=== PATIENT | female | born 1935 | race Caucasian/White ===

== ENCOUNTER 2020-08-31 14:25 | Outpatient (REF) | payer MEDICARE, SELFPAY ==
--- NOTE | 2020-08-31 | MM_ITS ---
EXAMINATION: MM SCREENING DIGITAL BREAST TOMOSYNTHESIS, RIGHT CLINICAL INFORMATION: Left mastectomy 2016. Due for yearly exam. COMPARISON: Mammography: 04/24/2019, 04/15/2018, 04/02/2018, 03/28/2017 TECHNIQUE: Digital breast tomosynthesis is performed in both the craniocaudal and mediolateral oblique views along with computer-aided detection (CAD). Synthesized 2D images are generated from the tomosynthesis. Additional right MLO view is provided. FINDINGS: There are scattered areas of fibroglandular density (ACR BI-RADS breast composition Category b). There are no significant masses, abnormal calcifications, or other abnormalities. Right breast parenchymal pattern is similar to prior studies. There is no developing density. No significant changes. MM/MM tomosynthesis screening RT IMPRESSION: No mammographic evidence of malignancy. ASSESSMENT: BI-RADS 1: Negative RECOMMENDATION: Routine annual mammography screening. This patient's information was entered into a reminder system with a target due date for their next mammogram.
--- NOTE | 2020-08-31 | MM_ITS ---
EXAMINATION: BONE DENSITOMETRY CLINICAL INDICATION: Age-related osteoporosis without current pathological fracture. COMPARISON: Baseline BD dated 04/02/2018. TECHNIQUE: Using a [employer] DXA System (software version: 13.1) manufactured by [employer], dual-energy x-ray absorptiometry was performed of the lumbar spine and left hip. The images are of good technical quality. Summary results are attached. FINDINGS: AP SPINE L1-L2 (excluding L3 and L4): The data of L1-L4 has been changed to exclude the L3 and L4 vertebral bodies, because degenerative changes at these levels may cause overestimation of lumbar spine density. Current: BMD 1.105 g/cm2, Z-score 1.1, T-score -0.5, normal, 23.1% increase from baseline (<5% change is not significant). Baseline: BMD 0.898 g/cm2. LEFT FEMUR, NECK: Current: BMD 0.578 g/cm2, Z-score -1.2, T-score -3.3, osteoporosis. Baseline: BMD 0.709 g/cm2. LEFT FEMUR, TOTAL: Current: BMD 0.639 g/cm2, Z-score -1.0, T-score -2.9, osteoporosis, 15.8% decrease from baseline (<5% change is not significant). Baseline: BMD 0.759 g/cm2. IDENTIFIED RISK FACTORS: History of adult fracture. Rheumatoid arthritis. Osteoporosis. Recurrent falls. Height loss. Secondary osteoporosis (early menopause). HISTORY OF FRACTURE: Patella. MEDICATIONS: Calcium supplement and/or multivitamin. Vitamin D. ERT/SERMS. Bisphosphonates. MM/XR DEXA axial skeleton IMPRESSION: 1. DIAGNOSIS: Osteoporosis based on the lowest T-score value of -3.3 in the femoral neck applying World Health Organization criteria. 2. 10-YEAR FRACTURE RISK PREDICTION, FRAX: Major osteoporotic fracture (clinical spine, forearm, hip or shoulder) 45.4%. Hip fracture 21.8%. 3. Treatment Recommendations: NOF guidelines recommend consideration for treatment in postmenopausal women and men age 50 and older presenting with the following: -A hip or vertebral (clinical or morphometric) fracture. -T-score less than or equal to -2.5 at the femoral neck or spine after appropriate evaluation to exclude secondary causes. -Low bone mass at the hip or spine and a 10-year fracture probability by FRAX of greater than or equal to 3% for hip fracture or greater than or equal to 20% for major osteoporotic fracture based on the [place] adapted WHO algorithm. 4. Other Recommendations: All treatment decisions require clinical judgment and consideration of individual patient factors, including patient preferences, comorbidities, previous drug use, risk factors not captured in the FRAX model (e.g. frailty, falls, vitamin D deficiency, increased bone turnover, interval significant decline in bone density) and possible under or overestimation of fracture risk by FRAX. Additional medical evaluation for secondary cause of low bone mineral density may be appropriate. FUTURE SCAN RECOMMENDATION: People with diagnosed cases of osteoporosis or at high risk for fracture should have regular bone mineral density tests. For patients eligible for Medicare, routine testing is allowed once every 2 years. The testing frequency can be increased to one year for patients who have rapidly progressing disease, those who are receiving or discontinuing medical therapy to restore bone mass, or have additional risk factors.
== END 2020-08-31 14:26 | disposition home or self-care (01) ==
LOC: HO.MAMMO 14:25
PROVIDERS: Visit Provider Internal Medicine Rheumatology
DX: Z12.31 Encounter for screening mammogram for malignant neoplasm of breast (principal); Z13.820 Encounter for screening for osteoporosis; M81.0 Age-related osteoporosis without current pathological fracture; M06.9 Rheumatoid arthritis, unspecified; Z78.0 Asymptomatic menopausal state; Z87.81 Personal history of (healed) traumatic fracture; Z79.899 Other long term (current) drug therapy
CPT/HCPCS: 77067; 77080

== ENCOUNTER 2021-02-15 20:33 | Inpatient (IN) | payer MEDICARE, SELFPAY ==
--- NOTE | ~2021-02-15 | XR_ITS ---
EXAMINATION: XR CHEST CLINICAL INFORMATION: Cough COMPARISON: 08/07/2017 TECHNIQUE: Frontal view of the chest was obtained. FINDINGS: No significant abnormality is noted involving the heart, lungs, mediastinum, bony thorax or soft tissues. The aorta is unfolded and degenerative changes are present in both shoulders. XR/XR chest 1V IMPRESSION: No acute intrathoracic disease.
--- NOTE | ~2021-02-15 | CT_ITS ---
EXAMINATION: CT ABDOMEN AND PELVIS WITH CONTRAST CLINICAL INFORMATION: Left lower quadrant pain. COMPARISON: 02/28/2016. TECHNIQUE: Contiguous axial thin section helical images of the abdomen and pelvis were performed following the administration of 85 mL of intravenous Omnipaque 350. The data set was reformatted in the coronal and sagittal planes and reviewed on an independent workstation. DLP: 595 mGy-cm. FINDINGS: There is stable linear atelectasis at the lateral right lung base. The visualized lung bases are otherwise clear. The visualized portions of the heart are unremarkable. The liver is of normal size and attenuation without focal lesions nor intrahepatic biliary ductal dilation. A normal gallbladder is identified. There is no wall thickening or discernible pericholecystic fluid. The spleen, pancreas, adrenal glands are unremarkable. Both kidneys are of normal size and attenuation without hydronephrosis or nephrolithiasis. Following the administration of IV contrast, prompt symmetric nephrograms are displayed. There is no abdominal free fluid. There is neither mesenteric nor retroperitoneal lymphadenopathy. There are numerous dilated loops of small bowel with several air-fluid levels. There is a bowel and fat-containing ventral hernia in the left lower quadrant. The hernia appears to only contain colon, though there are decompressed loops of distal small bowel just proximal to this location likely indicating that the small bowel obstruction occurs at this location. No dilated loops of large bowel are present. There is no pelvic free fluid. The urinary bladder is unremarkable. There is neither pelvic nor inguinal lymphadenopathy. Bone windows: Neither sclerotic nor lytic bone lesions are identified. There is a compression fracture at T12. This is age indeterminant, though new from the [address]/CT abdomen pelvis w con IMPRESSION: Distal small bowel obstruction likely related to the fat and bowel containing left lower quadrant ventral hernia. Automated exposure control (Care Dose) Adjustment of the mA and/or kv according to patient size (this includes techniques or standardized protocols for targeted exams where dose is matched to indication / reason for exam; i.e. extremities or head).
--- NOTE | ~2021-02-15 | XR_ITS ---
EXAMINATION: CHEST 1 VIEW CLINICAL INFORMATION: Enteric tube placement. COMPARISON: 02/15/2021. TECHNIQUE: An AP view of the chest is provided. FINDINGS: The cardiac silhouette is not enlarged. An enteric tube is in place. The tip extends below the extent of this film. The mediastinal and hilar contours are unremarkable. There are neither pleural effusions nor pneumothoraces. There are no consolidations. The osseous structures are stable. XR/XR chest 1V IMPRESSION: Enteric tube in place. No evidence for acute disease.
[2021-02-15 20:46] VITALS: BP 154/83; BP 172/93; PULSE 83; RESP 18; TEMP 37.1; O2SAT 98; BMI 29.2
[2021-02-15 21:01] VITALS: BP 149/68; PULSE 69; RESP 14; O2SAT 97
--- NOTE | 2021-02-15 22:19 | ECG_ITS ---
Test Reason : ABD PAIN Blood Pressure : / mmHG Vent. Rate : 081 BPM Atrial Rate : 081 BPM P-R Int : 156 ms QRS Dur : 088 ms QT Int : 386 ms P-R-T Axes : 052 049 091 degrees QTc Int : 448 ms Normal sinus rhythm ST & T wave abnormality, consider anterolateral ischemia Abnormal ECG When compared with ECG of 18-DEC-2015 00:27, T wave inversion now evident in Anterolateral leads Referred By: Rehana Barth Electronically Signed By:IVORY MCKOY
--- NOTE | 2021-02-15 22:29 | ED.NAVMDI ---
HPI - Nausea/Vomiting/Diarrhea General Chief complaint: Nausea/Vomiting/Diarrhea Stated complaint: N/V Time Seen by Provider: 02/15/21 22:19 Source: patient and family (Daughter) Mode of arrival: ambulatory History of Present Illness HPI Narrative: This is an 85-year-old female with past medical history of rheumatoid arthritis and presents with onset of nausea and vomiting since Sunday without associated fevers, chills, cough, shortness of breath, chest pain. She denies any diarrhea and has not had a bowel movement since that time and denies any urinary pain/burning/frequency. She states she has continued to pass gas. Patient does have a known abdominal wall hernia. Patient has received both COVID-19 vaccines. Related Data Home Medications Medication Instructions Recorded Confirmed escitalopram oxalate 1 tab PO DAILY 01/21/21 01/21/21 gabapentin 1 cap PO DAILY 01/21/21 01/21/21 lorazepam 1 tab PO BEDTIME PRN 01/21/21 01/21/21 meloxicam 1 tab PO DAILY 01/21/21 01/21/21 methotrexate sodium (PF) 25 mg IM QWEEK 01/21/21 01/21/21 tamoxifen 1 tab PO DAILY 01/21/21 01/21/21 Allergies Allergy/AdvReac Type Severity Reaction Status Date / Time No Known Allergies Allergy Verified 01/21/21 13:44 [No Known Allergies*] Review of Systems Review of Systems: Pertinent positives and negatives as stated in HPI 10 point review of systems otherwise negative. [facility] Past Medical History Source: nursing notes reviewed Medical History Abdominal hernia Anosmia Anxiety Breast cancer Osteoporosis Rheumatoid arteritis Surgical History History of appendectomy S/P mastectomy Family History Family History Other No significant family history Social History Social History Alcohol intake: never Smoking Status: Former smoker Tobacco Type: Cigarette Advance Directives: No Advance Directives Information Provided: Yes Physical Exam Vital Signs: Vital Signs: Last Vital Signs Temp 99.4 F 02/16/21 02:20 Pulse 83 02/16/21 02:20 Resp 16 02/16/21 02:20 BP 142/77 H 02/16/21 02:20 Pulse Ox 94 02/16/21 02:20 Body Mass Index 29.2 VITAL SIGNS: Reviewed. GENERAL: Well developed, well nourished, mild distress. HEAD: Normocephalic/atraumatic, EYES: PERRLA, EOMI OROPHARYNX: no oral lesions noted, posterior pharynx clear, dry mucosa NECK: Supple, no adenopathy LUNGS: Normal breath sounds. No adventitious sounds or accessory muscle use. SpO2<97> CARDIOVASCULAR: Regular rate and rhythm without noted murmurs ABDOMEN: Soft, minimal tenderness at the left lower quadrant difficulty palpating hernia, distended with hypoactive bowel sounds. NEUROLOGIC: Alert and oriented x 4. Strength and sensation to light touch were grossly intact x 4. Course Course Course Narrative: 85-year-old female with history and clinical presentation suspicious for SBO and less likely diverticulitis or UTI. Review of all investigations consistent with SBO and mild dehydration. Serial troponins down trending. I discussed with Cardiology feels this is likely type 2. Discussed the case with surgical services, Dr. Meeks, who agrees for admission and conservative treatment. MDM - Nausea/Vomiting/Diarrhea Lab Data Result diagrams: 02/15/21 22:49 02/15/21 22:49 Labs: Lab Results 02/15/21 02/15/21 02/15/21 Range/Units 22:49 22:49 22:49 WBC 14.2 H (4.8-10.8) X10*3/uL RBC 4.04 L D (4.20-5.50) X10*6/uL Hgb 13.3 D (12.0-16.0) g/dl Hct 38.7 (37-47) % MCV 95.8 (80-98) fL MCH 32.9 (27.0-33.0) pg MCHC 34.4 (31.0-35.0) g/dl RDW 13.4 (11.0-16.0) % Plt Count 225 (160-400) X10*3/uL MPV 9.9 (9.4-12.3) fL Immature Gran % (Auto) 0.6 H (0.0-0.4) % Neut % (Auto) 83.4 H (45-73) % Lymph % (Auto) 10.3 L (20-40) % [place] % (Auto) 5.6 (2-11) % Eos % (Auto) 0.0 (0-4) % Baso % (Auto) 0.1 (0-2) % Lymph # (Auto) 1.5 (1.2-4.9) X10*3/uL [place] # (Auto) 0.8 (0.1-1.2) X10*3/uL Eos # (Auto) 0.0 (0.0-0.4) X10*3/uL Baso # (Auto) 0.0 (0.0-0.2) X10*3/uL Abs Immat Gran (auto) 0.08 H (0.00-0.03) X10*3/uL Absolute Neuts (auto) 11.8 H (2.0-8.3) X10*3/uL Absolute Nucleated RBC 0.000 (0.0-0.012) X10*3/uL Nucleated RBC % (auto) 0.0 (0.0-0.2) /100WBC Sodium 137 (135-145) mmol/L Potassium 3.9 D (3.3-5.1) mmol/L Chloride 93 L (96-108) mmol/L Carbon Dioxide 28 (22-29) mmol/L Anion Gap 20 (12-20) BUN 32 H (9-16) mg/dL Creatinine 1.23 (0.5-1.4) mg/dL Estim Creat Clear Calc 33.6 Estimated GFR 42 Random Glucose 119 H (60-115) mg/dL Lactic Acid (0.5-2.0) mmol/L Calcium 10.2 D (8.4-10.2) mg/dL Total Bilirubin 0.8 (0.0-1.0) mg/dL AST 53 H (5-31) U/L ALT 31 (0-31) U/L Alkaline Phosphatase 62 D (39-117) U/L Troponin I High Sens 94.4 H (<3.5-17.0) ng/L B-Natriuretic Peptide 69 (<100) pg/mL Total Protein 7.6 (6.5-8.0) g/dL Albumin 4.4 (3.5-5.0) g/dL Lipase 105 H (8-78) U/L Urine Color Urine Appearance Urine pH (5.0-8.0) Ur Specific [place] (1.005-1.025) Urine Protein (NEG-TRACE) MG/DL Urine Glucose (UA) (NEG) MG/DL Urine Ketones (NEG) MG/DL Urine Blood (NEG) Urine Nitrite (NEG) Ur Leukocyte Esterase (NEG) Urine RBC (0) /HPF Urine WBC (0-4) /HPF Ur Squamous Epith Cells /LPF Amorphous Sediment /LPF Urine Bacteria /LPF COVID-19 (ADELINE) (Negative) COVID-19 Clin Com 02/16/21 02/16/21 02/16/21 Range/Units 00:19 00:19 02:07 WBC (4.8-10.8) X10*3/uL RBC (4.20-5.50) X10*6/uL Hgb (12.0-16.0) g/dl Hct (37-47) % MCV (80-98) fL MCH (27.0-33.0) pg MCHC (31.0-35.0) g/dl RDW (11.0-16.0) % Plt Count (160-400) X10*3/uL MPV (9.4-12.3) fL Immature Gran % (Auto) (0.0-0.4) % Neut % (Auto) (45-73) % Lymph % (Auto) (20-40) % [place] % (Auto) (2-11) % Eos % (Auto) (0-4) % Baso % (Auto) (0-2) % Lymph # (Auto) (1.2-4.9) X10*3/uL [place] # (Auto) (0.1-1.2) X10*3/uL Eos # (Auto) (0.0-0.4) X10*3/uL Baso # (Auto) (0.0-0.2) X10*3/uL Abs Immat Gran (auto) (0.00-0.03) X10*3/uL Absolute Neuts (auto) (2.0-8.3) X10*3/uL Absolute Nucleated RBC (0.0-0.012) X10*3/uL Nucleated RBC % (auto) (0.0-0.2) /100WBC Sodium (135-145) mmol/L Potassium (3.3-5.1) mmol/L Chloride (96-108) mmol/L Carbon Dioxide (22-29) mmol/L Anion Gap (12-20) BUN (9-16) mg/dL Creatinine (0.5-1.4) mg/dL Estim Creat Clear Calc Estimated GFR Random Glucose (60-115) mg/dL Lactic Acid 1.4 (0.5-2.0) mmol/L Calcium (8.4-10.2) mg/dL Total Bilirubin (0.0-1.0) mg/dL AST (5-31) U/L ALT (0-31) U/L Alkaline Phosphatase (39-117) U/L Troponin I High Sens 86.6 H (<3.5-17.0) ng/L B-Natriuretic Peptide (<100) pg/mL Total Protein (6.5-8.0) g/dL Albumin (3.5-5.0) g/dL Lipase (8-78) U/L Urine Color YELLOW Urine Appearance CLOUDY Urine pH 7.5 (5.0-8.0) Ur Specific [place] 1.020 (1.005-1.025) Urine Protein NEG (NEG-TRACE) MG/DL Urine Glucose (UA) NEG (NEG) MG/DL Urine Ketones 40 (NEG) MG/DL Urine Blood TRACE (NEG) Urine Nitrite NEG (NEG) Ur Leukocyte Esterase NEG (NEG) Urine RBC 0-2 (0) /HPF Urine WBC 0-2 (0-4) /HPF Ur Squamous Epith Cells 1+ /LPF Amorphous Sediment 2+ /LPF Urine Bacteria 1+ /LPF COVID-19 ([facility]INE) (Negative) COVID-19 Clin Com 02/16/21 Range/Units 02:07 WBC (4.8-10.8) X10*3/uL RBC (4.20-5.50) X10*6/uL Hgb (12.0-16.0) g/dl Hct (37-47) % MCV (80-98) fL MCH (27.0-33.0) pg MCHC (31.0-35.0) g/dl RDW (11.0-16.0) % Plt Count (160-400) X10*3/uL MPV (9.4-12.3) fL Immature Gran % (Auto) (0.0-0.4) % Neut % (Auto) (45-73) % Lymph % (Auto) (20-40) % [place] % (Auto) (2-11) % Eos % (Auto) (0-4) % Baso % (Auto) (0-2) % Lymph # (Auto) (1.2-4.9) X10*3/uL [place] # (Auto) (0.1-1.2) X10*3/uL Eos # (Auto) (0.0-0.4) X10*3/uL Baso # (Auto) (0.0-0.2) X10*3/uL Abs Immat Gran (auto) (0.00-0.03) X10*3/uL Absolute Neuts (auto) (2.0-8.3) X10*3/uL Absolute Nucleated RBC (0.0-0.012) X10*3/uL Nucleated RBC % (auto) (0.0-0.2) /100WBC Sodium (135-145) mmol/L Potassium (3.3-5.1) mmol/L Chloride (96-108) mmol/L Carbon Dioxide (22-29) mmol/L Anion Gap (12-20) BUN (9-16) mg/dL Creatinine (0.5-1.4) mg/dL Estim Creat Clear Calc Estimated GFR Random Glucose (60-115) mg/dL Lactic Acid (0.5-2.0) mmol/L Calcium (8.4-10.2) mg/dL Total Bilirubin (0.0-1.0) mg/dL AST (5-31) U/L ALT (0-31) U/L Alkaline Phosphatase (39-117) U/L Troponin I High Sens (<3.5-17.0) ng/L B-Natriuretic Peptide (<100) pg/mL Total Protein (6.5-8.0) g/dL Albumin (3.5-5.0) g/dL Lipase (8-78) U/L Urine Color Urine Appearance Urine pH (5.0-8.0) Ur Specific [place] (1.005-1.025) Urine Protein (NEG-TRACE) MG/DL Urine Glucose (UA) (NEG) MG/DL Urine Ketones (NEG) MG/DL Urine Blood (NEG) Urine Nitrite (NEG) Ur Leukocyte Esterase (NEG) Urine RBC (0) /HPF Urine WBC (0-4) /HPF Ur Squamous Epith Cells /LPF Amorphous Sediment /LPF Urine Bacteria /LPF COVID-19 ([facility]) Negative (Negative) COVID-19 Clin Com See Note ECG Data Attestation: I personally reviewed and interpreted this ECG as follows: Prior ECG tracings: available for review (12/18/2015 changes: T-wave inversions noted in V2/V3/V4 as well as Q-waves in lead 3 (may be position related)) Interpretation: Sinus rhythm, HR -81, questionable anterolateral ischemia without STEMI, NC/QRS/QTC are within normal limits. Discharge Plan Discharge Clinical Impression: SBO (small bowel obstruction), Elevated troponin Patient Disposition: Admitted As Inpatient
[2021-02-15 22:41] VITALS: BP 163/82; PULSE 84; RESP 18; TEMP 38; O2SAT 97
[2021-02-15] MEDS: ondansetron HCL 4 MG/2 ML VIAL IVPUSH (22:50)
[2021-02-15 23:01] LABS: Basophils Percent Auto 0.1 % (0-2); Hematocrit 38.7 % (37-47); Hemoglobin 13.3 g/dl (12.0-16.0); Imm Gran Abs Auto 0.08 X10*3/uL (0.00-0.03); Imm Gran Pct Auto 0.6 % (0.0-0.4); Lymphocytes Absolute Auto 1.5 X10*3/uL (1.2-4.9); Lymphocytes Percent Auto 10.3 % (20-40); MANUAL DIFF FLAG NO; Mean Corpuscular HGB Conc 34.4 g/dl (31.0-35.0); Mean Corpuscular Hemoglobin 32.9 pg (27.0-33.0); Mean Corpuscular Volume 95.8 fL (80-98); Mean Platelet Volume 9.9 fL (9.4-12.3); Monocytes Absolute Auto 0.8 X10*3/uL (0.1-1.2); Monocytes Percent Auto 5.6 % (2-11); Neutrophils Absolute Auto 11.8 X10*3/uL (2.0-8.3); Neutrophils Percent Auto 83.4 % (45-73); Platelet Count 225 X10*3/uL (160-400); Red Blood Count 4.04 X10*6/uL (4.20-5.50); Red Cell Distribution Width 13.4 % (11.0-16.0); White Blood Count 14.2 X10*3/uL (4.8-10.8)
[2021-02-15] MEDS: Acetaminophen 325 MG TABLET 975 MG PO (23:22)
[2021-02-15 23:43] LABS: Alanine Aminotransferase 31 U/L (0-31); Albumin Level 4.4 g/dL (3.5-5.0); Alkaline Phosphatase 62 U/L (39-117); Anion Gap 20 (12-20); Aspartate Amino Transferase 53 U/L (5-31); Bilirubin Total 0.8 mg/dL (0.0-1.0); Blood Urea Nitrogen 32 mg/dL (9-16); Calcium 10.2 mg/dL (8.4-10.2); Carbon Dioxide 28 mmol/L (22-29); Chloride 93 mmol/L (96-108); Creatinine Clr Calc Pharmacy 33.6; Estimated Glomerular Filt Rate 42; Glucose Random 119 mg/dL (60-115); Potassium 3.9 mmol/L (3.3-5.1); Sodium 137 mmol/L (135-145); Total Protein 7.6 g/dL (6.5-8.0)
[2021-02-15 23:56] LABS: Lipase 105 U/L (8-78)
[2021-02-16] VITALS (9 sets, daily range): BP systolic 120–145; BP diastolic 60–77; PULSE 65–84; RESP 12–18; TEMP 37.1–37.4; O2SAT 94–99
--- NOTE | 2021-02-16 00:08 | PC.NURSE ---
PT received tylenol PO. Vomited med with approximately 1000 mL of bile fluid 15 minutes later.
[2021-02-16 00:23] LABS: B Type Natriuretic Peptide 69 pg/mL (<100)
[2021-02-16 00:28] LABS: Glucose Urine UA NEG (NEG); Leukocyte Esterase Urine NEG (NEG); Nitrite Urine NEG (NEG); PH 7.5 (5.0-8.0); Urine Blood TRACE (NEG); Urine Ketones 40 MG/DL (NEG); Urine Protein NEG (NEG-TRACE)
[2021-02-16 00:36] LABS: Appearance Urine CLOUDY; Color Urine YELLOW
[2021-02-16 00:37] LABS: Amorphous Sediment Urine 2+ /LPF; Bacteria Urine 1+ /LPF; RBC Urine 0-2 /HPF (0); Squamous Epithelial Cell Urine 1+ /LPF; WBC Urine 0-2 /HPF (0-4)
[2021-02-16 00:41] LABS: Troponin-I High Sensitivity 94.4 ng/L (<3.5-17.0)
[2021-02-16 00:49] LABS: Lactic Acid 1.4 mmol/L (0.5-2.0)
[2021-02-16] MEDS: iohexoL 350 MG/ML 100 ML INFUS..BTL 85 ML IV (01:06)
[2021-02-16] MEDS: 0.9 % Sodium Chloride 1,000 ML 999 ML IV (01:44)
[2021-02-16] MEDS: cefTRIAXone sodium 1 GM in 0.9 % Sodium Chloride 50 ML IV (01:44)
[2021-02-16 02:28] LABS: COVID-19 Test Negative (Negative); IDNOW Serial# 9DD0AD1C
--- NOTE | 2021-02-16 03:01 | ECG_ITS ---
Test Reason : REPEAT Blood Pressure : / mmHG Vent. Rate : 085 BPM Atrial Rate : 085 BPM P-R Int : 162 ms QRS Dur : 084 ms QT Int : 384 ms P-R-T Axes : 037 033 100 degrees QTc Int : 456 ms Normal sinus rhythm Moderate voltage criteria for LVH, may be normal variant ST & T wave abnormality, consider anterior ischemia Abnormal ECG When compared with ECG of 15-FEB-2021 22:55, No significant change was found Referred By: Rehana Barth Electronically Signed By:IVORY MCKOY
[2021-02-16 03:02] LABS: Troponin-I High Sensitivity 86.6 ng/L (<3.5-17.0)
[2021-02-16] MEDS: Dextrose 5 % and Lactated Ring 1,000 ML 100 ML IVCONT ×2 (05:15→15:18)
--- NOTE | 2021-02-16 06:31 | PC.NURSE ---
This nurse entered PT room and noticed blood moving through the PT's NG suction tube. Provider made aware and came in to see the PT.
[2021-02-16 07:19] LABS: Glucose Urine UA NEG (NEG); Leukocyte Esterase Urine NEG (NEG); Nitrite Urine NEG (NEG); PH 6.5 (5.0-8.0); Specific Gravity - Urine <= 1.005 (1.005-1.025); Urine Blood TRACE (NEG); Urine Ketones 15 MG/DL (NEG); Urine Protein NEG (NEG-TRACE)
[2021-02-16 07:24] LABS: Appearance Urine CLEAR; Color Urine YELLOW
[2021-02-16 07:31] LABS: RBC Urine 0-2 /HPF (0); Squamous Epithelial Cell Urine TRACE /LPF; WBC Urine 0 /HPF (0-4)
--- NOTE | 2021-02-16 07:45 | PC.NURSE ---
resting in bed. Denies pain. NG draining blood tinged drnge.
[2021-02-16] MEDS: Heparin Sodium,Porcine 5,000 UNIT/ML VIAL 5000 UNIT SUBCUT ×2 (07:47→16:23)
[2021-02-16] MEDS: Famotidine/PF 20 MG/2 ML VIAL IVPUSH ×2 (10:16→20:03)
--- NOTE | 2021-02-16 11:40 | PM.CNCAR ---
History of Present Illness History of Present Illness Date of Service: 02/16/21 Consult reason: troponin elevation Chief complaint: Small bowel obstruction, elevated troponin Narrative: This is a cardiology consultation regarding troponin elevation. She actually came to the hospital with nausea vomiting. She has been diagnosed to have small-bowel obstruction and admitted for the same. From the cardiac standpoint, she had elevated troponins. Hence we have been asked to see her. Patient denies any chest pain or any other cardiac symptoms at this time. She does not have any history of coronary disease or myocardial infarction or cardiomyopathy. States that she has been doing okay otherwise. Based on records, seems to have history of rheumatoid arthritis and breast cancer for which, she had undergone mastectomy. Review of Systems Review of Systems: Yes all other systems are reviewed and are negative Cardiovascular: Cardiovascular: Reports as per HPI, Reports no additional cardiovascular complaints, Denies acrocyanosis, Denies cool extremities, Denies painful fingertips, Denies chest pain, Denies chest pain at rest, Denies diaphoresis, Denies syncope, Denies irregular heart rhythm, Denies claudication, Denies leg edema, Denies lightheadedness, Denies palpitations and Denies dyspnea Respiratory: Respiratory: Denies dyspnea Neurologic: Denies syncope Endocrine: Endocrine: Denies palpitations PMFSH Past Medical History Medical History Abdominal hernia Anosmia Anxiety Breast cancer Osteoporosis Rheumatoid arteritis Family History Family History Other No significant family history Surgical History Surgical History History of appendectomy S/P mastectomy Social History Social History Alcohol intake: never Smoking Status: Never smoker Tobacco Type: Cigarette Use of substances other than those prescribed or required for medical reasons: No Advance Directives: No Advance Directives Information Provided: Yes Meds Allergies Allergy/AdvReac Type Severity Reaction Status Date / Time No Known Allergies Allergy Verified 01/21/21 13:44 [No Known Allergies*] Active Medications: Current Medications Generic Name Dose Route Start Last Admin Trade Name Freq PRN Reason Stop Dose Admin Escitalopram Oxalate 10 mg 02/16/21 09:00 Escitalopram Oxalate 10 Mg Tablet PO DAILY MANI Famotidine 20 mg 02/16/21 06:50 02/16/21 10:16 Famotidine/Pf 20 Mg/2 Ml Vial IVPUSH 20 mg BID MANI Administration Gabapentin 300 mg 02/16/21 09:00 Gabapentin 300 Mg Capsule PO DAILY [facility] Heparin Sodium (Porcine) 5,000 unit 02/16/21 06:00 02/16/21 07:47 Heparin Sodium,Porcine 5,000 Unit/Ml Vial SUBCUT 5,000 unit Q12H MANI Administration Dextrose/Lactated Ringer's 1,000 mls @ 100 mls/hr 02/16/21 03:40 02/16/21 05:15 D5lr IVCONT 100 mls/hr .Q10H MANI Administration Lorazepam 0.5 mg 02/16/21 06:45 Lorazepam 0.5 Mg Tablet PO BEDTIME PRN Anxiety Morphine Sulfate 2 mg 02/16/21 03:40 Morphine Sulfate 2 Mg/Ml Cartridge IVPUSH Q3H PRN Pain, Severe (Pain Scale 7-10) Ondansetron HCl 4 mg 02/16/21 03:40 Ondansetron Hcl 4 Mg/2 Ml Vial IVPUSH Q8H PRN nausea Sodium Chloride 3 ml 02/16/21 08:00 02/16/21 09:08 0.9 % Sodium Chloride Flush 3 Ml Syringe IVFLUSH Not Given QSHIFT [facility] Home Medications Medication Instructions Recorded Confirmed Last Taken Type escitalopram oxalate 1 tab PO DAILY 01/21/21 02/16/21 Unknown History gabapentin 1 cap PO DAILY 01/21/21 02/16/21 Unknown History lorazepam 1 tab PO BEDTIME PRN 01/21/21 02/16/21 Unknown History meloxicam 1 tab PO DAILY 01/21/21 02/16/21 Unknown History methotrexate sodium (PF) 25 mg IM QWEEK 01/21/21 02/16/21 Unknown History tamoxifen 1 tab PO DAILY 01/21/21 02/16/21 Unknown History omeprazole 1 cap PO BID 02/16/21 02/16/21 Unknown History ondansetron HCl 1 tab PO Q8H PRN 02/16/21 02/16/21 Unknown History Physical Exam Vital Signs: Vital Signs: Last Vital Signs Temp 99.1 F 02/16/21 07:06 Pulse 80 02/16/21 07:44 Resp 12 02/16/21 07:44 BP 126/67 02/16/21 07:44 Pulse Ox 96 02/16/21 07:44 Body Mass Index 29.2 Const: General: cooperative, comfortable and no acute distress Orientation/consciousness: patient oriented x3 HENMT: Other: Unremarkable Neck: Neck: Yes normal visual inspection Chest: Chest palpation & inspection: normal inspection of the chest Resp: Auscultation: clear to auscultation bilaterally, no crackles and no wheezes Cardio: Jugular venous distension: no JVD Palpation: normal PMI Heart sounds: S1 normal heart sound present, S2 normal heart sound present, no gallops, no murmurs and no rubs GI: Palpation (GI): Soft to palpation Back/Spine/Pelvis: Other: unremarkable Skin: General skin exam: no rashes or lesions noted Neuro: General: patient oriented x3 Extrem: General: Yes no clubbing, cyanosis or edema Psych: Mental Status: mental status grossly normal Results Labs and Meds Result diagrams: 02/15/21 22:49 02/15/21 22:49 Lab results: Laboratory Results - last 24 hr 02/15/21 02/15/21 02/15/21 22:49 22:49 22:49 WBC 14.2 H RBC 4.04 L D Hgb 13.3 D Hct 38.7 MCV 95.8 MCH 32.9 MCHC 34.4 RDW 13.4 Plt Count 225 MPV 9.9 Immature Gran % (Auto) 0.6 H Neut % (Auto) 83.4 H Lymph % (Auto) 10.3 L [place] % (Auto) 5.6 Eos % (Auto) 0.0 Baso % (Auto) 0.1 Lymph # (Auto) 1.5 [place] # (Auto) 0.8 Eos # (Auto) 0.0 Baso # (Auto) 0.0 Abs Immat Gran (auto) 0.08 H Absolute Neuts (auto) 11.8 H Absolute Nucleated RBC 0.000 Nucleated RBC % (auto) 0.0 Sodium 137 Potassium 3.9 D Chloride 93 L Carbon Dioxide 28 Anion Gap 20 BUN 32 H Creatinine 1.23 Estim Creat Clear Calc 33.6 Estimated GFR 42 Random Glucose 119 H Lactic Acid Calcium 10.2 D Total Bilirubin 0.8 AST 53 H ALT 31 Alkaline Phosphatase 62 D Troponin I High Sens 94.4 H B-Natriuretic Peptide 69 Total Protein 7.6 Albumin 4.4 Lipase 105 H Urine Color Urine Appearance Urine pH Ur Specific [place] Urine Protein Urine Glucose (UA) Urine Ketones Urine Blood Urine Nitrite Ur Leukocyte Esterase Urine RBC Urine WBC Ur Squamous Epith Cells Amorphous Sediment Urine Bacteria COVID-19 (ADELINE) COVID-19 Clin Com 02/16/21 02/16/21 02/16/21 00:19 00:19 02:07 WBC RBC Hgb Hct MCV MCH MCHC RDW Plt Count MPV Immature Gran % (Auto) Neut % (Auto) Lymph % (Auto) [place] % (Auto) Eos % (Auto) Baso % (Auto) Lymph # (Auto) [place] # (Auto) Eos # (Auto) Baso # (Auto) Abs Immat Gran (auto) Absolute Neuts (auto) Absolute Nucleated RBC Nucleated RBC % (auto) Sodium Potassium Chloride Carbon Dioxide Anion Gap BUN Creatinine Estim Creat Clear Calc Estimated GFR Random Glucose Lactic Acid 1.4 Calcium Total Bilirubin AST ALT Alkaline Phosphatase Troponin I High Sens 86.6 H B-Natriuretic Peptide Total Protein Albumin Lipase Urine Color YELLOW Urine Appearance CLOUDY Urine pH 7.5 Ur Specific [place] 1.020 Urine Protein NEG Urine Glucose (UA) NEG Urine Ketones 40 Urine Blood TRACE Urine Nitrite NEG Ur Leukocyte Esterase NEG Urine RBC 0-2 Urine WBC 0-2 Ur Squamous Epith Cells 1+ Amorphous Sediment 2+ Urine Bacteria 1+ COVID-19 (ADELINE) COVID-19 Clin Com 02/16/21 02/16/21 02:07 07:09 WBC RBC Hgb Hct MCV MCH MCHC RDW Plt Count MPV Immature Gran % (Auto) Neut % (Auto) Lymph % (Auto) [place] % (Auto) Eos % (Auto) Baso % (Auto) Lymph # (Auto) [place] # (Auto) Eos # (Auto) Baso # (Auto) Abs Immat Gran (auto) Absolute Neuts (auto) Absolute Nucleated RBC Nucleated RBC % (auto) Sodium Potassium Chloride Carbon Dioxide Anion Gap BUN Creatinine Estim Creat Clear Calc Estimated GFR Random Glucose Lactic Acid Calcium Total Bilirubin AST ALT Alkaline Phosphatase Troponin I High Sens B-Natriuretic Peptide Total Protein Albumin Lipase Urine Color YELLOW Urine Appearance CLEAR Urine pH 6.5 Ur Specific [place] <= 1.005 Urine Protein NEG Urine Glucose (UA) NEG Urine Ketones 15 Urine Blood TRACE Urine Nitrite NEG Ur Leukocyte Esterase NEG Urine RBC 0-2 Urine WBC 0 Ur Squamous Epith Cells TRACE Amorphous Sediment Urine Bacteria NONE COVID-19 (ADELINE) Negative COVID-19 Clin Com See Note ECG Attestation: I personally reviewed and interpreted this ECG as follows: Interpretation: EKG with sinus rhythm at 81/Min; anterior T inversions; there are Q-waves in inferior leads that could be normal variant and less likely a prior inferior infarct. The anterior T inversions are new compared to prior EKG. Imaging Radiologist's impression: Impressions Chest X-Ray 02/15/21 23:46 IMPRESSION: No acute intrathoracic disease. Abdomen/Pelvis CT 02/16/21 00:01 IMPRESSION: Distal small bowel obstruction likely related to the fat and bowel containing left lower quadrant ventral hernia. Automated exposure control (Care Dose) Adjustment of the mA and/or kv according to patient size (this includes techniques or standardized protocols for targeted exams where dose is matched to indication / reason for exam; i.e. extremities or head). Chest X-Ray 02/16/21 03:13 IMPRESSION: Enteric tube in place. No evidence for acute disease. Assessment and Plan (1) NSTEMI (non-ST elevated myocardial infarction): Status: Acute (2) SBO (small bowel obstruction): Status: Acute High sensitivity troponins are 86 followed by 94. She had T inversions in the LAD territory. She could have underlying coronary disease based on her age. Clinically, no symptoms. If able, can take a rectal aspirin. Otherwise when she is able to take orally, then start statins. Echocardiogram can be completed. We will follow up with you.
--- NOTE | 2021-02-16 12:04 | MHC.CM.PN ---
pt lives in the [facility] assisted living. she uses a cane for ambulation. pt's daughter is at the bedside and will be transporting pt back to [place] at dc. pt denies the need for vna at dc dc plan is to return to [place] s any svcs. cm to cont. to follow.
--- NOTE | 2021-02-16 12:21 | PM.IMCN ---
History of Present Illness Data of Consult Service Date: 02/16/21 Requesting physician: Laura Meeks Primary Care Provider: Vineet Hwang MD, DO HPI Reason for consult: elevated troponin 85F presented with several days of nausea and vomitting. she denies significant abdominal pain. denies fever, chills, chest pain, sob. in ED CT showed distal small bowel obstruction. NGT was placed with symptomatic improvement. patient was noted to have mildly elevated troponin with some ischemic changes on EKG, patient denied any chest pain. Review of Systems Review of Systems: Constitutional: Denies fever, denies Chills Eyes: denies blurry vision ENT: denies sore throat CVS: denies chest pain Respiratory: Denies dyspnea GI: no abdominal pain : denies dysuria MSK: denies neck pain Skin: denies rash Neuro: denies specific motor weakness Psych: denies suicidal ideation Endocrine: denies heat/cold intoleratnce Hematologic: denies easy bleeding Allergy: denies hives [facility] Medical History Abdominal hernia Anosmia Anxiety Breast cancer Osteoporosis Rheumatoid arteritis Family History Other No significant family history Family history: reviewed and not pertinent Surgical History History of appendectomy S/P mastectomy Social History Alcohol intake: never Smoking Status: Never smoker Tobacco Type: Cigarette Use of substances other than those prescribed or required for medical reasons: No Advance Directives: No Advance Directives Information Provided: Yes service: No Current occupational status: retired [email or web address] Allergies Allergy/AdvReac Type Severity Reaction Status Date / Time No Known Allergies Allergy Verified 01/21/21 13:44 [No Known Allergies*] Active Medications: Current Medications Generic Name Dose Route Start Last Admin Trade Name Freq PRN Reason Stop Dose Admin Aspirin 300 mg 02/17/21 09:00 Aspirin 300 Mg Supp.Rect AR DAILY MANI Escitalopram Oxalate 10 mg 02/16/21 09:00 02/16/21 12:10 Escitalopram Oxalate 10 Mg Tablet PO Not Given DAILY MANI Famotidine 20 mg 02/16/21 06:50 02/16/21 10:16 Famotidine/Pf 20 Mg/2 Ml Vial IVPUSH 20 mg BID MANI Administration Gabapentin 300 mg 02/16/21 09:00 02/16/21 12:10 Gabapentin 300 Mg Capsule PO Not Given DAILY MANI Heparin Sodium (Porcine) 5,000 unit 02/16/21 06:00 02/16/21 07:47 Heparin Sodium,Porcine 5,000 Unit/Ml Vial SUBCUT 5,000 unit Q12H MANI Administration Dextrose/Lactated Ringer's 1,000 mls @ 100 mls/hr 02/16/21 03:40 02/16/21 05:15 D5lr IVCONT 100 mls/hr .Q10H MANI Administration Lorazepam 0.5 mg 02/16/21 06:45 Lorazepam 0.5 Mg Tablet PO BEDTIME PRN Anxiety Morphine Sulfate 2 mg 02/16/21 03:40 Morphine Sulfate 2 Mg/Ml Cartridge IVPUSH Q3H PRN Pain, Severe (Pain Scale 7-10) Ondansetron HCl 4 mg 02/16/21 03:40 Ondansetron Hcl 4 Mg/2 Ml Vial IVPUSH Q8H PRN nausea Sodium Chloride 3 ml 02/16/21 08:00 02/16/21 09:08 0.9 % Sodium Chloride Flush 3 Ml Syringe IVFLUSH Not Given QSHIFT [facility] Home Medications Medication Instructions Recorded Confirmed Last Taken Type escitalopram oxalate 1 tab PO DAILY 01/21/21 02/16/21 Unknown History gabapentin 1 cap PO DAILY 01/21/21 02/16/21 Unknown History lorazepam 1 tab PO BEDTIME PRN 01/21/21 02/16/21 Unknown History meloxicam 1 tab PO DAILY 01/21/21 02/16/21 Unknown History methotrexate sodium (PF) 25 mg IM QWEEK 01/21/21 02/16/21 Unknown History tamoxifen 1 tab PO DAILY 01/21/21 02/16/21 Unknown History omeprazole 1 cap PO BID 02/16/21 02/16/21 Unknown History ondansetron HCl 1 tab PO Q8H PRN 02/16/21 02/16/21 Unknown History Physical Exam Vital Signs and Narrative: Vital Signs: Last Vital Signs Temp 99.1 F 02/16/21 07:06 Pulse 80 02/16/21 07:44 Resp 12 02/16/21 07:44 BP 126/67 02/16/21 07:44 Pulse Ox 96 02/16/21 07:44 Body Mass Index 29.2 General: AO X 3, no acute distress Resp: CTA bilateral CVS: S1,S2,RRR GI: soft, non tender, distended Neuro: motor grossly intact Psych: appropriate affect Results Labs CBC and Chem 7: 02/15/21 22:49 02/15/21 22:49 Labs: Laboratory Results - last 24 hr 02/15/21 02/15/21 02/15/21 22:49 22:49 22:49 MCV 95.8 MCH 32.9 MCHC 34.4 RDW 13.4 Plt Count 225 MPV 9.9 Immature Gran % (Auto) 0.6 H Neut % (Auto) 83.4 H Lymph % (Auto) 10.3 L [place] % (Auto) 5.6 Eos % (Auto) 0.0 Baso % (Auto) 0.1 Lymph # (Auto) 1.5 [place] # (Auto) 0.8 Eos # (Auto) 0.0 Baso # (Auto) 0.0 Abs Immat Gran (auto) 0.08 H Absolute Neuts (auto) 11.8 H Absolute Nucleated RBC 0.000 Nucleated RBC % (auto) 0.0 Anion Gap 20 Estim Creat Clear Calc 33.6 Estimated GFR 42 Random Glucose 119 H Lactic Acid Calcium 10.2 D Total Bilirubin 0.8 AST 53 H ALT 31 Alkaline Phosphatase 62 D Troponin I High Sens 94.4 H B-Natriuretic Peptide 69 Total Protein 7.6 Albumin 4.4 Lipase 105 H Urine Color Urine Appearance Urine pH Ur Specific [place] Urine Protein Urine Glucose (UA) Urine Ketones Urine Blood Urine Nitrite Ur Leukocyte Esterase Urine RBC Urine WBC Ur Squamous Epith Cells Amorphous Sediment Urine Bacteria COVID-19 (ADELINE) COVID-19 Clin Com 02/16/21 02/16/21 02/16/21 00:19 00:19 02:07 MCV MCH MCHC RDW Plt Count MPV Immature Gran % (Auto) Neut % (Auto) Lymph % (Auto) [place] % (Auto) Eos % (Auto) Baso % (Auto) Lymph # (Auto) [place] # (Auto) Eos # (Auto) Baso # (Auto) Abs Immat Gran (auto) Absolute Neuts (auto) Absolute Nucleated RBC Nucleated RBC % (auto) Anion Gap Estim Creat Clear Calc Estimated GFR Random Glucose Lactic Acid 1.4 Calcium Total Bilirubin AST ALT Alkaline Phosphatase Troponin I High Sens 86.6 H B-Natriuretic Peptide Total Protein Albumin Lipase Urine Color YELLOW Urine Appearance CLOUDY Urine pH 7.5 Ur Specific [place] 1.020 Urine Protein NEG Urine Glucose (UA) NEG Urine Ketones 40 Urine Blood TRACE Urine Nitrite NEG Ur Leukocyte Esterase NEG Urine RBC 0-2 Urine WBC 0-2 Ur Squamous Epith Cells 1+ Amorphous Sediment 2+ Urine Bacteria 1+ COVID-19 (ADELINE) COVID-19 Clin Com 02/16/21 02/16/21 02:07 07:09 MCV MCH MCHC RDW Plt Count MPV Immature Gran % (Auto) Neut % (Auto) Lymph % (Auto) [place] % (Auto) Eos % (Auto) Baso % (Auto) Lymph # (Auto) [place] # (Auto) Eos # (Auto) Baso # (Auto) Abs Immat Gran (auto) Absolute Neuts (auto) Absolute Nucleated RBC Nucleated RBC % (auto) Anion Gap Estim Creat Clear Calc Estimated GFR Random Glucose Lactic Acid Calcium Total Bilirubin AST ALT Alkaline Phosphatase Troponin I High Sens B-Natriuretic Peptide Total Protein Albumin Lipase Urine Color YELLOW Urine Appearance CLEAR Urine pH 6.5 Ur Specific [place] <= 1.005 Urine Protein NEG Urine Glucose (UA) NEG Urine Ketones 15 Urine Blood TRACE Urine Nitrite NEG Ur Leukocyte Esterase NEG Urine RBC 0-2 Urine WBC 0 Ur Squamous Epith Cells TRACE Amorphous Sediment Urine Bacteria NONE COVID-19 (ADELINE) Negative COVID-19 Clin Com See Note Imaging Radiologist's Impressions: Impressions Chest X-Ray 02/15/21 23:46 IMPRESSION: No acute intrathoracic disease. Abdomen/Pelvis CT 02/16/21 00:01 IMPRESSION: Distal small bowel obstruction likely related to the fat and bowel containing left lower quadrant ventral hernia. Automated exposure control (Care Dose) Adjustment of the mA and/or kv according to patient size (this includes techniques or standardized protocols for targeted exams where dose is matched to indication / reason for exam; i.e. extremities or head). Chest X-Ray 02/16/21 03:13 IMPRESSION: Enteric tube in place. No evidence for acute disease. 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
--- NOTE | 2021-02-16 12:37 | PM.HPGS ---
History of Present Illness History of Present Illness Date of Service: 02/16/21 Chief complaint: Small bowel obstruction, elevated troponin Narrative: Ernestine Fung is a 85 year old female well known to me with a previous history of breast cancer and acute appendicitis, status post appendectomy complicated by C difficile colitis. She now presents with several day history of abdominal distension, nausea, vomiting, and constipation. The symptoms persisted without improvement therefore she presented to the emergency department for further evaluation. She denies a previous history of similar symptoms. Workup in the emergency department with a CT of the abdomen and pelvis revealed dilated loops of small bowel suggestive of a small-bowel obstruction. She is admitted to the surgical service for further management. She was noted to have elevated cardiac enzymes and is being monitor in [facility] [place] Review of Systems Constitutional: Constitutional: Reports anorexia, Denies chills, Denies fever(s), Denies night sweats and Reports poor appetite Cardiovascular: Cardiovascular: Reports Abdominal Distension, Denies chest pain, Denies irregular heart rhythm and Denies dyspnea Respiratory: Respiratory: Denies change in phlegm color, Denies chest congestion, Denies cough and Denies dyspnea Gastrointestinal: Gastrointestinal: Denies abdominal pain, Reports bloating, Denies hematochezia, Reports constipation, Denies diarrhea, Reports nausea and Reports vomiting Genitourinary: Genitourinary: Reports no additional female genitourinary complaints Integumentary/Breasts: Skin/Breast: Reports system reviewed and no additional complaints, except as docu Hematologic/Lymphatic: Hematologic/Lymphatic: Denies lymphadenopathy PMFSH Past Medical History Medical History Abdominal hernia Anosmia Anxiety Breast cancer Osteoporosis Rheumatoid arteritis Family History Family History Other No significant family history Surgical History Surgical History History of appendectomy S/P mastectomy Social History Social History Alcohol intake: never Smoking Status: Never smoker Tobacco Type: Cigarette Use of substances other than those prescribed or required for medical reasons: No Advance Directives: No Advance Directives Information Provided: Yes service: No Current occupational status: retired [employer] Allergies Allergy/AdvReac Type Severity Reaction Status Date / Time No Known Allergies Allergy Verified 01/21/21 13:44 [No Known Allergies*] Active Medications: Current Medications Generic Name Dose Route Start Last Admin Trade Name Freq PRN Reason Stop Dose Admin Aspirin 300 mg 02/17/21 09:00 Aspirin 300 Mg Supp.Rect DE DAILY MANI Escitalopram Oxalate 10 mg 02/16/21 09:00 02/16/21 12:10 Escitalopram Oxalate 10 Mg Tablet PO Not Given DAILY [facility] Famotidine 20 mg 02/16/21 06:50 02/16/21 10:16 Famotidine/Pf 20 Mg/2 Ml Vial IVPUSH 20 mg BID MANI Administration Gabapentin 300 mg 02/16/21 09:00 02/16/21 12:10 Gabapentin 300 Mg Capsule PO Not Given DAILY [facility] Heparin Sodium (Porcine) 5,000 unit 02/16/21 06:00 02/16/21 07:47 Heparin Sodium,Porcine 5,000 Unit/Ml Vial SUBCUT 5,000 unit Q12H MANI Administration Dextrose/Lactated Ringer's 1,000 mls @ 100 mls/hr 02/16/21 03:40 02/16/21 05:15 D5lr IVCONT 100 mls/hr .Q10H MANI Administration Lorazepam 0.5 mg 02/16/21 06:45 Lorazepam 0.5 Mg Tablet PO BEDTIME PRN Anxiety Morphine Sulfate 2 mg 02/16/21 03:40 Morphine Sulfate 2 Mg/Ml Cartridge IVPUSH Q3H PRN Pain, Severe (Pain Scale 7-10) Ondansetron HCl 4 mg 02/16/21 03:40 Ondansetron Hcl 4 Mg/2 Ml Vial IVPUSH Q8H PRN nausea Sodium Chloride 3 ml 02/16/21 08:00 02/16/21 09:08 0.9 % Sodium Chloride Flush 3 Ml Syringe IVFLUSH Not Given QSHIFT [facility] Home Medications Medication Instructions Recorded Confirmed Last Taken Type escitalopram oxalate 1 tab PO DAILY 01/21/21 02/16/21 Unknown History gabapentin 1 cap PO DAILY 01/21/21 02/16/21 Unknown History lorazepam 1 tab PO BEDTIME PRN 01/21/21 02/16/21 Unknown History meloxicam 1 tab PO DAILY 01/21/21 02/16/21 Unknown History methotrexate sodium (PF) 25 mg IM QWEEK 01/21/21 02/16/21 Unknown History tamoxifen 1 tab PO DAILY 01/21/21 02/16/21 Unknown History omeprazole 1 cap PO BID 02/16/21 02/16/21 Unknown History ondansetron HCl 1 tab PO Q8H PRN 02/16/21 02/16/21 Unknown History Physical Exam Vital Signs: Vital Signs: Last Vital Signs Temp 99.1 F 02/16/21 07:06 Pulse 80 02/16/21 07:44 Resp 12 02/16/21 07:44 BP 126/67 02/16/21 07:44 Pulse Ox 96 02/16/21 07:44 Body Mass Index 29.2 Const: General: cooperative, healthy appearing, comfortable, no acute distress and well developed Nutritional Appearance: average body habitus Orientation/consciousness: patient oriented x3 Limitations: no limitations Neck: Neck: Yes normal visual inspection, Yes supple and Yes no JVD Resp: Effort & Inspection: normal respiratory effort, no stridor and not tachypneic Auscultation: no rales, no rhonchi and no wheezes Cardio: Jugular venous distension: no JVD GI: Inspection: Yes normal to inspection and Yes distended Palpation (GI): Soft to palpation, nontender, no guarding, not rigid and hepatosplenomegaly present Percussion: Yes tympanic to percussion Auscultation: normal bowel sounds Skin: General skin exam: no rashes or lesions noted Neuro: General: patient oriented x3 Extrem: General: Yes no clubbing, cyanosis or edema Results Results Labs: Short CBC 02/15/21 Range/Units 22:49 WBC 14.2 H (4.8-10.8) X10*3/uL Hgb 13.3 D (12.0-16.0) g/dl Hct 38.7 (37-47) % Plt Count 225 (160-400) X10*3/uL BMP 02/15/21 22:49 Sodium 137 Potassium 3.9 D Chloride 93 L Carbon Dioxide 28 BUN 32 H Creatinine 1.23 Calcium 10.2 D Liver Function 02/15/21 Range/Units 22:49 Total Bilirubin 0.8 (0.0-1.0) mg/dL AST 53 H (5-31) U/L ALT 31 (0-31) U/L Alkaline Phosphatase 62 D (39-117) U/L Albumin 4.4 (3.5-5.0) g/dL Urine 02/16/21 02/16/21 Range/Units 00:19 07:09 Urine Color YELLOW YELLOW Urine Appearance CLOUDY CLEAR Urine pH 7.5 6.5 (5.0-8.0) Ur Specific [place] 1.020 <= 1.005 (1.005-1.025) Urine Protein NEG NEG (NEG-TRACE) MG/DL Urine Glucose (UA) NEG NEG (NEG) MG/DL Assessment and Plan (1) SBO (small bowel obstruction): Status: Acute 85-year-old female with a previous history of acute appendicitis and C diff colitis now presenting with a prolonged history of nausea and vomiting found on workup to have a small-bowel obstruction. She denies a previous history of bowel obstructions. On examination she is comfortable with a nasogastric tube in place. Nasogastric output is pinkish in color. Her abdomen is generally soft with slight tympany to percussion. Bowel obstruction may be related to adhesions from her prior surgery. We discussed the possible causes of small-bowel obstruction and I suggested a non operative approach with bowel rest and nasogastric decompression. She is agreeable to the plan.
--- NOTE | 2021-02-16 13:00 | CA_ITS ---
Transthoracic Echocardiogram Patient (Last, First, Middle): Ernestine Fung H Gender: Female Date of : 1935 Age: 85 Procedure Date: 02/16/2021 Procedure Type: Transthoracic E[place]ocardiogram [place] [facility] [place]: 160.02 cm Weight: 74.84 kg BSA: 1.78 m2 Heart Rate: bpm BP: 126 / 67 mmHg On Call: Referring MD: Benson Sorensen MD Symptoms: NSTEMI Study Quality: Fair ECG Rhythm: Sinus Conclusions: - The left ventricular systolic function is normal. The visually estimated ejection fraction is between 60-65%. - There is mild tricuspid valve regurgitation. Findings Left Ventricle Normal left ventricular cavity size. There is normal left ventricular wall thickness. The left ventricular systolic function is normal. The visually estimated ejection fraction is between 60-65%. There is no evidence of regional wall motion abnormalities. E/E prime ratio is between 8 and 15 consistent with indeterminate filling pressures. Evidence suggests grade I (mild) diastolic dysfunction. Right Ventricle Normal right ventricular cavity size and systolic function. Atria The left atrium is mildly dilated. The right atrium is normal in size. Aortic Valve There is a normal trileaflet aortic valve. There is no aortic valve stenosis. There is no aortic valve regurgitation. Mitral Valve The mitral valve appears normal. There is no mitral valve regurgitation. There is no mitral valve stenosis. Pulmonic Valve The pulmonic valve was not well visualized. There is mild pulmonic valve regurgitation. Tricuspid Valve Normal tricuspid valve structure. There is mild tricuspid valve regurgitation. The right ventricular systolic pressure is 34 mmHg. Top normal RVSP. Great Vessels The aortic annulus, sinuses of valsalva, and asc aorta are normal in size. Venous The inferior vena cava is normal in size and collapses greater than 50% with inspiration. Pericardium/Pleural There is no evidence of pericardial effusion. Prior Study Comparison No prior study available for comparison. Measurements 2D Linear Measurements IVSd: 0.91 0.6-0.9/0.6-1.0 cm LVIDd: 4.15 3.9-5.3/4.2-5.9 cm LVIDd Index: 2.33 2.4-3.2/2.2-3.1 cm/m2 LVIDs: 2.33 2.0-3.6 cm LVPWd: 0.90 0.7-1.1 cm Ao Root: 3.10 2.1-3.5 cm LA Diam: 3.20 2.7-3.8/3.0-4.0 cm LAIDs Index: 1.80 1.5-2.3 cm/m2 LV Mass: 145.62 67-162/88-224 g LV Mass Index: 81.81 43-95/49-115 g/m2 LVOT Diam: 2.00 3.0+(-)1.3 cm 2D Systolic Function EF 4C: 64.80 >55% EF 2C: 62.10 >55% EF BiP: 62.80 >55% Mitral Valve MV Pk E: 0.91 MV PK A: 1.13 MV Decel Time: 173.00 E/A: 0.80 E'Lateral: 8.32 E'Medial: 5.51 E/E' Med: 16.50 E/E' Lat: 10.90 PHT: 51.00 MVA PHT: 4.31 Decel [place]: 5.26 Aortic Valve AoV Pk [place]: 1.39 AoV Mn [place]: 0.88 AoV VTI: 0.30 AoV Pk Grad: 8.00 Aov Mn Grad: 4.00 GE Cont.VTI: 2.60 LVOT LVOT Pk [place]: 1.12 LVOT Mn [place]: 0.70 LVOT VTI: 0.25 LVOT Pk Grad: 5.00 LVOT Mn Grad: 2.00 LVOT Diam: 2.00 LVOT Area: 3.14 Diastolic Function MV Pk E: 0.91 MV Pk A: 1.13 E/A: 0.80 E'Medial: 5.51 E/E' Med: 16.50 E' Laterial: 8.32 E/E' Lat: 10.90 Tricuspid Valve TR Pk [place]: 2.80 TR Pk Grad: 31.00 RA Press: 3.00 RVSP: 34.00 Great Vessels Aorta Ao Root-2D: 3.10 2.0-3.7 cm Pulmonary Valve PV Pk [place]: 1.13 Peak PV Grad: 5.00 Updated in Other Vendor System with Status of Final Benson Sorensen MD electronically signed on 02/16/2021 4:29:24 PM with status of Final
[2021-02-16] MEDS: 0.9 % Sodium Chloride Flush 3 ML SYRINGE IVFLUSH (16:23)
[2021-02-17] VITALS (7 sets, daily range): BP systolic 101–154; BP diastolic 54–70; PULSE 64–73; RESP 14–20; TEMP 36.3–37.1; O2SAT 93–98
[2021-02-17] MEDS: Dextrose 5 % and Lactated Ring 1,000 ML 100 ML IVCONT (03:55)
[2021-02-17 06:58] LABS: Anion Gap 14 (12-20); Blood Urea Nitrogen 17 mg/dL (9-16); Calcium 8.3 mg/dL (8.4-10.2); Carbon Dioxide 24 mmol/L (22-29); Chloride 107 mmol/L (96-108); Creatinine Clr Calc Pharmacy 52.9; Estimated Glomerular Filt Rate > 60; Glucose Fasting 99 mg/dL (60-99); Potassium 3.5 mmol/L (3.3-5.1); Sodium 141 mmol/L (135-145)
[2021-02-17 07:23] LABS: MANUAL DIFF FLAG NO
[2021-02-17 07:33] LABS: Basophils Percent Auto 0.3 % (0-2); Eosinophils Absolute Auto 0.2 X10*3/uL (0.0-0.4); Eosinophils Percent Auto 2.5 % (0-4); Hemoglobin 11.3 g/dl (12.0-16.0); Imm Gran Abs Auto 0.04 X10*3/uL (0.00-0.03); Imm Gran Pct Auto 0.4 % (0.0-0.4); Lymphocytes Absolute Auto 2.1 X10*3/uL (1.2-4.9); Lymphocytes Percent Auto 23.6 % (20-40); Mean Corpuscular HGB Conc 34.2 g/dl (31.0-35.0); Mean Corpuscular Hemoglobin 33.4 pg (27.0-33.0); Mean Corpuscular Volume 97.6 fL (80-98); Mean Platelet Volume 11.2 fL (9.4-12.3); Monocytes Absolute Auto 0.9 X10*3/uL (0.1-1.2); Monocytes Percent Auto 9.6 % (2-11); Neutrophils Absolute Auto 5.7 X10*3/uL (2.0-8.3); Neutrophils Percent Auto 63.6 % (45-73); Platelet Count 166 X10*3/uL (160-400); Red Blood Count 3.38 X10*6/uL (4.20-5.50); Red Cell Distribution Width 13.5 % (11.0-16.0); White Blood Count 8.9 X10*3/uL (4.8-10.8)
[2021-02-17] MEDS: Heparin Sodium,Porcine 5,000 UNIT/ML VIAL 5000 UNIT SUBCUT ×2 (08:55→18:37)
[2021-02-17] MEDS: Gabapentin 300 MG CAPSULE PO (08:56)
[2021-02-17] MEDS: Famotidine/PF 20 MG/2 ML VIAL IVPUSH ×2 (08:56→20:09)
[2021-02-17] MEDS: Escitalopram Oxalate 10 MG TABLET PO (08:56)
--- NOTE | 2021-02-17 12:00 | HO.PM.IMPN ---
Subjective Subjective Date of Service: 02/17/21 Interval History: feeling much better, hungry Cardiovascular Cardiovascular: Reports no additional cardiovascular complaints Respiratory Respiratory: Reports no additional respiratory complaints Physical Exam Vital Signs: Vital Signs: Last Vital Signs Temp 97.3 F 02/17/21 11:26 Pulse 70 02/17/21 11:26 Resp 18 02/17/21 11:26 BP 101/60 02/17/21 11:26 Pulse Ox 98 02/17/21 11:26 Body Mass Index 29.2 General: AO X 3, no acute distress Resp: CTA bilateral CVS: S1,S2,RRR GI: soft, non tender, non distended Neuro: motor grossly intact Psych: appropriate affect Objective Data Current Medications Generic Name Dose Route Start Last Admin Trade Name Freq PRN Reason Stop Dose Admin Aspirin 81 mg 02/18/21 09:00 Aspirin 81 Mg Tab.Chew PO DAILY MANI Atorvastatin Calcium 40 mg 02/17/21 21:00 Atorvastatin Calcium 40 Mg Tablet PO BEDTIME MANI Escitalopram Oxalate 10 mg 02/16/21 09:00 02/17/21 08:56 Escitalopram Oxalate 10 Mg Tablet PO 10 mg DAILY MANI Administration Famotidine 20 mg 02/16/21 06:50 02/17/21 08:56 Famotidine/Pf 20 Mg/2 Ml Vial IVPUSH 20 mg BID MANI Administration Gabapentin 300 mg 02/16/21 09:00 02/17/21 08:56 Gabapentin 300 Mg Capsule PO 300 mg DAILY MANI Administration Heparin Sodium (Porcine) 5,000 unit 02/16/21 06:00 02/17/21 08:55 Heparin Sodium,Porcine 5,000 Unit/Ml Vial SUBCUT 5,000 unit Q12H MANI Administration Dextrose/Lactated Ringer's 1,000 mls @ 100 mls/hr 02/16/21 03:40 02/17/21 03:55 D5lr IVCONT 100 mls/hr .Q10H MANI Administration Lorazepam 0.5 mg 02/16/21 06:45 Lorazepam 0.5 Mg Tablet PO BEDTIME PRN Anxiety Morphine Sulfate 2 mg 02/16/21 03:40 Morphine Sulfate 2 Mg/Ml Cartridge IVPUSH Q3H PRN Pain, Severe (Pain Scale 7-10) Ondansetron HCl 4 mg 02/16/21 03:40 Ondansetron Hcl 4 Mg/2 Ml Vial IVPUSH Q8H PRN nausea Sodium Chloride 3 ml 02/16/21 08:00 02/17/21 08:56 0.9 % Sodium Chloride Flush 3 Ml Syringe IVFLUSH Not Given QSHIFT MANI Labs CBC & Chem 7: 02/17/21 04:09 02/17/21 04:09 Microbiology Microbiology Results: Microbiology 02/16/21 00:19 Blood - Venous Blood Culture - Preliminary No growth after 24 hours. 02/16/21 00:19 Blood - Venous Blood Culture - Preliminary No growth after 24 hours. Assessment and Plan (1) NSTEMI (non-ST elevated myocardial infarction): Status: Acute Assessment and Plan: 85F presente with N/V found to have SBO and NSTEMI SBO improved, NGT removed NSTEMI, likely type II po asa, statin echo with no WMA RA hold MTX
--- NOTE | 2021-02-17 12:21 | PM.PNCARD ---
Subjective Subjective Date of Service: 02/17/21 Interval history: She states that she feels okay. No specific complaints. Review of Systems Review of Systems Yes all other systems are reviewed and are negative Cardiovascular: Reports as per HPI, Reports no additional cardiovascular complaints, Denies acrocyanosis, Denies cool extremities, Denies painful fingertips, Denies chest pain, Denies chest pain at rest, Denies diaphoresis, Denies syncope, Denies irregular heart rhythm, Denies claudication, Denies leg edema, Denies lightheadedness, Denies palpitations and Denies dyspnea Respiratory: Denies dyspnea Denies syncope Endocrine: Denies palpitations Physical Exam Vital Signs: Last Vital Signs Temp 97.3 F 02/17/21 11:26 Pulse 70 02/17/21 11:26 Resp 18 02/17/21 11:26 BP 101/60 02/17/21 11:26 Pulse Ox 98 02/17/21 11:26 Body Mass Index 29.2 Const General: cooperative, comfortable and no acute distress Orientation/consciousness: patient oriented x3 HENMT Other: Unremarkable Neck Neck: Yes normal visual inspection Chest Chest palpation & inspection: normal inspection of the chest Resp Auscultation: clear to auscultation bilaterally, no crackles and no wheezes Cardio Jugular venous distension: no JVD Palpation: normal PMI Heart sounds: S1 normal heart sound present, S2 normal heart sound present, no gallops, no murmurs and no rubs GI Palpation (GI): Soft to palpation Back/Spine/Pelvis Other: unremarkable Skin General skin exam: no rashes or lesions noted Neuro General: patient oriented x3 Extrem General: Yes no clubbing, cyanosis or edema Psych Mental Status: mental status grossly normal Results Labs and Meds Result diagrams: 02/17/21 04:09 02/17/21 04:09 Lab results: Laboratory Results - last 24 hr 02/17/21 02/17/21 04:09 04:09 WBC 8.9 RBC 3.38 L Hgb 11.3 L Hct 33.0 L MCV 97.6 MCH 33.4 H MCHC 34.2 RDW 13.5 Plt Count 166 D MPV 11.2 Immature Gran % (Auto) 0.4 Neut % (Auto) 63.6 Lymph % (Auto) 23.6 [place] % (Auto) 9.6 Eos % (Auto) 2.5 Baso % (Auto) 0.3 Lymph # (Auto) 2.1 [place] # (Auto) 0.9 Eos # (Auto) 0.2 Baso # (Auto) 0.0 Abs Immat Gran (auto) 0.04 H Absolute Neuts (auto) 5.7 Absolute Nucleated RBC 0.000 Nucleated RBC % (auto) 0.0 Sodium 141 Potassium 3.5 Chloride 107 Carbon Dioxide 24 Anion Gap 14 BUN 17 H Creatinine 0.78 Estim Creat Clear Calc 52.9 Estimated GFR > 60 Fasting Glucose 99 Calcium 8.3 L D Progress Note: A&P Assessment and plan (1) NSTEMI (non-ST elevated myocardial infarction): Status: Acute (2) SBO (small bowel obstruction): Status: Acute Assessment and Plan: High sensitivity troponins are 86 followed by 94. She had T inversions in the LAD territory. She could have underlying coronary disease based on her age. Clinically, no symptoms. When able, takes aspirin and statins. Low-dose beta-blockers. Echocardiogram is unremarkable. Upon discharge, we will arrange followup. Fall Risk Details Current Medications: Current Medications Generic Name Dose Route Start Last Admin Trade Name Freq PRN Reason Stop Dose Admin Aspirin 81 mg 02/18/21 09:00 Aspirin 81 Mg Tab.Chew PO DAILY MANI Atorvastatin Calcium 40 mg 02/17/21 21:00 Atorvastatin Calcium 40 Mg Tablet PO BEDTIME MANI Escitalopram Oxalate 10 mg 02/16/21 09:00 02/17/21 08:56 Escitalopram Oxalate 10 Mg Tablet PO 10 mg DAILY MANI Administration Famotidine 20 mg 02/16/21 06:50 02/17/21 08:56 Famotidine/Pf 20 Mg/2 Ml Vial IVPUSH 20 mg BID MANI Administration Gabapentin 300 mg 02/16/21 09:00 02/17/21 08:56 Gabapentin 300 Mg Capsule PO 300 mg DAILY MANI Administration Heparin Sodium (Porcine) 5,000 unit 02/16/21 06:00 02/17/21 08:55 Heparin Sodium,Porcine 5,000 Unit/Ml Vial SUBCUT 5,000 unit Q12H MANI Administration Dextrose/Lactated Ringer's 1,000 mls @ 100 mls/hr 02/16/21 03:40 02/17/21 03:55 D5lr IVCONT 100 mls/hr .Q10H MANI Administration Lorazepam 0.5 mg 02/16/21 06:45 Lorazepam 0.5 Mg Tablet PO BEDTIME PRN Anxiety Morphine Sulfate 2 mg 02/16/21 03:40 Morphine Sulfate 2 Mg/Ml Cartridge IVPUSH Q3H PRN Pain, Severe (Pain Scale 7-10) Ondansetron HCl 4 mg 02/16/21 03:40 Ondansetron Hcl 4 Mg/2 Ml Vial IVPUSH Q8H PRN nausea Sodium Chloride 3 ml 02/16/21 08:00 02/17/21 08:56 0.9 % Sodium Chloride Flush 3 Ml Syringe IVFLUSH Not Given QSHIFT MANI Time Spent With Patient Time: Total time spent is greater than 50% in coordination of care (as documented) at patient's floor/unit and/or counseling patient: Time with patient: less than 15 minutes
[2021-02-17] MEDS: Atorvastatin Calcium 40 MG TABLET PO (20:09)
--- NOTE | 2021-02-17 21:00 | PC.NURSE ---
Assumed care at 1900. Pt requesting an enema. Dr. Barrientos made aware and ok to give. Enema given around 1930 with good effect. Pt had a large bowel movement shortly after enema. Pt denies abd pain, denies nausea. Pt states she feels very relieved. Will continue to monitor.
[2021-02-18 03:49] VITALS: BP 121/58; PULSE 63; RESP 12; TEMP 36.9; O2SAT 96
[2021-02-18] MEDS: Dextrose 5 % and Lactated Ring 1,000 ML 100 ML IVCONT (05:11)
[2021-02-18] MEDS: Heparin Sodium,Porcine 5,000 UNIT/ML VIAL 5000 UNIT SUBCUT (05:15)
[2021-02-18 07:59] VITALS: BP 140/74; PULSE 57; RESP 18; TEMP 36.6; O2SAT 99
[2021-02-18] MEDS: Famotidine/PF 20 MG/2 ML VIAL IVPUSH (09:59)
[2021-02-18] MEDS: Escitalopram Oxalate 10 MG TABLET PO (10:00)
[2021-02-18] MEDS: Gabapentin 300 MG CAPSULE PO (10:00)
[2021-02-18] MEDS: Aspirin 81 MG TAB.CHEW PO (10:00)
--- NOTE | 2021-02-18 10:01 | HO.PM.IMPN ---
Subjective Subjective Date of Service: 02/18/21 Interval History: nausea resolved, hungry for solids, wants to go home, successful BM after enema yesterday Cardiovascular Cardiovascular: Reports no additional cardiovascular complaints Respiratory Respiratory: Reports no additional respiratory complaints Physical Exam Vital Signs: Vital Signs: Last Vital Signs Temp 97.9 F 02/18/21 07:59 Pulse 57 02/18/21 07:59 Resp 18 02/18/21 07:59 BP 140/74 H 02/18/21 07:59 Pulse Ox 99 02/18/21 07:59 Body Mass Index 29.2 General: AO X 3, no acute distress Resp: CTA bilateral CVS: S1,S2,RRR GI: soft, non tender, non distended Neuro: motor grossly intact Psych: appropriate affect Objective Data Current Medications Generic Name Dose Route Start Last Admin Trade Name Freq PRN Reason Stop Dose Admin Aspirin 81 mg 02/18/21 09:00 02/18/21 10:00 Aspirin 81 Mg Tab.Chew PO 81 mg DAILY MANI Administration Atorvastatin Calcium 40 mg 02/17/21 21:00 02/17/21 20:09 Atorvastatin Calcium 40 Mg Tablet PO 40 mg BEDTIME MANI Administration Escitalopram Oxalate 10 mg 02/16/21 09:00 02/18/21 10:00 Escitalopram Oxalate 10 Mg Tablet PO 10 mg DAILY MANI Administration Famotidine 20 mg 02/16/21 06:50 02/18/21 09:59 Famotidine/Pf 20 Mg/2 Ml Vial IVPUSH 20 mg BID MANI Administration Gabapentin 300 mg 02/16/21 09:00 02/18/21 10:00 Gabapentin 300 Mg Capsule PO 300 mg DAILY MANI Administration Heparin Sodium (Porcine) 5,000 unit 02/16/21 06:00 02/18/21 05:15 Heparin Sodium,Porcine 5,000 Unit/Ml Vial SUBCUT 5,000 unit Q12H MANI Administration Dextrose/Lactated Ringer's 1,000 mls @ 100 mls/hr 02/16/21 03:40 02/18/21 05:11 D5lr IVCONT 100 mls/hr .Q10H MANI Administration Lorazepam 0.5 mg 02/16/21 06:45 Lorazepam 0.5 Mg Tablet PO BEDTIME PRN Anxiety Morphine Sulfate 2 mg 02/16/21 03:40 Morphine Sulfate 2 Mg/Ml Cartridge IVPUSH Q3H PRN Pain, Severe (Pain Scale 7-10) Ondansetron HCl 4 mg 02/16/21 03:40 Ondansetron Hcl 4 Mg/2 Ml Vial IVPUSH Q8H PRN nausea Sodium Chloride 3 ml 02/16/21 08:00 02/18/21 10:00 0.9 % Sodium Chloride Flush 3 Ml Syringe IVFLUSH Not Given QSHIFT MANI Labs CBC & Chem 7: 02/17/21 04:09 02/17/21 04:09 Microbiology Microbiology Results: Microbiology 02/16/21 00:19 Blood - Venous Blood Culture - Preliminary No growth after 48 hours. 02/16/21 00:19 Blood - Venous Blood Culture - Preliminary No growth after 48 hours. Assessment and Plan (1) NSTEMI (non-ST elevated myocardial infarction): Status: Acute Assessment and Plan: 85F presente with N/V found to have SBO and NSTEMI SBO resolved NSTEMI, likely type II continue po asa, statin echo with no WMA RA hold MTX inpatient, can resume on discharge
--- NOTE | 2021-02-18 10:12 | PM.PNGS ---
Subjective Subjective Date of Service: 02/18/21 Interval history: Patient reports a large bowel movement last night after receiving an enema. She feels much with this morning and is anxious to go home. She would like to start a regular diet. Physical Exam Vital Signs: Vital Signs: Last Vital Signs Temp 97.9 F 02/18/21 07:59 Pulse 57 02/18/21 07:59 Resp 18 02/18/21 07:59 BP 140/74 H 02/18/21 07:59 Pulse Ox 99 02/18/21 07:59 Body Mass Index 29.2 Const: General: cooperative, healthy appearing, comfortable, no acute distress and well developed Resp: Effort & Inspection: normal respiratory effort GI: Other: Soft, nondistended, nontender, normal bowel sounds, no rebound, no guarding. Skin: General skin exam: no rashes or lesions noted Extrem: General: Yes no clubbing, cyanosis or edema Progress Note: A&P Assessment and plan (1) SBO (small bowel obstruction): Status: Acute Assessment and Plan: 85-year-old female patient admitted with the small-bowel obstruction now passing bowels and flatus, tolerating a clear liquid diet. She feels much improved with no further nausea or vomiting. Advance her diet to a regular diet and check back later today. If she is tolerating regular diet she may be discharged to home. Fall Risk Details Current Medications: Current Medications Generic Name Dose Route Start Last Admin Trade Name Freq PRN Reason Stop Dose Admin Aspirin 81 mg 02/18/21 09:00 02/18/21 10:00 Aspirin 81 Mg Tab.Chew PO 81 mg DAILY MANI Administration Atorvastatin Calcium 40 mg 02/17/21 21:00 02/17/21 20:09 Atorvastatin Calcium 40 Mg Tablet PO 40 mg BEDTIME MANI Administration Escitalopram Oxalate 10 mg 02/16/21 09:00 02/18/21 10:00 Escitalopram Oxalate 10 Mg Tablet PO 10 mg DAILY MANI Administration Famotidine 20 mg 02/16/21 06:50 02/18/21 09:59 Famotidine/Pf 20 Mg/2 Ml Vial IVPUSH 20 mg BID MANI Administration Gabapentin 300 mg 02/16/21 09:00 02/18/21 10:00 Gabapentin 300 Mg Capsule PO 300 mg DAILY MANI Administration Heparin Sodium (Porcine) 5,000 unit 02/16/21 06:00 02/18/21 05:15 Heparin Sodium,Porcine 5,000 Unit/Ml Vial SUBCUT 5,000 unit Q12H MANI Administration Lorazepam 0.5 mg 02/16/21 06:45 Lorazepam 0.5 Mg Tablet PO BEDTIME PRN Anxiety Morphine Sulfate 2 mg 02/16/21 03:40 Morphine Sulfate 2 Mg/Ml Cartridge IVPUSH Q3H PRN Pain, Severe (Pain Scale 7-10) Ondansetron HCl 4 mg 02/16/21 03:40 Ondansetron Hcl 4 Mg/2 Ml Vial IVPUSH Q8H PRN nausea Sodium Chloride 3 ml 02/16/21 08:00 02/18/21 10:00 0.9 % Sodium Chloride Flush 3 Ml Syringe IVFLUSH Not Given QSHIFT MANI Time Spent With Patient Time: Total time spent is greater than 50% in coordination of care (as documented) at patient's floor/unit and/or counseling patient: Time with patient: 15 - 24 minutes
[2021-02-18 12:00] VITALS: BP 115/63; PULSE 64; RESP 20; TEMP 37.5; O2SAT 98
--- NOTE | 2021-02-18 13:42 | PM.DS ---
DS: Providers Provider Date of Service: 02/18/21 Date of admission: 02/16/21 02:45 Date of discharge: 02/18/21 Primary care physician: Vineet Hwang MD, DO Admitting clinician: Laura Meeks Consults: 02/16/21 03:40 Consult to Hospitalist Routine Consulting Provider: Hospitalist Reason For Exam: elevated troponin 02/16/21 11:00 Consult to Cardiology Routine Consulting Provider: Benson Sorensen Reason for consultation: elevated troponin Discharging clinician: Cortez Lopez DS: Diagnosis Discharge Diagnosis (1) SBO (small bowel obstruction): Status: Acute (2) NSTEMI (non-ST elevated myocardial infarction): Status: Acute DS: Medications Discharge Medications Home Medications: Home Medications Medication Instructions Recorded Confirmed escitalopram oxalate 1 tab PO DAILY 01/21/21 02/16/21 gabapentin 1 cap PO DAILY 01/21/21 02/16/21 lorazepam 1 tab PO BEDTIME PRN 01/21/21 02/16/21 meloxicam 1 tab PO DAILY 01/21/21 02/16/21 methotrexate sodium (PF) 25 mg IM QWEEK 01/21/21 02/16/21 tamoxifen 1 tab PO DAILY 01/21/21 02/16/21 omeprazole 1 cap PO BID 02/16/21 02/16/21 ondansetron HCl 1 tab PO Q8H PRN 02/16/21 02/16/21 Previous Rx's Medication Instructions Recorded aspirin 81 mg PO DAILY #90 tab 02/18/21 atorvastatin 40 mg PO BEDTIME #90 tab 02/18/21 DS: Summary Hospital Course Hospital Course: Ernestine Fung is a 85 year old female well known to me with a previous history of breast cancer and acute appendicitis, status post appendectomy complicated by C difficile colitis. She now presents with several day history of abdominal distension, nausea, vomiting, and constipation. The symptoms persisted without improvement therefore she presented to the emergency department for further evaluation. She denies a previous history of similar symptoms. Workup in the emergency department with a CT of the abdomen and pelvis revealed dilated loops of small bowel suggestive of a small-bowel obstruction. On examination, she was found to be distended, with tenderness to palpation, and tympany to percussion. She was admitted to the surgical service for further management. She was noted to have elevated cardiac enzymes and is being monitor in [facility]. Patient was evaluated by the hospitalist team and cardiology. She was started on ASA 81 mg and Atorvastatin. A NGT was placed in the ED and drained bilious fluid at first but then changed to clear fluid by the next day. She reported a marked improvement in her symptoms and the NGT output was much improved. She reported passing flatus during the night as well. The NGT was subsequently removed on HD 2 and she was started on clear liquids. By HD 3, she felt back to normal with no abdominal distention or pain. She tolerated the clear liquids without nausea or vomiting. She passed a large hard BM the previous evening. She was advanced to a regular diet which she also tolerated without nausea, vomiting or increased pain. She is being discharged to home in stable condition. She will stay on a low fiber diet and follow up in my office in 2 weeks. She should also follow up with Dr. Hwang and Dr. Sorensen. Time Spent with Patient Time attestation: Total time spent providing and/or coordinating discharge services: Discharge coordination time: Less than 30 minutes Physical Exam Vital Signs: Vital Signs: Last Vital Signs Temp 99.5 F 02/18/21 12:00 Pulse 64 02/18/21 12:00 Resp 20 02/18/21 12:00 BP 115/63 02/18/21 12:00 Pulse Ox 98 02/18/21 12:00 Body Mass Index 29.2 Const: General: cooperative, healthy appearing and comfortable Resp: Effort & Inspection: normal respiratory effort and no cough Auscultation: clear to auscultation bilaterally, no crackles and no rales GI: Inspection: Yes scar Palpation (GI): Soft to palpation, nontender, no guarding, not rigid, hepatosplenomegaly present and Hernia present Skin: General skin exam: no rashes or lesions noted Extrem: General: Yes normal to inspection and Yes full ROM DS: Data Data Completed and Pending Labs on day of discharge: Preliminary micro results at discharge 02/16/21 00:19 Blood Culture - Preliminary Blood - Venous No growth after 48 hours. 02/16/21 00:19 Blood Culture - Preliminary Blood - Venous No growth after 48 hours. Discharge Plan Discharge Patient Disposition: Home, Self-Care Discharge Diagnosis: Partial Small Bowel Obstruction, Non-ST elevated myocardial infarction Referrals: Vineet Hwang MD, DO [Primary Care Provider] - 1 Week Cortez Lopez MD [Physician] - 2 Weeks Benson Sorensen MD [Physician] - 1 Week Discharge Medications: New atorvastatin 40 mg Tablet 40 mg PO BEDTIME Qty: 90 RF: 0 aspirin 81 mg Tablet,Chewable 81 mg PO DAILY Qty: 90 RF: 0 Continued meloxicam 15 mg tablet 1 tab PO DAILY RF: 0 lorazepam 0.5 mg tablet 1 tab PO BEDTIME PRN (Reason: Anxiety) RF: 0 gabapentin 300 mg capsule 1 cap PO DAILY RF: 0 tamoxifen 20 mg tablet 1 tab PO DAILY RF: 0 escitalopram oxalate 10 mg tablet 1 tab PO DAILY RF: 0 methotrexate sodium (PF) 25 mg/mL solution 25 mg IM QWEEK RF: 0 ondansetron HCl 4 mg tablet 1 tab PO Q8H PRN (Reason: Nausea) RF: 0 omeprazole 20 mg capsule,delayed release(DR/EC) 1 cap PO BID RF: 0 Discharge Orders: Discharge Order (Routine); Ordered 02/18/21 Ordered By: Cortez Lopez Diet: advance to usual diet Activity on Discharge: As tolerated Stand Alone Forms: Patient Portal Discharge page Care Plan Goals: Return to normal diet and activity Health Concerns: Partial SBO, NSTEMI Plan of Treatment: Follow up with Cardiology; low fiber diet Assessment: Small bowel obstruction now resolved. NSTEMI Patient Instructions: Low Fiber Diet (DC)
--- NOTE | 2021-02-18 13:45 | MHC.CM.PN ---
Patient has been medically cleared for dc to home today, no services. Last IMM addressed on 02/16/21.
[2021-02-18 15:11] VITALS: BP 130/63; PULSE 63; RESP 18; TEMP 37.3; O2SAT 100
== END 2021-02-18 18:15 | disposition home or self-care (01) | DRG 388 ==
LOC: HO.ED 02-16 03:14 → HO.EDOVER 02-16 03:44 → HO.IMC 02-16 12:10
PROVIDERS: Internal Medicine; Admitting Provider Hospitalist; Emergency Provider Student in an Organized Health Care Education/Training Program; PCP Internal Medicine; Visit Provider Surgery
DX: K56.609 Unspecified intestinal obstruction, unspecified as to partial versus complete obstruction (principal); I21.A1 Myocardial infarction type 2; M06.9 Rheumatoid arthritis, unspecified; C50.919 Malignant neoplasm of unspecified site of unspecified female breast; Z20.822 Contact with and (suspected) exposure to COVID-19; Z87.891 Personal history of nicotine dependence; Z79.1 Long term (current) use of non-steroidal anti-inflammatories (NSAID); Z79.82 Long term (current) use of aspirin; Z79.810 Long term (current) use of selective estrogen receptor modulators (SERMs); Z79.899 Other long term (current) drug therapy
CPT/HCPCS: 36415; 71045; 74177; 80048; 80053; 81001; 83605; 83690; 83880; 84484; 85025; 87040; 87635; 93005; 93306; 96365; 96375; 99285; J0696; J2405; Q9967

== ENCOUNTER 2021-02-24 12:57 | Outpatient (REF) | payer MEDICARE, SELFPAY | END 2021-02-24 12:58 | disposition home or self-care (01) | LOC: HO.SH 12:57 | PROVIDERS: Visit Provider Internal Medicine | DX: Z13.89 Encounter for screening for other disorder (principal) ==

== ENCOUNTER → 2021-03-02 12:22 | Outpatient (BNVA) | payer MEDICARE, SELFPAY | PROVIDERS: PCP Internal Medicine; Visit Provider Internal Medicine | DX: I21.4 Non-ST elevation (NSTEMI) myocardial infarction (principal); K56.609 Unspecified intestinal obstruction, unspecified as to partial versus complete obstruction; R77.8 Other specified abnormalities of plasma proteins; M81.0 Age-related osteoporosis without current pathological fracture; Z09 Encounter for follow-up examination after completed treatment for conditions other than malignant neoplasm; Z85.3 Personal history of malignant neoplasm of breast; Z90.10 Acquired absence of unspecified breast and nipple; Z79.82 Long term (current) use of aspirin; Z79.899 Other long term (current) drug therapy | CPT/HCPCS: 99212 ==

== ENCOUNTER → 2021-03-17 14:38 | Outpatient (BNVA) | payer MEDICARE, SELFPAY | PROVIDERS: PCP Internal Medicine; Visit Provider Surgery | DX: K56.609 Unspecified intestinal obstruction, unspecified as to partial versus complete obstruction (principal) | CPT/HCPCS: 99212 ==

== ENCOUNTER → 2021-04-19 11:27 | Outpatient (BNVA) | payer MEDICARE, SELFPAY | PROVIDERS: PCP Internal Medicine; Visit Provider Surgery | DX: D05.12 Intraductal carcinoma in situ of left breast (principal) | CPT/HCPCS: 99212 ==

== ENCOUNTER 2021-04-20 09:14 | Outpatient (REF) | payer MEDICARE, SELFPAY ==
[2021-04-20 11:24] LABS: MANUAL DIFF FLAG NO
[2021-04-20 11:31] LABS: Basophils Percent Auto 0.5 % (0-2); Eosinophils Absolute Auto 0.2 X10*3/uL (0.0-0.4); Eosinophils Percent Auto 2.2 % (0-4); Hematocrit 30.5 % (37-47); Hemoglobin 10.4 g/dl (12.0-16.0); Imm Gran Abs Auto 0.04 X10*3/uL (0.00-0.03); Imm Gran Pct Auto 0.5 % (0.0-0.4); Lymphocytes Absolute Auto 1.7 X10*3/uL (1.2-4.9); Lymphocytes Percent Auto 19.3 % (20-40); Mean Corpuscular HGB Conc 34.1 g/dl (31.0-35.0); Mean Corpuscular Hemoglobin 34.3 pg (27.0-33.0); Mean Corpuscular Volume 100.7 fL (80-98); Mean Platelet Volume 10.3 fL (9.4-12.3); Monocytes Absolute Auto 0.7 X10*3/uL (0.1-1.2); Monocytes Percent Auto 8.6 % (2-11); Neutrophils Absolute Auto 5.9 X10*3/uL (2.0-8.3); Neutrophils Percent Auto 68.9 % (45-73); Platelet Count 219 X10*3/uL (160-400); Red Blood Count 3.03 X10*6/uL (4.20-5.50); White Blood Count 8.6 X10*3/uL (4.8-10.8)
[2021-04-20 11:58] LABS: Alanine Aminotransferase 18 U/L (0-31); Alkaline Phosphatase 75 U/L (39-117); Anion Gap 13 (12-20); Aspartate Amino Transferase 39 U/L (5-31); Bilirubin Total 0.6 mg/dL (0.0-1.0); Blood Urea Nitrogen 16 mg/dL (9-16); Calcium 8.8 mg/dL (8.4-10.2); Carbon Dioxide 23 mmol/L (22-29); Chloride 110 mmol/L (96-108); Cholesterol 145 mg/dL; Estimated Glomerular Filt Rate > 60; Glucose Fasting 78 mg/dL (60-99); HDL Cholesterol 77 mg/dL; LDL Cholesterol Calculated 57 mg/dl; Potassium 4.5 mmol/L (3.3-5.1); Sodium 141 mmol/L (135-145); Total Protein 6.7 g/dL (6.5-8.0); Triglycerides 56 mg/dL
[2021-04-20 12:20] LABS: Thyroid Stimulating Hormone 1.05 uIU/mL (0.32-4.0); Vitamin D 25-OH Total 44.4 ng/mL (>30)
== END 2021-04-20 09:15 | disposition home or self-care (01) ==
LOC: HO.HMGCLDS 09:14
PROVIDERS: PCP Internal Medicine; Visit Provider Internal Medicine
DX: K56.609 Unspecified intestinal obstruction, unspecified as to partial versus complete obstruction (principal); C50.212 Malignant neoplasm of upper-inner quadrant of left female breast; E78.00 Pure hypercholesterolemia, unspecified; M06.9 Rheumatoid arthritis, unspecified; I21.4 Non-ST elevation (NSTEMI) myocardial infarction
CPT/HCPCS: 36415; 80053; 80061; 82306; 84443; 85025

== ENCOUNTER 2021-07-29 08:59 | Inpatient (IN) | payer MEDICARE, SELFPAY ==
--- NOTE | ~2021-07-29 | CT_ITS ---
EXAMINATION: CT ABDOMEN AND PELVIS WITH CONTRAST CLINICAL INFORMATION: Vomiting, hernia. COMPARISON: None TECHNIQUE: Multidetector volumetric images were obtained from the superior aspect of the liver through the pubic symphysis following administration 85 mL of Omnipaque 350 intravenous contrast. Sagittal and coronal reformatted images were obtained on the technologist's workstation. Oral contrast: No This CT examination was performed using dose optimization techniques as appropriate, variously including the following: *Automated exposure control *Adjustment of mA and/or kV according to patient size (this includes techniques or standardized protocols for targeted exams where dose is matched to indication/reason for exam; i.e. extremities or head) *Use of iterative reconstruction technique DLP: 593 mGy-cm FINDINGS: LUNG BASES: There is dependent right basilar atelectasis. A 6 mm densities seen in the left lung base on axial image 14/7. LIVER, GALLBLADDER, AND BILIARY TREE: The liver is normal in size, shape, and attenuation. No focal hepatic lesion or biliary ductal dilatation is present. The gallbladder is distended with no radiopaque calculi or wall thickening. PANCREAS: Unremarkable. SPLEEN: The spleen is normal size. The punctate 2 mm hypodensity in superior segment. ADRENAL GLANDS: Unremarkable. KIDNEYS AND URETERS: The kidneys are normal in size, shape, and attenuation. No hydronephrosis, hydroureter, or calculi seen. No perinephric stranding. There is a partially exophytic cyst with septation in the upper pole left kidney measuring 6.1 wide, 6.85 cm in AP and 5.1 cm and extending caudad length. No enhancement seen only in the thin wall of the cyst. BLADDER: The bladder is distended. No radiopaque calculi seen. GASTROINTESTINAL TRACT: There is moderate to significant stool seen throughout the colon without distention. There are prominent small bowel loops with air-fluid level and scattered stool level in midabdomen suggests or low-grade obstruction. There are surgical roxana in the right lower quadrant question previous appendectomy. ABDOMINAL WALL: No significant hernia is appreciated. LYMPH NODES: Normal. VASCULAR: There is atherosclerotic calcification of abdominal aorta without aneurysmal dilatation. PELVIC VISCERA: There is no free air or free fluid. OSSEOUS STRUCTURES: There are degenerative disc changes with vacuum disc phenomena L1-L2 through L5-S1 disc level . No lytic or sclerotic process seen. CT/CT abdomen pelvis w con IMPRESSION: Left lower abdominal wall hernia containing a loop of descending colon This results in moderate to significant constipation and mild prominence of small bowel loops with air-fluid level and scattered stool in the midabdomen region, likely LOW-GRADE OBSTRUCTION. No free air or free fluid seen. Bosniak type II exophytic cyst upper pole left kidney. Distended gallbladder without any radiopaque renal calculi. Likely punctate cyst superior segment of the spleen.
[2021-07-29 09:04] VITALS: BP 131/75; PULSE 66; O2SAT 100
[2021-07-29 09:05] VITALS: BP 150/55; PULSE 70; RESP 19; TEMP 37.1; O2SAT 99; BMI 29.2
--- NOTE | 2021-07-29 09:12 | ECG_ITS ---
Test Reason : CHECK CARDIAC STATUS Blood Pressure : / mmHG Vent. Rate : 068 BPM Atrial Rate : 068 BPM P-R Int : 178 ms QRS Dur : 084 ms QT Int : 398 ms P-R-T Axes : 055 050 069 degrees QTc Int : 423 ms Normal sinus rhythm Nonspecific ST and T wave abnormality Abnormal ECG When compared with ECG of 16-FEB-2021 03:37, T wave inversion less evident in Anterior leads Referred By: Padma Velez Electronically Signed By:TRICIA CARSON
--- NOTE | 2021-07-29 09:18 | ED.ABDPAIN ---
HPI - Abdominal Pain General Chief Complaint: Abdominal Pain Stated Complaint: abd pain Time Seen by Provider: 07/29/21 09:09 Source: patient and EMS Mode of arrival: EMS Limitations: no limitations History of Present Illness MD elicited complaint: abdominal pain Pertinent past history: other (hernia) Onset (ago): hour(s) (7 hours ago) Pain Consistency: constant Location: diffuse Severity: moderate Quality: other (described as pain) Radiation: none Migration to: no migration Exacerbating factors: movement Relieving factors: nothing Associated symptoms: nausea and vomiting Treatments prior to arrival: other (sublingual zofran) Related Data Home Medications Medication Instructions Recorded Confirmed escitalopram oxalate 10 mg tablet 1 tab PO DAILY 01/21/21 03/17/21 gabapentin 300 mg capsule 1 cap PO DAILY 01/21/21 03/17/21 lorazepam 0.5 mg tablet 1 tab PO BEDTIME PRN 01/21/21 03/17/21 meloxicam 15 mg tablet 1 tab PO DAILY 01/21/21 03/17/21 methotrexate sodium (PF) 25 mg/mL 25 mg IM QWEEK 01/21/21 03/17/21 injection solution tamoxifen 20 mg tablet 1 tab PO DAILY 01/21/21 03/17/21 omeprazole 20 mg capsule,delayed 1 cap PO DAILY 07/29/21 release Previous Rx's Medication Instructions Recorded aspirin 81 mg chewable tablet 81 mg PO DAILY #90 tab 02/18/21 atorvastatin 40 mg tablet 40 mg PO BEDTIME #90 tab 02/18/21 Allergies Allergy/AdvReac Type Severity Reaction Status Date / Time No Known Allergies Allergy Verified 03/02/21 12:35 [No Known Allergies*] Review of Systems Review of Systems Constitutional : No Weight loss, No Fever, No Chills ENT/Mouth : No sore throat, No Rhinorrhea Eyes: No Swelling, No Redness Cardiovascular : No Chest Pain, No SOB, NoEdema Respiratory : No Cough, No Sputum, No Wheezing Gastrointestinal : Positive Nausea, Positive Vomiting, no Diarrhea, positive abdominal Pain, No Hematochezia, No Melena Genitourinary : No Dysuria, No Urinary Frequency, No Hematuria, No Urgency Musculoskeletal : No joint pain, No Myalgias, No Joint Swelling Skin : No Skin Lesions, No rash Neuro : No Weakness, No Numbness, No Dizziness, No Headache Psych : No Anxiety/Panic, No Depression Heme/Lymph: No Bruising, No Lymphadenopathy Endocrine : No Polyuria, No Polydipsia All other systems reviewed and are negative. Physical Exam Vital Signs: Vital Signs: Last Vital Signs Temp 98.7 F 07/29/21 09:05 Pulse 77 07/29/21 09:51 Resp 18 07/29/21 09:51 BP 154/69 H 07/29/21 09:51 Pulse Ox 97 07/29/21 09:51 Body Mass Index 29.2 Appearance: Alert. Oriented X3. No acute distress. Eyes: Pupils equal, round and reactive to light. ENT: Pharynx normal. Neck: Normal inspection. Neck supple. CVS: Normal heart rate and rhythm. Pulses normal. Respiratory: No respiratory distress. Breath sounds normal. Abdomen: Soft and mild distended in LLQ can feel protuberant hernia cannot reduce, no discoloration mild ttp, quiet bowel sounds. diffuse mild ttp no rebound or guarding Skin: Skin warm and dry. Normal skin color. Normal skin turgor. Extremities: No lower extremity edema. No calf ttp Neuro: Oriented X 3. No motor deficit. No sensory deficit. Course Course Course Narrative: no vomiting now message sent to surgery given SBO MDM - Abdominal Pain MDM Narrative Medical decision making narrative: 85 yo female with prior breast cancer, RA on methotrexate, known L sided hernia that she attributes to prior appendectomy - at this time c/o diffuse pain and n/v, had BM yesterady, no flatus today at this time labs, EKG, troponin, CT scan for obstruction, IVF and IV morphine for pain Differential Diagnosis Differential diagnosis: Likely abdominal pain, diverticulitis, pancreatitis, renal colic and small bowel obstruction; Unlikely aortic dissection or acute appendicitis Lab Data Result diagrams: 07/29/21 09:23 07/29/21 09:23 Labs: Lab Results 07/29/21 07/29/21 07/29/21 Range/Units 09:23 09:23 09:23 WBC 10.0 (4.8-10.8) X10*3/uL RBC 3.57 L (4.20-5.50) X10*6/uL Hgb 11.3 L (12.0-16.0) g/dl Hct 34.1 L (37-47) % MCV 95.5 (80-98) fL MCH 31.7 (27.0-33.0) pg MCHC 33.1 (31.0-35.0) g/dl RDW 13.8 (11.0-16.0) % Plt Count 237 (160-400) X10*3/uL MPV 9.9 (9.4-12.3) fL Immature Gran % (Auto) 0.3 (0.0-0.4) % Neut % (Auto) 87.4 H (45-73) % Lymph % (Auto) 7.1 L (20-40) % Green % (Auto) 4.4 (2-11) % Eos % (Auto) 0.6 (0-4) % Baso % (Auto) 0.2 (0-2) % Lymph # (Auto) 0.7 L (1.2-4.9) X10*3/uL Green # (Auto) 0.4 (0.1-1.2) X10*3/uL Eos # (Auto) 0.1 (0.0-0.4) X10*3/uL Baso # (Auto) 0.0 (0.0-0.2) X10*3/uL Abs Immat Gran (auto) 0.03 (0.00-0.03) X10*3/uL Absolute Neuts (auto) 8.7 H (2.0-8.3) X10*3/uL Absolute Nucleated RBC 0.000 (0.0-0.012) X10*3/uL Nucleated RBC % (auto) 0.0 (0.0-0.2) /100WBC Sodium 139 (135-145) mmol/L Potassium 4.3 (3.3-5.1) mmol/L Chloride 106 (96-108) mmol/L Carbon Dioxide 24 (22-29) mmol/L Anion Gap 13 (12-20) BUN 14 (9-16) mg/dL Creatinine 0.78 (0.5-1.4) mg/dL Estim Creat Clear Calc 52.9 Estimated GFR > 60 Random Glucose 119 H (60-115) mg/dL Lactic Acid (0.5-2.0) mmol/L Calcium 9.5 D (8.4-10.2) mg/dL Magnesium 2.1 (1.6-2.6) mg/dL Total Bilirubin 0.5 (0.0-1.0) mg/dL Direct Bilirubin 0.2 (0.0-0.5) mg/dL AST 35 H (5-31) U/L ALT 21 (0-31) U/L Alkaline Phosphatase 94 D (39-117) U/L Troponin I High Sens (<3.5-17.0) ng/L Total Protein 7.0 (6.5-8.0) g/dL Albumin 4.2 (3.5-5.0) g/dL Lipase 63 (8-78) U/L Urine Color Urine Appearance Urine pH (5.0-8.0) Ur Specific [place] (1.005-1.025) Urine Protein (NEG-TRACE) MG/DL Urine Glucose (UA) (NEG) MG/DL Urine Ketones (NEG) MG/DL Urine Blood (NEG) Urine Nitrite (NEG) Ur Leukocyte Esterase (NEG) COVID-19 (ADELINE) Negative (Negative) COVID-19 Clin Com See Note Blood Type Antibody Screen 07/29/21 07/29/21 07/29/21 Range/Units 09:23 09:23 09:59 WBC (4.8-10.8) X10*3/uL RBC (4.20-5.50) X10*6/uL Hgb (12.0-16.0) g/dl Hct (37-47) % MCV (80-98) fL MCH (27.0-33.0) pg MCHC (31.0-35.0) g/dl RDW (11.0-16.0) % Plt Count (160-400) X10*3/uL MPV (9.4-12.3) fL Immature Gran % (Auto) (0.0-0.4) % Neut % (Auto) (45-73) % Lymph % (Auto) (20-40) % Green % (Auto) (2-11) % Eos % (Auto) (0-4) % Baso % (Auto) (0-2) % Lymph # (Auto) (1.2-4.9) X10*3/uL Green # (Auto) (0.1-1.2) X10*3/uL Eos # (Auto) (0.0-0.4) X10*3/uL Baso # (Auto) (0.0-0.2) X10*3/uL Abs Immat Gran (auto) (0.00-0.03) X10*3/uL Absolute Neuts (auto) (2.0-8.3) X10*3/uL Absolute Nucleated RBC (0.0-0.012) X10*3/uL Nucleated RBC % (auto) (0.0-0.2) /100WBC Sodium (135-145) mmol/L Potassium (3.3-5.1) mmol/L Chloride (96-108) mmol/L Carbon Dioxide (22-29) mmol/L Anion Gap (12-20) BUN (9-16) mg/dL Creatinine (0.5-1.4) mg/dL Estim Creat Clear Calc Estimated GFR Random Glucose (60-115) mg/dL Lactic Acid 1.0 (0.5-2.0) mmol/L Calcium (8.4-10.2) mg/dL Magnesium (1.6-2.6) mg/dL Total Bilirubin (0.0-1.0) mg/dL Direct Bilirubin (0.0-0.5) mg/dL AST (5-31) U/L ALT (0-31) U/L Alkaline Phosphatase (39-117) U/L Troponin I High Sens 14.6 (<3.5-17.0) ng/L Total Protein (6.5-8.0) g/dL Albumin (3.5-5.0) g/dL Lipase (8-78) U/L Urine Color Urine Appearance Urine pH (5.0-8.0) Ur Specific [place] (1.005-1.025) Urine Protein (NEG-TRACE) MG/DL Urine Glucose (UA) (NEG) MG/DL Urine Ketones (NEG) MG/DL Urine Blood (NEG) Urine Nitrite (NEG) Ur Leukocyte Esterase (NEG) COVID-19 (ADELINE) (Negative) COVID-19 Clin Com Blood Type A Positive Antibody Screen NEGATIVE 07/29/21 Range/Units 10:54 WBC (4.8-10.8) X10*3/uL RBC (4.20-5.50) X10*6/uL Hgb (12.0-16.0) g/dl Hct (37-47) % MCV (80-98) fL MCH (27.0-33.0) pg MCHC (31.0-35.0) g/dl RDW (11.0-16.0) % Plt Count (160-400) X10*3/uL MPV (9.4-12.3) fL Immature Gran % (Auto) (0.0-0.4) % Neut % (Auto) (45-73) % Lymph % (Auto) (20-40) % Green % (Auto) (2-11) % Eos % (Auto) (0-4) % Baso % (Auto) (0-2) % Lymph # (Auto) (1.2-4.9) X10*3/uL Green # (Auto) (0.1-1.2) X10*3/uL Eos # (Auto) (0.0-0.4) X10*3/uL Baso # (Auto) (0.0-0.2) X10*3/uL Abs Immat Gran (auto) (0.00-0.03) X10*3/uL Absolute Neuts (auto) (2.0-8.3) X10*3/uL Absolute Nucleated RBC (0.0-0.012) X10*3/uL Nucleated RBC % (auto) (0.0-0.2) /100WBC Sodium (135-145) mmol/L Potassium (3.3-5.1) mmol/L Chloride (96-108) mmol/L Carbon Dioxide (22-29) mmol/L Anion Gap (12-20) BUN (9-16) mg/dL Creatinine (0.5-1.4) mg/dL Estim Creat Clear Calc Estimated GFR Random Glucose (60-115) mg/dL Lactic Acid (0.5-2.0) mmol/L Calcium (8.4-10.2) mg/dL Magnesium (1.6-2.6) mg/dL Total Bilirubin (0.0-1.0) mg/dL Direct Bilirubin (0.0-0.5) mg/dL AST (5-31) U/L ALT (0-31) U/L Alkaline Phosphatase (39-117) U/L Troponin I High Sens (<3.5-17.0) ng/L Total Protein (6.5-8.0) g/dL Albumin (3.5-5.0) g/dL Lipase (8-78) U/L Urine Color YELLOW Urine Appearance CLEAR Urine pH 8.0 (5.0-8.0) Ur Specific [place] 1.015 (1.005-1.025) Urine Protein NEG (NEG-TRACE) MG/DL Urine Glucose (UA) NEG (NEG) MG/DL Urine Ketones NEG (NEG) MG/DL Urine Blood NEG (NEG) Urine Nitrite NEG (NEG) Ur Leukocyte Esterase NEG (NEG) COVID-19 (ADELINE) (Negative) COVID-19 Clin Com Blood Type Antibody Screen ECG Data Attestation: I personally reviewed and interpreted this ECG as follows: ECG interpretation date: 07/29/21 ECG interpretation time: 09:33 Interpretation: Rate: 68 Rhythm: NSR [place]: normal Normal P waves. Normal GOPAL. Normal QRS complex. ST T wave : nonspecific, no CARLOS qTC: normal prior studies: no acute ischemia, no change from prior The study has been interpreted contemporaneously by me. . Discharge Plan Discharge Clinical Impression: Abdominal pain, Constipation, Small bowel obstruction Patient Disposition: Admitted As Inpatient Prescriptions: No Action meloxicam 15 mg tablet 1 tab PO DAILY RF: 0 lorazepam 0.5 mg tablet 1 tab PO BEDTIME PRN (Reason: Anxiety) RF: 0 gabapentin 300 mg capsule 1 cap PO DAILY RF: 0 tamoxifen 20 mg tablet 1 tab PO DAILY RF: 0 escitalopram oxalate 10 mg tablet 1 tab PO DAILY RF: 0 methotrexate sodium (PF) 25 mg/mL solution 25 mg IM QWEEK RF: 0 atorvastatin 40 mg Tablet 40 mg PO BEDTIME Qty: 90 RF: 0 aspirin 81 mg Tablet,Chewable 81 mg PO DAILY Qty: 90 RF: 0 omeprazole 20 mg capsule,delayed release(DR/EC) 1 cap PO DAILY RF: 0 PMFSH Past Medical History Attestation statement: The following information was validated with the patient. Medical History Abdominal hernia Anosmia Anxiety Breast cancer Osteoporosis Rheumatoid arteritis Surgical History History of appendectomy S/P mastectomy Family History Family History Other No significant family history Social History Social History Housing: Assisted Living Facility Do you presently have visiting nurse or other home services: No Alcohol intake: never Advance Directives: No Advance Directives Information Provided: No service: No Current occupational status: retired
[2021-07-29 09:29] LABS: MANUAL DIFF FLAG NO
[2021-07-29] MEDS: ondansetron HCL 4 MG/2 ML VIAL IVPUSH (09:33)
[2021-07-29] MEDS: Morphine Sulfate 4 MG/ML CARTRIDGE IVPUSH (09:34)
[2021-07-29] MEDS: 0.9 % Sodium Chloride 500 ML IV (09:37)
[2021-07-29 09:41] LABS: Basophils Percent Auto 0.2 % (0-2); Eosinophils Absolute Auto 0.1 X10*3/uL (0.0-0.4); Eosinophils Percent Auto 0.6 % (0-4); Hematocrit 34.1 % (37-47); Hemoglobin 11.3 g/dl (12.0-16.0); Imm Gran Abs Auto 0.03 X10*3/uL (0.00-0.03); Imm Gran Pct Auto 0.3 % (0.0-0.4); Lymphocytes Absolute Auto 0.7 X10*3/uL (1.2-4.9); Lymphocytes Percent Auto 7.1 % (20-40); Mean Corpuscular HGB Conc 33.1 g/dl (31.0-35.0); Mean Corpuscular Hemoglobin 31.7 pg (27.0-33.0); Mean Corpuscular Volume 95.5 fL (80-98); Mean Platelet Volume 9.9 fL (9.4-12.3); Monocytes Absolute Auto 0.4 X10*3/uL (0.1-1.2); Monocytes Percent Auto 4.4 % (2-11); Neutrophils Absolute Auto 8.7 X10*3/uL (2.0-8.3); Neutrophils Percent Auto 87.4 % (45-73); Platelet Count 237 X10*3/uL (160-400); Red Blood Count 3.57 X10*6/uL (4.20-5.50); Red Cell Distribution Width 13.8 % (11.0-16.0)
[2021-07-29 09:51] VITALS: BP 154/69; PULSE 77; RESP 18; O2SAT 97
[2021-07-29 09:53] LABS: COVID-19 Test Negative (Negative)
[2021-07-29 09:56] LABS: Alanine Aminotransferase 21 U/L (0-31); Albumin Level 4.2 g/dL (3.5-5.0); Alkaline Phosphatase 94 U/L (39-117); Anion Gap 13 (12-20); Aspartate Amino Transferase 35 U/L (5-31); Bilirubin Direct 0.2 mg/dL (0.0-0.5); Bilirubin Total 0.5 mg/dL (0.0-1.0); Blood Urea Nitrogen 14 mg/dL (9-16); Calcium 9.5 mg/dL (8.4-10.2); Carbon Dioxide 24 mmol/L (22-29); Chloride 106 mmol/L (96-108); Creatinine Clr Calc Pharmacy 52.9; Estimated Glomerular Filt Rate > 60; Glucose Random 119 mg/dL (60-115); Lipase 63 U/L (8-78); Magnesium 2.1 mg/dL (1.6-2.6); Potassium 4.3 mmol/L (3.3-5.1); Sodium 139 mmol/L (135-145)
[2021-07-29 09:59] LABS: Troponin-I High Sensitivity 14.6 ng/L (<3.5-17.0)
[2021-07-29] MEDS: iohexoL 350 MG/ML 100 ML INFUS..BTL 85 ML IV (10:37)
[2021-07-29 11:07] LABS: Appearance Urine CLEAR; Color Urine YELLOW; Glucose Urine UA NEG (NEG); Leukocyte Esterase Urine NEG (NEG); Nitrite Urine NEG (NEG); Specific Gravity - Urine 1.015 (1.005-1.025); Urine Blood NEG (NEG); Urine Ketones NEG (NEG); Urine Protein NEG (NEG-TRACE)
--- NOTE | 2021-07-29 11:23 | PHA.MEDREC ---
Pharmacy Consult ? Medication Reconciliation Pharmacy has completed the medication reconciliation. There are no remarkable issues for provider's attention. Colette Tamez, ShanD
--- NOTE | 2021-07-29 12:56 | P.HPGS_ITS ---
History of Present Illness History of Present Illness Date of Service: 07/29/21 Chief complaint: small bowel obstruction Narrative: Ernestine Fung is a 85 year old female presenting with complaints of upper abdominal pain beginning yesterday and progressing during the night. She denied nausea, vomiting, fever, or chills. She has been moving her bowels daily with the help of Colace and fiber therapy. She has a known incisional hernia in the left lower quadrant but denies any changes in this hernia. She denies pain associated with the hernia. She was brought to the emergency d [facility] for further evaluation. CT of the abdomen and pelvis revealed dilated loops of small bowel with air-fluid levels suggestive of an early small-bowel obstruction. She is being admitted to the surgical service for further management of the small bowel obstruction. Review of Systems Review of Systems: Yes all other systems are reviewed and are negative Constitutional: Constitutional: Denies anorexia, Denies chills, Denies fever(s) and Denies malaise Cardiovascular: Cardiovascular: Reports Abdominal Distension, Denies chest pain, Reports Epigastric Pain, Denies rapid heart rate, Denies irregular heart rhythm and Denies dyspnea Respiratory: Respiratory: Denies chest congestion, Denies cough, Denies hemoptysis and Denies dyspnea Gastrointestinal: Gastrointestinal: Reports abdominal pain, Reports bloating, Denies constipation, Reports GI cramping and Denies vomiting Genitourinary: Genitourinary: Reports no additional female genitourinary complaints [facility] Past Medical History Medical History Abdominal hernia Anosmia Anxiety Breast cancer Osteoporosis Rheumatoid arteritis Family History Family History Other No significant family history Surgical History Surgical History History of appendectomy S/P mastectomy Social History Social History Housing: Assisted Living Facility Do you presently have visiting nurse or other home services: No Alcohol intake: never Advance Directives: No Advance Directives Information Provided: No service: No Current occupational status: retired Meds Allergies Allergy/AdvReac Type Severity Reaction Status Date / Time No Known Allergies Allergy Verified 03/02/21 12:35 [No Known Allergies*] Active Medications: Current Medications Pharmacy Consult (Consult Rx Perform Med Rec) 1 each MISCELLANE ONCE PRN PRN Reason: Consult order Home Medications Medication Instructions Recorded Confirmed Last Taken Type escitalopram oxalate 10 mg tablet 1 tab PO DAILY 01/21/21 07/29/21 07/28/21 History gabapentin 300 mg capsule 1 cap PO DAILY 01/21/21 07/29/21 07/28/21 History lorazepam 0.5 mg tablet 1 tab PO BEDTIME PRN 01/21/21 07/29/21 07/28/21 History meloxicam 15 mg tablet 1 tab PO DAILY 01/21/21 07/29/21 07/28/21 History methotrexate sodium (PF) 25 mg/mL 25 mg IM WE 01/21/21 07/29/21 07/28/21 History injection solution Probiotic 1 cap PO DAILY 07/29/21 07/29/21 07/28/21 History cholecalciferol (vitamin D3) 50 50 mcg PO DAILY 07/29/21 07/29/21 07/28/21 History mcg (2,000 unit) tablet (Vitamin D3) docusate sodium 50 mg capsule 100 mg PO DAILY 07/29/21 07/29/21 07/28/21 History multivitamin 1 tab PO DAILY 07/29/21 07/29/21 07/28/21 History omeprazole 20 mg capsule,delayed 1 cap PO DAILY 07/29/21 07/29/21 07/28/21 History release psyllium husk 3.4 gram/5.4 gram 1 tsp PO BID 07/29/21 07/29/21 07/28/21 History oral powder (Metamucil) Physical Exam Vital Signs: Vital Signs: Last Vital Signs Temp 98.7 F 07/29/21 09:05 Pulse 77 07/29/21 09:51 Resp 18 07/29/21 09:51 BP 154/69 H 07/29/21 09:51 Pulse Ox 97 07/29/21 09:51 Body Mass Index 29.2 Const: General: cooperative, no acute distress and well developed Nutritional Appearance: well nourished Orientation/consciousness: patient oriented x3 Limitations: no limitations HENMT: Head: Yes normocephalic and Yes atraumatic Ears: hearing grossly normal bilaterally Resp: Effort & Inspection: normal respiratory effort, no cough and no respiratory distress Auscultation: clear to auscultation bilaterally Cardio: Rate: regular rate Rhythm: regular rhythm GI: Inspection: Yes normal to inspection Palpation (GI): Soft to palpation, nontender, no guarding and not rigid Percussion: Yes normal to percussion Auscultation: normal bowel sounds Abdomen image: 1. Incisional hernia which is reducible with light pressure, no tenderness to palpation Skin: Other: Warm, dry, no rash Neuro: General: patient oriented x3 Extrem: Other: No edema normal range of motion Results Results Labs: Short CBC 07/29/21 Range/Units 09:23 WBC 10.0 (4.8-10.8) X10*3/uL Hgb 11.3 L (12.0-16.0) g/dl Hct 34.1 L (37-47) % Plt Count 237 (160-400) X10*3/uL BMP 07/29/21 09:23 Sodium 139 Potassium 4.3 Chloride 106 Carbon Dioxide 24 BUN 14 Creatinine 0.78 Calcium 9.5 D Liver Function 07/29/21 Range/Units 09:23 Total Bilirubin 0.5 (0.0-1.0) mg/dL Direct Bilirubin 0.2 (0.0-0.5) mg/dL AST 35 H (5-31) U/L ALT 21 (0-31) U/L Alkaline Phosphatase 94 D (39-117) U/L Albumin 4.2 (3.5-5.0) g/dL Urine 07/29/21 Range/Units 10:54 Urine Color YELLOW Urine Appearance CLEAR Urine pH 8.0 (5.0-8.0) Ur Specific [place] 1.015 (1.005-1.025) Urine Protein NEG (NEG-TRACE) MG/DL Urine Glucose (UA) NEG (NEG) MG/DL Assessment and Plan (1) Small bowel obstruction: Status: Acute 85-year-old female patient with a known history of an incisional hernia in the left lower quadrant now presenting with a small-bowel obstruction with abdominal pain. Hernia is easily reducible with light pressure and is nontender. Small-bowel obstruction appears to be related to adhesions from prior abdominal surgery. I recommended admission for IV hydration and bowel rest. She will be kept on clear liquid diet for now and advanced as tolerated. If there is no improvement in her symptoms abdominal exploration may be required. Quality Stroke Does the patient have a stroke diagnosis?: No VTE Prior VTE?: No VTE Risk Level:: Surgical - moderate VTE Device Contraindication: N/A - Device Ordered VTE Drug Contraindication: N/A - Med Ordered Procedures Date of Service Date of Service: 07/29/21
[2021-07-29 13:06] VITALS: BP 132/69; PULSE 79; RESP 16; O2SAT 96
[2021-07-29] MEDS: Dextrose 5 % and Lactated Ring 1,000 ML 100 ML IVCONT (15:10)
[2021-07-29] MEDS: Heparin Sodium,Porcine 5,000 UNIT/ML VIAL 5000 UNIT SUBCUT (15:10)
[2021-07-29 15:14] VITALS: BP 133/67; PULSE 70; RESP 18; TEMP 37.2; O2SAT 97
[2021-07-29 17:59] VITALS: BP 109/59; PULSE 65; RESP 18; TEMP 37.2; O2SAT 95
[2021-07-30] VITALS: BP 105/57; PULSE 72; RESP 18; TEMP 36; O2SAT 98
[2021-07-30 03:28] VITALS: BP 116/60; PULSE 59; RESP 18; TEMP 36.3; O2SAT 99
[2021-07-30] MEDS: Heparin Sodium,Porcine 5,000 UNIT/ML VIAL 5000 UNIT SUBCUT ×2 (04:36→14:05)
[2021-07-30 06:32] LABS: MANUAL DIFF FLAG NO
[2021-07-30 06:47] LABS: Basophils Percent Auto 0.2 % (0-2); Eosinophils Absolute Auto 0.3 X10*3/uL (0.0-0.4); Eosinophils Percent Auto 5.2 % (0-4); Hematocrit 29.4 % (37-47); Hemoglobin 9.5 g/dl (12.0-16.0); Imm Gran Abs Auto 0.02 X10*3/uL (0.00-0.03); Imm Gran Pct Auto 0.3 % (0.0-0.4); Lymphocytes Absolute Auto 1.7 X10*3/uL (1.2-4.9); Lymphocytes Percent Auto 27.5 % (20-40); Mean Corpuscular HGB Conc 32.3 g/dl (31.0-35.0); Mean Corpuscular Hemoglobin 31.5 pg (27.0-33.0); Mean Corpuscular Volume 97.4 fL (80-98); Mean Platelet Volume 10.3 fL (9.4-12.3); Monocytes Absolute Auto 0.5 X10*3/uL (0.1-1.2); Monocytes Percent Auto 7.8 % (2-11); Neutrophils Absolute Auto 3.6 X10*3/uL (2.0-8.3); Platelet Count 193 X10*3/uL (160-400); Red Blood Count 3.02 X10*6/uL (4.20-5.50); Red Cell Distribution Width 14.1 % (11.0-16.0)
[2021-07-30 07:01] LABS: Anion Gap 11 (12-20); Blood Urea Nitrogen 9 mg/dL (9-16); Calcium 8.3 mg/dL (8.4-10.2); Carbon Dioxide 25 mmol/L (22-29); Chloride 109 mmol/L (96-108); Creatinine Clr Calc Pharmacy 60.7; Estimated Glomerular Filt Rate > 60; Glucose Random 103 mg/dL (60-115); Sodium 141 mmol/L (135-145)
[2021-07-30 07:26] VITALS: BP 122/75; PULSE 63; RESP 16; TEMP 36.6; O2SAT 99
--- NOTE | 2021-07-30 08:10 | MHC.CM.PN ---
PATIENT LIVES ALONE IN AN APARTMENT AT THE [facility]. SHE HAS A CAR THAT SHE USES FOR GROCERIES AND MEDICAL APPOINTMENTS. PATIENT RELIES ON A CANE AND A WALKER. SHE DOES HAVE HER HEARING AID WITH HER NO VNA SERVICE IN THE HOME BUT THERE IS A DAILY RN SERVICE AVAILABLE IF NEEDED. HCP ON FILE AND VERIFIED. PCP IS DR SEWELL AND UPDATE MADE IN [employer]. CASE MANAGEMENT FOLLOWING IMM 07/30 IN CHART
[2021-07-30] MEDS: Escitalopram Oxalate 10 MG TABLET PO (09:48)
[2021-07-30] MEDS: Docusate Sodium 100 MG/10 ML LIQUID PO (09:48)
[2021-07-30] MEDS: 0.9 % Sodium Chloride Flush 3 ML SYRINGE IVFLUSH ×2 (09:49→16:52)
--- NOTE | 2021-07-30 12:25 | PM.PNGS ---
Subjective Subjective Date of Service: 07/30/21 Interval history: feels well, passing lots of gas but no bowel movement, no nv Physical Exam Vital Signs: Vital Signs: Last Vital Signs Temp 97.8 F 07/30/21 07:26 Pulse 63 07/30/21 07:26 Resp 16 07/30/21 07:26 BP 122/75 07/30/21 07:26 Pulse Ox 99 07/30/21 07:26 Body Mass Index 29.2 Const: General: cooperative, healthy appearing, comfortable and no acute distress GI: Other: soft nontender nondistended, little quiet bowel sounds Procedures Date of Service Date of Service: 07/30/21 Progress Note: A&P Assessment and plan (1) Small bowel obstruction: Status: Acute Assessment and Plan: 85 year old female with psbo /constipation - doing better and tolerating clear liquids - plan to trial for bowel movement and then advance diet to regular. if doing well then dc home tomorrow. she understands and agrees with the plan Fall Risk Details Current Medications: Current Medications Acetaminophen (Acetaminophen 325 Mg Tablet) 650 mg PO Q6H PRN PRN Reason: Pain, Mild (Pain Scale 1-3) Atorvastatin Calcium (Atorvastatin Calcium 40 Mg Tablet) 40 mg PO BEDTIME [facility] Last Admin: 07/29/21 20:34 Dose: Not Given Documented by: Docusate Sodium (Docusate Sodium 100 Mg/10 Ml Liquid) 100 mg PO DAILY [facility] Last Admin: 07/30/21 09:48 Dose: 100 mg Documented by: Escitalopram Oxalate (Escitalopram Oxalate 10 Mg Tablet) 10 mg PO DAILY [facility] Last Admin: 07/30/21 09:48 Dose: 10 mg Documented by: Gabapentin (Gabapentin 300 Mg Capsule) 300 mg PO BEDTIME [facility] Heparin Sodium (Porcine) (Heparin Sodium,Porcine 5,000 Unit/Ml Vial) 5,000 unit SUBCUT Q12H [facility] Last Admin: 07/30/21 04:36 Dose: 5,000 unit Documented by: Lorazepam (Lorazepam 0.5 Mg Tablet) 0.5 mg PO BEDTIME PRN PRN Reason: Anxiety Morphine Sulfate (Morphine Sulfate 4 Mg/Ml Cartridge) 4 mg IVPUSH Q4H PRN; Protocol PRN Reason: Pain, Severe (Pain Scale 7-10) Naproxen (Naproxen 500 Mg Tablet) 500 mg PO BID [facility] Last Admin: 07/30/21 09:51 Dose: Not Given Documented by: Non-Formulary Medication (Methotrexate Sodium (Pf)) 25 mg IM [facility] Ondansetron HCl (Ondansetron Hcl 4 Mg/2 Ml Vial) 4 mg IVPUSH Q8H PRN PRN Reason: Nausea and Vomiting Pharmacy Consult (Consult Rx Perform Med Rec) 1 each MISCELLANE ONCE PRN PRN Reason: Consult order Psyllium Hydrophilic Mucilloid (Psyllium Seed 3.4 Gm Powd.Pack) 3.4 gm PO BID [facility] Last Admin: 07/30/21 09:48 Dose: 3.4 gm Documented by: Sodium Chloride (0.9 % Sodium Chloride Flush 3 Ml Syringe) 3 ml IVFLUSH QSHIFT [facility] Last Admin: 07/30/21 09:49 Dose: 3 ml Documented by: Time Spent With Patient Time: Total time spent is greater than 50% in coordination of care (as documented) at patient's floor/unit and/or counseling patient: Time with patient: 15 - 24 minutes Quality Stroke Does the patient have a stroke diagnosis?: No VTE Prior VTE?: No VTE Risk Level:: Surgical - moderate VTE Device Contraindication: N/A - Device Ordered VTE Drug Contraindication: N/A - Med Ordered
[2021-07-30] MEDS: polyethylene glycoL 3350 17 GM POWD.PACK PO (14:09)
[2021-07-30 15:16] VITALS: BP 116/62; PULSE 58; RESP 16; TEMP 36.6; O2SAT 98
[2021-07-30] MEDS: Magnesium Citrate 300 ML SOLUTION 100 ML PO (19:00)
[2021-07-30 20:03] VITALS: BP 148/86; PULSE 66; RESP 18; TEMP 36.6; O2SAT 100
[2021-07-30] MEDS: Gabapentin 300 MG CAPSULE PO (20:55)
[2021-07-31] VITALS: BP 128/61; PULSE 64; RESP 16; TEMP 36.8; O2SAT 98
[2021-07-31] MEDS: LORazepam 0.5 MG TABLET PO (00:35)
[2021-07-31] MEDS: 0.9 % Sodium Chloride Flush 3 ML SYRINGE IVFLUSH ×2 (01:59→10:18)
[2021-07-31] MEDS: Heparin Sodium,Porcine 5,000 UNIT/ML VIAL 5000 UNIT SUBCUT (05:06)
[2021-07-31 07:13] VITALS: BP 147/72; PULSE 73; RESP 18; TEMP 36.4; O2SAT 96
[2021-07-31] MEDS: Escitalopram Oxalate 10 MG TABLET PO (10:17)
[2021-07-31] MEDS: Docusate Sodium 100 MG/10 ML LIQUID PO (10:17)
[2021-07-31] MEDS: bisacodyL 10 MG SUPP.RECT PR (10:18)
--- NOTE | 2021-07-31 11:41 | MHC.CM.PN ---
PT CLEARED TO DC BACK TO NURSING HOME TODAY WITH NO NEW SERVICES FAMILY TO TRANSPORT
--- NOTE | 2021-08-01 07:21 | PM.DS ---
DS: Providers Provider Date of Service: 07/30/21 Date of admission: 07/29/21 12:54 Date of discharge: 07/30/21 Primary care physician: Vineet Hwang MD, DO Admitting clinician: Cortez Lopez Discharging clinician: Damaris Bailey DS: Diagnosis Discharge Diagnosis (1) Small bowel obstruction: Status: Acute DS: Summary Hospital Course Hospital Course: 85 year old female presenting with complaints of upper abdominal pain beginning on 07/28/2021 which progressed during the night.? She denied nausea, vomiting, fever, or chills.? She has been moving her bowels daily with the help of Colace and fiber therapy.? She has a known incisional hernia in the left lower quadrant but denies any changes in this hernia.? She denies pain associated with the hernia.? She was brought to the emergency department for further evaluation.? CT of the abdomen and pelvis revealed dilated loops of small bowel with air-fluid levels suggestive of an early small-bowel obstruction.? She was admitted to the surgical service for further management of the small bowel obstruction. Patient was placed on clear liquids and IV fluids as she had no nausea or vomiting. By the next hospital day she reported improvement in the abdominal pain with no difficulty tolerating clear liquids. She was advanced in her diet and tolerated this well. She is passing flatus and previously was moving her bowels as well. The decision was made for discharge to home. She will follow up in the office in approximately 1 week for reexamination. She should remain on a low-fiber diet and call for increased pain, nausea, vomiting, or obstipation. Time spent discussing smoking cessation with patient: 3 to 10 minutes Status at Discharge Functional status at discharge: independent ambulation Overall status at discharge: patient is back to baseline Time Spent with Patient Time attestation: Total time spent providing and/or coordinating discharge services: Discharge coordination time: Less than 30 minutes Quality: Stroke Does the patient have a stroke diagnosis?: No Physical Exam Vital Signs: Vital Signs: Last Vital Signs Temp 97.5 F 07/31/21 07:13 Pulse 73 07/31/21 07:13 Resp 18 07/31/21 07:13 BP 147/72 H 07/31/21 07:13 Pulse Ox 96 07/31/21 07:13 Body Mass Index 29.2 Const: General: no acute distress HENMT: Head: Yes normocephalic and Yes atraumatic Resp: Effort & Inspection: normal respiratory effort Auscultation: clear to auscultation bilaterally GI: Inspection: Yes normal to inspection Palpation (GI): Soft to palpation, nontender, no guarding, not rigid and Hernia present Percussion: Yes normal to percussion Skin: General skin exam: no rashes or lesions noted Extrem: General: Yes normal to inspection and Yes no clubbing, cyanosis or edema Discharge Plan Discharge Anticipated Discharge Date/Time: 07/31/21 12:26 Patient Disposition: Home, Self-Care Discharge Diagnosis: constipation partial bowel obstruction Referrals: Vineet Hwang MD, DO [Primary Care Provider] - 1 Week Discharge Medications: Continued meloxicam 15 mg tablet 1 tab PO DAILY RF: 0 lorazepam 0.5 mg tablet 1 tab PO BEDTIME PRN (Reason: Anxiety) RF: 0 gabapentin 300 mg capsule 1 cap PO DAILY RF: 0 escitalopram oxalate 10 mg tablet 1 tab PO DAILY RF: 0 methotrexate sodium (PF) 25 mg/mL solution 25 mg IM WE RF: 0 atorvastatin 40 mg Tablet 40 mg PO BEDTIME Qty: 90 RF: 0 aspirin 81 mg Tablet,Chewable 81 mg PO DAILY Qty: 90 RF: 0 omeprazole 20 mg capsule,delayed release(DR/EC) 1 cap PO DAILY RF: 0 multivitamin Tablet 1 tab PO DAILY RF: 0 docusate sodium 50 mg Capsule 100 mg PO DAILY RF: 0 cholecalciferol (vitamin D3) [Vitamin D3] 50 mcg (2,000 unit) Tablet 50 mcg PO DAILY RF: 0 Metamucil 3.4 gram/5.4 gram Powder 1 tsp PO BID RF: 0 Probiotic 1 cap PO DAILY RF: 0 Discharge Orders: Discharge Order (Routine); Ordered 07/31/21 Ordered By: Damaris Bailey Diet: advance to usual diet Activity on Discharge: As tolerated Stand Alone Forms: Patient Portal Discharge page Care Plan Goals: activity and diet as usual with daily bowel regimen Health Concerns: none Plan of Treatment: none - fu with surgery prn Assessment: doing great admitted with psbo prob due to constipation had good bowel movement nd tolerated diet and improved to dc home. Discharge Date/Time: 07/31/21 14:06
== END 2021-07-31 14:06 | disposition home or self-care (01) | DRG 390 ==
LOC: HO.ED 11:22 → HO.EDOVER 13:15 → HO.S3 16:46
PROVIDERS: Admitting Provider Surgery; Emergency Provider Emergency Medicine; PCP Internal Medicine; Visit Provider Surgery
DX: K56.609 Unspecified intestinal obstruction, unspecified as to partial versus complete obstruction (principal); K59.00 Constipation, unspecified; F41.9 Anxiety disorder, unspecified; Z20.822 Contact with and (suspected) exposure to COVID-19; Z79.82 Long term (current) use of aspirin; Z79.1 Long term (current) use of non-steroidal anti-inflammatories (NSAID); Z79.899 Other long term (current) drug therapy
CPT/HCPCS: 36415; 74177; 80048; 80076; 81003; 83605; 83690; 83735; 84484; 85025; 86850; 86900; 86901; 87635; 93005; 99285; J2270; J2405; Q9967

== ENCOUNTER 2021-08-05 12:40 | Outpatient (REF) | payer MEDICARE, SELFPAY ==
--- NOTE | 2021-08-10 13:15 | MHC.AU.AHA ---
Adult Audiological Evaluation Date of Visit: 08/05/21 Global Compensation Analyst Used: Not Applicable Reason for Appointment: Audiologic re-evaluation due to question of change in hearing ability. Previous Hearing Test Results: 07/13/2020 [facility] Moderately-severe sensorineural hearing loss 250-8000 Hz, bilaterally. Medical History: Medical History: Rheumatoid Arthritis and High Cholesterol, history of small bowel obstruction Medication List: Remicade, Methotrexate Sodium, Folic Acid, Meloxicam, [place] 3, ICaps, Probiotic, Vitamin D, Multivitamin, Escitalopram Oxalate, Lorazepam, Atorvastatin, Aspirin, Evenity injection Hearing Instrument History- Right Ear: Melt Supervisor: Conservis Model: [employer]-M MediasurfaceE Serial Number: [id number] Battery Size: 312 Repair Warranty: 01/31/2020 Dispensed By: [facility] Date of Fittin11/20/2016 Hearing Instrument History- Left Ear: Melt Supervisor: Conservis Model: [employer]M Med[employer]urface[employer] Serial Number: [id number] Battery Size: 312 Warranty: 01/31/2020 Dispensed By: [facility] Date of Fittin11/20/2016 Otoscopy: Right Ear: Partially occluded with cerumen Left Ear: Partially occluded with cerumen Tympanometry: Tympanometry performed due to: To assess integrity of the middle ear system Right Ear: Normal Middle Ear System (Type A) Left Ear: Normal Middle Ear System (Type A) Hearing Evaluation: Transducer(s) Used: Circumaural Headphones Bone Conduction Method: Conventional Audiometry Stimuli Used: Pure Tones Right Ear: Description of Hearing: Moderately-severe hearing thresholds 250-8000 Hz. Left Ear: Description of Hearing: Moderately-severe hearing thresholds 250-8000 Hz. Speech Recognition Threshold (SRT): Method Used: Monitored Live Voice Stimuli Used: Spondee Words Right Ear: 55 dB HL Left Ear: 50 dB HL Word Discrimination: Method: Recorded Lists Word Lists Used: NU-6 Right Ear: 60% at 90 dB HL Left Ear: 80% at 90 dB HL Most Comfortable Level (MCL): Right Ear: 90 dB HL Left Ear: 90 dB HL Comparison: Compared to most recent evaluation: Thresholds at 250-2000 Hz have improved 5 dB with 5499-4934 Hz decreasing 5-10 dB for both ears. Speech discrimination ability is stable bilaterally. Recommendations: Hearing aid maintenance performed today. Hearing aid(s) reprogrammed with updated test results. Audiological re-evaluation in one year. Will send a reminder card. Diagnosis: Primary Diagnosis: H90.3 Bilateral Sensorineural Hearing Loss Services Performed: Comprehensive Audiological Evaluation (CPT 50986) Tympanometry (CPT 10276) Signature: Provider: Rad Solis, CCC-A
== END 2021-08-05 12:41 | disposition home or self-care (01) ==
LOC: HO.SH 12:40
PROVIDERS: Visit Provider Internal Medicine
DX: H90.3 Sensorineural hearing loss, bilateral (principal)
CPT/HCPCS: 92557; 92567

== ENCOUNTER 2021-08-12 06:50 | Inpatient (IN) | payer MEDICARE, SELFPAY ==
--- NOTE | ~2021-08-12 | CT_ITS ---
EXAMINATION: CT ABDOMEN AND PELVIS WITH CONTRAST CLINICAL INFORMATION: Right lower quadrant pain. COMPARISON: 07/29/2021 and 01/23/2016 TECHNIQUE: Multidetector volumetric images were obtained from the superior aspect of the liver through the pubic symphysis following administration 64 mL of Omnipaque 350 intravenous contrast. Sagittal and coronal reformatted images were obtained on the technologist's workstation. Oral contrast: No This CT examination was performed using dose optimization techniques as appropriate, variously including the following: *Automated exposure control *Adjustment of mA and/or kV according to patient size (this includes techniques or standardized protocols for targeted exams where dose is matched to indication/reason for exam; i.e. extremities or head) *Use of iterative reconstruction technique DLP: 602 mGy-cm FINDINGS: LUNG BASES: Within the medial aspect of the right lower lobe there is a 4 mm pulmonary nodule (image 4/21 of series 8), unchanged from 01/23/2016 and benign by time criteria. Mild dependent atelectasis and pleural parenchymal scarring. Small sliding-type hiatal hernia. LIVER, GALLBLADDER, AND BILIARY TREE: The liver is normal in size, shape, and attenuation. No focal hepatic lesion or biliary ductal dilatation is present. The gallbladder is unremarkable with no evidence of radiopaque gallstones, gallbladder wall thickening, or obvious pericholecystic inflammatory changes. PANCREAS: Unremarkable. SPLEEN: Unremarkable. ADRENAL GLANDS: Unremarkable. KIDNEYS AND URETERS: Again seen is a 7 x 6.3 x 5.3 cm exophytic cyst at the lateral aspect of the interpolar region of the left kidney with a thin internal septation with coarse calcifications. No appreciable enhancement. This is not significantly change as compared to prior. At the medial cortex of the lower pole the left kidney, there is a 1.3 cm fat attenuation lesion which is also unchanged from 2016 and is most consistent with a angiomyolipoma. Kidneys are otherwise normal in size with normal cortical thickness and symmetric contrast enhancement. Prominence of the renal pelvises is likely related to the phase of contrast enhancement. 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 No ureterolithiasis or appreciable hydroureter. BLADDER: Distended and otherwise unremarkable. No wall thickening. GASTROINTESTINAL TRACT/ABDOMINAL WALL: Small hiatal hernia. There is a bowel containing hernia in the left lower quadrant between the rectus abdominis and oblique musculature, containing a short segment of the sigmoid colon. Surrounding fat stranding is evident in this region. No appreciable wall thickening or surrounding fluid. No appreciable colonic dilatation. There is a moderate volume of stool throughout the colon. There is mild generalized distention of the small bowel loops throughout the abdomen, measuring up to 4 cm in diameter with relatively focal caliber transition in the right lower quadrant just to the right lateral aspect of the bladder as seen on image 36/94 series 5. No intraperitoneal free fluid. No free air. Subtle mesenteric fat stranding. LYMPH NODES: Normal. VASCULAR: Atherosclerotic calcifications are present in the abdominal aorta and iliac arteries. No aneurysmal dilatation. PELVIC VISCERA: There is heterogeneous thickening of the endometrium. Follow-up pelvic ultrasound is advised on a nonemergent basis for further assessment. OSSEOUS STRUCTURES: Marked multilevel degenerative disc disease in the lumbar spine. There is a marked compression deformity at the T11 vertebral body which is unchanged as compared to prior. Posterior cortex retropulsion results in indentation of the ventral thecal sac in this region. Multilevel central canal and neural foraminal encroachment are present throughout the lumbar spine. CT/CT abdomen pelvis w con IMPRESSION: 1. Mild small bowel distention with a focal caliber transition in the right lower quadrant just to the right lateral aspect of the bladder, likely due to a partial small bowel obstruction due to adhesions or stricture. Ileus related to the left lower quadrant colonic hernia is possible, though felt to be less likely. Inflammatory fat stranding is again seen around the hernia sac and herniated segment of sigmoid colon without evidence of colonic obstruction. A moderate to large amount of stool throughout the colon is again noted, consistent with constipation. 2. Small hiatal hernia. 3. A 7 cm Bosniak type II left renal cyst. 4. 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 5. Abnormally thickened endometrium in a postmenopausal patient. Further assessment with pelvic ultrasound is advised on a nonemergent basis. 6. Unchanged 4 mm pulmonary nodule in the right lower lobe dating back to 2016, benign by time criteria. 7. Chronic vertebral compression fracture at T11.
[2021-08-12 06:57] VITALS: BP 154/80; BP 175/74; PULSE 79; PULSE 82; RESP 20; TEMP 37.2; O2SAT 97; O2SAT 99; BMI 29.2
--- NOTE | 2021-08-12 07:18 | ED.ABDPAIN ---
HPI - Abdominal Pain General Chief Complaint: Abdominal Pain Stated Complaint: RLQ pain Time Seen by Provider: 08/12/21 07:15 History of Present Illness HPI narrative: Patient is an 85-year-old female presents today with having abdominal pain in the right lower quadrant. She is status post appendectomy. Has a history of incisional hernia in the left lower quadrant. Patient had a history of small-bowel obstruction. Was just discharged from the hospital August 01. Presented back with having abdominal pain. It is associated with mild nausea. There is no vomiting. There is no diarrhea. Patient is from home. No coughing or congestion or upper respiratory symptoms. No diaphoresis. Related Data Home Medications Medication Instructions Recorded Confirmed escitalopram oxalate 10 mg tablet 1 tab PO DAILY 01/21/21 07/29/21 gabapentin 300 mg capsule 1 cap PO DAILY 01/21/21 07/29/21 lorazepam 0.5 mg tablet 1 tab PO BEDTIME PRN 01/21/21 07/29/21 meloxicam 15 mg tablet 1 tab PO DAILY 01/21/21 07/29/21 methotrexate sodium (PF) 25 mg/mL 25 mg IM WE 01/21/21 07/29/21 injection solution Probiotic 1 cap PO DAILY 07/29/21 07/29/21 cholecalciferol (vitamin D3) 50 50 mcg PO DAILY 07/29/21 07/29/21 mcg (2,000 unit) tablet (Vitamin D3) docusate sodium 50 mg capsule 100 mg PO DAILY 07/29/21 07/29/21 multivitamin 1 tab PO DAILY 07/29/21 07/29/21 omeprazole 20 mg capsule,delayed 1 cap PO DAILY 07/29/21 07/29/21 release psyllium husk 3.4 gram/5.4 gram 1 tsp PO BID 07/29/21 07/29/21 oral powder (Metamucil) Previous Rx's Medication Instructions Recorded aspirin 81 mg chewable tablet 81 mg PO DAILY #90 tab 02/18/21 atorvastatin 40 mg tablet 40 mg PO BEDTIME #90 tab 02/18/21 Allergies Allergy/AdvReac Type Severity Reaction Status Date / Time No Known Allergies Allergy Verified 07/29/21 17:21 [No Known Allergies*] Review of Systems Review of Systems Positive abdominal pain in the right lower quadrant Positive nausea vomiting Positive BM last night Yes all other systems are reviewed and are negative Physical Exam Vital Signs: Vital Signs: Last Vital Signs Temp 99.0 F 08/12/21 08:27 Pulse 84 08/12/21 08:27 Resp 18 08/12/21 08:27 BP 139/68 08/12/21 08:27 Pulse Ox 99 08/12/21 08:27 Body Mass Index 29.2 Appearance: Alert. Oriented X3. No acute distress. Eyes: Pupils equal, round and reactive to light. ENT: Pharynx normal. Neck: Normal inspection. Neck supple. No lymph nodes noted. No crepitus CVS: Normal heart rate and rhythm. Pulses normal. Normal S1 and S2 Respiratory: No respiratory distress. Breath sounds normal. No Wheezing. No rales Abdomen: Soft and positive right lower quadrant tenderness. No rigidity. No distention. good BS x4 Skin: Skin warm and dry. Normal skin color. Normal skin turgor. Extremities: No lower extremity edema. Neurovascular intact to all extremities. No Lacerations. No Rash Neuro: Oriented X 3. No motor deficit. No sensory deficit. Moving all extermities. No slurred speech MDM - Abdominal Pain MDM Narrative Medical decision making narrative: Positive small bowel obstruction on CT scan. No abscess no perforation. White count of 12. Case discussed with the surgical service. Will admit for further evaluation. Currently in stable condition. Differential Diagnosis Differential diagnosis: Likely abdominal pain Medical Records Attestation: I reviewed the patient's medical records. Lab Data Attestation: I reviewed the patient's lab results. Result diagrams: 08/12/21 07:55 08/12/21 07:55 Labs: Lab Results 08/12/21 08/12/21 08/12/21 Range/Units 07:55 07:55 07:55 WBC 11.6 H (4.8-10.8) X10*3/uL RBC 3.71 L D (4.20-5.50) X10*6/uL Hgb 11.8 L D (12.0-16.0) g/dl Hct 35.7 L D (37-47) % MCV 96.2 (80-98) fL MCH 31.8 (27.0-33.0) pg MCHC 33.1 (31.0-35.0) g/dl RDW 14.2 (11.0-16.0) % Plt Count 257 D (160-400) X10*3/uL MPV 9.4 (9.4-12.3) fL Immature Gran % (Auto) 0.3 (0.0-0.4) % Neut % (Auto) 83.9 H (45-73) % Lymph % (Auto) 9.9 L (20-40) % Caswell % (Auto) 5.2 (2-11) % Eos % (Auto) 0.4 (0-4) % Baso % (Auto) 0.3 (0-2) % Lymph # (Auto) 1.2 (1.2-4.9) X10*3/uL Caswell # (Auto) 0.6 (0.1-1.2) X10*3/uL Eos # (Auto) 0.1 (0.0-0.4) X10*3/uL Baso # (Auto) 0.0 (0.0-0.2) X10*3/uL Abs Immat Gran (auto) 0.04 H (0.00-0.03) X10*3/uL Absolute Neuts (auto) 9.8 H (2.0-8.3) X10*3/uL Absolute Nucleated RBC 0.000 (0.0-0.012) X10*3/uL Nucleated RBC % (auto) 0.0 (0.0-0.2) /100WBC Sodium 139 (135-145) mmol/L Potassium 5.0 D (3.3-5.1) mmol/L Chloride 106 (96-108) mmol/L Carbon Dioxide 27 (22-29) mmol/L Anion Gap 11 L (12-20) BUN 13 (9-16) mg/dL Creatinine 0.80 (0.5-1.4) mg/dL Estim Creat Clear Calc 51.6 Estimated GFR > 60 Random Glucose 127 H (60-115) mg/dL Calcium 9.8 D (8.4-10.2) mg/dL Total Bilirubin 0.4 (0.0-1.0) mg/dL AST 35 H (5-31) U/L ALT 21 (0-31) U/L Alkaline Phosphatase 90 (39-117) U/L Total Protein 7.1 (6.5-8.0) g/dL Albumin 4.3 (3.5-5.0) g/dL Lipase 48 (8-78) U/L Urine Color YELLOW Urine Appearance CLEAR Urine pH 7.5 (5.0-8.0) Ur Specific Anthony 1.015 (1.005-1.025) Urine Protein NEG (NEG-TRACE) MG/DL Urine Glucose (UA) NEG (NEG) MG/DL Urine Ketones NEG (NEG) MG/DL Urine Blood NEG (NEG) Urine Nitrite NEG (NEG) Ur Leukocyte Esterase NEG (NEG) Discharge Plan Discharge Clinical Impression: Partial obstruction of small intestine Patient Disposition: Admitted As Inpatient Prescriptions: No Action meloxicam 15 mg tablet 1 tab PO DAILY RF: 0 lorazepam 0.5 mg tablet 1 tab PO BEDTIME PRN (Reason: Anxiety) RF: 0 gabapentin 300 mg capsule 1 cap PO DAILY RF: 0 escitalopram oxalate 10 mg tablet 1 tab PO DAILY RF: 0 methotrexate sodium (PF) 25 mg/mL solution 25 mg IM WE RF: 0 atorvastatin 40 mg Tablet 40 mg PO BEDTIME Qty: 90 RF: 0 aspirin 81 mg Tablet,Chewable 81 mg PO DAILY Qty: 90 RF: 0 omeprazole 20 mg capsule,delayed release(DR/EC) 1 cap PO DAILY RF: 0 multivitamin Tablet 1 tab PO DAILY RF: 0 docusate sodium 50 mg Capsule 100 mg PO DAILY RF: 0 cholecalciferol (vitamin D3) [Vitamin D3] 50 mcg (2,000 unit) Tablet 50 mcg PO DAILY RF: 0 Metamucil 3.4 gram/5.4 gram Powder 1 tsp PO BID RF: 0 Probiotic 1 cap PO DAILY RF: 0 PMFSH Past Medical History Attestation statement: The following information was validated with the patient. Source: unable to obtain Medical History Abdominal hernia Anosmia Anxiety Breast cancer Osteoporosis Rheumatoid arteritis Surgical History History of appendectomy S/P mastectomy Family History Family History Other No significant family history Social History Social History Household Members: None Housing: Assisted Living Facility Do you presently have visiting nurse or other home services: No Alcohol intake: never Patient Tobacco Use Status: Never used Tobacco Use of substances other than those prescribed or required for medical reasons: No Advance Directives: Yes Advance Directives Information Provided: Yes Advance Directives on File: No service: No Current occupational status: retired
[2021-08-12 08:01] LABS: MANUAL DIFF FLAG NO
[2021-08-12 08:03] LABS: Basophils Percent Auto 0.3 % (0-2); Eosinophils Absolute Auto 0.1 X10*3/uL (0.0-0.4); Eosinophils Percent Auto 0.4 % (0-4); Hematocrit 35.7 % (37-47); Hemoglobin 11.8 g/dl (12.0-16.0); Imm Gran Abs Auto 0.04 X10*3/uL (0.00-0.03); Imm Gran Pct Auto 0.3 % (0.0-0.4); Lymphocytes Absolute Auto 1.2 X10*3/uL (1.2-4.9); Lymphocytes Percent Auto 9.9 % (20-40); Mean Corpuscular HGB Conc 33.1 g/dl (31.0-35.0); Mean Corpuscular Hemoglobin 31.8 pg (27.0-33.0); Mean Corpuscular Volume 96.2 fL (80-98); Mean Platelet Volume 9.4 fL (9.4-12.3); Monocytes Absolute Auto 0.6 X10*3/uL (0.1-1.2); Monocytes Percent Auto 5.2 % (2-11); Neutrophils Absolute Auto 9.8 X10*3/uL (2.0-8.3); Neutrophils Percent Auto 83.9 % (45-73); Platelet Count 257 X10*3/uL (160-400); Red Blood Count 3.71 X10*6/uL (4.20-5.50); Red Cell Distribution Width 14.2 % (11.0-16.0); White Blood Count 11.6 X10*3/uL (4.8-10.8)
[2021-08-12 08:06] LABS: Appearance Urine CLEAR; Color Urine YELLOW; Glucose Urine UA NEG (NEG); Leukocyte Esterase Urine NEG (NEG); Nitrite Urine NEG (NEG); PH 7.5 (5.0-8.0); Specific Gravity - Urine 1.015 (1.005-1.025); Urine Blood NEG (NEG); Urine Ketones NEG (NEG); Urine Protein NEG (NEG-TRACE)
[2021-08-12 08:23] LABS: Alanine Aminotransferase 21 U/L (0-31); Albumin Level 4.3 g/dL (3.5-5.0); Alkaline Phosphatase 90 U/L (39-117); Anion Gap 11 (12-20); Aspartate Amino Transferase 35 U/L (5-31); Bilirubin Total 0.4 mg/dL (0.0-1.0); Blood Urea Nitrogen 13 mg/dL (9-16); Calcium 9.8 mg/dL (8.4-10.2); Carbon Dioxide 27 mmol/L (22-29); Chloride 106 mmol/L (96-108); Creatinine Clr Calc Pharmacy 51.6; Estimated Glomerular Filt Rate > 60; Glucose Random 127 mg/dL (60-115); Lipase 48 U/L (8-78); Sodium 139 mmol/L (135-145); Total Protein 7.1 g/dL (6.5-8.0)
[2021-08-12 08:27] VITALS: BP 139/68; PULSE 84; RESP 18; TEMP 37.2; O2SAT 99
[2021-08-12] MEDS: 0.9 % Sodium Chloride 1,000 ML 999 ML IV (08:30)
[2021-08-12] MEDS: ondansetron HCL 4 MG/2 ML VIAL IVPUSH (08:31)
[2021-08-12] MEDS: iohexoL 350 MG/ML 100 ML INFUS..BTL IV (09:07)
[2021-08-12] MEDS: HYDROmorphone HCl 0.5 MG/0.5 ML SYRINGE IVPUSH (09:57)
[2021-08-12 10:32] LABS: COVID-19 Test Negative (Negative); IDNOW Serial# 9DD0AD1C
--- NOTE | 2021-08-12 10:37 | PHA.MEDREC ---
Pharmacy Consult ? Medication Reconciliation Pharmacy has completed the medication reconciliation. There are no remarkable issues for provider's attention. Patient and daughter report nothing has been change since last visit 07/29/2021. Colette Tamez, PharmD
--- NOTE | 2021-08-12 13:11 | PM.HPGS ---
History of Present Illness History of Present Illness Date of Service: 08/12/21 Chief complaint: small bowel obstruction Narrative: Ernestine Fung is a 85 year old female well known to the surgical service with a prior history of breast cancer, acute appendicitis, C diff colitis, incisional hernia left lower quadrant, and prior history of partial small-bowel obstructions, presenting with complaints of abdominal pain in the right lower quadrant with abdominal distension and chronic constipation. He was previously admitted 2 weeks ago with similar symptoms which resolved non operatively. Her symptoms started yesterday once again mainly located in the right lower quadrant. She reports taking stool softeners and Metamucil for her bowels on a regular basis. She generally has a bowel movement every other day. She reports nausea without vomiting but denies fever, chills, night sweats, or other associated symptoms. Review of Systems Review of Systems: Yes all other systems are reviewed and are negative Constitutional: Constitutional: Denies chills, Denies fever(s), Denies night sweats and Reports poor appetite Cardiovascular: Cardiovascular: Denies chest pain, Denies rapid heart rate, Denies irregular heart rhythm and Denies dyspnea Respiratory: Respiratory: Denies chest congestion, Denies cough, Denies dyspnea and Denies stridor Gastrointestinal: Gastrointestinal: Reports abdominal pain, Reports constipation, Denies loose stools, Reports nausea, Denies vomiting and Denies hematemesis Genitourinary: Genitourinary: Reports no additional female genitourinary complaints Musculoskeletal: Musculoskeletal: Reports no additional musculoskeletal complaints Integumentary/Breasts: Skin/Breast: Reports system reviewed and no additional complaints, except as docu Hematologic/Lymphatic: Hematologic/Lymphatic: Reports no additional hematologic/lymphatic complaints [facility] Past Medical History Medical History Abdominal hernia Anosmia Anxiety Breast cancer Osteoporosis Rheumatoid arteritis Family History Family History Other No significant family history Surgical History Surgical History History of appendectomy S/P mastectomy Social History Social History Household Members: None Housing: Assisted Living Facility Do you presently have visiting nurse or other home services: No Alcohol intake: never Patient Tobacco Use Status: Never used Tobacco Use of substances other than those prescribed or required for medical reasons: No Advance Directives: Yes Advance Directives Information Provided: Yes Advance Directives on File: No service: No Current occupational status: retired Meds Allergies Allergy/AdvReac Type Severity Reaction Status Date / Time No Known Allergies Allergy Verified 07/29/21 17:21 [No Known Allergies*] Active Medications: Current Medications Acetaminophen (Acetaminophen 325 Mg Tablet) 650 mg PO Q6H PRN PRN Reason: Pain, Mild (Pain Scale 1-3) Heparin Sodium (Porcine) (Heparin Sodium,Porcine 5,000 Unit/Ml Vial) 5,000 unit SUBCUT Q12H MANI Dextrose/Lactated Ringer's (D5lr) 1,000 mls @ 125 mls/hr IVCONT .Q8H [facility]I Morphine Sulfate (Morphine Sulfate 4 Mg/Ml Cartridge) 2 mg IVPUSH Q3H PRN; Protocol PRN Reason: Pain, Severe (Pain Scale 7-10) Ondansetron HCl (Ondansetron Hcl 4 Mg/2 Ml Vial) 4 mg IVPUSH QID PRN PRN Reason: Nausea Pharmacy Consult (Consult Rx Perform Med Rec) 1 each MISCELLANE ONCE PRN PRN Reason: Consult order Sodium Chloride (0.9 % Sodium Chloride Flush 3 Ml Syringe) 3 ml IVFLUSH QSHIFT [facility] Home Medications Medication Instructions Recorded Confirmed Last Taken Type escitalopram oxalate 10 mg tablet 1 tab PO DAILY 01/21/21 08/12/21 08/11/21 History gabapentin 300 mg capsule 1 cap PO DAILY 01/21/21 08/12/21 08/11/21 History lorazepam 0.5 mg tablet 1 tab PO BEDTIME PRN 01/21/21 08/12/21 08/11/21 History meloxicam 15 mg tablet 1 tab PO DAILY 01/21/21 08/12/21 08/11/21 History methotrexate sodium (PF) 25 mg/mL 25 mg IM WE 01/21/21 08/12/21 08/11/21 History injection solution Probiotic 1 cap PO DAILY 07/29/21 08/12/21 08/11/21 History cholecalciferol (vitamin D3) 50 50 mcg PO DAILY 07/29/21 08/12/21 08/11/21 History mcg (2,000 unit) tablet (Vitamin D3) docusate sodium 50 mg capsule 100 mg PO DAILY 07/29/21 08/12/21 08/11/21 History multivitamin 1 tab PO DAILY 07/29/21 08/12/21 08/11/21 History omeprazole 20 mg capsule,delayed 1 cap PO DAILY 07/29/21 08/12/21 08/11/21 History release psyllium husk 3.4 gram/5.4 gram 1 tsp PO BID 07/29/21 08/12/21 08/11/21 History oral powder (Metamucil) Physical Exam Vital Signs: Vital Signs: Last Vital Signs Temp 99.0 F 08/12/21 08:27 Pulse 84 08/12/21 08:27 Resp 18 08/12/21 08:27 BP 139/68 08/12/21 08:27 Pulse Ox 99 08/12/21 08:27 Body Mass Index 29.2 Const: General: cooperative, no acute distress and well developed Nutritional Appearance: well nourished Orientation/consciousness: patient oriented x3 Limitations: no limitations HENMT: Head: Yes normocephalic and Yes atraumatic Ears: hearing grossly impaired (Wearing hearing aids) Cardio: Jugular venous distension: no JVD Rate: regular rate Rhythm: regular rhythm GI: Inspection: Yes normal to inspection Palpation (GI): Soft to palpation, Tenderness to palpation present (GI) in the RLQ, no guarding and not rigid Percussion: Yes normal to percussion Skin: General skin exam: no rashes or lesions noted Neuro: General: patient oriented x3 Extrem: General: Yes normal to inspection and Yes no clubbing, cyanosis or edema Results Results Labs: Short CBC 08/12/21 Range/Units 07:55 WBC 11.6 H (4.8-10.8) X10*3/uL Hgb 11.8 L D (12.0-16.0) g/dl Hct 35.7 L D (37-47) % Plt Count 257 D (160-400) X10*3/uL BMP 08/12/21 07:55 Sodium 139 Potassium 5.0 D Chloride 106 Carbon Dioxide 27 BUN 13 Creatinine 0.80 Calcium 9.8 D Liver Function 08/12/21 Range/Units 07:55 Total Bilirubin 0.4 (0.0-1.0) mg/dL AST 35 H (5-31) U/L ALT 21 (0-31) U/L Alkaline Phosphatase 90 (39-117) U/L Albumin 4.3 (3.5-5.0) g/dL Urine 08/12/21 Range/Units 07:55 Urine Color YELLOW Urine Appearance CLEAR Urine pH 7.5 (5.0-8.0) Ur Specific [place] 1.015 (1.005-1.025) Urine Protein NEG (NEG-TRACE) MG/DL Urine Glucose (UA) NEG (NEG) MG/DL Assessment and Plan (1) Partial obstruction of small intestine: Status: Acute 85-year-old female patient with a known history of an incisional hernia in the left lower quadrant now presenting with a small-bowel obstruction with abdominal pain.? Hernia is easily reducible with light pressure and is nontender.? Small-bowel obstruction appears to be related to adhesions from prior abdominal surgery.? I recommended admission for IV hydration and bowel rest.? She will be kept on NPO for now and advanced as tolerated.? If there is no improvement in her symptoms abdominal exploration may be required. Patient expressed understanding and agrees with the plan. Quality Stroke Does the patient have a stroke diagnosis?: No VTE Prior VTE?: No VTE Risk Level:: Surgical - moderate VTE Device Contraindication: N/A - Device Ordered VTE Drug Contraindication: N/A - Med Ordered Procedures Date of Service Date of Service: 08/12/21
[2021-08-12 14:47] VITALS: BP 103/59; PULSE 77; RESP 18; O2SAT 97
[2021-08-12] MEDS: Dextrose 5 % and Lactated Ring 1,000 ML 125 ML IVCONT (15:06)
[2021-08-12] MEDS: Heparin Sodium,Porcine 5,000 UNIT/ML VIAL 5000 UNIT SUBCUT (15:07)
--- NOTE | 2021-08-12 15:44 | PC.NURSE ---
RN TO RN WITH FEBRUARY ON M3
[2021-08-12 16:13] VITALS: BP 109/56; PULSE 77; RESP 16; TEMP 36.4; O2SAT 98
[2021-08-13] VITALS: BP 108/57; PULSE 77; RESP 18; TEMP 36.4; O2SAT 96
[2021-08-13] MEDS: Dextrose 5 % and Lactated Ring 1,000 ML 125 ML IVCONT ×3 (00:58→15:03)
[2021-08-13 05:13] LABS: MANUAL DIFF FLAG NO
[2021-08-13 05:15] LABS: Basophils Percent Auto 0.5 % (0-2); Eosinophils Absolute Auto 0.2 X10*3/uL (0.0-0.4); Eosinophils Percent Auto 3.4 % (0-4); Hematocrit 29.1 % (37-47); Hemoglobin 9.5 g/dl (12.0-16.0); Imm Gran Abs Auto 0.02 X10*3/uL (0.00-0.03); Imm Gran Pct Auto 0.3 % (0.0-0.4); Lymphocytes Absolute Auto 1.8 X10*3/uL (1.2-4.9); Lymphocytes Percent Auto 27.2 % (20-40); Mean Corpuscular HGB Conc 32.6 g/dl (31.0-35.0); Mean Corpuscular Hemoglobin 31.3 pg (27.0-33.0); Mean Corpuscular Volume 95.7 fL (80-98); Mean Platelet Volume 9.8 fL (9.4-12.3); Monocytes Absolute Auto 0.4 X10*3/uL (0.1-1.2); Monocytes Percent Auto 6.3 % (2-11); Neutrophils Percent Auto 62.3 % (45-73); Platelet Count 216 X10*3/uL (160-400); Red Blood Count 3.04 X10*6/uL (4.20-5.50); Red Cell Distribution Width 14.2 % (11.0-16.0); White Blood Count 6.5 X10*3/uL (4.8-10.8)
[2021-08-13 05:38] LABS: Anion Gap 9 (12-20); Blood Urea Nitrogen 10 mg/dL (9-16); Calcium 8.3 mg/dL (8.4-10.2); Carbon Dioxide 25 mmol/L (22-29); Chloride 109 mmol/L (96-108); Creatinine Clr Calc Pharmacy 59.8; Estimated Glomerular Filt Rate > 60; Glucose Random 100 mg/dL (60-115); Potassium 4.1 mmol/L (3.3-5.1); Sodium 139 mmol/L (135-145)
[2021-08-13 07:35] VITALS: BP 132/62; PULSE 61; RESP 16; TEMP 36.7; O2SAT 97
--- NOTE | 2021-08-13 08:54 | P.PNGS_ITS ---
Subjective Subjective Date of Service: 08/13/21 Interval history: Patient feels improved this morning after having a large bowel movement. She reports decreased abdominal pain and no nausea / vomiting. She feels ready to start diet today. Physical Exam Vital Signs: Vital Signs: Last Vital Signs Temp 98.0 F 08/13/21 07:35 Pulse 61 08/13/21 07:35 Resp 16 08/13/21 07:35 BP 132/62 08/13/21 07:35 Pulse Ox 97 08/13/21 07:35 Body Mass Index 29.2 Const: General: cooperative, comfortable and no acute distress Nutritional Appearance: well nourished Orientation/consciousness: patient oriented x3 Limitations: no limitations HENMT: Ears: hearing grossly impaired GI: Other: Soft, nondistended, nontender, incisional hernia is easily reducible in the left lower quadrant, no rebound, guarding, or rigidity. Neuro: General: patient oriented x3 Extrem: Other: No peripheral edema Procedures Date of Service Date of Service: 08/13/21 Progress Note: A&P Assessment and plan (1) Partial obstruction of small intestine: Status: Acute Assessment and Plan: The patient reports passing a large bowel movement this morning and feels much improved. Her abdominal pain has now resolved. I will start her back on a soft diet. She will need to watch for the next 24 hours to be sure her bowel obstruction is completely resolved. Patient expressed understanding and agrees with the plan. Fall Risk Details Current Medications: Current Medications Acetaminophen (Acetaminophen 325 Mg Tablet) 650 mg PO Q6H PRN PRN Reason: Pain, Mild (Pain Scale 1-3) Heparin Sodium (Porcine) (Heparin Sodium,Porcine 5,000 Unit/Ml Vial) 5,000 unit SUBCUT Q12H [facility] Last Admin: 08/13/21 02:52 Dose: Not Given Documented by: Dextrose/Lactated Ringer's (D5lr) 1,000 mls @ 125 mls/hr IVCONT .Q8H [facility] Last Admin: 08/13/21 07:59 Dose: 125 mls/hr Documented by: Morphine Sulfate (Morphine Sulfate 4 Mg/Ml Cartridge) 2 mg IVPUSH Q3H PRN; Protocol PRN Reason: Pain, Severe (Pain Scale 7-10) Ondansetron HCl (Ondansetron Hcl 4 Mg/2 Ml Vial) 4 mg IVPUSH QID PRN PRN Reason: Nausea Pharmacy Consult (Consult Rx Perform Med Rec) 1 each MISCELLANE ONCE PRN PRN Reason: Consult order Sodium Chloride (0.9 % Sodium Chloride Flush 3 Ml Syringe) [address] [facility] Last Admin: 08/13/21 07:58 Dose: Not Given Documented by: Time Spent With Patient Time: Total time spent is greater than 50% in coordination of care (as documented) at patient's floor/unit and/or counseling patient: Time with patient: 15 - 24 minutes Quality Stroke Does the patient have a stroke diagnosis?: No VTE Prior VTE?: No VTE Risk Level:: Surgical - moderate VTE Device Contraindication: N/A - Device Ordered VTE Drug Contraindication: N/A - Med Ordered
--- NOTE | 2021-08-13 09:06 | MHC.CM.PN ---
PATIENT LIVES ALONE. SHE IS INDEPENDENT WITH HER ADLS. HCP/MOLST (FIVE WISHES) ON FILE AND VERIFIED. SHE DOES USE A CANE IN THE HOME. PATIENT WOULD LIKE TO RETURN HOME TOMORROW WITH NO SERVICES. DAUGHTER MAY BE ABLE TO TRANSPORT. CASE MANAGEMENT FOLLOWING IMM 08/13 IN CHART
[2021-08-13] MEDS: Heparin Sodium,Porcine 5,000 UNIT/ML VIAL 5000 UNIT SUBCUT (12:14)
[2021-08-13] MEDS: Escitalopram Oxalate 10 MG TABLET PO (12:14)
[2021-08-13 15:29] VITALS: BP 124/60; PULSE 61; RESP 18; TEMP 36.5; O2SAT 97
[2021-08-13] MEDS: Atorvastatin Calcium 40 MG TABLET PO (20:37)
[2021-08-13] MEDS: LORazepam 0.5 MG TABLET PO (22:34)
[2021-08-13 23:56] VITALS: BP 110/54; PULSE 62; RESP 18; TEMP 36.2; O2SAT 97
[2021-08-14] MEDS: Dextrose 5 % and Lactated Ring 1,000 ML 125 ML IVCONT (00:50)
[2021-08-14] MEDS: Omeprazole 20 MG CAPSULE.DR PO (06:31)
[2021-08-14 07:53] VITALS: BP 126/69; PULSE 62; RESP 16; TEMP 36.4; O2SAT 98
--- NOTE | 2021-08-14 08:34 | MHC.CM.PN ---
PT CLEARED TO DC HOME TODAY WITH NO SERVICES ORDERED FAMILY TO TRANSPORT
--- NOTE | 2021-08-14 08:48 | PM.DS ---
DS: Providers Provider Date of Service: 08/14/21 Date of admission: 08/12/21 10:18 Date of discharge: 08/14/21 Primary care physician: Vineet Hwang MD, DO Admitting clinician: Cortez Lopez Discharging clinician: Cortez Lopez DS: Diagnosis Discharge Diagnosis (1) Partial obstruction of small intestine: Status: Acute DS: Summary Hospital Course Hospital Course: Ernestine Fung is an 85 year old female well known to the surgical service with a prior history of breast cancer, acute appendicitis, C diff colitis, incisional hernia left lower quadrant, and prior history of partial small-bowel obstructions, presenting with complaints of abdominal pain in the right lower quadrant with abdominal distension and chronic constipation.? She was previously admitted 2 weeks ago with similar symptoms which resolved non operatively.? Her symptoms started 1 day prior to admission once again mainly located in the right lower quadrant.? She reports taking stool softeners and Metamucil for her bowels on a regular basis.? She generally has a bowel movement every other day.? She reports nausea without vomiting but denies fever, chills, night sweats, or other associated symptoms. She was admitted to the surgical service and made NPO, started on IV fluids. Overnight the patient reports passing a large bowel movement immediately noted improvement in her abdominal pain. She denied any further nausea, vomiting, or other abdominal symptoms. On hospital day 2. She was started on a regular diet and tolerated this well. By hospital day 3 she tolerated the regular diet and remained symptom-free. She feels ready for discharge to home. I recommended remaining on a low residue diet and holding on the Metamucil. She should continue with the stool softeners and MiraLax as needed. I recommended a follow-up in the office in approximately 2 weeks, sooner p.r.n.. Patient expressed understanding and agrees with the plan. Status at Discharge Functional status at discharge: uses cane/walker Time Spent with Patient Time attestation: Total time spent providing and/or coordinating discharge services: Discharge coordination time: Less than 30 minutes Quality: Stroke Does the patient have a stroke diagnosis?: No Physical Exam Vital Signs: Vital Signs: Last Vital Signs Temp 97.5 F 08/14/21 07:53 Pulse 62 08/14/21 07:53 Resp 16 08/14/21 07:53 BP 126/69 08/14/21 07:53 Pulse Ox 98 08/14/21 07:53 Body Mass Index 29.2 Const: General: no acute distress and well developed Nutritional Appearance: well nourished Orientation/consciousness: patient oriented x3 Limitations: ambulation with cane Neck: Neck: Yes normal visual inspection and Yes no JVD Resp: Effort & Inspection: normal respiratory effort, not labored, no stridor and not tachypneic GI: Inspection: Yes normal to inspection Palpation (GI): Soft to palpation, nontender, no guarding, not rigid and Hernia present ( incisional, reducible) Percussion: Yes normal to percussion Auscultation: normal bowel sounds Neuro: General: patient oriented x3 Extrem: General: Yes normal to inspection and No calf tenderness Discharge Plan Discharge Patient Disposition: Home, Self-Care Discharge Diagnosis: Partial Small Bowel Obstruction Referrals: Vineet Hwang MD, DO [Primary Care Provider] - 1 Week Cortez Lopez MD [Physician] - 2 Weeks Discharge Medications: Continued meloxicam 15 mg tablet 1 tab PO DAILY RF: 0 lorazepam 0.5 mg tablet 1 tab PO BEDTIME PRN (Reason: Anxiety) RF: 0 gabapentin 300 mg capsule 1 cap PO DAILY RF: 0 escitalopram oxalate 10 mg tablet 1 tab PO DAILY RF: 0 methotrexate sodium (PF) 25 mg/mL solution 25 mg IM WE RF: 0 atorvastatin 40 mg Tablet 40 mg PO BEDTIME Qty: 90 RF: 0 aspirin 81 mg Tablet,Chewable 81 mg PO DAILY Qty: 90 RF: 0 omeprazole 20 mg capsule,delayed release(DR/EC) 1 cap PO DAILY RF: 0 multivitamin Tablet 1 tab PO DAILY RF: 0 docusate sodium 50 mg Capsule 100 mg PO DAILY RF: 0 cholecalciferol (vitamin D3) [Vitamin D3] 50 mcg (2,000 unit) Tablet 50 mcg PO DAILY RF: 0 Metamucil 3.4 gram/5.4 gram Powder 1 tsp PO BID RF: 0 Probiotic 1 cap PO DAILY RF: 0 Discharge Orders: Discharge Order (Routine); Ordered 08/14/21 Ordered By: Cortez Lopez Diet: other Activity on Discharge: As tolerated Stand Alone Forms: Patient Portal Discharge page Care Plan Goals: Return to normal activity and diet Health Concerns: Abdominal pain, nausea, constipation Plan of Treatment: Bowel rest, IV hydration Assessment: Partial small bowel obstruction Patient Instructions: Low Fiber Diet (DC)
[2021-08-14] MEDS: Cholecalciferol (Vitamin D3) 25 MCG TABLET 50 MCG PO (09:19)
[2021-08-14] MEDS: Escitalopram Oxalate 10 MG TABLET PO (09:19)
== END 2021-08-14 13:47 | disposition home or self-care (01) | DRG 390 ==
LOC: HO.ED 10:15 → HO.EDOVER 10:27 → HO.S3 15:11
PROVIDERS: Admitting Provider Surgery; Emergency Provider Emergency Medicine Emergency Medical Services; PCP Internal Medicine; Visit Provider Surgery
DX: K56.600 Partial intestinal obstruction, unspecified as to cause (principal); Z20.822 Contact with and (suspected) exposure to COVID-19; Z79.1 Long term (current) use of non-steroidal anti-inflammatories (NSAID); Z79.82 Long term (current) use of aspirin; Z79.899 Other long term (current) drug therapy
CPT/HCPCS: 36415; 74177; 80048; 80053; 81003; 83690; 85025; 87635; 99285; J1170; J2405; Q9967

== ENCOUNTER → 2021-09-01 15:55 | Outpatient (BNVA) | payer MEDICARE, SELFPAY | PROVIDERS: PCP Internal Medicine; Visit Provider Surgery | DX: K56.609 Unspecified intestinal obstruction, unspecified as to partial versus complete obstruction (principal); D05.12 Intraductal carcinoma in situ of left breast | CPT/HCPCS: 99212 ==

== ENCOUNTER 2021-10-10 12:49 | Outpatient (REF) | payer MEDICARE, SELFPAY ==
--- NOTE | ~2021-10-10 | MM_ITS ---
EXAMINATION: MM SCREENING DIGITAL BREAST TOMOSYNTHESIS, RIGHT CLINICAL INFORMATION: Left mastectomy 2016. Due for yearly. COMPARISON: Mammography: 08/31/2020, 04/24/2019, 04/15/2018 04/02/2018, 03/28/2017, 03/21/2016 TECHNIQUE: Digital breast tomosynthesis is performed in both the craniocaudal and mediolateral oblique views along with computer-aided detection (CAD). Synthesized 2D images are generated from the tomosynthesis. Additional right MLO view is provided. FINDINGS: There are scattered areas of fibroglandular density (ACR BI-RADS breast composition Category b). Parenchymal pattern is similar to prior exams with some minor stable asymmetries and shifting fibroglandular tissue related to positioning. There is no developing density or interval mass or architectural abnormality. There are scattered predominantly vascular calcifications again seen. The axilla and skin contours are unremarkable. No significant changes from prior exams. MM/MM tomosynthesis screening RT IMPRESSION: No mammographic evidence of malignancy. ASSESSMENT: BI-RADS 2: Benign RECOMMENDATION: Routine annual mammography screening. This patient's information was entered into a reminder system with a target due date for their next mammogram.
== END 2021-10-10 12:50 | disposition home or self-care (01) ==
LOC: HO.MAMMO 12:49
PROVIDERS: PCP Internal Medicine Medical Oncology; Visit Provider Surgery
DX: Z12.31 Encounter for screening mammogram for malignant neoplasm of breast (principal)
CPT/HCPCS: 77063; 77067

== ENCOUNTER → 2021-12-13 13:22 | Outpatient (BNVA) | payer MEDICARE, SELFPAY | PROVIDERS: PCP Internal Medicine; Visit Provider Surgery | DX: K56.609 Unspecified intestinal obstruction, unspecified as to partial versus complete obstruction (principal) | CPT/HCPCS: 99212 ==

== ENCOUNTER 2021-12-17 11:54 | Outpatient (REF) | payer MEDICARE, SELFPAY ==
[2021-12-17 13:36] LABS: MANUAL DIFF FLAG NO
[2021-12-17 13:50] LABS: Basophils Percent Auto 0.5 % (0-2); Eosinophils Absolute Auto 0.2 X10*3/uL (0.0-0.4); Eosinophils Percent Auto 3.3 % (0-4); Hematocrit 32.6 % (37.0-47.0); Hemoglobin 10.6 g/dl (12.0-16.0); Imm Gran Abs Auto 0.02 X10*3/uL (0.00-0.03); Imm Gran Pct Auto 0.3 % (0.0-0.4); Lymphocytes Absolute Auto 2.2 X10*3/uL (1.2-4.9); Lymphocytes Percent Auto 36.9 % (20-40); Mean Corpuscular HGB Conc 32.5 g/dl (31.0-35.0); Mean Corpuscular Hemoglobin 31.1 pg (27.0-33.0); Mean Corpuscular Volume 95.6 fL (80.0-98.0); Mean Platelet Volume 9.9 fL (9.4-12.3); Monocytes Absolute Auto 0.4 X10*3/uL (0.1-1.2); Monocytes Percent Auto 6.3 % (2-11); Neutrophils Absolute Auto 3.2 x10*3/uL (2.0-8.3); Neutrophils Percent Auto 52.7 % (45-73); Platelet Count 248 X10*3/uL (160-400); Red Blood Count 3.41 X10*6/uL (4.20-5.50); Red Cell Distribution Width 14.6 % (11.0-16.0)
[2021-12-17 14:10] LABS: Alanine Aminotransferase 22 U/L (0-31); Albumin Level 4.2 g/dL (3.5-5.0); Alkaline Phosphatase 86 U/L (39-117); Anion Gap 10 (12-20); Aspartate Amino Transferase 41 U/L (5-31); Bilirubin Total 0.5 mg/dL (0.0-1.0); Blood Urea Nitrogen 24 mg/dL (9-16); Calcium 9.5 mg/dL (8.4-10.2); Carbon Dioxide 27 mmol/L (22-29); Chloride 103 mmol/L (96-108); Estimated Glomerular Filt Rate > 60; Glucose Random 85 mg/dL (60-115); Sodium 135 mmol/L (135-145)
== END 2021-12-17 11:55 | disposition home or self-care (01) ==
LOC: HO.HMGCLDS 11:54
PROVIDERS: Visit Provider Internal Medicine
DX: K56.609 Unspecified intestinal obstruction, unspecified as to partial versus complete obstruction (principal)
CPT/HCPCS: 36415; 80053; 85025

== ENCOUNTER → 2022-04-20 11:19 | Outpatient (BNVA) | payer MEDICARE, SELFPAY | PROVIDERS: PCP Internal Medicine; Visit Provider Surgery | DX: Z85.3 Personal history of malignant neoplasm of breast (principal) | CPT/HCPCS: 99212 ==

== ENCOUNTER 2022-09-12 12:55 | Outpatient (REF) | payer SELFPAY ==
--- NOTE | 2022-09-12 13:37 | MHC.AU.HFU ---
Hearing Instrument Follow-Up- Binaural Date of Visit: 09/12/22 Right Ear: Mi Peter V70M SN: [id number] Color: Champagne Repair Warranty: 01/31/2020 Loss and Damage Warranty: 01/31/2020 Battery Size: 312 Low Pressure Kettle Operator: #1 slim tube Type of Mold: Acrylic Slim Tip SN: [id number] Dispensed By: [facility] Date of Fittin11/20/2016 Left Ear: Mi Peter V70M SN: [id number] Color: Champagne Repair Warranty: 01/31/2020 Loss and Damage Warranty: 01/31/2020 Battery Size: 312 Low Pressure Kettle Operator: #1 slim tube Type of Mold: Acrylic Slim Tip SN: [id number] Dispensed By: [facility] Date of Fittin11/20/2016 Follow-Up Summary: Ernestine returned for routine hearing aid maintenance. Her hearing aids and ear molds were cleaned, microphones were vacuumed, and slim tubes were replaced. A listening check demonstrated that the hearing aids are in good working order. The grommet on the right ear mold to hold the slim tube in place is starting to become discolored and mis-shaped as it previously fell out and was superglued back together. Discussed possible need for new ear mold in the future as well as age of current hearing aids and possibility of upgraded technology. Recommendations: Hearing instrument maintenance in 6 months, or sooner if needed. Please contact our clinic with any questions or concerns. Recommendations (Other): Updated audiological evaluation. Ernestine will contact her PCP for a doctor's order and schedule the hearing test in the spring after the holidays and cold weather. Diagnosis Code(s): Primary Diagnosis: H90.3 Bilateral Sensorineural Hearing Loss Signature: Provider: Janny Dutton, [facility]
== END 2022-09-12 12:56 | disposition home or self-care (01) ==
LOC: HO.HAP 12:55
PROVIDERS: Visit Provider Internal Medicine
DX: Z46.1 Encounter for fitting and adjustment of hearing aid (principal); H90.3 Sensorineural hearing loss, bilateral
CPT/HCPCS: 92593

== ENCOUNTER 2022-09-19 12:31 | Outpatient (REF) | payer MEDICARE, SELFPAY ==
--- NOTE | 2022-09-19 13:30 | MHC.AU.HFU ---
Hearing Instrument Follow-Up- Binaural Date of Visit: 09/19/22 Right Ear: Mi Peter V70M SN: [id number] Color: Champagne Repair Warranty: 01/31/2020 Loss and Damage Warranty: 01/31/2020 Battery Size: 312 Tubing: Size 1 slim tube Type of Mold: Acrylic Slim Tip SN: [id number] Dispensed By: [facility] [employer] [facility] Date of Fittin11/20/2016 Left Ear: Mi Peter V70M SN: [id number] Color: Champagne Repair Warranty: 01/31/2020 Loss and Damage Warranty: 01/31/2020 Battery Size: 312 Tubing: Size 1 slim tube Type of Mold: Acrylic Slim Tip SN: [id number] Dispensed By: [employer] Date of Fittin11/20/2016 Follow-Up Summary: Ernestine returned as the left slim tube had pulled out of her ear mold. Able to successfully reattach the ear mold in office and confirm a secure fit. Instructed Ernestine how to remove the ear mold using the removal line instead of the tubing. Practiced in office. Recommendations: Hearing instrument maintenance in 6 months, or sooner if needed. Patient will call if problems persist. Diagnosis Code(s): Primary Diagnosis: H90.3 Bilateral Sensorineural Hearing Loss Signature: Provider: Janny Dutton, [facility]
== END 2022-09-19 12:32 | disposition home or self-care (01) ==
LOC: HO.HAP 12:31
PROVIDERS: Visit Provider Internal Medicine
DX: Z13.89 Encounter for screening for other disorder (principal)

== ENCOUNTER 2023-05-18 11:13 | Outpatient (AMB) | payer MEDICARE, SELFPAY ==
--- NOTE | 2023-05-18 11:21 | MHC.OFFVIS ---
Intake Vital Signs 05/18/23 11:27 Height 5 ft 3 in Weight 163 lb 4 oz BMI 28.9 BP 138/64 Blood Pressure Location Lt brachial Position Sitting Pulse 62 Intake Visit Reasons: 1 year breast exam Intake Note: Patient is seen in office for yearly breast exam. 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 Mechanic Required: No Cook Ice Cream: Cook Ice Cream Present Accompanied by: Self / Same As Patient Allergies No Known Allergies [No Known Allergies*] Allergy (Verified 05/18/23 11:25) Medication List - Last Reconciled 05/18/23 by Cortez Lopez MD aspirin 81 mg PO DAILY atorvastatin 40 mg PO BEDTIME cholecalciferol (vitamin D3) (Vitamin D3) 50 mcg PO DAILY escitalopram oxalate 1 tab PO DAILY gabapentin 1 cap PO DAILY infliximab (Remicade) IV lorazepam 1 tab PO BEDTIME PRN meloxicam 1 tab PO DAILY methotrexate sodium (PF) 25 mg IM WE multivitamin 1 tab PO DAILY omeprazole 1 cap PO DAILY polyethylene glycol 3350 (Miralax) 17 grams PO DAILY [Probiotic 1 cap PO DAILY] HPI HPI Comments History of Present Illness Details Mrs. 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 She feels well and completed 5 years of tamoxifen. She continues to report incisional hernia in the left lower quadrant but now also reports a right inguinal hernia. She denies any pain from either site. She is not interested in having any surgery to repair the hernias due to her previous problems with surgery. She denies any further abdominal pain and is eating well with no evidence of a bowel obstruction. She remains on the MiraLax takes daily and seems to be helping. She denies any new breast symptoms including palpable masses, skin changes, nipple discharge or other associated changes. Her last right mammogram from 10/10/2021 revealed no suspicious findings in the right breast (BI-RADS 2). She is overdue for her annual mammogram reports that she will call for an appointment. She denies fever, nausea or vomiting. [facility] Medical History Abdominal hernia Anosmia Anxiety Breast cancer Osteoporosis 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 Surgical History History of appendectomy S/P mastectomy Family History Father Lung cancer Brother Prostate cancer Other No significant family history Social History Household Members: None Household Members Other:: none Housing: Assisted Living Facility Are you a primary career based intervention coordinator to a significant other at home: No Do you presently have visiting nurse or other home services: No Alcohol intake: never Patient Tobacco Use Status: Never used Tobacco Second Hand Smoke Exposure: No Advance Directives Date on File: 08/12/21 service: No Current occupational status: retired Review of Systems Const All systems reviewed & are unremarkable except as noted in HPI and below Card Denies dyspnea Resp Denies cough, Denies dyspnea and Denies stridor GI Denies abdominal pain, Denies constipation, Denies dyspepsia, Denies diarrhea, Denies nausea and Denies vomiting Skin/Breast Reports system reviewed and no additional complaints, except as documented [place]/Lymph Reports lymphadenopathy Physical Exam Vital Signs: Last Vital Signs Pulse 62 05/18/23 11:27 BP 138/64 05/18/23 11:27 BMI result Body Mass Index 28.9 Const General: no acute distress and well developed Nutritional Appearance: average body habitus Orientation/consciousness: patient oriented x3 Chest Other: Left breast, s/p simple mastectomy. No subcutaneous or cutaneous nodules identified. No tenderness to palpation, no enlarged lymph nodes. Right breast: No skin change, no nipple discharge, no palpable mass, no enlarged lymph nodes. Chest/axillae images: 1. GI Palpation (GI): Soft to palpation, nontender, no guarding, not rigid and Hernia present (Left lower quadrant incisional hernia) Skin General skin exam: no rashes or lesions noted Neuro General: patient oriented x3 Extrem General: Yes no clubbing, cyanosis or edema Assessment & Plan Assessment & Plan (1) Ductal carcinoma in situ of left breast: Code(s): D05.12 - Intraductal carcinoma in situ of left breast Plan 87-year-old female with prior history of DCIS multifocal left breast S/P left simple mastectomy returning for follow-up examination 6 years following surgery. She continues to do well with no evidence of recurrence disease in either breast. Her last mammogram on 10/10/2021 revealed no suspicious findings. She is overdue for her annual mammogram and will call to set this up. She will return in 1 year for annual follow-up breast examination. She is welcome to call sooner for any new complaints. Coding Level of Care Code Est Pt Level 3 (02725) Diagnoses Ductal carcinoma in situ of left breast D05.12
[2023-05-18 11:27] VITALS: BP 138/64; PULSE 62; BMI 28.9
== END 2023-05-18 11:44 | disposition home or self-care (01) ==
PROVIDERS: PCP Internal Medicine; Visit Provider Surgery
DX: Z86.000 Personal history of in-situ neoplasm of breast (principal)
CPT/HCPCS: 99213

== ENCOUNTER → 2023-05-18 11:13 | Outpatient (BNVA) | payer MEDICARE, SELFPAY | PROVIDERS: PCP Internal Medicine; Visit Provider Surgery | DX: D05.12 Intraductal carcinoma in situ of left breast (principal) | CPT/HCPCS: 99212 ==

== ENCOUNTER 2023-05-30 09:33 | Outpatient (REF) | payer MEDICARE, SELFPAY ==
[2023-05-30 11:16] LABS: MANUAL DIFF FLAG NO
[2023-05-30 11:36] LABS: Basophils Percent Auto 0.7 % (0-2); Eosinophils Absolute Auto 0.2 X10*3/uL (0.0-0.4); Hematocrit 31.1 % (37.0-47.0); Hemoglobin 10.6 g/dl (12.0-16.0); Imm Gran Abs Auto 0.02 X10*3/uL (0.00-0.03); Imm Gran Pct Auto 0.4 % (0.0-0.4); Lymphocytes Absolute Auto 1.3 X10*3/uL (1.2-4.9); Mean Corpuscular HGB Conc 34.1 g/dl (31.0-35.0); Mean Corpuscular Hemoglobin 32.5 pg (27.0-33.0); Mean Corpuscular Volume 95.4 fL (80.0-98.0); Mean Platelet Volume 10.2 fL (9.4-12.3); Monocytes Absolute Auto 0.5 X10*3/uL (0.1-1.2); Monocytes Percent Auto 10.6 % (2-11); Neutrophils Absolute Auto 2.5 x10*3/uL (2.0-8.3); Neutrophils Percent Auto 55.3 % (45-73); Platelet Count 251 X10*3/uL (160-400); Red Blood Count 3.26 X10*6/uL (4.20-5.50); Red Cell Distribution Width 16.6 % (11.0-16.0); White Blood Count 4.5 X10*3/uL (4.8-10.8)
[2023-05-30 12:14] LABS: Alanine Aminotransferase 19 U/L (0-31); Alkaline Phosphatase 90 U/L (39-117); Anion Gap 9 (12-20); Aspartate Amino Transferase 31 U/L (5-31); Bilirubin Total 0.5 mg/dL (0.0-1.0); Blood Urea Nitrogen 15 mg/dL (9-16); Calcium 9.7 mg/dL (8.4-10.2); Carbon Dioxide 30 mmol/L (22-29); Chloride 105 mmol/L (96-108); Cholesterol 160 mg/dL; Estimated Glomerular Filt Rate > 60; Glucose Fasting 81 mg/dL (60-99); HDL Cholesterol 77 mg/dL; LDL Cholesterol Calculated 73 mg/dl; Potassium 4.6 mmol/L (3.3-5.1); Sodium 139 mmol/L (135-145); Total Protein 6.9 g/dL (6.5-8.0); Triglycerides 51 mg/dL
[2023-05-30 12:32] LABS: Thyroid Stimulating Hormone 1.91 uIU/mL (0.32-4.0)
== END 2023-05-30 09:34 | disposition home or self-care (01) ==
LOC: HO.HMGCLDS 09:33
PROVIDERS: PCP Internal Medicine; Visit Provider Internal Medicine
DX: M06.9 Rheumatoid arthritis, unspecified (principal); E78.00 Pure hypercholesterolemia, unspecified; K56.609 Unspecified intestinal obstruction, unspecified as to partial versus complete obstruction; C50.212 Malignant neoplasm of upper-inner quadrant of left female breast; F41.9 Anxiety disorder, unspecified
CPT/HCPCS: 36415; 80053; 80061; 84443; 85025

== ENCOUNTER 2023-07-08 14:58 | Inpatient (IN) | payer MEDICARE, SELFPAY ==
--- NOTE | ~2023-07-08 | CT_ITS ---
EXAMINATION: CT ABDOMEN AND PELVIS WITH CONTRAST CLINICAL INFORMATION: Pain and vomiting, question small bowel obstruction COMPARISON: 08/12/2021 TECHNIQUE: Multidetector volumetric images were obtained from the superior aspect of the liver through the pubic symphysis following administration 85 mL of Omnipaque 350 intravenous contrast. Sagittal and coronal reformatted images were obtained on the technologist's workstation. Oral contrast: Yes This CT examination was performed using dose optimization techniques as appropriate, variously including the following: *Automated exposure control *Adjustment of mA and/or kV according to patient size (this includes techniques or standardized protocols for targeted exams where dose is matched to indication/reason for exam; i.e. extremities or head) *Use of iterative reconstruction technique DLP: 612 mGy-cm FINDINGS: LUNG BASES: Mild bibasilar atelectasis. LIVER, GALLBLADDER, AND BILIARY TREE: The liver is normal in size, shape, and attenuation. No focal hepatic lesion or biliary ductal dilatation is present. The gallbladder is unremarkable with no evidence of radiopaque gallstones, gallbladder wall thickening, or obvious pericholecystic inflammatory changes. PANCREAS: Unremarkable. SPLEEN: Normal size. Tiny hypodensity in the superior spleen is nonspecific. ADRENAL GLANDS: Unremarkable. KIDNEYS AND URETERS: No hydronephrosis or obstructing calculus bilaterally. Redemonstrated left renal cyst including septation with thin curvilinear calcification; no follow-up recommended. A few additional scattered subcentimeter hypoattenuating foci bilaterally are too small to characterize. BLADDER: Unremarkable. GASTROINTESTINAL TRACT: The distal esophagus is distended with oral contrast material. There is also moderate distention of the stomach. Oral contrast material is present in the stomach and proximal small bowel. There are multiple fluid-filled loops of proximal to mid small bowel, while the more distal small bowel is collapsed. Overall appearance is suspicious for small bowel obstruction with transition point suspected to lie in the central pelvis. Moderate stool is present in the colon, without significant wall thickening. Small volume of free fluid is present. No free air is seen. ABDOMINAL WALL: Left spigelian hernia is present containing a segment of colon. LYMPH NODES: Normal. VASCULAR: Scattered atherosclerotic calcification. PELVIC VISCERA: Endometrial thickness measures approximately 0.9 cm. OSSEOUS STRUCTURES: Degenerative changes are noted in the spine. CT/CT abdomen pelvis w IV con IMPRESSION: 1. Small bowel obstruction with transition point suspected to lie in the central pelvis. 2. Small volume of free fluid. 3. Endometrial thickness of approximately 0.9 cm. If not already performed, further workup with pelvic ultrasound is recommended, as malignancy cannot be excluded with this appearance.
--- NOTE | ~2023-07-08 | XR_ITS ---
EXAMINATION: XR CHEST CLINICAL INFORMATION: Gastric tube placement. COMPARISON: 02/16/2021 TECHNIQUE: Frontal view of the chest was obtained. FINDINGS: The cardiomediastinal silhouette is stable. There is mild diffuse increased interstitial markings most pronounced at the lung bases similar to previous. There is no focal consolidation or pleural effusion. A gastric tube extends below the diaphragm with side port just above the gastroesophageal junction. The bony structures and soft tissues are unremarkable. XR/XR chest 1V IMPRESSION: Gastric tube extends below the diaphragm with side port just above the gastroesophageal junction. Recommend advancing another 7 to 8 cm for more ideal positioning. Mild diffuse increased interstitial markings similar to previous. There is no focal consolidation or pleural effusion
[2023-07-08 15:05] VITALS: BP 161/55; PULSE 68; RESP 18; TEMP 36.7; O2SAT 99; BMI 28.3
--- NOTE | 2023-07-08 15:07 | ECG_ITS ---
Test Reason : abd pain Blood Pressure : / mmHG Vent. Rate : 066 BPM Atrial Rate : 066 BPM P-R Int : 166 ms QRS Dur : 082 ms QT Int : 382 ms P-R-T Axes : 057 059 074 degrees QTc Int : 400 ms Normal sinus rhythm Normal ECG When compared with ECG of 29-JUL-2021 09:29, No significant change was found Referred By: Generic ED Physician Electronically Signed By:TRICIA CARSON
--- NOTE | 2023-07-08 15:31 | MHC.EDTECH ---
no bp or venipuncture left side per pt hx left sided mastectomy
[2023-07-08 15:34] LABS: MANUAL DIFF FLAG NO
[2023-07-08 15:35] LABS: Basophils Percent Auto 0.1 % (0-2); Eosinophils Percent Auto 0.2 % (0-4); Hematocrit 34.3 % (37.0-47.0); Hemoglobin 11.3 g/dl (12.0-16.0); Imm Gran Abs Auto 0.02 X10*3/uL (0.00-0.03); Imm Gran Pct Auto 0.2 % (0.0-0.4); Lymphocytes Absolute Auto 0.6 X10*3/uL (1.2-4.9); Lymphocytes Percent Auto 6.2 % (20-40); Mean Corpuscular HGB Conc 32.9 g/dl (31.0-35.0); Mean Corpuscular Hemoglobin 30.2 pg (27.0-33.0); Mean Corpuscular Volume 91.7 fL (80.0-98.0); Mean Platelet Volume 9.2 fL (9.4-12.3); Monocytes Absolute Auto 0.4 X10*3/uL (0.1-1.2); Neutrophils Absolute Auto 9.1 x10*3/uL (2.0-8.3); Neutrophils Percent Auto 89.3 % (45-73); Platelet Count 278 X10*3/uL (160-400); Red Blood Count 3.74 X10*6/uL (4.20-5.50); Red Cell Distribution Width 16.6 % (11.0-16.0); White Blood Count 10.2 X10*3/uL (4.8-10.8)
[2023-07-08 15:53] LABS: Alanine Aminotransferase 24 U/L (0-31); Albumin Level 4.1 g/dL (3.5-5.0); Alkaline Phosphatase 108 U/L (39-117); Anion Gap 13 (12-20); Aspartate Amino Transferase 41 U/L (5-31); Bilirubin Total 0.6 mg/dL (0.0-1.0); Blood Urea Nitrogen 14 mg/dL (9-16); Calcium 9.8 mg/dL (8.4-10.2); Carbon Dioxide 25 mmol/L (22-29); Chloride 104 mmol/L (96-108); Creatinine Clr Calc Pharmacy 49.6; Estimated Glomerular Filt Rate > 60; Glucose Random 121 mg/dL (60-115); Potassium 4.8 mmol/L (3.3-5.1); Sodium 137 mmol/L (135-145); Total Protein 6.7 g/dL (6.5-8.0)
[2023-07-08 16:08] LABS: Troponin-I High Sensitivity 4.3 ng/L (<3.5-17.0)
--- NOTE | 2023-07-08 16:39 | ED.GENADULT ---
HPI - General Adult General Chief complaint: Abdominal Pain Stated complaint: sharp abd pain Time Seen by Provider: 07/08/23 16:11 Source: patient, family (daughter), RN notes reviewed and old records reviewed Mode of arrival: EMS Limitations: no limitations History of Present Illness HPI narrative: 87-year-old female past medical history significant for breast cancer disease status post presents for evaluation of abdominal pain and vomiting. Patient reports that she started to get an upset stomach with nausea starting 2 or 3 days ago Her symptoms worsened this morning and she has been having some vomiting that started today. She reports a history of small-bowel obstruction Her last partial small-bowel obstruction was in August of 2021 She reports that she did not require surgery for this but has had previous abdominal surgery for ruptured appendix She also has a known left lower abdomen hernia Denies any fevers, chills, sick contacts Related Data Home Medications Medication Instructions Recorded Confirmed escitalopram oxalate 10 mg tablet 1 tab PO DAILY 01/21/21 05/18/23 gabapentin 300 mg capsule 1 cap PO DAILY 01/21/21 05/18/23 lorazepam 0.5 mg tablet 1 tab PO BEDTIME PRN Anxiety 01/21/21 05/18/23 meloxicam 15 mg tablet 1 tab PO DAILY 01/21/21 05/18/23 methotrexate sodium (PF) 25 mg/mL 25 mg IM WE 01/21/21 05/18/23 injection solution Probiotic 1 cap PO DAILY 07/29/21 05/18/23 cholecalciferol (vitamin D3) 50 50 mcg PO DAILY 07/29/21 05/18/23 mcg (2,000 unit) tablet (Vitamin D3) multivitamin 1 tab PO DAILY 07/29/21 05/18/23 omeprazole 20 mg capsule,delayed 1 cap PO DAILY 07/29/21 05/18/23 release polyethylene glycol 3350 17 17 g PO DAILY 01/16/22 05/18/23 gram/dose oral powder (Miralax) infliximab 100 mg intravenous IV 05/18/23 05/18/23 solution (Remicade) Previous Rx's Medication Instructions Recorded aspirin 81 mg chewable tablet 81 mg PO DAILY #90 tabs 02/18/21 atorvastatin 40 mg tablet 40 mg PO BEDTIME #90 tabs 02/18/21 Allergies Allergy/AdvReac Type Severity Reaction Status Date / Time No Known Allergies Allergy Verified 07/08/23 21:19 [No Known Allergies*] Review of Systems Constitutional: Constitutional: Denies chills, Denies fever(s) and Denies headache(s) ENT: Denies headache(s) Cardiovascular: Cardiovascular: Denies chest pain and Denies dyspnea Respiratory: Respiratory: Denies cough and Denies dyspnea Gastrointestinal: Gastrointestinal: Reports abdominal pain, Reports nausea and Reports vomiting Musculoskeletal: Musculoskeletal: Denies back pain Integumentary/Breasts: Skin/Breast: Denies rash Neurologic: Denies headache(s) [facility] Past Medical History Medical History Abdominal hernia Anosmia Anxiety Breast cancer Osteoporosis 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 Surgical History History of appendectomy S/P mastectomy Family History Family History Father Lung cancer Brother Prostate cancer Other No significant family history Social History Social History Household Members: None Household Members Other:: none Housing: Assisted Living Facility Are you a primary tire care manager to a significant other at home: No Do you presently have visiting nurse or other home services: No Alcohol intake: never Patient Tobacco Use Status: Never used Tobacco Second Hand Smoke Exposure: No Advance Directives: Yes Advance Directives Information Provided: No Advance Directives on File: No Advance Directives Date on File: 08/12/21 service: No Current occupational status: retired Physical Exam ED Vital Signs: Vital Signs - 24 hr 07/08/23 15:05 07/08/23 17:10 07/08/23 18:56 Temperature 98.1 F Pulse Rate 68 82 92 Respiratory Rate 18 15 18 Blood Pressure 161/55 H 138/71 136/64 Pulse Oximetry 99 95 96 Oxygen Delivery Method Room Air Room Air 07/08/23 20:56 Temperature 99.5 F Pulse Rate 86 Respiratory Rate 15 Blood Pressure 129/52 L Pulse Oximetry 95 Oxygen Delivery Method Room Air BMI result Body Mass Index 28.3 Const General: healthy appearing, comfortable, no acute distress, alert and awake Nutritional Appearance: well nourished Orientation/consciousness: patient oriented x3 HENMT Head: Yes normocephalic and Yes atraumatic Eyes Eyelids: Yes eyelids normal Conjunctivae: conjunctivae normal Sclerae: sclerae normal Corneas: corneas normal Pupils: Equal, round and reactive pupils present EOM: EOMs intact bilaterally Neck Neck: Yes full ROM Resp Effort & Inspection: normal respiratory effort, able to speak in complete sentences and not labored Cardio Rate: regular rate Rhythm: regular rhythm GI Other: Firm or mass palpable in left lower quadrant in the area of the patient's known hernia Inspection: Yes distended Palpation (GI): Soft to palpation, Tenderness to palpation present (GI) in the LLQ, no guarding and no pulsatile masses Skin General skin exam: no rashes or lesions noted and elasticity normal Neuro General: patient oriented x3 Cranial nerves: Yes Equal, round and reactive pupils present and Yes Bilaterally intact EOM present Cognition (Neuro): normal cognition Extrem Other: Moving all extremities well without any obvious deformities Course Reevaluation(s) Reevaluation #1: The patient's CT scan shows small bowel obstruction with transition in the central pelvis. I discussed with Dr. Tomas, general surgery who recommends NG tube, hospitalist admission and surgical follow-up/consultation. This was just with the patient and her daughter at bedside. I discussed the hospitalist will admit the patient Time: 22:17 Medications Administered Discontinued Medications Generic Name Dose Route Start Last Admin Trade Name Freq PRN Reason Stop Dose Admin Diatrizoate Meglum/Diatrizoate Sod 30 ml 07/08/23 19:30 07/08/23 19:31 Diatrizoate Meglumine, Sodium 30 Ml Solution PO 07/08/23 19:31 30 ml ONCE ONE Administration Sodium Chloride 1,000 mls @ 999 mls/hr 07/08/23 16:30 07/08/23 18:02 Ns IV 07/08/23 17:30 Infused .Q1H1M MANI Infusion Iohexol 85 ml 07/08/23 19:31 07/08/23 19:31 Iohexol 350 Mg/Ml 100 Ml Infus..Btl IV 07/08/23 19:32 85 ml ONCE ONE Administration Morphine Sulfate 1 mg 07/08/23 19:00 07/08/23 19:06 Morphine Sulfate 2 Mg/Ml Cartridge IVPUSH 07/08/23 19:01 1 mg ONCE ONE Administration Protocol Ondansetron HCl 4 mg 07/08/23 16:19 07/08/23 16:47 Ondansetron Hcl 4 Mg/2 Ml Vial IVPUSH 07/08/23 16:20 4 mg ONCE ONE Administration Ondansetron HCl 4 mg 07/08/23 19:00 07/08/23 19:06 Ondansetron Hcl 4 Mg/2 Ml Vial IVPUSH 07/08/23 19:01 4 mg ONCE ONE Administration Medical Decision Making Medical Decision Making [facility] Narrative: 87-year-old female with past medical history significant for partial small-bowel obstruction presents for evaluation of abdominal pain no nausea vomiting. Her clinical presentation is consistent with bowel obstruction. She has pain that improves with vomiting. Plan for CT scan given her was with IV and oral contrast to evaluate for SBO/transition point. Patient given IV fluids, Zofran but she declines analgesia at this time Differential Diagnosis Differential Diagnoses: The differential diagnosis associated with the presentation includes Small-bowel obstruction Ileus Partial small-bowel obstruction Gastroenteritis Acute abdominal pain Admission/Observation Consideration of admission/observation: Escalation of care including admission/observation considered Patient has documented small bowel obstruction on imaging Consult Healthcare Provider Management of the patient was discussed with: Hospitalist (Dr. Pryor) and Trust Clerk (Dr. Tomas, general surgery) Lab Data [facility] Lab Attestation statement: I reviewed the patient's lab results. No leukocytosis. The patient does have a mild anemia which is consistent with her baseline. Normal platelet count of 278 K. No electrolyte abnormalities. Glucose elevated toe 121 but the patient reports that she had lunch recently. 07/08/23 15:25 07/08/23 15:25 Labs: Lab Results 07/08/23 07/08/23 07/08/23 Range/Units 15:25 15:25 15:25 WBC 10.2 (4.8-10.8) X10*3/uL RBC 3.74 L (4.20-5.50) X10*6/uL Hgb 11.3 L (12.0-16.0) g/dl Hct 34.3 L (37.0-47.0) % MCV 91.7 (80.0-98.0) fL MCH 30.2 (27.0-33.0) pg MCHC 32.9 (31.0-35.0) g/dl RDW 16.6 H (11.0-16.0) % Plt Count 278 (160-400) X10*3/uL MPV 9.2 L (9.4-12.3) fL Immature Gran % (Auto) 0.2 (0.0-0.4) % Neut % (Auto) 89.3 H (45-73) % Lymph % (Auto) 6.2 L (20-40) % [place] % (Auto) 4.0 (2-11) % Eos % (Auto) 0.2 (0-4) % Baso % (Auto) 0.1 (0-2) % Lymph # (Auto) 0.6 L (1.2-4.9) X10*3/uL [place] # (Auto) 0.4 (0.1-1.2) X10*3/uL Eos # (Auto) 0.0 (0.0-0.4) X10*3/uL Baso # (Auto) 0.0 (0.0-0.2) X10*3/uL Abs Immat Gran (auto) 0.02 (0.00-0.03) X10*3/uL Absolute Neuts (auto) 9.1 H (2.0-8.3) x10*3/uL Absolute Nucleated RBC 0.000 (0.0-0.012) X10*3/uL Nucleated RBC % (auto) 0.0 (0.0-0.2) /100WBC Sodium 137 (135-145) mmol/L Potassium 4.8 (3.3-5.1) mmol/L Chloride 104 (96-108) mmol/L Carbon Dioxide 25 (22-29) mmol/L Anion Gap 13 (12-20) BUN 14 (9-16) mg/dL Creatinine 0.79 (0.5-1.4) mg/dL Estim Creat Clear Calc 49.6 Estimated GFR > 60 Random Glucose 121 H (60-115) mg/dL Calcium 9.8 (8.4-10.2) mg/dL Total Bilirubin 0.6 (0.0-1.0) mg/dL AST 41 H (5-31) U/L ALT 24 (0-31) U/L Alkaline Phosphatase 108 (39-117) U/L Troponin I High Sens 4.3 (<3.5-17.0) ng/L Total Protein 6.7 (6.5-8.0) g/dL Albumin 4.1 (3.5-5.0) g/dL Urine Color Urine Appearance Urine pH (5.0-9.0) Ur Specific [place] (1.005-1.025) Urine Protein (Neg-Trace) mg/dL Urine Glucose (UA) (Negative) mg/dL Urine Ketones (Negative) mg/dL Urine Blood (Negative) Urine Nitrite (Negative) Ur Leukocyte Esterase (Negative) 07/08/23 Range/Units 19:31 WBC (4.8-10.8) X10*3/uL RBC (4.20-5.50) X10*6/uL Hgb (12.0-16.0) g/dl Hct (37.0-47.0) % MCV (80.0-98.0) fL MCH (27.0-33.0) pg MCHC (31.0-35.0) g/dl RDW (11.0-16.0) % Plt Count (160-400) X10*3/uL MPV (9.4-12.3) fL Immature Gran % (Auto) (0.0-0.4) % Neut % (Auto) (45-73) % Lymph % (Auto) (20-40) % [place] % (Auto) (2-11) % Eos % (Auto) (0-4) % Baso % (Auto) (0-2) % Lymph # (Auto) (1.2-4.9) X10*3/uL [place] # (Auto) (0.1-1.2) X10*3/uL Eos # (Auto) (0.0-0.4) X10*3/uL Baso # (Auto) (0.0-0.2) X10*3/uL Abs Immat Gran (auto) (0.00-0.03) X10*3/uL Absolute Neuts (auto) (2.0-8.3) x10*3/uL Absolute Nucleated RBC (0.0-0.012) X10*3/uL Nucleated RBC % (auto) (0.0-0.2) /100WBC Sodium (135-145) mmol/L Potassium (3.3-5.1) mmol/L Chloride (96-108) mmol/L Carbon Dioxide (22-29) mmol/L Anion Gap (12-20) BUN (9-16) mg/dL Creatinine (0.5-1.4) mg/dL Estim Creat Clear Calc Estimated GFR Random Glucose (60-115) mg/dL Calcium (8.4-10.2) mg/dL Total Bilirubin (0.0-1.0) mg/dL AST (5-31) U/L ALT (0-31) U/L Alkaline Phosphatase (39-117) U/L Troponin I High Sens (<3.5-17.0) ng/L Total Protein (6.5-8.0) g/dL Albumin (3.5-5.0) g/dL Urine Color Yellow Urine Appearance Clear Urine pH 7.5 (5.0-9.0) Ur Specific [place] 1.010 (1.005-1.025) Urine Protein Negative (Neg-Trace) mg/dL Urine Glucose (UA) Negative (Negative) mg/dL Urine Ketones Trace (Negative) mg/dL Urine Blood Negative (Negative) Urine Nitrite Negative (Negative) Ur Leukocyte Esterase Negative (Negative) Independent Interpretation I performed an independent interpretation of an: CT Scan Radiology Impression Discussion of test interpretation with radiology: I have reviewed the radiologist's reading. (Small-bowel obstruction with likely transition in the central pelvis) Prescription Management I considered prescription management with: Pain Medication Discharge Plan Discharge Clinical Impression: Small bowel obstruction Patient Disposition: Admitted As Inpatient Prescriptions: No Action meloxicam 15 mg tablet 1 tab PO DAILY lorazepam 0.5 mg tablet 1 tab PO BEDTIME PRN (Reason: Anxiety) gabapentin 300 mg capsule 1 cap PO DAILY escitalopram oxalate 10 mg tablet 1 tab PO DAILY methotrexate sodium (PF) 25 mg/mL solution 25 mg IM WE polyethylene glycol 3350 [Miralax] 17 gram/dose Powder 17 g PO DAILY atorvastatin 40 mg Tablet 40 mg PO BEDTIME Qty: 90 0RF aspirin 81 mg Tablet,Chewable 81 mg PO DAILY Qty: 90 0RF omeprazole 20 mg capsule,delayed release(DR/EC) 1 cap PO DAILY multivitamin Tablet 1 tab PO DAILY cholecalciferol (vitamin D3) [Vitamin D3] 50 mcg (2,000 unit) Tablet 50 mcg PO DAILY Probiotic 1 cap PO DAILY infliximab [Remicade] 100 mg recon soln IV
[2023-07-08] MEDS: ondansetron HCL 4 MG/2 ML VIAL IVPUSH ×2 (16:47→19:06)
[2023-07-08] MEDS: 0.9 % Sodium Chloride 1,000 ML 999 ML IV (16:48)
[2023-07-08 17:10] VITALS: BP 138/71; PULSE 82; RESP 15; O2SAT 95
[2023-07-08 18:56] VITALS: BP 136/64; PULSE 92; RESP 18; O2SAT 96
--- NOTE | 2023-07-08 19:01 | PC.NURSE ---
Assumed care of pt. pt lying on stretcher, visibly uncomfortable. IVF completed, pt sts completed oral contrast drink, urine in Purewik, plan to send sample. Requested pain and nausea medication from provider given assessed pain. Plan for CT, disposition after read.
[2023-07-08] MEDS: Morphine Sulfate 2 MG/ML CARTRIDGE 1 MG IVPUSH (19:06)
[2023-07-08] MEDS: iohexoL 350 MG/ML 100 ML INFUS..BTL 85 ML IV (19:31)
[2023-07-08] MEDS: Diatrizoate Meglumine, Sodium 30 ML SOLUTION PO (19:31)
[2023-07-08 19:44] LABS: Appearance Urine Clear; Color Urine Yellow; Glucose Urine UA Negative (Negative); Leukocyte Esterase Urine Negative (Negative); Nitrite Urine Negative (Negative); PH 7.5 (5.0-9.0); Urine Blood Negative (Negative); Urine Ketones Trace mg/dL (Negative); Urine Protein Negative (Neg-Trace)
[2023-07-08 20:56] VITALS: BP 129/52; PULSE 86; RESP 15; TEMP 37.5; O2SAT 95
--- NOTE | 2023-07-08 22:03 | PM.IMHP ---
History of Present Illness Date of Service: 07/08/23 Chief Complaint: Abdominal Pain This is a 87-year-old female with pertinent history of CAD, mood disorder, gastroesophageal reflux disease, recurrent SBO, rheumatoid arthritis who presents to the emergency department for evaluation of abdominal discomfort. Patient states that started 3 days prior to presentation and has been progressive. It is associated with nausea and multiple episodes of nonbloody emesis. Patient states he has a history of bowel obstruction. No fever or chills. The abdominal discomfort is generalized, constant, nonradiating and without any relieving factors. No chest discomfort, palpitations, shortness of breath, changes in urinary habits. Her last bowel movement was 1 day prior to presentation. In the emergency department, imaging SBO showed SBO with transition point and general surgery was consulted who requested admission. Review of Systems Constitutional: Constitutional: Reports fatigue Cardiovascular: Cardiovascular: Reports no additional cardiovascular complaints Respiratory: Respiratory: Reports no additional respiratory complaints Gastrointestinal: Gastrointestinal: Reports abdominal pain, Reports nausea and Reports vomiting Genitourinary: Genitourinary: Reports no additional female genitourinary complaints Endocrine: Endocrine: Reports fatigue PMFSH Medical History Abdominal hernia Anosmia Anxiety Breast cancer Osteoporosis 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 Family History Father Lung cancer Brother Prostate cancer Other No significant family history Surgical History History of appendectomy S/P mastectomy Social History Household Members: None Household Members Other:: none Housing: Assisted Living Facility Are you a primary childbirth and infant care teacher to a significant other at home: No Do you presently have visiting nurse or other home services: No Alcohol intake: never Patient Tobacco Use Status: Never used Tobacco Second Hand Smoke Exposure: No Advance Directives: Yes Advance Directives Information Provided: No Advance Directives on File: No Advance Directives Date on File: 08/12/21 service: No Current occupational status: retired Meds Allergies Allergy/AdvReac Type Severity Reaction Status Date / Time No Known Allergies Allergy Verified 07/08/23 21:19 [No Known Allergies*] Home Medications Medication Instructions Recorded Confirmed Last Taken Type escitalopram oxalate 10 mg tablet 1 tab PO DAILY 01/21/21 05/18/23 08/11/21 History gabapentin 300 mg capsule 1 cap PO DAILY 01/21/21 05/18/23 08/11/21 History lorazepam 0.5 mg tablet 1 tab PO BEDTIME PRN Anxiety 01/21/21 05/18/23 08/11/21 History meloxicam 15 mg tablet 1 tab PO DAILY 01/21/21 05/18/23 08/11/21 History methotrexate sodium (PF) 25 mg/mL 25 mg IM WE 01/21/21 05/18/23 08/11/21 History injection solution Probiotic 1 cap PO DAILY 07/29/21 05/18/23 08/11/21 History cholecalciferol (vitamin D3) 50 50 mcg PO DAILY 07/29/21 05/18/23 08/11/21 History mcg (2,000 unit) tablet (Vitamin D3) multivitamin 1 tab PO DAILY 07/29/21 05/18/23 08/11/21 History omeprazole 20 mg capsule,delayed 1 cap PO DAILY 07/29/21 05/18/23 08/11/21 History release polyethylene glycol 3350 17 17 g PO DAILY 01/16/22 05/18/23 Unknown History gram/dose oral powder (Miralax) infliximab 100 mg intravenous IV 05/18/23 05/18/23 Unknown History solution (Remicade) Physical Exam Vital Signs and Narrative: Vital Signs: Last Vital Signs Temp 99.5 F 07/08/23 20:56 Pulse 86 07/08/23 20:56 Resp 15 07/08/23 20:56 BP 129/52 L 07/08/23 20:56 Pulse Ox 95 07/08/23 20:56 O2 Del Method Room Air 07/08/23 20:56 BMI result Body Mass Index 28.3 Elderly female lying in bed in mild distress Neck supple, no JVD Regular rate and rhythm, S1-S2 heard Decreased breath sounds at bases Abdomen with generalized tenderness, no guarding, no rigidity, no rebound tenderness Patient is awake, alert and oriented to self, place, time and person ; no focal motor deficit Psych: Normal mood Results Labs 07/08/23 15:25 07/08/23 15:25 Labs: Laboratory Results - last 24 hr 07/08/23 07/08/23 07/08/23 15:25 15:25 19:31 MCV 91.7 MCH 30.2 MCHC 32.9 RDW 16.6 H Plt Count 278 MPV 9.2 L Immature Gran % (Auto) 0.2 Neut % (Auto) 89.3 H Lymph % (Auto) 6.2 L [place] % (Auto) 4.0 Eos % (Auto) 0.2 Baso % (Auto) 0.1 Lymph # (Auto) 0.6 L [place] # (Auto) 0.4 Eos # (Auto) 0.0 Baso # (Auto) 0.0 Abs Immat Gran (auto) 0.02 Absolute Neuts (auto) 9.1 H Absolute Nucleated RBC 0.000 Nucleated RBC % (auto) 0.0 Anion Gap 13 Estim Creat Clear Calc 49.6 Estimated GFR > 60 Random Glucose 121 H Calcium 9.8 Total Bilirubin 0.6 AST 41 H ALT 24 Alkaline Phosphatase 108 Total Protein 6.7 Albumin 4.1 Urine Color Yellow Urine Appearance Clear Urine pH 7.5 Ur Specific [place] 1.010 Urine Protein Negative Urine Glucose (UA) Negative Urine Ketones Trace Urine Blood Negative Urine Nitrite Negative Ur Leukocyte Esterase Negative Imaging Radiologist's Impressions: Impressions Abdomen/Pelvis CT 07/08/23 19:30 IMPRESSION: 1. Small bowel obstruction with transition point suspected to lie in the central pelvis. 2. Small volume of free fluid. 3. Endometrial thickness of approximately 0.9 cm. If not already performed, further workup with pelvic ultrasound is recommended, as malignancy cannot be excluded with this appearance. Assessment and Plan (1) Small bowel obstruction: Status: Acute Plan This is a 87-year-old female with pertinent history of CAD, mood disorder, gastroesophageal reflux disease, recurrent SBO, rheumatoid arthritis who presents to the emergency department for evaluation of abdominal discomfort. #. SBO. Will admit patient and continue NG tube to suction. Keep NPO for bowel rest. General surgery was consulted from the ER, appreciate assistance. Symptomatic management for pain and nausea. Serial abdominal exams #. Mood disorder. Resume p.o. mood stabilizers when no longer NPO #. CAD. Rectal aspirin and restart statin when able to take p.o. #. Rheumatoid arthritis. Hold methotrexate Med rec pending DVT prophylaxis: Mechanical. Deferred Lovenox until surgical evaluation DNR/DNI. Discussed code status with patient and daughter at bedside Admit as inpatient and will require two night minimum hospital stay for treatment of SBO and recovery of normal bowel function. Specialist consult pending Time Spent With Patient Time: Total time managing care of this patient today ____ minutes. Quality Stroke Does the patient have a stroke diagnosis?: No VTE Prior VTE?: No VTE Risk Level:: Medical - moderate - high VTE Device Contraindication: N/A - Device Ordered VTE Drug Contraindication: Treatment Not Indicated
--- OUTSIDE RECORDS SUMMARY | 2023-07-08 22:38 | XMS_ITS | Patient Health Record ---
Author Name Unknown [facility] reyna Sorrento Address [address] [place] [address] Care Team Providers Care Snack Stewardess Name Role Phone Vineet Hwang MD Primary Care Provider Unavail able Black, Colette Unavailable [phone] ALLERGIES No Known Allergies REASON FOR REFERRAL No Information MEDICATIONS Medication SIG (Take, Route, Frequency, Duration) Notes Start Date End Date Status vitamin as directed Active Remicade 3 vials 6wks Act aracely Plaquenil 200 MG 1 tablet with food o r milk Orally Once a day for 10 day(s) Not-Taking Tamoxifen Citrate 20 MG Oral for 90 Not-Taking Omeprazole 10 MG as directed Orally Once a day Active Methotrexate 2.5 MG 1 tablet Orally Thre e times a Week for 30 day(s) Not-Taking Aspir-81 Active Atorvastatin Calcium 40 MG as directed Orally Active Acetaminophen 650 MG as directed Orally Active Lipitor 40 MG 1 tablet Orally Once a day for 30 day(s) Active Gabapentin 300 MG 1 capsule Orally Onc e a day Active IMMUNIZATIONS Vaccine Route Administration Date Status Comme nts COVID-19 Pfizer BioNTech Vaccine Unknown 09/08/2021 Administered First Dose: Second Dose: SOCIAL HISTORY Tobacco Use: Social History Observation Description Date Details (start date - stop date) Former Smoker NA - NA Sex Assigned At : Social History Observation Description Sex Assigned At Unknown Tobacco Use/Smoking Question Answer Notes Are you a: former smoker Additional Findings: Tobacco Non-User Current no n-smoker Alcohol Screen Question Answer Notes Did you have a drink containing alcohol in the p ast year? No Points 0 Interpretation Negative Tobacco use other than smoking: Question Answer Notes Are you an other tobacco user? No PROBLEMS Problem Type ICD Code Onset Dates Problem Status W/U Status Risk SNOMED Code Notes Problem Other hammer toe(s) (acquired), right foot (M20.41) Active confirmed Acquired hammer toe of right foot (677430447172 9105) Problem Other hammer toe(s) (acquired), left foot (M20.42) Active confirmed Acquired hammer toe of left foot (194779514956 9103) Problem Non-pressure chronic ulcer of other part of right foot limited to breakdown of skin (L97.511) Active confirmed Non-pressure ulcer lower limb (186067166) Problem Other hammer toe(s) (acquired), right foot (M20.41) Active confirmed Acquired hammer toe of right foot (963517032961 9105) Problem Other hammer toe(s) (acquired), left foot (M20.42) Active confirmed Acquired hammer toe of left foot (723664232034 9103) Problem Rheumatoid arthritis (M06.9) Active confirmed 31827958 PROCEDURES Procedure Date Ordered Date Performed Result Body Sit e 01165-RSFDWOE NAIL, 6 OR MORE 08/03/2022 N/A 59505-FFXFUJL NAIL, 6 OR MORE 01/29/2023 N/A 91478-FYWQGSX NAIL, 6 OR MORE 04/30/2023 N/A Encounters Encounter Location Date Provider Diagnosis [facility] [address] [address] 08/03/2022 Colette Black Tinea unguium B35.1 ; Pain in right toe(s) M79.674 and Pain in left toe(s) M79.[address] [facility] [address] 10/19/2022 Colette Black [facility] [address] [address] 11/27/2022 Colette Black [facility] [address] [address] 01/08/2023 Colette [facility] [address] 01/29/2023 Colette Black Tinea unguium B35.1 ; Pain in right toe(s) M79.674 and Pain in left toe(s) M79.675 [facility] [address] [place] [address] 04/30/2023 Colette Black Tinea unguium B35.1 ; Pain in right toe(s) M79.674 and Pain in left toe(s) M79.675 ASSESSMENTS Encounter Date Diagnosis Assessment Notes Treatment Notes Treatment Clinical Notes 08/03/2022 Tinea unguium (ICD-10 - B35.1) 08/03/2022 Pain in right toe(s) (ICD-10 - M79.674) 01/29/2023 Tinea unguium (ICD-10 - B35.1) 04/30/2023 Tinea unguium (ICD-10 - B35.1) 04/30/2023 Pain in right toe(s) (ICD-10 - M79.674) 01/29/2023 Pain in right toe(s) (ICD-10 - M79.674) 08/03/2022 Pain in left toe(s) (ICD-10 - M79.675) 01/29/2023 Pain in left toe(s) (ICD-10 - M79.675) 04/30/2023 Pain in left toe(s) (ICD-10 - M79.675) PLAN OF TREATMENT Pending Test Test Name Order Date 88027-QBWIDQW NAIL, 6 OR MORE 02/04/2014 25986-MHISHOJ NAIL, 6 OR MORE 03/11/2014 30448-GZIYKTW NAIL, 6 OR MORE 09/07/2016 23734-LLMEGDM NAIL, 6 OR MORE 01/04/2017 57962-IOUMEET NAIL, 6 OR MORE 05/14/2017 31691-KFCGFWX NAIL, 6 OR MORE 08/20/2017 65328-ZMLCYMN NAIL, 6 OR MORE 11/26/2017 34294-IQGEXOW NAIL, 6 OR MORE 02/25/2018 09432-PFIYJAS NAIL, 6 OR MORE 05/27/2018 80202-DMLOYEB NAIL, 6 OR MORE 08/26/2018 92467-LYFGCUY NAIL, 6 OR MORE 12/02/2018 24009-FVFHJYW NAIL, 6 OR MORE 12/01/2019 26321-IQNBCLB NAIL, 6 OR MORE 03/08/2020 25573-LMHCSLR NAIL, 6 OR MORE 06/10/2020 13948-ZNIOUBL NAIL, 6 OR MORE 09/09/2020 55426-AXBCTWV NAIL, 6 OR MORE 03/03/2019 57752-LDMROVK NAIL, 6 OR MORE 06/02/2019 91277-VBFMWEV NAIL, 6 OR MORE 12/16/2020 06699-CUVMKQP NAIL, 6 OR MORE 03/17/2021 00235-OZIMBXD NAIL, 6 OR MORE 06/16/2021 80279-FKGLXJH NAIL, 6 OR MORE 09/22/2021 33905-VBFZBNG NAIL, 6 OR MORE 01/23/2022 67720-IWUAGNR NAIL, 6 OR MORE 05/01/2022 45860-JYTMOWH NAIL, 6 OR MORE 08/03/2022 68059-FZUMYWU NAIL, 6 OR MORE 01/29/2023 37918-KLQZYMD NAIL, 6 OR MORE 04/30/2023 20018-YKQZBHQ NAIL, 1-5 11/17/2013 29563-WMWGWTI NAIL, 1-5 06/05/2016 04478-IWDSFEF NAIL, 1-5 09/09/2015 67706-YCKJBXD NAIL, 1-5 02/14/2016 21900-Mfnh Destruction, 1-14 08/20/2017 64524-Onze Destruction, -14 11/26/2017 19281-Qqpc Destruction, -14 01/04/2017 49375-Narf Destruction, -14 02/25/2018 58611-Qgcu Destruction, 1-14 08/26/2018 76112-Tvbs Destruction, -14 05/27/2018 75640-Czgi Destruction, -14 03/03/2019 05973-Ssnt Destruction, -14 12/02/2018 95937-Pxer Destruction, -14 05/14/2017 93721-Phiiovae Plate 03/17/2021 80777-Uywxhcsp Plate 06/16/2021 73860-Nudfvrba Plate 05/01/2022 57441-Llrgkfnv Plate 01/23/2022 28281-Kidwmcbb Plate 09/09/2020 59472-Csxquomm Plate 06/05/2016 40799-Slorxuvd Plate 09/07/2016 47407-Fkutetxw Plate 05/14/2017 00335-Epoojnms Plate 02/14/2016 83833-Wdlvmotd Plate 09/09/2015 64515-Knjoppsq Plate 03/11/2014 99126-Vmgziooj Plate 02/04/2014 54276-Rtliqpsf Plate Each Additional 12/2013 43709-Vskttwzn Plate Each Additional 05/2014 71338-Esqqngku Plate Each Additional 27440-Yjpfcorx Plate Each Additional 48916- Debride <25 sq cm 06/16/2019 64234 I&D ABSCESS- SIMPLE,SINGLE 019 Next Appt Details Provider Name:Colette Cobb , 08/02/2023 02:15:00 PM, [address] [facility], [place], [address], Insurance Providers Payer Name Payer Address Payer Phone Subscriber Number Group Number Insured Name Patient Relationship to Insured Coverage Start Date Coverage End Date Medicare National Govt Sv[employer] [address] [facility] [place] [address] [id number] Ernestine Fung Self - patient is the insured [employer] [address] [place] [address] [id number] Ernestine Fung Self - patient is the insured 3 MEDICAL (GENERAL) HISTORY Medical History History ICD Code Arthritis back, hip, knee pain measles chicken pox Macular degeneration Neuropathy Surgical History Surgery Date(Month/Year) tendon repair-ruptured left thumb 2006 appendix removed 12/18/15 left mastectomy 04/27/16 Hospitalization History Reason Date(Month/Year) pt was [facility] for laproscopy and ruptured a ppendix 12/18/15 [facility] / Mastectomy 04/06 01/18-04/29/16 [facility]- bowel obstruction 02/15/2021 C- bowel obstruction 07/18/21,08/12/21
--- OUTSIDE RECORDS SUMMARY | 2023-07-08 22:38 | XMS_ITS | Patient Health Record ---
Author Name Unknown Organization [facility] Address [address] [place] [address] Care Team Providers Care Assistant Professor Name Role Phone Vineet Hwang DO Primary Care Provider Unavail able Vineet Silvestre Unavailable [phone] ALLERGIES No Known Allergies REASON FOR REFERRAL No Information MEDICATIONS Medication SIG (Take, Route, Frequency, Duration) Notes Start Date End Date Status Methotrexate Sodium (PF) 50 MG/2ML Injection for 84 Active LORazepam 0.5 MG Oral for 30 A ctive Centrum Silver - as directed Orally Active Escitalopram Oxalate 10 MG Oral for 90 Active Vitamin D 50 MCG (1999 UT) 1 capsule Orally Once a day for 30 day(s) Active Omeprazole 20 MG Oral for 90 A ctive Metamucil 48.57 % as directed Orally Not-Taking Atorvastatin Calcium 40 MG Oral for 90 Active Docusate Sodium 100 MG 1 capsule as need ed Orally Once a day for 30 day(s) Not-Taking Gabapentin 300 MG Oral for 90 Active Mckean 3 1000 MG 1 capsule Orally Onc e a day for 30 day(s) Active MiraLax 17 GM/SCOOP as directed Orally QD Active Aspirin Adult Low Dose 81 MG 1 tablet Orally Once a day for 30 day(s) Active Folic Acid 1 MG 1 tablet Orally Once a day for 30 day(s) Active Remicade 100 MG as directed/400 mg Intravenous every 6 weeks Active Probiotic 250 MG 1 capsule Orally Twi ce a day for 30 day(s) Active Meloxicam 15 MG 1 tablet Orally Once a day for 30 day(s) Active Evenity 105 MG/1.17ML 2.34 ml Subcutaneo us for 30 day(s) Active IMMUNIZATIONS Vaccine Route Administration Date Status Comme nts Influenza Unknown 07/06/2021 Administered SOCIAL HISTORY Tobacco Use: Social History Observation Description Date Details (start date - stop date) Never Smoker NA - NA Sex Assigned At : Social History Observation Description Sex Assigned At Unknown Tobacco Use/Smoking Question Answer Notes Patient is a nonsmoker Alcohol Screen Question Answer Notes Did you have a drink containing alcohol in the p ast year? No Points 0 Interpretation Negative PROBLEMS Problem Type ICD Code Onset Dates Problem Status W/U Status Risk SNOMED Code Notes Problem Change in bowel habits (R19.4) Active confirmed 105973057 Problem Small bowel obstruction (K56.609) Active confirmed 819655961 Encounters Encounter Location Date Provider Diagnosis [facility] [address] [place] [address] 08/24/2022 Vineet Silvestre PLAN OF TREATMENT No Information Insurance Providers Payer Name Payer Address Payer Phone Subscriber Number Group Number Insured Name Patient Relationship to Insured Coverage Start Date Coverage End Date MEDICARE OF [place] [address] [place] [address] [id number] ROBBY DESOUZA Self - patient is the insured [employer] ATT[employer] CLAIMS [address] [place] [address] [id number] ROBBY DESOUZA Self - patient is the insured MEDICAL (GENERAL) HISTORY Medical History History ICD Code SBO's in 02/2021, 07/2021, and 08/2021 Rheumatoid arthritis-Dr. Lindsay--Remica de Q 6 weeks Osteoporosis Anxiety Breast cancer-02/2016-left mastectomy and Tamoxifen Denies DM,CVA,Lung disease,renal disease Told of a possible TN in 02/2021 during a bowel obstruction Hyperlipidemia GERD C.diff after her Appy Negative colonoscopies in [address] Bergman Surgical History Surgery Date(Month/Year) Appendectomy Left mastectomy
--- OUTSIDE RECORDS SUMMARY | 2023-07-08 22:38 | XMS_ITS | Patient Health Record ---
Author Name Unknown Organization Vineet Cueto Eri DO, FACP Address [address], [place] [id number] Care Team Providers Care Decision Support Manager Name Role Phone Eri Vineet Primary Care Provider [phone] ALLERGIES No Known Allergies RESULTS Component Value Reference Range Notes Complete Blood Count Auto Di ff Reviewed date:05/30/2023 11:55:52 AM Interpretation:Abnormal Performing Lab:[facility], [address] [place] [phone] Notes/Report: White Blood Count 4.5 4.8-10.8 X10*3/uL Red Blood Count 3.26 4.20-5.50 X10*6/uL Hemoglobin 10.6 12.0-16.0 g/dl Hematocrit 31.1 37.0-47.0 % Mean Corpuscular Volume 95.4 80.0-98.0 fL Mean Corpuscular Hemoglobin 32.5 27.0-33.0 pg Mean Corpuscular HGB Conc 34.1 31.0-35.0 g/dl Red Cell Distribution Width 16.6 11.0-16.0 % Platelet Count 251 160-400 X10*3/uL Mean Platelet Volume 10.2 9.4-12.3 fL Neutrophils Percent Auto 55.3 45-73 % Imm Gran Pct Auto 0.4 0.0-0.4 % Lymphocytes Percent Auto 29.0 20-40 % Monocytes Percent Auto 10.6 2-11 % Eosinophils Percent Auto 4.0 0-4 % Basophils Percent Auto 0.7 0-2 % NRBC Pct Auto 0.0 0.0-0.2 /100WBC Neutrophils Absolute Auto 2.5 2.0-8.3 x10*3/u L Imm Gran Abs Auto 0.02 0.00-0.03 X10*3/uL Lymphocytes Absolute Auto 1.3 1.2-4.9 X10*3/u L Monocytes Absolute Auto 0.5 0.1-1.2 X10*3/uL Eosinophils Absolute Auto 0.2 0.0-0.4 X10*3/u L Basophils Absolute Auto 0.0 0.0-0.2 X10*3/uL NRBC Abs Auto 0.000 0.0-0.012 X10*3/uL Comprehensive [place]. Panel Fa st Reviewed date:05/30/2023 12:38:14 PM Interpretation:Abnormal Performing Lab:[facility], [address] [place] [phone] Notes/Report: Sodium 139 135-145 mmol/L Potassium 4.6 3.3-5.1 mmol/L Chloride 105 96-108 mmol/L Carbon Dioxide 30 22-29 mmol/L Anion Gap 9 12-20 Blood Urea Nitrogen 15 9-16 mg/dL Creatinine 0.77 0.5-1.4 mg/dL Estimated Glomerular Filt Rate > 60 NOTE: For -Colombian individuals, multiply the result by 1.210. Chronic Kidney Disease: Estimated GFR < 60 mL/min/1.73m2 Severe Kidney Disease: Estimated GFR < 15 mL/min/1.73m2 Glucose Fasting 81 60-99 mg/dL Calcium 9.7 8.4-10.2 mg/dL Bilirubin Total 0.5 0.0-1.0 mg/dL Aspartate Amino Transferase 31 5-31 U/L Alanine Aminotransferase 19 0-31 U/L Total Protein 6.9 6.5-8.0 g/dL Albumin Level 4.0 3.5-5.0 g/dL Alkaline Phosphatase 90 39-117 U/L Lipid Panel Reviewed date:05/30/2023 12:38:14 PM Interpretation:Normal Performing Lab:[facility], [address] [place] [phone] Notes/Report: Triglycerides 51 Desirable Triglyceride: less than 150 mg/dL Borderline High Triglyceride 150-199 mg/dL High Triglyceride: 200-499 mg/dL Very High Triglyceride: greater than or equal to 5OO mg/dL Cholesterol 160 Desirable Cholesterol: less than 200 mg/dL Borderline High Cholesterol: 200-239 mg/dL High Cholesterol: greater than 239 mg/dL LDL Cholesterol Calculated 73 Desirable LDL: less than 100 mg/dL Near Optimal/Above Optimal LDL: 110-129 mg/dL Borderline High LDL: 130-159 mg/dL High LDL: 160-189 mg/dL Very High LDL: greater than or equal to 190 mg/dL HDL Cholesterol 77 Desirable HDL: greater than 40 mg/dL Note: This HDL assay may give artificially low results in patients with liver disease. Thyroid Stimulating Hormone Reviewed date:05/30/2023 12:38:34 PM Interpretation:Normal Performing Lab:[address] [phone] Notes/Report: Thyroid Stimulating Hormone 1.91 0.32-4.0 uIU/ mL TSH 3rd Generation ([employer]) UA CC w/rflx Micro + Cult Reviewed date:07/08/2023 08:17:55 PM Interpretation:Abnormal Performing Lab:[facility], [address] [place] [phone] Notes/Report: Urine, Clean Catch Color Urine Yellow Appearance Urine Clear PH 7.5 5.0-9.0 Glucose Urine UA Negative Negative mg/dL Urine Blood Negative Negative Specific [place] - Urine 1.010 1.005-1.025 Urine Protein Negative Neg-Trace mg/dL Urine Ketones Trace Negative mg/dL Nitrite Urine Negative Negative Leukocyte Esterase Urine Negative Negative CT abdomen pelvis w con (Not yet reviewed by provider) Interpretation: Performing Lab: Notes/Report: [address] [address] [address] Scan Report Signed Patient: Ernestine Fung MR#: [id number] : 1935 Acct:[id number] Age/Sex: 87 / F ADM Date: 07/08/23 Loc: HO.ED Attending Dr: Ordering Physician: Efrain Agrawal Date of Service: 07/08/23 Procedure(s): CT abdomen pelvis w IV con Accession Number(s): [id number] cc: Vineet Hwang , DO; Efrain Agrawal EXAMINATION: CT ABDOMEN AND PELVIS WITH CONTRAST CLINICAL INFORMATION: Pain and vomiting, question small bowel obstruction COMPARISON: 08/12/2021 TECHNIQUE: Multidetector volumetric images were obtained from the superior aspect of the liver through the pubic symphysis following administration 85 mL of Omnipaque 350 intravenous contrast. Sagittal and coronal reformatted images were obtained on the technologist's workstation. Oral contrast: Yes This CT examination was performed using dose optimization techniques as appropriate, variously including the following: *Automated exposure control *Adjustment of mA and/or kV according to patient size (this includes techniques or standardized protocols for targeted exams where dose is matched to indication/reason for exam; i.e. extremities or head) *Use of iterative reconstruction technique DLP: 612 mGy-cm FINDINGS: LUNG BASES: Mild bibasilar atelectasis. LIVER, GALLBLADDER, AND BILIARY TREE: The liver is normal in size, shape, and attenuation. No focal hepatic lesion or biliary ductal dilatation is present. The gallbladder is unremarkable with no evidence of radiopaque gallstones, gallbladder wall thickening, or obvious pericholecystic inflammatory changes. PANCREAS: Unremarkable. SPLEEN: Normal size. Tiny hypodensity in the superior spleen is nonspecific. ADRENAL GLANDS: Unremarkable. KIDNEYS AND URETERS: No hydronephrosis or obstructing calculus bilaterally. Redemonstrated left renal cyst including septation with thin curvilinear calcification; no follow-up recommended. A few additional scattered subcentimeter hypoattenuating foci bilaterally are too small to characterize. BLADDER: Unremarkable. GASTROINTESTINAL TRACT: The distal esophagus is distended with oral contrast material. There is also moderate distention of the stomach. Oral contrast material is present in the stomach and proximal small bowel. There are multiple fluid-filled loops of proximal to mid small bowel, while the more distal small bowel is collapsed. Overall appearance is suspicious for small bowel obstruction with transition point suspected to lie in the central pelvis. Moderate stool is present in the colon, without significant wall thickening. Small volume of free fluid is present. No free air is seen. ABDOMINAL WALL: Left spigelian hernia is present containing a segment of colon. LYMPH NODES: Normal. VASCULAR: Scattered atherosclerotic calcification. PELVIC VISCERA: Endometrial thickness measures approximately 0.9 cm. OSSEOUS STRUCTURES: Degenerative changes are noted in the spine. CT/CT abdomen pelvis w IV con IMPRESSION: 1. Small bowel obstruction with transition point suspected to lie in the central pelvis. 2. Small volume of free fluid. 3. Endometrial thickness of approximately 0.9 cm. If not already performed, further workup with pelvic ultrasound is recommended, as malignancy cannot be excluded with this appearance. 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: REASON FOR REFERRAL No Information MEDICATIONS Medication SIG (Take, Route, Frequency, Duration) Notes Start Date End Date Status Remicade 100 MG 400 mg as directed Intravenous Once every six weeks Active LORazepam 0.5 MG 1 tablet at bedtime as needed Orally Once a day 05/20/2023 Active Escitalopram Oxalate 10 MG 1 tablet Oral ly Once a day Active Atorvastatin Calcium 40 MG 1 tablet Oral ly Once a day Active Gabapentin 300 MG 1 capsule Orally Twi ce a day Active Aspirin Adult Low Dose 81 MG 1 tablet Orally Once a day Active Meloxicam 15 MG 1 tablet Orally Once a day Active Folic Acid 1 MG 1 tablet Orally Once a day Active Methotrexate Sodium 25 MG/ML 1 ml Injection Once a week Active MiraLax 17 GM/SCOOP 1 scoop mixed with 8 ounces of fluid Orally Once a day Active Probiotic - 1 capsule Orally Onc e a day Active Omeprazole 20 MG 1 capsule 30 minutes before morning meal Orally Once a day Active Centrum Silver Silver 1 tablet Orally On ce a day Active Worth 3 1000 MG 1 capsule with a benito l Orally Once a day Active Vitamin D 2000 UNIT 1 capsule Orally Onc e a day Active IMMUNIZATIONS Vaccine Route Administration Date Status Comme nts H1N1 Unknown 10/25/2009 Administered Pneumococcal - PPSV23 Unknown 03/11/2010 Administered Influenza Unknown 08/19/2012 Administered Influenza Unknown 08/18/2013 Administered Influenza Unknown 08/03/2014 Administered PCV 13 Unknown 11/19/2014 Administered Influenza Unknown 07/27/2015 Administered Influenza High Dose IM Intramuscular 07/20/2016 Administer ed Influenza Unknown 09/17/2017 Administered Influenza Quad Unknown 08/02/2018 Administered Influenza High Dose IM Intramuscular 08/25/2019 Administer ed COVID-19 Pfizer BioNTech Unknown 12/17/2020 Administere d COVID-19 Pfizer BioNTech Unknown 11/26/2020 Administere d COVID-19 Pfizer BioNTech Unknown 09/14/2021 Administere d COVID-19 Pfizer BioNTech Unknown 05/30/2022 Administere d COVID-19 Pfizer Bivalent Unknown 12/07/2022 Administere d COVID-19 Pfizer Bivalent Unknown 08/17/2022 Administere d Influenza Unknown 08/10/2022 Administered SOCIAL HISTORY Tobacco Use: Social History Observation Description Date Details (start date - stop date) Former Smoker NA - NA Sex Assigned At : Social History Observation Description Sex Assigned At Unknown Tobacco Use/Smoking Question Answer Notes Patient is a former smoker How long has it been since y ou last smoked? > 10 years Additional Findings: Tobacco Non-User Fo rmer smoker, currently using no form of tobacco Alcohol Screen Question Answer Notes Did you have a drink containing alcohol in the p ast year? No Points 0 Interpretation Negative PROBLEMS Problem Type ICD Code Onset Dates Problem Status W/U Status Risk SNOMED Code Notes Problem Malignant neoplasm o f upper-inner quadrant of left female breast (C50.212) Active confirmed 736229688 Problem Anosmia (R43.0) Active confirmed 318514 09 Problem Anxiety (F41.9) Active confirmed 050842 02 Problem NSTEMI (non-ST eleva carroll myocardial infarction) (I21.4) Active confirmed 44590181 Problem Rheumatoid arthritis involving multiple sites, unspecified rheumatoid factor presence (M06.9) Active confirmed 923037131 Problem Hypercholesterolemia (E78.00) Active confirmed 03004767 Problem SBO (small bowel obstruction) (K56.609) Active confirmed 506705611 Encounters Encounter Location Date Provider Diagnosis Vineet Hwang DO, [address] [id number] 12/20/2022 Vineet Hwang Rheumatoid arthritis involving multiple sites, unspecified rheumatoid factor presence M06.9 ; Hypercholesterolemia E78.00 ; SBO (small bowel obstruction) K56.609 ; Malignant neoplasm of upper-inner quadrant of left female breast C50.212 and Anxiety F41.9 Vineet Hwang DO, [address] [id number] 06/20/2023 Vineet Hwang Hypercholesterolemia E78.00 ; Rheumatoid arthritis involving multiple sites, unspecified rheumatoid factor presence M06.9 ; Anxiety F41.9 and SBO (small bowel obstruction) K56.609 Vineet Hwang DO, [facility] [address], [place] [id number] 11/10/2022 Vineet Hwang Hypercholesterolemia E78.00 Vineet Hwang DO, [facility] [address], [place] [id number] 04/09/2023 Vineet Hwang DO, [address] [id number] 10/06/2022 Vineet Hwang Anxiety F41.9 Vineet Hwang DO, [facility] [address], [place] [id number] 12/20/2022 Vineet Hwang Rheumatoid arthritis involving multiple sites, unspecified rheumatoid factor presence M06.9 and Anxiety F41.9 Vineet Hwang DO, [facility] [address], [place] [id number] 05/18/2023 Vineet Hwang Hypercholesterolemia E78.00 Vineet Hwang DO, [address] [id number] 05/19/2023 Vineet Hwang Anxiety F41.9 ASSESSMENTS Encounter Date Diagnosis Assessment Notes Treatment Notes Treatment Clinical Notes 12/20/2022 Rheumatoid arthritis involving multiple sites, unspecified rheumatoid factor presence (ICD-10 - M06.9) Follow up with Rheumatology 12/20/2022 Hypercholesterolemia (ICD-10 - E78.00) 06/20/2023 Rheumatoid arthritis involving multiple sites, unspecified rheumatoid factor presence (ICD-10 - M06.9) Follow up with Rheumatology 06/20/2023 Hypercholesterolemia (ICD-10 - E78.00) 11/10/2022 Hypercholesterolemia (ICD-10 - E78.00) 10/06/2022 Anxiety (ICD-10 - F41.9) 12/20/2022 Rheumatoid arthritis involving multiple sites, unspecified rheumatoid factor presence (ICD-10 - M06.9) 05/18/2023 Hypercholesterolemia (ICD-10 - E78.00) 05/19/2023 Anxiety (ICD-10 - F41.9) 12/20/2022 SBO (small bowel obstruction) (ICD-10 - K56.609) Follow up with Surgery, Dr. Lopez 06/20/2023 Anxiety (ICD-10 - F41.9) 12/20/2022 Anxiety (ICD-10 - F41.9) 12/20/2022 Malignant neoplasm o f upper-inner quadrant of left female breast (ICD-10 - C50.212) Follow up with Surgery, Dr. Lopez 06/20/2023 SBO (small bowel obstruction) (ICD-10 - K56.609) Add Metamucil, 1 capsule nightly with 8 ounces of water 12/20/2022 Anxiety (ICD-10 - F41.9) PLAN OF TREATMENT Pending Test Test Name Order Date CT abdomen pelvis w con 07/08/2023 Next Appt Details Provider Name:Vineet Kuo ramila, 01/23/2024 01:00:00 PM, [address] [place] [address], [phone], Insurance Providers Payer Name Payer Address Payer Phone Subscriber Number Group Number Insured Name Patient Relationship to Insured Coverage Start Date Coverage End Date MEDICARE [address] [place] [phone] [id number] Ernestine Fung Self - patient is the insured MEDEX [address] [place] [address] [id number] Ernestine Fung Self - patient is the insured [employer] [address] [place] [id number] Ernestine Fung Self - patient is the insured 8 9 MEDICAL (GENERAL) HISTORY Medical History History ICD Code rheumatoid arthritis hypercholesterolemia fibrocystic breast disease menopause pleural plaque vaginitis Cataract varicose veins Superficial thrombophlebitis pneumonia varicella zoster appendicitis colitis, C. diff breast cancer s/p left mastectomy and HT macular degeneration, age related Anxiety Anosmia R43.0 NSTEMI (non-ST elevated myocardial infar ction) I21.4 SBO (small bowel obstruction) K56.609 Surgical History Surgery Date(Month/Year) vein ligation, left leg, vein stripping due to varicose veins left forearm tendon repair (Dr. Wells) wisdom teeth extraction appendectomy, laparoscopic 12/2015 left mastectomy 04/2016
[2023-07-08] MEDS: Lidocaine HCl 2 % Urojet 10 ML JEL.PF.APP TOPICAL (22:46)
--- NOTE | 2023-07-08 23:42 | MHC.EDTECH ---
700 cc reddish brown fluid emptied from ng tube suction canister
--- NOTE | 2023-07-08 23:58 | PC.NURSE ---
NG tube advanced approximately 7cm per CXR finding.
[2023-07-09 00:04] VITALS: BP 114/53; PULSE 83; RESP 14; TEMP 37.2; O2SAT 94
[2023-07-09] MEDS: 0.9 % Sodium Chloride Flush 3 ML SYRINGE IVFLUSH ×3 (00:50→19:25)
[2023-07-09 01:02] VITALS: BP 126/60; PULSE 80; RESP 18; TEMP 36.7; O2SAT 94
[2023-07-09 01:21] VITALS: BMI 27.7
[2023-07-09] MEDS: diphenhydrAMINE HCL 50 MG/ML VIAL IVPUSH (02:39)
[2023-07-09 06:45] LABS: Anion Gap 12 (12-20); Blood Urea Nitrogen 11 mg/dL (9-16); Calcium 9.1 mg/dL (8.4-10.2); Carbon Dioxide 24 mmol/L (22-29); Chloride 105 mmol/L (96-108); Creatinine Clr Calc Pharmacy 52.4; Estimated Glomerular Filt Rate > 60; Glucose Random 96 mg/dL (60-115); Potassium 3.8 mmol/L (3.3-5.1); Sodium 137 mmol/L (135-145)
--- NOTE | 2023-07-09 07:13 | P.PNIM_ITS ---
Subjective Subjective Date of Service: 07/09/23 Interval History: f/u o SBO no bowel movment, no flatus Physical Exam Vital Signs: Vital Signs: Last Vital Signs Temp 98.1 F 07/09/23 01:02 Pulse 80 07/09/23 01:02 Resp 18 07/09/23 01:02 BP 126/60 07/09/23 01:02 Pulse Ox 94 07/09/23 01:02 O2 Del Method Room Air 07/09/23 01:02 BMI result Body Mass Index 27.7 Const: Other: General: AO X 3, no acute distress Resp: CTA bilateral CVS: S1,S2,RRR GI: +BS, NT, + distention Skin: No rash Neuro: motor grossly intact Psych: appropriate affect Objective Data Active Medications Acetaminophen (Acetaminophen 325 Mg Tablet) 650 mg PO Q6H PRN PRN Reason: Pain, Mild (Pain Scale 1-3) Acetaminophen (Acetaminophen Supp 650 Mg Supp.Rect) 650 mg FL Q6H PRN PRN Reason: Pain, Mild (Pain Scale 1-3) Aspirin (Aspirin 300 Mg Supp.Rect) 300 mg FL DAILY MANI Melatonin (Melatonin 3 Mg Tablet) 6 mg PO BEDTIME PRN PRN Reason: Insomnia Morphine Sulfate (Morphine Sulfate 4 Mg/Ml Cartridge) 2 mg IVPUSH Q4H PRN; Protocol PRN Reason: Pain, Severe (Pain Scale 7-10) Ondansetron HCl (Ondansetron Hcl 4 Mg/2 Ml Vial) 4 mg IVPUSH Q8H PRN PRN Reason: Nausea and Vomiting Sodium Chloride (0.9 % Sodium Chloride Flush 3 Ml Syringe) 3 ml IVFLUSH [facility] Last Admin: 07/09/23 00:50 Dose: 3 ml Documented By: DIPAK Labs 07/08/23 15:25 07/09/23 05:28 Labs: Laboratory Results - last 24 hr 07/08/23 07/08/23 07/08/23 15:25 15:25 19:31 MCV 91.7 MCH 30.2 MCHC 32.9 RDW 16.6 H Plt Count 278 MPV 9.2 L Immature Gran % (Auto) 0.2 Neut % (Auto) 89.3 H Lymph % (Auto) 6.2 L [place] % (Auto) 4.0 Eos % (Auto) 0.2 Baso % (Auto) 0.1 Lymph # (Auto) 0.6 L [place] # (Auto) 0.4 Eos # (Auto) 0.0 Baso # (Auto) 0.0 Abs Immat Gran (auto) 0.02 Absolute Neuts (auto) 9.1 H Absolute Nucleated RBC 0.000 Nucleated RBC % (auto) 0.0 Anion Gap 13 Estim Creat Clear Calc 49.6 Estimated GFR > 60 Random Glucose 121 H Calcium 9.8 Total Bilirubin 0.6 AST 41 H ALT 24 Alkaline Phosphatase 108 Total Protein 6.7 Albumin 4.1 Urine Color Yellow Urine Appearance Clear Urine pH 7.5 Ur Specific [place] 1.010 Urine Protein Negative Urine Glucose (UA) Negative Urine Ketones Trace Urine Blood Negative Urine Nitrite Negative Ur Leukocyte Esterase Negative 07/09/23 05:28 MCV MCH MCHC RDW Plt Count MPV Immature Gran % (Auto) Neut % (Auto) Lymph % (Auto) [place] % (Auto) Eos % (Auto) Baso % (Auto) Lymph # (Auto) [place] # (Auto) Eos # (Auto) Baso # (Auto) Abs Immat Gran (auto) Absolute Neuts (auto) Absolute Nucleated RBC Nucleated RBC % (auto) Anion Gap 12 Estim Creat Clear Calc 52.4 Estimated GFR > 60 Random Glucose 96 Calcium 9.1 D Total Bilirubin AST ALT Alkaline Phosphatase Total Protein Albumin Urine Color Urine Appearance Urine pH Ur Specific [place] Urine Protein Urine Glucose (UA) Urine Ketones Urine Blood Urine Nitrite Ur Leukocyte Esterase Assessment and Plan (1) Small bowel obstruction: Status: Acute Plan This is a 87-year-old female with pertinent history of CAD, mood disorder, ga stroesophageal reflux disease, prior abdominal surgery for ruptured apendice, recurrent SBO, rheumatoid arthritis presented with abdominal pain and is found to have SBO #? SBO being conservative managed with NGT, Surgery ([facility]) following #.? Mood disorder.? Resume p.o. mood stabilizers when no longer NPO #.? CAD.? Rectal aspirin and restart statin when able to take p.o. #.? Rheumatoid arthritis.? Hold methotrexate DVT prophylaxis: Mechanical, Heparin, can be hold if surgery planned DNR/DNI.? Discussed code status with patient and daughter at bedside Need for inpatient: SBO, NPO, has NGT Time Spent With Patient Time: Total time managing care of this patient today ____ minutes. Quality Stroke Does the patient have a stroke diagnosis?: No VTE Prior VTE?: No VTE Risk Level:: Medical - moderate - high VTE Device Contraindication: N/A - Device Ordered VTE Drug Contraindication: Treatment Not Indicated
[2023-07-09 07:22] LABS: Basophils Percent Auto 0.4 % (0-2); Eosinophils Absolute Auto 0.2 X10*3/uL (0.0-0.4); Hemoglobin 10.8 g/dl (12.0-16.0); Imm Gran Abs Auto 0.03 X10*3/uL (0.00-0.03); Imm Gran Pct Auto 0.3 % (0.0-0.4); Lymphocytes Absolute Auto 1.1 X10*3/uL (1.2-4.9); Lymphocytes Percent Auto 10.2 % (20-40); Mean Corpuscular HGB Conc 33.8 g/dl (31.0-35.0); Mean Corpuscular Hemoglobin 30.9 pg (27.0-33.0); Mean Corpuscular Volume 91.4 fL (80.0-98.0); Mean Platelet Volume 9.3 fL (9.4-12.3); Monocytes Absolute Auto 1.2 X10*3/uL (0.1-1.2); Neutrophils Absolute Auto 8.1 x10*3/uL (2.0-8.3); Neutrophils Percent Auto 76.1 % (45-73); Platelet Count 246 X10*3/uL (160-400); Red Cell Distribution Width 16.5 % (11.0-16.0); White Blood Count 10.7 X10*3/uL (4.8-10.8)
[2023-07-09 07:28] VITALS: BP 118/58; PULSE 86; RESP 16; TEMP 36.2; O2SAT 96
[2023-07-09 07:30] LABS: MANUAL DIFF FLAG NO
[2023-07-09] MEDS: Heparin Sodium,Porcine 5,000 UNIT/ML VIAL 5000 UNIT SUBCUT ×2 (08:10→19:21)
--- NOTE | 2023-07-09 08:23 | PM.CNGS ---
History of Present Illness Consult details Consult date: 07/09/23 Narrative: The patient is an 87-year-old female seen in consultation for a small-bowel obstruction. Per the emergency room staff, the patient and her daughter were very hesitant to even consider surgery. Consequently, the fact that 80% of small bowel obstructions resolve with nasogastric decompression and non operative management was discussed and the patient was admitted to the medical service for NG decompression and hydration. 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 The patient reports that this hernia is related to an appendectomy several years ago. The patient expressed concerns over operative intervention and declined any discussion. The patient notes a long history with Dr. Lopez and requested that he assume her care on July 10 when he is available. Review of Systems Review of Systems: Yes all other systems are reviewed and are negative Constitutional: Constitutional: Reports as per [facility] Past Medical History Medical History (Updated 07/09/23 @ 08:34 by Barry Tomas MD) Abdominal hernia Anosmia Anxiety Breast cancer Osteoporosis 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 Family History Family History Father Lung cancer Brother Prostate cancer Other No significant family history Surgical History Surgical History History of appendectomy S/P mastectomy Social History Social History Household Members: None Household Members Other:: none Housing: Assisted Living Facility Are you a primary health care legal assistant to a significant other at home: No Do you presently have visiting nurse or other home services: No Alcohol intake: never Patient Tobacco Use Status: Never used Tobacco e-Cigarette/Vaping Use: Never Used Second Hand Smoke Exposure: No Advance Directives Date on File: 08/12/21 service: No Current occupational status: retired Meds Allergies Allergy/AdvReac Type Severity Reaction Status Date / Time No Known Allergies Allergy Verified 07/08/23 21:19 [No Known Allergies*] Active Medications: Current Medications Acetaminophen (Acetaminophen 325 Mg Tablet) 650 mg PO Q6H PRN PRN Reason: Pain, Mild (Pain Scale 1-3) Acetaminophen (Acetaminophen Supp 650 Mg Supp.Rect) 650 mg IN Q6H PRN PRN Reason: Pain, Mild (Pain Scale 1-3) Aspirin (Aspirin 300 Mg Supp.Rect) 300 mg IN DAILY [facility] Last Admin: 07/09/23 07:27 Dose: Not Given Heparin Sodium (Porcine) (Heparin Sodium,Porcine 5,000 Unit/Ml Vial) 5,000 unit SUBCUT Q12H [facility] Last Admin: 07/09/23 08:10 Dose: 5,000 unit Melatonin (Melatonin 3 Mg Tablet) 6 mg PO BEDTIME PRN PRN Reason: Insomnia Morphine Sulfate (Morphine Sulfate 4 Mg/Ml Cartridge) 2 mg IVPUSH Q4H PRN; Protocol PRN Reason: Pain, Severe (Pain Scale 7-10) Ondansetron HCl (Ondansetron Hcl 4 Mg/2 Ml Vial) 4 mg IVPUSH Q8H PRN PRN Reason: Nausea and Vomiting Sodium Chloride (0.9 % Sodium Chloride Flush 3 Ml Syringe) 3 ml IVFLUSH QSHIFT [facility] Last Admin: 07/09/23 08:10 Dose: 3 ml Home Medications Medication Instructions Recorded Confirmed Last Taken Type escitalopram oxalate 10 mg tablet 1 tab PO DAILY 01/21/21 07/09/23 08/11/21 History gabapentin 300 mg capsule 1 cap PO BID 01/21/21 07/09/23 08/11/21 History lorazepam 0.5 mg tablet 1 tab PO BEDTIME PRN Anxiety 01/21/21 07/09/23 08/11/21 History meloxicam 15 mg tablet 1 tab PO DAILY 01/21/21 07/09/23 08/11/21 History methotrexate sodium (PF) 25 mg/mL 25 mg IM WE 01/21/21 07/09/23 07/04/23 History injection solution cholecalciferol (vitamin D3) 50 50 mcg PO DAILY 07/29/21 07/09/23 08/11/21 History mcg (2,000 unit) tablet (Vitamin D3) multivitamin 1 tab PO DAILY 07/29/21 07/09/23 08/11/21 History omeprazole 20 mg capsule,delayed 1 cap PO DAILY 07/29/21 07/09/23 08/11/21 History release polyethylene glycol 3350 17 17 g PO DAILY 01/16/22 07/09/23 Unknown History gram/dose oral powder (Miralax) Physical Exam Vital Signs: Vital Signs: Last Vital Signs Temp 97.1 F 07/09/23 07:28 Pulse 86 07/09/23 07:28 Resp 16 07/09/23 07:28 BP 118/58 L 07/09/23 07:28 Pulse Ox 96 07/09/23 07:28 O2 Del Method Room Air 07/09/23 07:28 BMI result Body Mass Index 27.7 On exam, she is nontoxic and having no respiratory difficulty She appears stated age and is in no acute distress Heart is regular, lungs are clear and equal anteriorly Abdomen is nontender with no peritoneal irritation. Her left lower quadrant hernia is nontender and no trophic skin changes are noted. Extremities are free of cyanosis clubbing edema Results Labs 07/09/23 07:08 07/09/23 05:28 Labs: Abnormal lab results 07/08/23 07/08/23 07/09/23 Range/Units 15:25 15:25 07:08 RBC 3.74 L 3.50 L (4.20-5.50) X10*6/uL Hgb 11.3 L 10.8 L (12.0-16.0) g/dl Hct 34.3 L 32.0 L (37.0-47.0) % RDW 16.6 H 16.5 H (11.0-16.0) % MPV 9.2 L 9.3 L (9.4-12.3) fL Neut % (Auto) 89.3 H 76.1 H (45-73) % Lymph % (Auto) 6.2 L 10.2 L (20-40) % Lymph # (Auto) 0.6 L 1.1 L (1.2-4.9) X10*3/uL Absolute Neuts (auto) 9.1 H (2.0-8.3) x10*3/uL Random Glucose 121 H (60-115) mg/dL AST 41 H (5-31) U/L Short CBC 07/08/23 07/09/23 Range/Units 15:25 07:08 WBC 10.2 10.7 (4.8-10.8) X10*3/uL Hgb 11.3 L 10.8 L (12.0-16.0) g/dl Hct 34.3 L 32.0 L (37.0-47.0) % Plt Count 278 246 (160-400) X10*3/uL BMP 07/08/23 07/09/23 15:25 05:28 Sodium 137 137 Potassium 4.8 3.8 D Chloride 104 105 Carbon Dioxide 25 24 BUN 14 11 Creatinine 0.79 0.74 Calcium 9.8 9.1 D Liver Function 07/08/23 Range/Units 15:25 Total Bilirubin 0.6 (0.0-1.0) mg/dL AST 41 H (5-31) U/L ALT 24 (0-31) U/L Alkaline Phosphatase 108 (39-117) U/L Albumin 4.1 (3.5-5.0) g/dL Urine 07/08/23 Range/Units 19:31 Urine Color Yellow Urine Appearance Clear Urine pH 7.5 (5.0-9.0) Ur Specific [place] 1.010 (1.005-1.025) Urine Protein Negative (Neg-Trace) mg/dL Urine Glucose (UA) Negative (Negative) mg/dL All other labs normal. Imaging Chest x-ray: report reviewed and image reviewed Abdomen CT scan report/results: report reviewed and image reviewed CT scan - pelvis: report reviewed and image reviewed Additional studies: Prior abdominal CTs dating back to 2020 are reviewed in assessment regarding the chronic, longstanding LLQ hernia & recurring SBOs, all managed and non operatively. Assessment and Plan (1) Small bowel obstruction: Status: Acute (2) Abdominal hernia: Status: Acute Plan Continue nasogastric decompression with low intermittent suction, IV fluid and trend both labs and exam Per patient's request, Dr. Lopez will follow-up tomorrow. Time Spent With Patient Time: Total time managing care of this patient today ____ minutes. Procedures Date of Service Date of Service: 07/09/23
--- NOTE | 2023-07-09 09:53 | PHA.MEDREC ---
Pharmacy Consult ? Medication Reconciliation Confirmed medications with patient . Pharmacy has completed the medication reconciliation.
--- NOTE | 2023-07-09 12:09 | MHC.CM.PN ---
IMM DELIVERED PT LIVES AT [facility]. USES WALKER AND HAS MODIFIED BR. NO PREVIOUS SERVICES. + COVID VAX + HCP PCP DR. SEWELL DP: RETURN TO [place] VIA BLS TRANSPORT. CM WILL CONTINUE TO FOLLOW FOR DC NEEDS/ANY CHANGE IN PLAN.
[2023-07-09] MEDS: Lactated Ringers 1,000 ML 100 ML IVCONT (13:28)
[2023-07-09 15:33] VITALS: BP 107/53; PULSE 74; RESP 18; TEMP 37.2; O2SAT 94
[2023-07-09 18:59] VITALS: BP 110/56; PULSE 74; RESP 18; TEMP 36.9; O2SAT 98
[2023-07-10] MEDS: diphenhydrAMINE HCL 50 MG/ML VIAL IVPUSH (00:10)
[2023-07-10] MEDS: Lactated Ringers 1,000 ML 100 ML IVCONT ×3 (00:10→20:23)
[2023-07-10 04:00] VITALS: BP 135/59; PULSE 75; RESP 16; TEMP 36; O2SAT 93
[2023-07-10 07:20] VITALS: BP 132/61; PULSE 84; RESP 16; TEMP 37.1; O2SAT 93
[2023-07-10] MEDS: Heparin Sodium,Porcine 5,000 UNIT/ML VIAL 5000 UNIT SUBCUT (07:50)
--- NOTE | 2023-07-10 08:55 | PM.PNGS ---
Subjective Subjective Date of Service: 07/10/23 Interval history: patient denies abdominal pain but reports pain from being in bed. NGT with high output overnight Physical Exam Vital Signs: Vital Signs: Last Vital Signs Temp 98.7 F 07/10/23 07:20 Pulse 84 07/10/23 07:20 Resp 16 07/10/23 07:20 BP 132/61 07/10/23 07:20 Pulse Ox 93 07/10/23 07:20 O2 Del Method Room Air 07/10/23 07:20 BMI result Body Mass Index 27.7 Const: General: no acute distress Nutritional Appearance: well nourished GI: Inspection: Yes normal to inspection Palpation (GI): Soft to palpation, nontender, no guarding and not rigid Percussion: Yes normal to percussion Auscultation: normal bowel sounds Extrem: General: Yes normal to inspection Objective Data Active Medications Acetaminophen (Acetaminophen 325 Mg Tablet) 650 mg PO Q6H PRN PRN Reason: Pain, Mild (Pain Scale 1-3) Acetaminophen (Acetaminophen Supp 650 Mg Supp.Rect) 650 mg HI Q6H PRN PRN Reason: Pain, Mild (Pain Scale 1-3) Aspirin (Aspirin 300 Mg Supp.Rect) 300 mg HI DAILY [facility] Last Admin: 07/10/23 07:24 Dose: Not Given Documented By: COTEMA Non-Admin Reason: Patient Refused Heparin Sodium (Porcine) (Heparin Sodium,Porcine 5,000 Unit/Ml Vial) 5,000 unit SUBCUT Q12H [facility] Last Admin: 07/10/23 07:50 Dose: 5,000 unit Documented By: COTEMA Lactated Ringer's (Lr) 1,000 mls @ 100 mls/hr IVCONT .Q10H [facility] Last Admin: 07/10/23 07:06 Dose: Not Given Documented By: COTEMA Non-Admin Reason: IV Running Melatonin (Melatonin 3 Mg Tablet) 6 mg PO BEDTIME PRN PRN Reason: Insomnia Morphine Sulfate (Morphine Sulfate 4 Mg/Ml Cartridge) 2 mg IVPUSH Q4H PRN; Protocol PRN Reason: Pain, Severe (Pain Scale 7-10) Ondansetron HCl (Ondansetron Hcl 4 Mg/2 Ml Vial) 4 mg IVPUSH Q8H PRN PRN Reason: Nausea and Vomiting Sodium Chloride (0.9 % Sodium Chloride Flush 3 Ml Syringe) 3 ml IVFLUSH QSHIFT [facility] Last Admin: 07/10/23 07:06 Dose: Not Given Documented By: SATHYA Non-Admin Reason: IV Running Labs 07/09/23 07:08 07/09/23 05:28 Labs: Laboratory Results - last 24 hr 07/09/23 09:07 Prealbumin 21.0 Procedures Date of Service Date of Service: 07/10/23 Progress Note: A&P Assessment and plan (1) Small bowel obstruction: Status: Acute (2) Abdominal hernia: Status: Acute Plan Patient improved without abdominal pain, nausea or vomiting. + BM reported. Abdomen is soft, nondistended bu NGT output is high still. Continue NGT drainage, NPO. Will monitor. Time Spent With Patient Time: Total time managing care of this patient today ____ minutes. Quality Stroke Does the patient have a stroke diagnosis?: No VTE Prior VTE?: No VTE Risk Level:: Medical - moderate - high VTE Device Contraindication: N/A - Device Ordered VTE Drug Contraindication: Treatment Not Indicated
[2023-07-10 09:22] LABS: Hematocrit 31.4 % (37.0-47.0); Hemoglobin 10.1 g/dl (12.0-16.0); Mean Corpuscular HGB Conc 32.2 g/dl (31.0-35.0); Mean Corpuscular Hemoglobin 29.9 pg (27.0-33.0); Mean Corpuscular Volume 92.9 fL (80.0-98.0); Mean Platelet Volume 8.9 fL (9.4-12.3); Platelet Count 245 X10*3/uL (160-400); Red Blood Count 3.38 X10*6/uL (4.20-5.50); Red Cell Distribution Width 16.6 % (11.0-16.0); White Blood Count 10.9 X10*3/uL (4.8-10.8)
[2023-07-10 09:39] LABS: Anion Gap 15 (12-20); Blood Urea Nitrogen 21 mg/dL (9-16); Calcium 9.3 mg/dL (8.4-10.2); Carbon Dioxide 29 mmol/L (22-29); Chloride 103 mmol/L (96-108); Estimated Glomerular Filt Rate > 60; Glucose Random 74 mg/dL (60-115); Potassium 4.1 mmol/L (3.3-5.1); Sodium 143 mmol/L (135-145)
--- NOTE | 2023-07-10 11:22 | HO.PM.IMPN ---
Subjective Subjective Date of Service: 07/10/23 Interval History: Being followed for small-bowel obstruction, noted to have significant NG output overnight dark colored, patient denies abdominal pain, no epigastric burning or discomfort, had 1 bowel movement, no other acute issues overnight. No fevers, no chills, no cough no urinary symptoms. Review of Systems All other system reviewed and negative. Physical Exam Vital Signs: Vital Signs: Last Vital Signs Temp 98.7 F 07/10/23 07:20 Pulse 84 07/10/23 07:20 Resp 16 07/10/23 07:20 BP 132/61 07/10/23 07:20 Pulse Ox 93 07/10/23 07:20 O2 Del Method Room Air 07/10/23 07:20 BMI result Body Mass Index 27.7 Const: Other: General: Ax O X 3, no acute distress, NG tube in place with dark colored drainage Neck no JVD Resp:? Clear to auscultation, no wheeze, no crackles CVS: S1,S2,RRR GI: Abdomen soft ,nontender, bowel sounds audible, no guarding, no rigidity. Skin: No rash Neuro:? motor grossly intact Psych: appropriate affect Objective Data Active Medications Acetaminophen (Acetaminophen 325 Mg Tablet) 650 mg PO Q6H PRN PRN Reason: Pain, Mild (Pain Scale 1-3) Acetaminophen (Acetaminophen Supp 650 Mg Supp.Rect) 650 mg LA Q6H PRN PRN Reason: Pain, Mild (Pain Scale 1-3) Lactated Ringer's (Lr) 1,000 mls @ 100 mls/hr IVCONT .Q10H [facility] Last Admin: 07/10/23 11:03 Dose: 100 mls/hr Documented By: COTEMA Melatonin (Melatonin 3 Mg Tablet) 6 mg PO BEDTIME PRN PRN Reason: Insomnia Morphine Sulfate (Morphine Sulfate 4 Mg/Ml Cartridge) 2 mg IVPUSH Q4H PRN; Protocol PRN Reason: Pain, Severe (Pain Scale 7-10) Ondansetron HCl (Ondansetron Hcl 4 Mg/2 Ml Vial) 4 mg IVPUSH Q8H PRN PRN Reason: Nausea and Vomiting Pantoprazole Sodium (Pantoprazole Sodium 40 Mg/10 Ml Vial) 40 mg IVPUSH BID@0630,1630 [facility] Sodium Chloride (0.9 % Sodium Chloride Flush 3 Ml Syringe) 3 ml IVFLUSH QSHIFT [facility] Last Admin: 07/10/23 07:06 Dose: Not Given Documented By: SATHYA Non-Admin Reason: IV Running Labs 07/10/23 09:07 07/10/23 09:07 Labs: Laboratory Results - last 24 hr 07/10/23 07/10/23 09:07 09:07 MCV 92.9 MCH 29.9 MCHC 32.2 RDW 16.6 H Plt Count 245 MPV 8.9 L Absolute Nucleated RBC 0.000 Nucleated RBC % (auto) 0.0 Anion Gap 15 Estim Creat Clear Calc 57.0 Estimated GFR > 60 Random Glucose 74 Calcium 9.3 Assessment and Plan (1) Small bowel obstruction: Status: Acute Plan This is a 87-year-old female with pertinent history of CAD, mood disorder, gastroesophageal reflux disease, prior abdominal surgery for ruptured apendice, recurrent SBO, rheumatoid arthritis presented with abdominal pain and is found to have SBO #? SBO being conservative managed with NGT, , NPO on IV fluid, being managed by General surgery they recommend to continue conservative treatment. Noted to have dark black NG output, obtained CBC, hematocrit is stable will repeat hematocrit in 6 hours, follow clinical course closely, place patient on IV Protonix. # chronic normocytic anemia, normal iron studies in the past, likely anemia of inflammatory disease due to rheumatoid arthritis, will check stool guaiac monitor CBC. #.? Mood disorder.? Resume p.o. mood stabilizers when no longer NPO #.? CAD.?dc Rectal aspirin and restart statin when able to take p.o. #.? Rheumatoid arthritis.? Hold methotrexate. DVT prophylaxis: Mechanical, Heparin discontinued due to dark NG output. DNR/DNI.? Discussed code status with patient and daughter at bedside Need for inpatient: SBO, NPO, has NGT. Time Spent With Patient Time: Total time managing care of this patient today ____ minutes. Quality Stroke Does the patient have a stroke diagnosis?: No VTE Prior VTE?: No VTE Risk Level:: Medical - moderate - high VTE Device Contraindication: N/A - Device Ordered VTE Drug Contraindication: Treatment Not Indicated
[2023-07-10 15:13] VITALS: BP 123/57; PULSE 77; RESP 18; TEMP 36.8; O2SAT 95
[2023-07-10] MEDS: Pantoprazole Sodium 40 MG/10 ML VIAL IVPUSH (15:28)
[2023-07-10 16:55] LABS: Hematocrit 29.8 % (37.0-47.0); Hemoglobin 9.9 g/dl (12.0-16.0)
[2023-07-10 20:00] VITALS: BP 131/60; PULSE 93; RESP 20; TEMP 36.8; O2SAT 96
[2023-07-10] MEDS: LORazepam 2 MG/ML VIAL 0.5 MG IVPUSH (23:18)
[2023-07-11 04:00] VITALS: BP 132/60; PULSE 76; RESP 20; TEMP 36.8; O2SAT 90
--- NOTE | 2023-07-11 04:55 | PC.NURSE ---
pt in room 385 says that she usually take lorazepam at bedtime to help her sleep, pt said that she had benadryl yesterday and it help her to sleep, Pt is npo, Dr. June was notified, he ordered lorazepam iv push
[2023-07-11] MEDS: Pantoprazole Sodium 40 MG/10 ML VIAL IVPUSH ×2 (05:39→15:47)
[2023-07-11] MEDS: Lactated Ringers 1,000 ML 100 ML IVCONT (05:43)
[2023-07-11 06:35] LABS: Hematocrit 27.9 % (37.0-47.0); Hemoglobin 9.2 g/dl (12.0-16.0); Mean Corpuscular Hemoglobin 30.7 pg (27.0-33.0); Mean Platelet Volume 9.3 fL (9.4-12.3); Platelet Count 207 X10*3/uL (160-400); Red Cell Distribution Width 16.5 % (11.0-16.0); White Blood Count 12.8 X10*3/uL (4.8-10.8)
[2023-07-11 07:15] VITALS: BP 133/63; PULSE 76; RESP 18; TEMP 36.8; O2SAT 93
--- NOTE | 2023-07-11 11:19 | HO.PM.IMPN ---
Subjective Subjective Date of Service: 07/11/23 Interval History: Denies abdominal pain passing flatus, no bowel movement since yesterday, requesting NG tube to be pulled out, denies lightheadedness dizziness, no urinary symptoms no other acute issues overnight has history of GERD no history of prior GI bleed no gastritis or peptic ulcer disease history. Review of Systems All other system reviewed and negative. Physical Exam Vital Signs: Vital Signs: Last Vital Signs Temp 98.3 F 07/11/23 07:15 Pulse 76 07/11/23 07:15 Resp 18 07/11/23 07:15 BP 133/63 07/11/23 07:15 Pulse Ox 93 07/11/23 07:15 O2 Del Method Room Air 07/11/23 07:15 BMI result Body Mass Index 27.7 Const: Other: General: Ax O X 3, no acute distress, NG tube in place with dark colored drainage Neck no JVD Resp:? Clear to auscultation, no wheeze, no crackles CVS: S1,S2,RRR GI:? Abdomen soft ,nontender, bowel sounds audible, no guarding, no rigidity. Skin: No rash Neuro:? motor grossly intact Psych: appropriate affect Objective Data Active Medications Acetaminophen (Acetaminophen 325 Mg Tablet) 650 mg PO Q6H PRN PRN Reason: Pain, Mild (Pain Scale 1-3) Acetaminophen (Acetaminophen Supp 650 Mg Supp.Rect) [address] Q6H PRN PRN Reason: Pain, Mild (Pain Scale 1-3) Lactated Ringer's (Lr) 1,000 mls @ 100 mls/hr IVCONT .Q10H [facility] Last Admin: 07/11/23 05:43 Dose: 100 mls/hr Documented By: KORY Lorazepam (Lorazepam 2 Mg/Ml Vial) 0.5 mg IVPUSH BEDTIME PRN PRN Reason: Insomnia Last Admin: 07/10/23 23:18 Dose: 0.5 mg Documented By: KORY Melatonin (Melatonin 3 Mg Tablet) 6 mg PO BEDTIME PRN PRN Reason: Insomnia Morphine Sulfate (Morphine Sulfate 4 Mg/Ml Cartridge) 2 mg IVPUSH Q4H PRN; Protocol PRN Reason: Pain, Severe (Pain Scale 7-10) Ondansetron HCl (Ondansetron Hcl 4 Mg/2 Ml Vial) 4 mg IVPUSH Q8H PRN PRN Reason: Nausea and Vomiting Pantoprazole Sodium (Pantoprazole Sodium 40 Mg/10 Ml Vial) 40 mg IVPUSH BID@0630,1630 [facility] Last Admin: 07/11/23 05:39 Dose: 40 mg Documented By: KORY Sodium Chloride (0.9 % Sodium Chloride Flush 3 Ml Syringe) 3 ml IVFLUSH QSHIFT [facility] Last Admin: 07/11/23 07:17 Dose: Not Given Documented By: ALY Non-Admin Reason: IV Running Labs 07/11/23 06:23 07/10/23 09:07 Labs: Laboratory Results - last 24 hr 07/11/23 06:23 MCV 93.0 MCH 30.7 MCHC 33.0 RDW 16.5 H Plt Count 207 MPV 9.3 L Absolute Nucleated RBC 0.000 Nucleated RBC % (auto) 0.0 Assessment and Plan (1) Small bowel obstruction: Status: Acute Plan This is a 87-year-old female with pertinent history of CAD, mood disorder, gastroesophageal reflux disease, prior abdominal surgery for ruptured apendice, recurrent SBO, rheumatoid arthritis presented with abdominal pain and is found to have SBO #? SBO being conservative managed with NGT, , NPO on IV fluid, being managed by General surgery , NG tube clamped for 4 hours, dark black 400 mL NG output overnight, passing flatus last bowel movement 24 hours ago, # acute on chronic normocytic anemia, normal iron studies in the past, hematocrit crit dropped likely due to mucosal irritation from NG tube and gastritis, no bloody bowel movement, no melena continue IV PPI, follow CBC Case discussed with Dr. Daily from Gastroenterology he recommend Carafate qid , follow clinical course. #.?Mood disorder.? Resume p.o. mood stabilizers , when able to tolerate by mouth #.?CAD.?hold aspirin and restart statin when able to take p.o. #. Rheumatoid arthritis.? Hold methotrexate. DVT prophylaxis: Mechanical, Heparin discontinued due to dark NG output. DNR/DNI.? Need for inpatient: SBO, NPO, has NGT. Time Spent With Patient Time: Total time managing care of this patient today ____ minutes. Quality Stroke Does the patient have a stroke diagnosis?: No VTE Prior VTE?: No VTE Risk Level:: Medical - moderate - high VTE Device Contraindication: N/A - Device Ordered VTE Drug Contraindication: Treatment Not Indicated
--- NOTE | 2023-07-11 14:47 | PM.GICN ---
History of Present Illness Data of Consult Service Date: 07/11/23 Requesting physician: Olivia Montes Primary Care Provider: Vineet Hwang DO HPI Reason for consult: coffee ground colored output from NGT 87-year-old female with history of CAD, mood disorder, gastroesophageal reflux disease, recurrent SBO, rheumatoid arthritis who I am seeing for assessment for coffee colored NGT output. She initially presented 07/09/23 c/o 3 d of generalized constant, non radiating abdominal discomfort with bloating,distention and multiple episodes of non blood emesis. There were no relieving factors but PO intake made sx worse. She also had not been passing gas or stool. This is similar to her prior episodes of SBO attributed to an abdominal hernia and which normally resolves with NGT decompression and bowel rest. she has had NGT in place for about 3 d now, and output seems to be tailing off,and she is passing gas but no stools. Denies chest discomfort, palpitations, shortness of breath, changes in urinary habits. HGB has been going down slowly from 11 on admission to 9 g/dl--historically her baseline tends to be around 10 g/dl Review of Systems Review of Systems: Constitutional : No Weight loss, No Fever, No Chills ENT/Mouth : No sore throat, No Rhinorrhea Eyes: No Swelling, No Redness Cardiovascular : No Chest Pain, No SOB, No Edema Respiratory : No Cough, No Sputum, No Wheezing Gastrointestinal : see HPI Genitourinary : NO Dysuria, No Urinary Frequency, No Hematuria, No Urgency Musculoskeletal : No joint pain, No Myalgias, No Joint Swelling Skin : No Skin Lesions, No rash Neuro : No Weakness, No Numbness, No Dizziness, No Headache Psych : No Anxiety/Panic, No Depression Heme/Lymph: No Bruising, No Lymphadenopathy Endocrine : No Polyuria, No Polydipsia All other systems reviewed and are negative. [facility] Past Medical History Medical History (Updated 07/09/23 @ 08:34 by Barry Tomas MD) Abdominal hernia Anosmia Anxiety Breast cancer Osteoporosis 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 Family History Family History Father Lung cancer Brother Prostate cancer Other No significant family history Surgical History Surgical History History of appendectomy S/P mastectomy Social History Social History Household Members: None Household Members Other:: none Housing: Assisted Living Facility Are you a primary medicare specialist to a significant other at home: No Do you presently have visiting nurse or other home services: No Alcohol intake: never Patient Tobacco Use Status: Never used Tobacco e-Cigarette/Vaping Use: Never Used Second Hand Smoke Exposure: No Use of substances other than those prescribed or required for medical reasons: No Currently Displaying Signs/Symptoms of Drug Intoxication Withdrawal: No Any prior treatment program specific to substance use: No Have you been hit, kicked, punched, or otherwise hurt by someone within the past year? If so, by whom?: No Do you feel safe in your current relationship?: No Is there a partner from a previous relationship who is making you feel unsafe now?: No Are you made to feel afraid or neglected: No Advance Directives: Yes Advance Directives Information Provided: No Advance Directives on File: No Advance Directives Date on File: 08/12/21 Do you have thoughts of harming others: None Do you have a plan to hurt others: No Plan Recently lost weight without trying: No Eating poorly because of decreased appetite: No Nutrition Risks: No Nutritional Risk Patient : No : No Poor oral hygiene: No service: No Current occupational status: retired alive.[employer]ns Allergies Allergy/AdvReac Type Severity Reaction Status Date / Time No Known Allergies Allergy Verified 07/08/23 21:19 [No Known Allergies*] Active Medications: Current Medications Acetaminophen (Acetaminophen 325 Mg Tablet) 650 mg PO Q6H PRN PRN Reason: Pain, Mild (Pain Scale 1-3) Acetaminophen (Acetaminophen Supp 650 Mg Supp.Rect) 650 mg MI Q6H PRN PRN Reason: Pain, Mild (Pain Scale 1-3) Lorazepam (Lorazepam 2 Mg/Ml Vial) 0.5 mg IVPUSH BEDTIME PRN PRN Reason: Insomnia Last Admin: 07/10/23 23:18 Dose: 0.5 mg Melatonin (Melatonin 3 Mg Tablet) 6 mg PO BEDTIME PRN PRN Reason: Insomnia Morphine Sulfate (Morphine Sulfate 4 Mg/Ml Cartridge) 2 mg IVPUSH Q4H PRN; Protocol PRN Reason: Pain, Severe (Pain Scale 7-10) Ondansetron HCl (Ondansetron Hcl 4 Mg/2 Ml Vial) 4 mg IVPUSH Q8H PRN PRN Reason: Nausea and Vomiting Pantoprazole Sodium (Pantoprazole Sodium 40 Mg/10 Ml Vial) 40 mg IVPUSH BID@0630,1630 [facility] Last Admin: 07/11/23 05:39 Dose: 40 mg Sodium Chloride (0.9 % Sodium Chloride Flush 3 Ml Syringe) 3 ml IVFLUSH QSHIFT [facility] Last Admin: 07/11/23 14:44 Dose: Not Given Home Medications Medication Instructions Recorded Confirmed Last Taken Type escitalopram oxalate 10 mg tablet 1 tab PO DAILY 01/21/21 07/09/23 08/11/21 History gabapentin 300 mg capsule 1 cap PO BID 01/21/21 07/09/23 08/11/21 History lorazepam 0.5 mg tablet 1 tab PO BEDTIME PRN Anxiety 01/21/21 07/09/23 08/11/21 History meloxicam 15 mg tablet 1 tab PO DAILY 01/21/21 07/09/23 08/11/21 History methotrexate sodium (PF) 25 mg/mL 25 mg IM WE 01/21/21 07/09/23 07/04/23 History injection solution cholecalciferol (vitamin D3) 50 50 mcg PO DAILY 07/29/21 07/09/23 08/11/21 History mcg (2,000 unit) tablet (Vitamin D3) multivitamin 1 tab PO DAILY 07/29/21 07/09/23 08/11/21 History omeprazole 20 mg capsule,delayed 1 cap PO DAILY 07/29/21 07/09/23 08/11/21 History release polyethylene glycol 3350 17 17 g PO DAILY 01/16/22 07/09/23 Unknown History gram/dose oral powder (Miralax) Physical Exam Vital Signs: Vital Signs: Last Vital Signs Temp 98.3 F 07/11/23 07:15 Pulse 76 07/11/23 07:15 Resp 18 07/11/23 07:15 BP 133/63 07/11/23 07:15 Pulse Ox 93 07/11/23 07:15 O2 Del Method Room Air 07/11/23 07:15 BMI result Body Mass Index 27.7 EXAM: GENERAL: The patient is well developed and nontoxic. VITAL SIGNS:see workflow HEENT: Nonicteric sclerae, PERRLA, EOMI. Oropharynx clear. Moist mucous membranes. Conjunctivae appear well perfused. No thyroid mass. CHEST: Chest wall is nontender. HEART: Regular rate and rhythm without murmurs. LUNGS: Clear to auscultation bilaterally. ABDOMEN: Soft, positive bowel sounds, nontender, no organomegaly.no flank tenderness--abdominal wall hernia noted SKIN: No rash, no excessive bruising, petechiae, or purpura. NEUROLOGIC: Cranial nerves II-XII intact without motor/sensory deficit. Psych: Appearance: grossly normal Results Labs 07/11/23 06:23 07/10/23 09:07 Labs: Short CBC 07/10/23 07/11/23 Range/Units 16:06 06:23 WBC 12.8 H (4.8-10.8) X10*3/uL Hgb 9.9 L 9.2 L (12.0-16.0) g/dl Hct 29.8 L 27.9 L (37.0-47.0) % Plt Count 207 (160-400) X10*3/uL Imaging CT scan - abdomen: Attestation: I personally reviewed and interpreted this imaging study as follows: (constipation, air fluid levels, dilated stomach and small bowel, degen spinal disease, renal cyst ) Assessment and Plan (1) Small bowel obstruction: Status: Acute (2) Anemia: Status: Acute Plan 1/ SBO from hernia and adhesions, seems to be clinically improving 2/ coffee ground output, most likely due to mucosal trauma from prolonged in situ placement of NGT, anemi also likely multi factorial from meds, anemia of chronic disease ? [place] syndrome 2/2 RA PLAN: 1/High dose PPI BID and titrate down next several weeks 2/ remove NGT as soon as clinically able, and advance diet--can add carfafate at this time as well 3/ hold on EGD for the moment unles clinical situation worsens Time Spent With Patient Time: Total time managing care of this patient today ____ minutes. Procedures Date of Service Date of Service: 07/11/23
--- NOTE | 2023-07-11 14:52 | MHC.CM.PN ---
EMR REVIEWED, NG TUBE CLAMPED FOR 4 HRS, PER NSG DEPENDING ON AMOUNT OF DRAINAGE NG TUBE WILL BE REMOVED TODAY AND DIET ADVANCED, PLAN CONT'S TO BE FOR PT TO [facility] MEDIC[facility] CLEAR, CM WILL CONT TO FOLLOW DC NEEDS.
--- NOTE | 2023-07-11 14:55 | PM.PNGS ---
Subjective Subjective Date of Service: 07/11/23 Interval history: Patient denies nausea or vomiting. Denies abdominal pain. She is passing flatus but no bowel movement today. Would like nasogastric tube removed Physical Exam Vital Signs: Vital Signs: Last Vital Signs Temp 98.3 F 07/11/23 07:15 Pulse 76 07/11/23 07:15 Resp 18 07/11/23 07:15 BP 133/63 07/11/23 07:15 Pulse Ox 93 07/11/23 07:15 O2 Del Method Room Air 07/11/23 07:15 BMI result Body Mass Index 27.7 Const: General: no acute distress Nutritional Appearance: well nourished Orientation/consciousness: patient oriented x3 HEENT: Ears: hearing grossly impaired Resp: Effort & Inspection: normal respiratory effort GI: Inspection: Yes normal to inspection Palpation (GI): Soft to palpation, nontender, no guarding, not rigid, Hernia present (Right inguinal hernia and left lower quadrant incisional hernia) and no masses Skin: Other: Warm, dry, no rash Neuro: General: patient oriented x3 Objective Data Active Medications Acetaminophen (Acetaminophen 325 Mg Tablet) 650 mg PO Q6H PRN PRN Reason: Pain, Mild (Pain Scale 1-3) Acetaminophen (Acetaminophen Supp 650 Mg Supp.Rect) 650 mg [place] Q6H PRN PRN Reason: Pain, Mild (Pain Scale 1-3) Lorazepam (Lorazepam 2 Mg/Ml Vial) 0.5 mg IVPUSH BEDTIME PRN PRN Reason: Insomnia Last Admin: 07/10/23 23:18 Dose: 0.5 mg Documented By: KORY Melatonin (Melatonin 3 Mg Tablet) 6 mg PO BEDTIME PRN PRN Reason: Insomnia Morphine Sulfate (Morphine Sulfate 4 Mg/Ml Cartridge) 2 mg IVPUSH Q4H PRN; Protocol PRN Reason: Pain, Severe (Pain Scale 7-10) Ondansetron HCl (Ondansetron Hcl 4 Mg/2 Ml Vial) 4 mg IVPUSH Q8H PRN PRN Reason: Nausea and Vomiting Pantoprazole Sodium (Pantoprazole Sodium 40 Mg/10 Ml Vial) 40 mg IVPUSH BID@0630,1630 [facility] Last Admin: 07/11/23 05:39 Dose: 40 mg Documented By: KORY Sodium Chloride (0.9 % Sodium Chloride Flush 3 Ml Syringe) 3 ml IVFLUSH QSHIFT [facility] Last Admin: 07/11/23 14:44 Dose: Not Given Documented By: ALY Non-Admin Reason: IV Running Labs 07/11/23 06:23 07/10/23 09:07 Labs: Laboratory Results - last 24 hr 07/11/23 06:23 MCV 93.0 MCH 30.7 MCHC 33.0 RDW 16.5 H Plt Count 207 MPV 9.3 L Absolute Nucleated RBC 0.000 Nucleated RBC % (auto) 0.0 Procedures Date of Service Date of Service: 07/11/23 Progress Note: A&P Assessment and plan (1) Small bowel obstruction: Status: Acute Plan 87-year-old female patient with history of breast CA presenting with small-bowel obstruction. CT revealed possible transition point in the pelvis with decompressed distal small bowel. Overall patient is improved today with no abdominal pain, nausea or vomiting. Nasogastric tube still producing bilious and somewhat bloody appearing fluid. Abdomen is soft and nondistended, nontender to palpation. Will attempt a clamping trial of NG tube for 4 hours. If low output and patient is asymptomatic, tube can be removed and clear liquids started. Patient understands and agrees with the plan. Time Spent With Patient Time: Total time managing care of this patient today ____ minutes. Quality Stroke Does the patient have a stroke diagnosis?: No VTE Prior VTE?: No VTE Risk Level:: Medical - moderate - high VTE Device Contraindication: N/A - Device Ordered VTE Drug Contraindication: Treatment Not Indicated
--- NOTE | 2023-07-11 15:07 | PC.NURSE ---
Per MD order NG tube clamped for 4 hours, Residual checked <100, per MD order okay to remove, NG tube removed, Pt tolerated well.
[2023-07-11 15:16] VITALS: BP 135/64; PULSE 71; RESP 18; TEMP 36.7; O2SAT 95
[2023-07-11] MEDS: Lactated Ringers 1,000 ML 80 ML IVCONT (15:36)
--- NOTE | 2023-07-11 15:58 | P.CDIM_ITS ---
PROVIDER RESPONSE TEXT: To clarify, the appropriate diagnosis supported by the clinical indicators: Partial small bowel obstruction QUERY TEXT: PHYSICIAN'S DOCUMENTATION REQUEST Date of Query: 07/10/2023 12:50 PM EDT Patient Name: Ernestine Fung Admit Date: 07/09/2023 Dear Olivia Montes, A review of the medical record indicates additional documentation may be needed. Please review below and update the documentation accordingly. Clinical Indicators: Surgery note 07/09 - patient with SBO, 80% of SBO resolve with nasogastric decompression and non operat aracely management. Surgery note 07/10 - Patient improved without abdominal pain, nausea or vomiting + BM reported. Abdomen is soft, nondistended but NGT output is still high. Continue NGT drainage. Based on the above, could you clarify any specifics to the noted Small bowel obstruction: Partial small bowel obstruction Complete small bowel obstruction Incomplete small bowel obstruction Other please specify Other (explain)Clinically unable to determine (explain)Thank you, Romana Rico, CCS, CDIS Use of terms such as suspected, likely, concern for, or probable (associated with a specific diagnosi s that is being evaluated, monitored, or treated as if it exists) are acceptable and can be coded in the inpatient se tting, when documented at the time of discharge. Please use your independent medical judgment in providing your response. THIS QUERY IS PART OF THE PERMANENT MEDICAL RECORD
[2023-07-11 19:20] VITALS: BP 141/64; PULSE 70; RESP 18; TEMP 37; O2SAT 97
[2023-07-11] MEDS: LORazepam 2 MG/ML VIAL 0.5 MG IVPUSH (22:45)
[2023-07-12] MEDS: Lactated Ringers 1,000 ML 80 ML IVCONT (03:24)
[2023-07-12 03:25] VITALS: BP 146/63; PULSE 67; RESP 16; TEMP 36.6; O2SAT 97
[2023-07-12] MEDS: Pantoprazole Sodium 40 MG/10 ML VIAL IVPUSH (05:58)
[2023-07-12 07:30] LABS: Hematocrit 27.1 % (37.0-47.0); Hemoglobin 8.9 g/dl (12.0-16.0); Mean Corpuscular HGB Conc 32.8 g/dl (31.0-35.0); Mean Corpuscular Volume 91.2 fL (80.0-98.0); Mean Platelet Volume 9.2 fL (9.4-12.3); Platelet Count 213 X10*3/uL (160-400); Red Blood Count 2.97 X10*6/uL (4.20-5.50); Red Cell Distribution Width 16.2 % (11.0-16.0); White Blood Count 7.5 X10*3/uL (4.8-10.8)
[2023-07-12 07:35] VITALS: BP 142/68; PULSE 64; RESP 20; TEMP 36.2; O2SAT 95
--- NOTE | 2023-07-12 08:41 | PM.PNGS ---
Subjective Subjective Date of Service: 07/12/23 Interval history: Tolerated removal of nasogastric tube without increased abdominal pain, nausea or vomiting. Reports a bowel movement this morning which was dark. Physical Exam Vital Signs: Vital Signs: Last Vital Signs Temp 97.1 F 07/12/23 07:35 Pulse 64 07/12/23 07:35 Resp 20 07/12/23 07:35 BP 142/68 H 07/12/23 07:35 Pulse Ox 95 07/12/23 07:35 O2 Del Method Room Air 07/12/23 07:35 BMI result Body Mass Index 27.7 Const: General: no acute distress Nutritional Appearance: well nourished Orientation/consciousness: patient oriented x3 HEENT: Ears: hearing grossly impaired Resp: Effort & Inspection: normal respiratory effort GI: Inspection: Yes normal to inspection Palpation (GI): Soft to palpation, nontender, no guarding, not rigid, Hernia present (Right inguinal hernia and left lower quadrant incisional hernia) and no masses Skin: Other: Warm, dry, no rash Neuro: General: patient oriented x3 Objective Data Active Medications Acetaminophen (Acetaminophen 325 Mg Tablet) 650 mg PO Q6H PRN PRN Reason: Pain, Mild (Pain Scale 1-3) Acetaminophen (Acetaminophen Supp 650 Mg Supp.Rect) 650 mg HI Q6H PRN PRN Reason: Pain, Mild (Pain Scale 1-3) Lactated Ringer's (Lr) 1,000 mls @ 80 mls/hr IVCONT .[id number] MANI Last Admin: 07/12/23 03:24 Dose: 80 mls/hr Documented By: MICHAEL Lorazepam (Lorazepam 2 Mg/Ml Vial) 0.5 mg IVPUSH BEDTIME PRN PRN Reason: Insomnia Last Admin: 07/11/23 22:45 Dose: 0.5 mg Documented By: MICHAEL Melatonin (Melatonin 3 Mg Tablet) 6 mg PO BEDTIME PRN PRN Reason: Insomnia Morphine Sulfate (Morphine Sulfate 4 Mg/Ml Cartridge) 2 mg IVPUSH Q4H PRN; Protocol PRN Reason: Pain, Severe (Pain Scale 7-10) Ondansetron HCl (Ondansetron Hcl 4 Mg/2 Ml Vial) 4 mg IVPUSH Q8H PRN PRN Reason: Nausea and Vomiting Pantoprazole Sodium (Pantoprazole Sodium 40 Mg/10 Ml Vial) 40 mg IVPUSH BID@0630,1630 [facility] Last Admin: 07/12/23 05:58 Dose: 40 mg Documented By: MICHAEL Comments: downtime Sodium Chloride (0.9 % Sodium Chloride Flush 3 Ml Syringe) 3 ml IVFLUSH QSHIFT [facility] Last Admin: 07/12/23 07:24 Dose: Not Given Documented By: SHANICE Non-Admin Reason: IV Running Labs 07/12/23 07:10 07/10/23 09:07 Labs: Laboratory Results - last 24 hr 07/12/23 07:10 MCV 91.2 MCH 30.0 MCHC 32.8 RDW 16.2 H Plt Count 213 MPV 9.2 L Absolute Nucleated RBC 0.000 Nucleated RBC % (auto) 0.0 Procedures Date of Service Date of Service: 07/12/23 Progress Note: A&P Assessment and plan (1) Small bowel obstruction: Status: Acute Plan 87-year-old female patient with history of breast CA presenting with small-bowel obstruction. CT revealed possible transition point in the pelvis with decompressed distal small bowel. Overall patient is improved today with no abdominal pain, nausea or vomiting. Nasogastric tube was removed yesterday and patient tolerated clear liquids well without increased pain, nausea or vomiting. Recommend advancing to regular diet today and if tolerated patient may be able to be discharged either today or tomorrow. Time Spent With Patient Time: Total time managing care of this patient today ____ minutes. Quality Stroke Does the patient have a stroke diagnosis?: No VTE Prior VTE?: No VTE Risk Level:: Medical - moderate - high VTE Device Contraindication: N/A - Device Ordered VTE Drug Contraindication: Treatment Not Indicated
[2023-07-12] MEDS: Gabapentin 300 MG CAPSULE PO (09:40)
[2023-07-12] MEDS: Cholecalciferol (Vitamin D3) 25 MCG TABLET 50 MCG PO (09:40)
[2023-07-12] MEDS: Multivitamin TABLET 1 TAB PO (09:40)
[2023-07-12] MEDS: Escitalopram Oxalate 10 MG TABLET PO (09:40)
[2023-07-12] MEDS: polyethylene glycoL 3350 17 GM POWD.PACK PO (09:40)
--- NOTE | 2023-07-12 10:51 | MHC.CM.PN ---
Addendum entered by Doris Thacker RN 07/12/23 13:27: CM MET W/[facility] AT BEDSIDE AND SHE WILL TRANSPORT PT BETWEEN 2:30-3:00PM Addendum entered by Doris Thacker RN 07/12/23 10:52: [facility] WILL DETERMINE IF SHE CAN TRANSPORT PT WHEN SHE ARRIVES Original Note: PT MEDICALLY CLEARED FOR D/C BACK TO [facility] IN [place], PT WILL BE TRANSPORTED VIA FAMILY VS [facility], PT'S SISTER/HCP [facility] CONTACTED AND WILL BE HERE AROUND 12:30PM.
--- NOTE | 2023-07-12 11:15 | PM.DS ---
DS: Providers Provider Date of Service: 07/12/23 Date of admission: 07/08/23 22:02 Primary care physician: Vineet Hwang DO Consults: 07/08/23 22:05 Consult to General Surgery Stat Consulting Provider: Barry Tomas Reason for consultation: small bowel obstruction 07/11/23 08:19 Consult to Gastroenterology Routine Consulting Provider: Summer Corrales Reason for consultation: anemia/ugi bleed Has provider been notified: No DS: Diagnosis Discharge Diagnosis (1) Small bowel obstruction: Status: Acute DS: Summary Hospital Course Hospital Course: Date of Service: 07/08/23 Chief Complaint: Abdominal Pain This is a 87-year-old female with pertinent history of CAD, mood disorder, gastroesophageal reflux disease, recurrent SBO, rheumatoid arthritis who presents to the emergency department for evaluation of abdominal discomfort. Patient states that started 3 days prior to presentation and has been progressive. It is associated with nausea and multiple episodes of nonbloody emesis. Patient states he has a history of bowel obstruction. No fever or chills. The abdominal discomfort is generalized, constant, nonradiating and without any relieving factors. No chest discomfort, palpitations, shortness of breath, changes in urinary habits. Her last bowel movement was 1 day prior to presentation. In the emergency department, imaging SBO showed SBO with transition point and general surgery was consulted who requested admission. Hospital course 87-year-old female with pertinent history of CAD, mood disorder, gastro esophageal reflux disease, prior abdominal surgery for ruptured appendix, recurrent SBO, rheumatoid arthritis presented with abdominal pain and is found to have PSBO, patient admitted to medical floor was treated conservatively with NG tube, NPO and IV fluid managed closely by General surgery subsequently NG tube was removed after patient noted to have bowel movements diet was gradually advance, patient is tolerating diet with no issues, patient also noted to have dark black NG output with drop in hematocrit likely due to mucosal irritation from prolonged NG, has chronic baseline anemia, hematocrit remains above transfusion threshold, treated with IV Protonix and Carafate and now being discharged home on by mouth Prilosec twice daily for 30 days followed by Prilosec 1 tablet daily she is recommended to avoid NSAIDs and aspirin for 2 weeks. In regard to chronic medical issues including mood disorder and coronary artery disease patient will be restarted on statin and all home medications. Time Spent with Patient Time attestation: Total time managing care of this patient today ____ minutes. Discharge coordination time: Greater than 30 minutes Quality: Safe Use of Opioids Does Pt have an Active Cancer Diagnosis on the Problem List?: No Quality: Stroke Does the patient have a stroke diagnosis?: No Physical Exam Vital Signs: Vital Signs: Last Vital Signs Temp 97.1 F 07/12/23 07:35 Pulse 64 07/12/23 07:35 Resp 20 07/12/23 07:35 BP 142/68 H 07/12/23 07:35 Pulse Ox 95 07/12/23 07:35 O2 Del Method Room Air 07/12/23 07:35 BMI result Body Mass Index 27.7 Const: Other: General: Ax O X 3, no acute distress Neck no JVD Resp:? Clear to auscultation, no wheeze, no crackles CVS: S1,S2,RRR GI:? Abdomen soft ,non tender, bowel sounds audible, no guarding, no rigidity. Skin: No rash Extremities no edema Neuro:? motor grossly intact Psych: appropriate affect DS: Data Data Completed and Pending Labs on day of discharge: Laboratory Results - last 24 hr 07/12/23 07:10 WBC 7.5 RBC 2.97 L Hgb 8.9 L Hct 27.1 L MCV 91.2 MCH 30.0 MCHC 32.8 RDW 16.2 H Plt Count 213 MPV 9.2 L Absolute Nucleated RBC 0.000 Nucleated RBC % (auto) 0.0 Discharge Plan Discharge Anticipated Discharge Date/Time: 07/12/23 11:07 Patient Disposition: er [facility] Discharge Diagnosis: Partial small-bowel obstruction Acute on chronic blood-loss anemia Referrals: Vineet Hwang DO [Primary Care Provider] - 1 Week Discharge Medications: New sucralfate 1 gram Tablet 1 g PO BIDAC Qty: 60 0RF omeprazole 20 mg Capsule,Delayed Release(Dr/Ec) 20 mg PO BID@0630,1630 Qty: 60 0RF Continued lorazepam 0.5 mg tablet 1 tab PO BEDTIME PRN (Reason: Anxiety) gabapentin 300 mg capsule 1 cap PO BID escitalopram oxalate 10 mg tablet 1 tab PO DAILY methotrexate sodium (PF) 25 mg/mL solution 25 mg IM WE polyethylene glycol 3350 [Miralax] 17 gram/dose Powder 17 g PO DAILY atorvastatin 40 mg Tablet 40 mg PO BEDTIME Qty: 90 0RF multivitamin Tablet 1 tab PO DAILY cholecalciferol (vitamin D3) [Vitamin D3] 50 mcg (2,000 unit) Tablet 50 mcg PO DAILY Held meloxicam 15 mg tablet 1 tab PO DAILY Hold Instructions: Resume on 07/26/23. aspirin 81 mg Tablet,Chewable 81 mg PO DAILY Qty: 90 0RF Hold Instructions: Resume on 07/26/23. omeprazole 20 mg capsule,delayed release(DR/EC) 1 cap PO DAILY Hold Instructions: Resume on 08/09/23. Discharge Orders: Discharge Order (Routine); Ordered 07/12/23 Ordered By: Olivia Montes Diet: Advance to usual diet Activity on Discharge: As tolerated Stand Alone Forms: Patient Portal Discharge page Care Plan Goals: Small-bowel obstruction resolved Hold aspirin and meloxicam for 2 weeks due to irritation of stomach mucosa Take Prilosec 20 mg 1 tablet twice daily for 1 month then continue Prilosec 20 mg 1 tablet daily Health Concerns: Continue all other medications as prescribed Plan of Treatment: Outpatient follow-up with primary care physician call for appointment Assessment: As above
--- NOTE | 2023-07-26 13:03 | P.CDIM_ITS ---
PROVIDER RESPONSE TEXT: To clarify, the appropriate diagnosis supported by the clinical indicators: No, abdominal hernia is not related to / associated with / due to intestinal obstruction QUERY TEXT: PHYSICIAN'S DOCUMENTATION REQUEST Date of Query: 07/18/2023 05:45 AM EDT Patient Name: Ernestine Fung Admit Date: 07/09/2023 Dear Olivia Montes, RETROSPECTIVE QUERY A review of the medical record indicates additional documentation may be needed. Please review below and update the documentation accordingly. Clinical Indicators: Gastroenterology consultation note 07/11/23 - PLAN: SBO from hernia and adhesions, seems to be clinical ly improving. This is similar to her prior episodes of SBO attributed to an abdominal hernia and which normally res olves with NGT decompression and bowel rest. Please clarify the relationship between these conditions: Abdominal hernia with obstruction (SBO) Yes, abdominal hernia is related to / associated with / due to the obstruction No, abdominal hernia is not related to / associated with / due to intestinal obstruction Other (explain)Clinically unable to determine (explain)Thank you, Romana Rico, CCS, CDIS Use of terms such as suspected, likely, concern for, or probable (associated with a specific diagnosi s that is being evaluated, monitored, or treated as if it exists) are acceptable and can be coded in the inpatient se tting, when documented at the time of discharge. Please use your independent medical judgment in providing your response. THIS QUERY IS PART OF THE PERMANENT MEDICAL RECORD
== END 2023-07-12 15:10 | disposition skilled nursing facility (03) | DRG 389 ==
LOC: HO.ED 22:20 → HO.EDOVER 22:36 → HO.S3 07-09 00:10
PROVIDERS: Surgery; Admitting Provider Student in an Organized Health Care Education/Training Program; Emergency Provider Internal Medicine; PCP Internal Medicine; Responsible Provider Hospitalist; Visit Provider Hospitalist
DX: K56.600 Partial intestinal obstruction, unspecified as to cause (principal); D62 Acute posthemorrhagic anemia; M06.9 Rheumatoid arthritis, unspecified; F39 Unspecified mood [affective] disorder; I25.10 Atherosclerotic heart disease of native coronary artery without angina pectoris; K46.9 Unspecified abdominal hernia without obstruction or gangrene; K21.9 Gastro-esophageal reflux disease without esophagitis; M05.00 Felty's syndrome, unspecified site; K40.90 Unilateral inguinal hernia, without obstruction or gangrene, not specified as recurrent; Z66 Do not resuscitate; Z90.12 Acquired absence of left breast and nipple; Z79.82 Long term (current) use of aspirin; Z79.631 Long term (current) use of antimetabolite agent; Z79.899 Other long term (current) drug therapy
CPT/HCPCS: 36415; 71045; 74177; 80048; 80053; 81003; 84134; 84484; 85014; 85018; 85025; 85027; 90686; 93005; 99285; J1200; J1643; J2060; J2270; J2405; Q9967

== ENCOUNTER → 2023-07-08 22:02 | Outpatient (BNV) | payer MEDICARE, SELFPAY | PROVIDERS: Admitting Provider Student in an Organized Health Care Education/Training Program; Emergency Provider Internal Medicine; PCP Internal Medicine; Visit Provider Student in an Organized Health Care Education/Training Program | DX: K56.609 Unspecified intestinal obstruction, unspecified as to partial versus complete obstruction (principal) | CPT/HCPCS: 99222; 99232; 99233; 99239 ==

== ENCOUNTER → 2023-07-08 22:02 | Outpatient (BNV) | payer MEDICARE, SELFPAY | PROVIDERS: Admitting Provider Student in an Organized Health Care Education/Training Program; Emergency Provider Internal Medicine; PCP Internal Medicine; Visit Provider Surgery | DX: K56.609 Unspecified intestinal obstruction, unspecified as to partial versus complete obstruction (principal) | CPT/HCPCS: 99222; 99232 ==

== ENCOUNTER → 2023-07-08 22:02 | Outpatient (BNV) | payer MEDICARE, SELFPAY | PROVIDERS: Admitting Provider Student in an Organized Health Care Education/Training Program; Emergency Provider Internal Medicine; PCP Internal Medicine; Responsible Provider Hospitalist; Visit Provider Internal Medicine Gastroenterology | DX: K56.609 Unspecified intestinal obstruction, unspecified as to partial versus complete obstruction (principal); D64.9 Anemia, unspecified | CPT/HCPCS: 99232 ==

== ENCOUNTER 2023-08-17 12:57 | Outpatient (REF) | payer MEDICARE, SELFPAY | END 2023-08-17 12:58 | disposition home or self-care (01) | LOC: HO.SH 12:57 | PROVIDERS: Visit Provider Internal Medicine | DX: H90.3 Sensorineural hearing loss, bilateral (principal) | CPT/HCPCS: 92557 ==

== ENCOUNTER 2023-08-17 13:57 | Outpatient (REF) | payer SELFPAY | END 2023-08-17 13:58 | disposition home or self-care (01) | LOC: HO.HAP 13:57 | PROVIDERS: Visit Provider Internal Medicine | DX: Z46.1 Encounter for fitting and adjustment of hearing aid (principal); H90.3 Sensorineural hearing loss, bilateral | CPT/HCPCS: 92593 ==

== ENCOUNTER 2023-08-20 13:48 | Outpatient (REF) | payer MEDICARE, SELFPAY ==
[2023-08-20 16:06] LABS: MANUAL DIFF FLAG NO
[2023-08-20 16:24] LABS: Basophils Percent Auto 0.7 % (0-2); Eosinophils Absolute Auto 0.2 X10*3/uL (0.0-0.4); Eosinophils Percent Auto 3.1 % (0-4); Hematocrit 28.2 % (37.0-47.0); Hemoglobin 9.4 g/dl (12.0-16.0); Imm Gran Abs Auto 0.02 X10*3/uL (0.00-0.03); Imm Gran Pct Auto 0.3 % (0.0-0.4); Lymphocytes Absolute Auto 2.2 X10*3/uL (1.2-4.9); Lymphocytes Percent Auto 38.5 % (20-40); Mean Corpuscular HGB Conc 33.3 g/dl (31.0-35.0); Mean Corpuscular Hemoglobin 31.6 pg (27.0-33.0); Mean Corpuscular Volume 94.9 fL (80.0-98.0); Mean Platelet Volume 9.5 fL (9.4-12.3); Monocytes Absolute Auto 0.5 X10*3/uL (0.1-1.2); Monocytes Percent Auto 7.9 % (2-11); Neutrophils Absolute Auto 2.9 x10*3/uL (2.0-8.3); Neutrophils Percent Auto 49.5 % (45-73); Platelet Count 309 X10*3/uL (160-400); Red Blood Count 2.97 X10*6/uL (4.20-5.50); Red Cell Distribution Width 15.9 % (11.0-16.0); White Blood Count 5.8 X10*3/uL (4.8-10.8)
[2023-08-20 16:34] LABS: Alanine Aminotransferase 15 U/L (0-31); Alkaline Phosphatase 83 U/L (39-117); Anion Gap 14 (12-20); Aspartate Amino Transferase 30 U/L (5-31); Bilirubin Total 0.3 mg/dL (0.0-1.0); Blood Urea Nitrogen 16 mg/dL (9-16); Calcium 9.5 mg/dL (8.4-10.2); Carbon Dioxide 24 mmol/L (22-29); Chloride 104 mmol/L (96-108); Estimated Glomerular Filt Rate > 60; Glucose Random 115 mg/dL (60-115); Potassium 4.7 mmol/L (3.3-5.1); Sodium 137 mmol/L (135-145); Total Protein 6.9 g/dL (6.5-8.0)
== END 2023-08-20 13:49 | disposition home or self-care (01) ==
LOC: HO.HMGCLDS 13:48
PROVIDERS: PCP Internal Medicine; Visit Provider Internal Medicine
DX: K56.609 Unspecified intestinal obstruction, unspecified as to partial versus complete obstruction (principal)
CPT/HCPCS: 36415; 80053; 85025

== ENCOUNTER 2024-03-17 12:30 | Outpatient (REF) | payer MEDICARE, SELFPAY ==
--- NOTE | ~2024-03-17 | MM_ITS ---
EXAMINATION: MM SCREENING DIGITAL BREAST TOMOSYNTHESIS, RIGHT CLINICAL INFORMATION: Screening. Asymptomatic. The patient is status post left mastectomy. COMPARISON: Mammography: This study is compared with prior exams dating back to 2018. TECHNIQUE: Digital breast tomosynthesis is performed in both the craniocaudal and mediolateral oblique views along with computer-aided detection (CAD). Synthesized 2D images are generated from the tomosynthesis. FINDINGS: There are scattered areas of fibroglandular density (ACR BI-RADS breast composition Category b). There are no significant masses, abnormal calcifications, or other abnormalities. MM/MM tomosynthesis screening RT IMPRESSION: No mammographic evidence of malignancy. ASSESSMENT: BI-RADS BI-RADS 1 - Negative RECOMMENDATION: Routine annual mammography screening. 1 year F/U This examination should not preclude the clinical evaluation of a suspicious palpable abnormality. This patient's information was entered into a reminder system with a target due date for their next mammogram.
== END 2024-03-17 12:31 | disposition home or self-care (01) ==
LOC: HO.MAMMO 12:30
PROVIDERS: PCP Internal Medicine; Visit Provider Internal Medicine
DX: Z12.31 Encounter for screening mammogram for malignant neoplasm of breast (principal)
CPT/HCPCS: 77063; 77067

== ENCOUNTER → 2024-03-17 12:30 | Outpatient (BNV) | payer MEDICARE, SELFPAY | PROVIDERS: PCP Internal Medicine; Visit Provider Radiology Diagnostic Radiology | DX: Z12.31 Encounter for screening mammogram for malignant neoplasm of breast (principal) | CPT/HCPCS: 77063; 77067 ==

== ENCOUNTER 2024-04-08 10:49 | Outpatient (REF) | payer MEDICARE, SELFPAY ==
[2024-04-08 13:21] LABS: MANUAL DIFF FLAG NO
[2024-04-08 13:34] LABS: Basophils Absolute Auto 0.1 X10*3/uL (0.0-0.2); Basophils Percent Auto 0.8 % (0-2); Eosinophils Absolute Auto 0.2 X10*3/uL (0.0-0.4); Eosinophils Percent Auto 3.8 % (0-4); Hematocrit 29.1 % (37.0-47.0); Hemoglobin 9.9 g/dl (12.0-16.0); Imm Gran Abs Auto 0.02 X10*3/uL (0.00-0.03); Imm Gran Pct Auto 0.3 % (0.0-0.4); Lymphocytes Absolute Auto 1.7 X10*3/uL (1.2-4.9); Lymphocytes Percent Auto 27.8 % (20-40); Mean Corpuscular Hemoglobin 30.6 pg (27.0-33.0); Mean Corpuscular Volume 89.8 fL (80.0-98.0); Mean Platelet Volume 9.6 fL (9.4-12.3); Monocytes Absolute Auto 0.6 X10*3/uL (0.1-1.2); Monocytes Percent Auto 9.4 % (2-11); Neutrophils Absolute Auto 3.5 x10*3/uL (2.0-8.3); Neutrophils Percent Auto 57.9 % (45-73); Platelet Count 279 X10*3/uL (160-400); Red Blood Count 3.24 X10*6/uL (4.20-5.50); Red Cell Distribution Width 19.2 % (11.0-16.0); White Blood Count 6.1 X10*3/uL (4.8-10.8)
[2024-04-08 13:56] LABS: Alanine Aminotransferase 16 U/L (0-31); Alkaline Phosphatase 76 U/L (39-117); Anion Gap 11 (12-20); Aspartate Amino Transferase 30 U/L (5-31); Bilirubin Total 0.4 mg/dL (0.0-1.0); Blood Urea Nitrogen 17 mg/dL (9-16); Calcium 9.5 mg/dL (8.4-10.2); Carbon Dioxide 26 mmol/L (22-29); Chloride 108 mmol/L (96-108); Cholesterol 148 mg/dL (<200); Estimated Glomerular Filt Rate > 60; Glucose Fasting 82 mg/dL (60-99); HDL Cholesterol 82 mg/dL (>40); LDL Cholesterol Calculated 55 mg/dL (<100); Potassium 3.9 mmol/L (3.3-5.1); Sodium 141 mmol/L (135-145); Total Protein 6.7 g/dL (6.5-8.0); Triglycerides 57 mg/dL (<150)
[2024-04-08 14:14] LABS: Thyroid Stimulating Hormone 1.13 uIU/mL (0.32-4.0); Vitamin D 25-OH Total 64.6 ng/mL (>30)
== END 2024-04-08 10:50 | disposition home or self-care (01) ==
LOC: HO.HMGCLDS 10:49
PROVIDERS: PCP Internal Medicine; Visit Provider Internal Medicine
DX: M06.9 Rheumatoid arthritis, unspecified (principal); E78.00 Pure hypercholesterolemia, unspecified; F41.9 Anxiety disorder, unspecified; K56.609 Unspecified intestinal obstruction, unspecified as to partial versus complete obstruction; I21.4 Non-ST elevation (NSTEMI) myocardial infarction
CPT/HCPCS: 36415; 80053; 80061; 82306; 84443; 85025

== ENCOUNTER 2024-04-28 12:53 | Outpatient (REF) | payer MEDICARE, SELFPAY | END 2024-04-28 12:54 | disposition home or self-care (01) | LOC: HO.SH 12:53 | PROVIDERS: Visit Provider Internal Medicine | DX: Z01.118 Encounter for examination of ears and hearing with other abnormal findings (principal); H90.3 Sensorineural hearing loss, bilateral | CPT/HCPCS: 92552; 92556 ==

== ENCOUNTER 2024-04-28 14:03 | Outpatient (REF) | payer SELFPAY ==
--- NOTE | 2024-04-28 14:51 | MHC.AU.HA1 ---
Hearing Aid Evaluation Date of Visit: 04/28/24 Historical Information: Description of Hearing: Moderately-severe sensorineural hearing loss, bilaterally Current personal amplification information: PhonDazo V70-M slim tube BTEs fit in November 2016 Summary: Ernestine is ready to pursue new hearing aids due to the age of her current pair. Noticing increasing hearing difficulties even with her hearing aids. Lives in assisted living, primarily in apartment alone. However, does go to dining zabala, occasionally plays games and socializes with other residents. Will stay with Phonak hearing aids as Ernestine has had good success with them. Discussed styles and technology including differences between slim tube BTE and RITE. As Ernestine wants a rechargeable hearing aid, new slim tube BTE would have larger hearing aid portion compared to current hearing aids. RITEs would have wax guard to change. Ernestine ultimately opted to trial rechargeable RITEs with custom c-shells. Impressions taken, bilaterally, without incident. Sent to [facility]. Hearing Aid Prescription: Based on the individual?s shared listening needs, communication environments, dexterity, desire for connectivity, and personal preferences, the following prescription for amplification has been made: Right ear: Make, Model, Color: Phonak Audeo L50-R Color: Champagne Battery Size: Rechargeable [facility]/Slim Tube: 1P Type of Earmold/Dome/CShell/SlimTip: c-shell Left ear: Left ear prescription to be same as Right Hearing Aid above: Make, Model, Color: Phonak Audeo L50-R Color: Champagne Battery Size: Rechargeable [facility]/Slim Tube: 1P Type of Earmold/Dome/CShell/SlimTip: c-shell Accessories/Assistive Technology: Channel Cementer Outsole Machine Plan of Care: Patient wishes to purchase hearing aids as prescribed Action Taken/Action Needed: Hearing Instrument Fitting to be scheduled when materials arrive Primary Diagnosis: H90.3 Bilateral Sensorineural Hearing Loss Signature: Provider: Janny Dutton, [facility]
== END 2024-04-28 14:04 | disposition home or self-care (01) ==
LOC: HO.HAP 14:03
PROVIDERS: Visit Provider Internal Medicine
DX: Z46.1 Encounter for fitting and adjustment of hearing aid (principal); H90.3 Sensorineural hearing loss, bilateral
CPT/HCPCS: 92590

== ENCOUNTER 2024-05-16 14:45 | Outpatient (REF) | payer SELFPAY ==
--- NOTE | 2024-05-19 08:31 | MHC.AU.HA2 ---
Hearing Instrument Fitting- Adult- Binaural Date of Visit: 05/16/24 Hearing Instruments Dispensed: Right Ear: Make, Model, Color, Serial Number: Mi Ervino L50-R SN: [id number] Color: Farrahe Outpatient Coding Specialist Repair Warranty: 06/04/2027 Outpatient Coding Specialist Loss and Damage Warranty: 06/04/2027 [facility] Service Plan: OPTED OUT Battery Size: Rechargeable General Operations Manager/Slim Tube: 1P Earmold/Dome/CShell/SlimTip: c-shell SN: [id number] Celso: 09/02/2024 Type of Wax Guard: Cerustop Left Ear: Make, Model, Color, Serial Number: Mi Ervino L50-R Sn: [id number] Color: Farrahe Outpatient Coding Specialist Repair Warranty: 06/04/2027 Outpatient Coding Specialist Loss and Damage Warranty: 06/04/2027 [facility] Service Plan: OPTED OUT Battery Size: Rechargeable General Operations Manager/Slim Tube: 1P Earmold/Dome/CShell/SlimTip: c-shell SN: [id number] Celso: 09/02/2024 Type of Wax Guard: Cerustop Accessories/Assistive Technology: Phonak separating machine operator ease SN: [id number] Summary of Fitting: Ran feedback analyzer and real ear measures. As a long-time hearing aid user, Ernestine was familiar with general maintenance and insertion/removal. However, reviewed care and use, primarily rechargeability and cleaning/changing wax guards as those are different features compared to old hearing aids. VC inactive and no interest in CoreFlow. C-shells a bit difficult to insert but good fit once inserted fully. Ernestine noted sound of own voice louder but tolerable and willing to acclimate. *Old hearing aid: Right grommet of slim tip ear mold that holds in slim tube came out as Ernestine was trying to clean it. Attempted to glue it back in. Explained unsure how long it will last but usable in meantime as back up. Recommendations:A hearing instrument follow-up was scheduled. Diagnosis Code(s): Primary Diagnosis: H90.3 Bilateral Sensorineural Hearing Loss Signature: Provider: Janny Dutton, [facility]
== END 2024-05-16 14:46 | disposition home or self-care (01) ==
LOC: HO.HAP 14:45
PROVIDERS: Visit Provider Internal Medicine
DX: Z46.1 Encounter for fitting and adjustment of hearing aid (principal); H90.3 Sensorineural hearing loss, bilateral
CPT/HCPCS: V5261; V5264; V5299

== ENCOUNTER 2024-05-20 12:54 | Outpatient (AMB) | payer MEDICARE, SELFPAY ==
--- NOTE | 2024-05-20 12:58 | MHC.OFFVIS ---
Vital Signs 05/20/24 13:06 BP 132/70 Blood Pressure Location Rt brachial Position Sitting Intake Visit Reasons: Yearly Breast Exam Intake Note: Patient is seen in office for yearly breast exam. Pt c/o: reports no breast complaints. mm:03/17/24 Pigment And Lacquer Mixer Required: No Accompanied by: Self / Same As Patient Allergies No Known Allergies [No Known Allergies*] Allergy (Verified 05/20/24 13:06) HPI Comments Details: Mrs. 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 She feels well and completed 5 years of tamoxifen. She feels the left incisional hernia has increased in size denies any pain associated with this. The previously noted right inguinal hernia has not changed significantly in his asymptomatic. She still does not wish to have any repair to either hernia. Her bowels are moving normally using the MiraLax. She denies any further abdominal pain and is eating well with no evidence of a bowel obstruction. She denies any new breast symptoms including palpable masses, skin changes, nipple discharge or other associated changes. Her last right mammogram from 03/17/2024 revealed no mammographic evidence of malignancy (BI-RADS 1). [facility] Medical History Partial obstruction of small intestine Anemia Anxiety Anosmia Abdominal hernia Rheumatoid arteritis Osteoporosis Breast cancer Surgical History History of appendectomy S/P mastectomy Family History Father Lung cancer Brother Prostate cancer Other No significant family history Social History Household Members: None Household Members Other:: none Housing: Assisted Living Facility Are you a primary body care manager to a significant other at home: No Do you presently have visiting nurse or other home services: No Alcohol intake: never Patient Tobacco Use Status: Never used Tobacco e-Cigarette/Vaping Use: Never Used Second Hand Smoke Exposure: No Advance Directives Date on File: 08/12/21 service: No Current occupational status: retired Review of Systems Const All systems reviewed & are unremarkable except as noted in HPI and below Card Denies dyspnea Resp Denies cough, Denies dyspnea and Denies stridor GI Denies abdominal pain, Denies constipation, Denies dyspepsia, Denies diarrhea, Denies nausea and Denies vomiting Skin/Breast Reports system reviewed and no additional complaints, except as documented Ventura/Lymph Reports lymphadenopathy Physical Exam Vital Signs: Last Vital Signs BP 132/70 05/20/24 13:06 Last Vital Signs Temp 97.1 F 07/12/23 07:35 Pulse 64 07/12/23 07:35 Resp 20 07/12/23 07:35 BP 142/68 H 07/12/23 07:35 Pulse Ox 95 07/12/23 07:35 O2 Del Method Room Air 07/12/23 07:35 BMI result Body Mass Index 27.7 Const General: no acute distress Nutritional Appearance: well nourished Orientation/consciousness: patient oriented x3 HEENT Ears: hearing grossly impaired Resp Effort & Inspection: normal respiratory effort GI Inspection: Yes normal to inspection Palpation (GI): Soft to palpation, nontender, no guarding, not rigid, Hernia present (Right inguinal hernia and left lower quadrant incisional hernia) and no masses Skin Other: Warm, dry, no rash Neuro Other: Mobility Assessment: 1. 3 meter assessment time (seconds) 9 2. Gait observations: slow tentative pace with cane General: patient oriented x3 Assessment & Plan Assessment & Plan (1) Ductal carcinoma in situ of left breast: Code(s): D05.12 - Intraductal carcinoma in situ of left breast Category: Medical Plan 88-year-old female with prior history of DCIS multifocal left breast S/P left simple mastectomy returning for follow-up examination 6 years following surgery. She continues to do well with no evidence of recurrence disease in either breast. Her last mammogram on 03/17/2024 revealed no suspicious findings. She will return in 1 year for annual follow-up breast examination. She is welcome to call sooner for any new complaints. Coding Level of Care Code Est Pt Level 3 (11050) Diagnoses Ductal carcinoma in situ of left breast D05.12
[2024-05-20 13:06] VITALS: BP 132/70
== END 2024-05-20 13:19 | disposition home or self-care (01) ==
PROVIDERS: PCP Internal Medicine; Visit Provider Surgery
DX: D05.12 Intraductal carcinoma in situ of left breast (principal)
CPT/HCPCS: 99213

== ENCOUNTER → 2024-05-20 12:54 | Outpatient (BNVA) | payer MEDICARE, SELFPAY | PROVIDERS: PCP Internal Medicine; Visit Provider Surgery | DX: D05.12 Intraductal carcinoma in situ of left breast (principal) | CPT/HCPCS: 99212 ==

== ENCOUNTER 2024-05-30 13:21 | Outpatient (REF) | payer SELFPAY ==
--- NOTE | 2024-05-30 15:35 | MHC.AU.HA3 ---
Hearing Instrument Follow-Up- Binaural Date of Visit: 05/30/24 Right Ear: Make, Model, Color, Serial Number: Mi Smith L50-R SN: [id number] Color: Nestoragne Secretary To The Vice President Repair Warranty: 06/04/2027 Secretary To The Vice President Loss and Damage Warranty: 06/04/2027 [facility] Service Plan: OPTED OUT Battery Size: Rechargeable Machine Bookkeeper/Slim Tube: 1P Earmold/Dome/CShell/SlimTip:c-shell SN: [id number] Celso: 09/02/2024 Type of Wax Guard: Cerustop Dispensed By: [facility] Date of Fittin05/16/2024 Left Ear: Make, Model, Color, Serial Number: Mi Smith L50-R Sn: [id number] Color: Champagne Secretary To The Vice President Repair Warranty: 06/04/2027 Secretary To The Vice President Loss and Damage Warranty: 06/04/2027 [facility] Service Plan: OPTED OUT Battery Size: Rechargeable Machine Bookkeeper/Slim Tube: 1P Earmold/Dome/CShell/SlimTip: c-shell SN: [id number] Celso: 09/02/2024 Type of Wax Guard: Cerustop Dispensed By: [facility] Date of Fittin05/16/2024 Follow-Up Summary: Overall hearing aids have been great. Data logging showed about 10 hours of use per day. Loves rechargeability. Noticeable improvement in noise management in dining zabala. Requested slight increase in volume. Reran real ear with better match to target and perceived sound quality in office. Only other concern was fit of right ear mold. Reportedly needs to play with it in her ear to make it fit properly. Does not insert as nicely as left mold. Impression taken of right ear without incident - will send to [employer] for remake. Recommendations: Patient will be contacted when materials have arrived. Diagnosis Code(s): Primary Diagnosis: H90.3 Bilateral Sensorineural Hearing Loss Signature: Provider: Janny Dutton, [facility]
== END 2024-05-30 13:22 | disposition home or self-care (01) ==
LOC: HO.HAP 13:21
PROVIDERS: Visit Provider Internal Medicine
DX: Z13.89 Encounter for screening for other disorder (principal)

== ENCOUNTER 2024-07-15 13:53 | Outpatient (REF) | payer SELFPAY | END 2024-07-15 13:54 | disposition home or self-care (01) | LOC: HO.HAP 13:53 | PROVIDERS: Visit Provider Internal Medicine | DX: Z13.89 Encounter for screening for other disorder (principal) ==

== ENCOUNTER 2024-10-09 11:21 | Outpatient (AMB) | payer MEDICARE, SELFPAY ==
--- NOTE | 2024-10-09 11:26 | MHC.OFFVIS ---
Vital Signs 10/09/24 11:36 Height 5 ft 3 in Weight 160 lb 4 oz BMI 28.4 BP 116/58 L Blood Pressure Location Lt brachial Position Sitting Pulse 72 Intake Visit Reasons: abdominal hernia Intake Note: Patient is seen in office for evaluation of a possible abdominal hernia. Pt c/o: hernia was discuss on last visit and observation was recommend due to no symptoms at the time, however within the past 2wks has been experiencing increase pain in the left abdomen and feels a hard lump, pain is worse with bm and passing gas, wants to discuss the alternative for surgery due to her medical conditions Ct abd:07/08/23 (ER) L.OV: 05/20/24 (Left breast) f/u scheD: 05/19/25 (Yr breast) Materials Management Clerk Required: No Accompanied by: Family/Other Allergies No Known Allergies [No Known Allergies*] Allergy (Verified 10/09/24 11:35) Medication List - Last Reconciled 10/09/24 by Cortez Lopez MD aspirin 81 mg PO DAILY atorvastatin 40 mg PO BEDTIME cholecalciferol (vitamin D3) (Vitamin D3) 50 mcg PO DAILY escitalopram oxalate 1 tab PO DAILY gabapentin 1 cap PO BID lorazepam 1 tab PO BEDTIME PRN meloxicam 1 tab PO DAILY methotrexate sodium (PF) 25 mg IM WE multivitamin 1 tab PO DAILY omeprazole 1 cap PO DAILY omeprazole 20 mg PO BID@0630,1630 polyethylene glycol 3350 (Miralax) 17 grams PO DAILY HPI Comments Details: 88-year-old female patient with a history of breast CA, C diff colitis presenting with an incisional hernia of the left lower quadrant. The hernia has increased in size and is now causing occasional discomfort. She has been wearing a binder which seems to help to some degree. She is reporting constipation and occasional gas pain related to the hernia. She is fearful of undergoing surgery because of her age and generalized weakness but also knows the symptoms are increasing from the hernia. She denies nausea or vomiting. [facility] Medical History Partial obstruction of small intestine Anemia Anxiety Anosmia Abdominal hernia Rheumatoid arteritis Osteoporosis Breast cancer Surgical History History of appendectomy S/P mastectomy Family History Father Lung cancer Brother Prostate cancer Other No significant family history Social History Household Members: None Household Members Other:: none Housing: Assisted Living Facility Are you a primary healthcare marketer to a significant other at home: No Do you presently have visiting nurse or other home services: No Alcohol intake: never Patient Tobacco Use Status: Never used Tobacco e-Cigarette/Vaping Use: Never Used Second Hand Smoke Exposure: No Advance Directives Date on File: 08/12/21 service: No Current occupational status: retired Review of Systems Const All systems reviewed & are unremarkable except as noted in HPI and below Card Denies dyspnea Resp Denies cough, Denies dyspnea and Denies stridor GI Reports abdominal pain, Reports constipation, Denies dyspepsia, Denies diarrhea, Denies nausea and Denies vomiting Skin/Breast Reports system reviewed and no additional complaints, except as documented Ventura/Lymph Reports lymphadenopathy Physical Exam Vital Signs: Last Vital Signs Pulse 72 10/09/24 11:36 BP 116/58 L 10/09/24 11:36 BMI result Body Mass Index 28.4 Last Vital Signs Temp 97.1 F 07/12/23 07:35 Pulse 64 07/12/23 07:35 Resp 20 07/12/23 07:35 BP 142/68 H 07/12/23 07:35 Pulse Ox 95 07/12/23 07:35 O2 Del Method Room Air 07/12/23 07:35 BMI result Body Mass Index 27.7 Const General: no acute distress Nutritional Appearance: well nourished Orientation/consciousness: patient oriented x3 HEENT Ears: hearing grossly impaired Resp Effort & Inspection: normal respiratory effort GI Inspection: Yes normal to inspection Palpation (GI): Soft to palpation, nontender, no guarding, not rigid, Hernia present (Right inguinal hernia and left lower quadrant incisional hernia) and no masses Abdomen image: 1. Palpable hernia left lower quadrant, non reducible, at least 8 cm diameter Skin Other: Warm, dry, no rash Neuro Other: Mobility Assessment: 1. 3 meter assessment time (seconds) 9 2. Gait observations: slow tentative pace with cane General: patient oriented x3 Extrem General: No edema Assessment & Plan Assessment & Plan (1) Incarcerated incisional hernia: Code(s): K43.0 - Incisional hernia with obstruction, without gangrene Category: Medical Plan 88-year-old female patient presenting with a gradually enlarging incisional hernia which is now causing discomfort and is not reducible measuring at least 8 cm in diameter. I recommended repair of this incisional hernia possibly with mesh as a short-stay admit. After discussion of the procedure, risks, and alternatives, she consents to the surgery. Coding Level of Care Code Est Pt Level 4 (17857) Diagnoses Incarcerated incisional hernia K43.0
[2024-10-09 11:36] VITALS: BP 116/58; PULSE 72; BMI 28.4
--- OUTSIDE RECORDS SUMMARY | 2024-10-15 01:57 | XMS_ITS ---
Author Organization [facility] Address [address] [place] [address] Care Team Providers Care Tire Specialist Name Role Phone Eri GAYTAN, Vineet Primary Care Provider Unavail able Black, Colette Unavailable [phone] Allergies No Known Allergies REASON FOR VISIT Heel pain, Painful nail(s) aggravated by shoes causing difficulty standing/walking Medications Medication SIG (Take, Route, Frequency, Duration) Notes Start Date End Date Status Omeprazole 10 MG as directed Orally Once a day Active Atorvastatin Calcium 40 MG as directed Orally Active Sucralfate Active Night Splint AFO - L1930 1 wear at rest for 30 days Active Lipitor 40 MG 1 tablet Orally Once a day for 30 day(s) Active Aspir-81 Not-Taking Tamoxifen Citrate 20 MG Oral for 90 Not-Taking vitamin as directed Active Plaquenil 200 MG 1 tablet with food o r milk Orally Once a day for 10 day(s) Not-Taking Methotrexate 2.5 MG 1 tablet Orally Thre e times a Week for 30 day(s) Not-Taking Gabapentin 300 MG 1 capsule Orally Onc e a day Active Remicade 3 vials 6wks Act aracely Acetaminophen 650 MG as directed Orally Active Social History Tobacco Use: Social History Observation Description Date Details (start date - stop date) Former Smoker NA - NA Tobacco Use/Smoking Question Answer Notes Are you a: former smoker Additional Findings: Tobacco Non-User Current no n-smoker Alcohol Screen Question Answer Notes Did you have a drink containing alcohol in the p ast year? No Points 0 Interpretation Negative Tobacco use other than smoking: Question Answer Notes Are you an other tobacco user? No Problems Problem Type SNOMED Code ICD Code Onset Dates Problem Status W/U Status Risk Notes Problem Plantar fasciitis of left foot (826882853290301 01) Plantar fasciitis of left foot (M72.2) Active confirmed Problem Interstitial myositis (48362350) Interstitial myositis of left foot (M60.172) Active confirmed Vital Signs Blood pressure systolic 130 mm Hg 08/25/20 24 Blood pressure diastolic 80 mm Hg 024 Height 5 ft 3 in in 08/25/2024 Weight 157 lbs 08/25/2024 BMI 27.81 kg/m2 08/25/2024 Procedures Procedure Date Ordered Date Performed Result Body Sit e 47328-VABGVCV NAIL, 6 OR MORE 08/25/2024 N/A Encounters Encounter Location Date Provider Diagnosis [facility] [address] [address] 08/25/2024 Colette Black Pain in left foot M79.672 ; Plantar fasciitis of left foot M72.2 ; Interstitial myositis of left foot M60.172 ; Bursitis of left foot M77.52 ; Onychomycosis B35.1 ; Pain in right toe(s) M79.674 and Pain in left toe(s) M79.675 Assessments Encounter Date Diagnosis (ICD Code) Assessment Notes Treatment Notes Treatment Clinical Notes Section Notes 08/25/2024 Pain in left foot (ICD-10 - M79.672) 08/25/2024 Plantar fasciitis of left foot (ICD-10 - M72.2) Patient Educated with: HEEL CORD STRETCHES.pdf (HEEL CORD STRETCHES.pdf) Patient Educated with: RICE THERAPY.pdf (RICE THERAPY.pdf) 08/25/2024 Interstitial myositis of left foot (ICD-10 - M60.172) 08/25/2024 Bursitis of left foot (ICD-10 - M77.52) 08/25/2024 Onychomycosis (ICD-10 - B35.1) 08/25/2024 Pain in right toe(s) (ICD-10 - M79.674) 08/25/2024 Pain in left toe(s) (ICD-10 - M79.675) 08/25/2024 Other Plan Of Treatment Medication Medication Name Sig Start Date Stop Date Notes Night Splint AFO - L1930 1 wear at rest for 30 days Treatment Notes Assessment Notes Plantar fasciitis of left foot Patient E ducated with: HEEL CORD STRETCHES.pdf (HEEL CORD STRETCHES.pdf) Patient Educated with: RICE THERAPY.pdf (RICE THERAPY.pdf) Pending Test Test Name Order Date [id number] NAIL, 6 OR MORE 08/25/2024 Next Appt Details Follow Up: 3 Months, Reason: Provider Name:Colette Cobb , 12/04/2024 01:30:00 PM, [address] [place] [address], [phone], Procedure Notes * Category Sub-Category Detail Notes Debride Nail 6-10 Nail debridement Performance o f this nail treatment by a nonprofessional would put this patients foot and overall health at risk. Therefore, nail debridement was performed extensively to reduce/remove overall nail length, girth, thickness, subungual debris, and necrotic tissue, by manual and/or electrical means through the use of a nail nipper and/or dremel-type surface grinder, to a more viable healthy nail plate or bed tissue 6-10. Silver nitrate used for any petechial bleeding as necessary. Definitive antifungal treatment options have been reviewed and discussed with the patient. The patient chooses, no pharmaceutical tx - 30415 Progress Notes * Ernestine DESOUZA HDOB:[birth year] (88 yo F)Acc No.[id number]:08/25/2024 Progress Note Patient:?Antonieta Ernestine H Provider:?Colette MARIBELL Cobb :1935???Age:88 Y???Sex:Female D ate:08/25/2024 Address:[address] , [address], [facility] Pcp:Vineet Hwang MD Subjective: * Chief Complaints: * ???Heel painPainful nail(s) aggravated by shoes causing difficulty standing/walking * HPI: ???Heel pain:?Location:?Proximal plantar aspect of Heel, LEFT.?Duration:?, several months.?Course:?worse.?Aggravated:?standing, walking, walking first thing in the morning/after rest.?Treatments:?rest/alter normal daily activity.?Painful Nails:?Pt States Last PCP Visit:?Date:?08/07/2024 * Medical History:? 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 * Social History:?Tobacco Use:?Tobacco Use/Smoking?Are you a:?former smoker ?Additional Findings: Tobacco Non-User?Current non-smoker ?Tobacco use other than smoking?Are you an other tobacco user??No ???Drugs/Alcohol:?Drugs?Have you used drugs other than those for medical reasons in the past 12 months??No ?Alcohol Screen?Did you have a drink containing alcohol in the past year??No ?Points?0 ?Interpretation?Negative ???Miscellaneous:?Caffeine: yes, frequency: , 2-3 cups per day. ?Children: yes, 4. ?Exercise: yes, exercise,, walking. ?Marital status: . 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 * Medications:?TakingSucralfat e Omeprazole 10 MG Capsule Delayed Release as directed Orally Once a dayAtorvastatin Calcium 40 MG Tablet as directed Orally Lipitor 40 MG Tablet 1 tablet Orally Once a dayAcetaminophen 650 MG Tablet as directed Orally Gabapentin 300 MG Capsule 1 capsule Orally Once a dayRemicade 3 vials 6wksvitamin as directed Taking Sucralfate Taking Omeprazole 10 MG Capsule Delayed Release as directed Orally Once a dayTaking Atorvastatin Calcium 40 MG Tablet as directed Orally Taking Lipitor 40 MG Tablet 1 tablet Orally Once a dayTaking Acetaminophen 650 MG Tablet as directed Orally Taking Gabapentin 300 MG Capsule 1 capsule Orally Once a dayTaking Remicade 3 vials 6wksTaking vitamin as directed Not-Taking/PRNAspir-81 Tamoxifen Citrate 20 MG Tablet Oral Plaquenil 200 MG Tablet 1 tablet with food or milk Orally Once a dayMethotrexate 2.5 MG Tablet 1 tablet Orally Three times a WeekMedication List reviewed and reconciled with the patientNot-Taking/PRN Aspir-81 Not-Taking/PRN Tamoxifen Citrate 20 MG Tablet Oral Not-Taking/PRN Plaquenil 200 MG Tablet 1 tablet with food or milk Orally Once a dayNot-Taking/PRN Methotrexate 2.5 MG Tablet 1 tablet Orally Three times a WeekMedication List reviewed and reconciled with the patient * Allergies:?N.K.D.A.yes[Aller jose francisco Verified] Objective: * Vitals:?Ht: 5 ft 3 in, Wt: 1 57, BMI: 27.81, Shoe size: 10W, BP: 130/80 mm Hg, Wt-k.21 kg. * Examination: ???General Examination: ?GENERAL APPEARANCE:?Reveals a pleasant, alert, well nourished, well- developed, well hydrated individual, who demonstrates proper attention to hygiene/body habitus, and is in no acute distress, Pt serves as own historian for office visit today.?ORIENTED:?person, place, and time.?Heel Pain: ?INSPECTION:? Pain on Palpation to Plantar Fascia med. and central bands, intrinsic musc., infra-calcaneal bursa, and med calc tubercle , LEFT foot, No pain: posterior/superior heel, achilles bursa/tendon, sinus tarsi, peroneals, or with lateral heel compression; no limited STJ ROM, calor, or ecchymosis, LEFT foot.?Orthopedic: ?GAIT ABNORMALITY:?antalgic.?FOOT MORPHOLOGY:? Pes Planus structure, Decreased Ankle joint dorsiflexion ROM, knee extended.?FOOTWEAR:?shoe gear properties exacerbate patients foot/toe deformity.?Nails: ?NAILS are:?Elongated, overgrown, dystrophic, lytic, greater than 3mm thick, discolored and friable with crumbly malodorous subungual debris, with pain on palpation , 1-5 B/L.? Assessment: * Assessment: 1.?Pain in left foot - M79.6 72?2.?Plantar fasciitis of left foot - M72.2 (Primary), Acute problem, Complicated w/ Multiple Tx Options(4),Dx New problem, Prognosis Uncertain (4)?3. Interstitial myositis of left foot - M60.172?4.?Bursitis of left foot - M77.52?5.?Onychomycosis - B35.1?6.?Pain in right toe(s) - M79.674?7.?Pain in left toe(s) - M79.675? Plan: * Treatment: 2.?Onychomycosis?Procedure: 12927-[id number] NAIL, 6 OR MORE * Procedures:?Debride Nail 6-10:?Nail debridement?Performance of this nail treatment by a nonprofessional would put this patients foot and overall health at risk. Therefore, nail debridement was performed extensively to reduce/remove overall nail length, girth, thickness, subungual debris, and necrotic tissue, by manual and/or electrical means through the use of a nail nipper and/or dremel-type surface grinder, to a more viable healthy nail plate or bed tissue 6-10. Silver nitrate used for any petechial bleeding as necessary. Definitive antifungal treatment options have been reviewed and discussed with the patient. The patient chooses, no pharmaceutical tx - 69399.? * Procedure Codes:?69521 DEBRI DE NAIL, 6 OR MORE * Preventive Medicine:? ??Counseling:?Discussion:?-14: Office or other outpatient visit for the evaluation and management of an established patient, which required a medically appropriate history and/or examination and MODERATE level of DECISION MAKING for: 1 OR MORE CHRONIC PROBLEM(S) THATS WORSENING, 2 STABLE CHRONIC PROBLEMS, A NEWLY DIAGNOSED PROBLEM WITH UNCERTAIN PROGNOSIS, AN ACUTE COMPLICATED INJURY WITH MULTIPLE TREATMENT OPTIONS, OR AN ACUTE PROBLEM WITH ACCOMPANYING SYSTEMIC SYMPTOMS, THAT POSE(S) A MODERATE RISK OF MORBIDITY. THIS CONDITION MAY ALSO INCLUDE RX DRUG MANAGEMENT, OR A DECISON FOR MINOR SURGERY. The visit on the day of the encounter encompassed interpreting the data and educating the patient as to the nature of their condition, treatment options available according to their individual PMH, meds, allergies, and overall health/living conditions, as well as any potential risks or complications that may occur from a failure to adhere to, and participate in, the recommended course of therapy. The discussion included a complete verbal, and/or written explanation of the examination results, any x-rays taken, the proposed diagnosis, and outline of the treatment plan. A schedule for future care needs was also explained. The patient verbalized an understanding of the instructions at this time and agreed to be an active participant in their treatment. If the patient should think of any questions or concerns after the visit, I have encouraged the patient to call the office.?Heel pain:?FASCIITIS: I explained to the patient the possible etiologies of Plantar Fasciitis including foot type/shoegear/activity level/exercise routine and the risks/benefits of all the different treatment options for heel pain including: No treatment at all, Rest, Ice, NSAIDs(only if well tolerated after meals), New/supportive Shoegear, Strappings and Tapings, Stretching exercises, Deep Tissue Massage, Heel cups/cushions, Arch support/shoe inserts, Custom orthoses, Topical analgesics including Aspercream/Voltaren gel, Night splint AFO for am stiffness, Cortisone injection therapy, Cast boot with crutches/cane/or walker for assisted ambulation, Physical Therapy, EPAT/ESWT, Interfil injection therapy, as well as surgical [place]/Endoscopic Fasciitomy surgical procedures if needed. Recommendations were made to limit barefoot walking, eliminate wearing nonsupportive shoegear (i.e. flip-flops or sandals, or a shoe with an easily bendable, foldable, or twistable sole) and wear shoegear with a good solid sole, a supportive arch, and plenty of room for an insert/orthotic if necessary. If wearing sandals was required by the patient, we recommended orthopedic sandals such as Orthoheel or Birkenstock even while in the home. If the patient wore heels in the past, we recommended they continue, but eliminate the use of flats. The advantages and disadvantages of each option were discussed and the patients questions re: types of shoegear, custom vs prefabricated inserts, activity level, PO vs Topical medications (and their respective potential complications/drug interactions/side effects), and consistency in home treatment regimens for optimal success were answered to their satisfaction. Literature detailing plantar fasciitis and the various treatment options were dispensed and reviewed, Stretching exercises for the patients injury/diagnosis were discussed and demonstrated, Handouts were also given, Recommended a Night Splint to be worn daily for a minimum of 2 hours.?Physical Therapy:?Discussed the potential short and skilled nursing benefits of physical therapy including pain relief, improved function for activity of daily life, return to exercise, increased quality of life. We discussed the usual/customary PT treatment schedule of 2-3 times per week for 4 weeks to as much as 12 weeks depending on insurance approval/coverage. We discussed various PT treatment modalities including, but not limited to, gate training, muscular stabilization, stretching, deep tissue therapeutic massage, ultrasound, TENS, iontophoresis, fluidotherapy, laser therapy, hydrotherapy, contrast ice/heat bath, and passive as well as active ROM exercises. Questions re: PT including visit amounts, rates of success, and goals were answered to the patient's satisfaction. The patient verbally confirmed the medical necessity and use of PT therapy treatment for their MSK condition, Pt defers on therapy at this time due to she does not have a ride.? * Follow Up:?3 Months * Images: * Sign off status: Completed true * Provider:?Colette Cobb, DPM Date:?2023 Generated for Edward bateman/Hollis/Augustinaitting on:?10/15/2024 01:56 AM EST History and Physical Notes * HPI (History of Present Illness) Category Sub-Category Detail Notes Category Not es Heel pain Duration: , several months Location: Proximal plantar asp ect of Heel, LEFT Aggravated: standing, walking, w alking first thing in the morning/after rest Course: worse Treatments: rest/alter normal da chelsey activity Painful Nails Pt States Last PCP Visit: Date:: 08/07/2024 Examination Category Sub-Category Detail Notes Category Not es Orthopedic GAIT ABNORMALITY: antalgic FOOT MORPHOLOGY: Pes Planus structure , Decreased Ankle joint dorsiflexion ROM, knee extended FOOTWEAR: shoe gear properties exacerbate patients foot/toe deformity General Examination GENERAL APPEARANCE: Reveals a pleasant, alert, well nourished, well-developed, well hydrated individual, who demonstrates proper attention to hygiene/body habitus, and is in no acute distress, Pt serves as own historian for office visit today ORIENTED: person, place, and t barak Nails NAILS are: Elongated, overg rown, dystrophic, lytic, greater than 3mm thick, discolored and friable with crumbly malodorous subungual debris, with pain on palpation , 1-5 B/L Heel Pain INSPECTION: Pain on Palpatio n to Plantar Fascia med. and central bands, intrinsic musc., infra-calcaneal bursa, and med calc tubercle , LEFT foot, No pain: posterior/superior heel, achilles bursa/tendon, sinus tarsi, peroneals, or with lateral heel compression; no limited STJ ROM, calor, or ecchymosis, LEFT foot
--- OUTSIDE RECORDS SUMMARY | 2024-10-15 01:57 | XMS_ITS | Patient Health Record ---
Author Organization [facility] reyna [place] Address [address] [facility] [place] [address] Care Team Providers Care Focusing Machine Operator Name Role Phone Vineet Hwang MD Primary Care Provider Unavail able Black Colette Unavailable [phone] Allergies No Known Allergies Reason For Referral No Information Medications Medication SIG (Take, Route, Frequency, Duration) Notes Start Date End Date Status Gabapentin 300 MG 1 capsule Orally Onc e a day Active Aspir-81 Not-Taking Tamoxifen Citrate 20 MG Oral for 90 Not-Taking Remicade 3 vials 6wks Act aracely vitamin as directed Active Omeprazole 10 MG as directed Orally Once a day Active Atorvastatin Calcium 40 MG as directed Orally Active Plaquenil 200 MG 1 tablet with food o r milk Orally Once a day for 10 day(s) Not-Taking Sucralfate Active Methotrexate 2.5 MG 1 tablet Orally Thre e times a Week for 30 day(s) Not-Taking Lipitor 40 MG 1 tablet Orally Once a day for 30 day(s) Active Acetaminophen 650 MG as directed Orally Active Night Splint AFO - L1930 1 wear at rest for 30 days Active Immunizations Vaccine Route Administration Date Status Comme nts COVID-19 Pfizer BioNTech Vaccine Unknown 09/08/2021 Administered First Dose: Second Dose: Social History Tobacco Use: Social History Observation [...] Problem Status W/U Status Risk Notes Problem Acquired hammer toe of right foot (380983503078675 5) Other hammer toe(s) (acquired), right foot (M20.41) Active confirmed Problem Acquired hammer toe of left foot (220506812218884 3) Other hammer toe(s) (acquired), left foot (M20.42) Active confirmed Problem Non-pressure ulcer lower limb (260088815) Non-pressure chronic ulcer of other part of right foot limited to breakdown of skin (L97.511) Active confirmed Problem Acquired hammer toe of right foot (813916479525057 5) Other hammer toe(s) (acquired), right foot (M20.41) Active confirmed Problem Acquired hammer toe of left foot (228724821293697 3) Other hammer toe(s) (acquired), left foot (M20.42) Active confirmed Problem 89242052 Rheumatoid arthritis (M06.9) Active confirmed Problem Mononeuropathy of lower limb (518563803) Neuritis of left foot (G57.92) Active confirmed Response to treatment - Improvement Problem Plantar fasciitis of left foot (133146315097343 01) Plantar fasciitis of left foot (M72.2) Active confirmed Problem Interstitial myositis (67609819) Interstitial myositis of left foot (M60.172) Active confirmed Problem Localized, primary osteoarthritis of the ankle and/or foot (659253521) Arthritis of joint of lesser toe, left (M19.072) Active confirmed Problem Localized, primary osteoarthritis of the ankle and/or foot (271368688) Arthritis of joint of lesser toe, right (M19.071) Active confirmed Vital Signs Blood pressure diastolic 80 mm Hg 08/25/2024 Height 5 ft 3 in in 08/25/2024 Blood pressure systolic 130 mm Hg 08/25/2024 Weight 157 lbs 08/25/2024 BMI 27.81 kg/m2 08/25/2024 Procedures Procedure Date Ordered Date Performed Result Body Sit e 12668-KBQOEGK NAIL, 6 OR MORE 01/21/2024 N/A 29446-WMCWXTV NAIL, 6 OR MORE 05/15/2024 N/A 39919-Prsugjvg Plate 05/15/2024 N/A 83281-ZRTHGJU NAIL, 6 OR MORE 08/25/2024 N/A Encounters Encounter Location Date Provider Diagnosis [address] [address] 01/21/2024 Colette Black Tinea unguium B35.1 ; Neuritis of left foot G57.92 ; Pain in right toe(s) M79.674 ; Pain in left toe(s) M79.675 and Pain in left foot M79.[address] [address] 05/15/2024 Colette Black Tinea unguium B35.1 ; Neuritis of left foot G57.92 ; Pain in right toe(s) M79.674 ; Pain in left toe(s) M79.675 ; Pain in left foot M79.672 ; Pain in right toe(s) M79.674 ; Other hammer toe(s) (acquired), right foot M20.41 ; Pain in left toe(s) M79.675 ; Other hammer toe(s) (acquired), left foot M20.42 and Ingrown nail L60.[address] [address] 08/25/2024 Colette Black Pain in left foot M79.672 ; Plantar fasciitis of left foot M72.2 ; Interstitial myositis of left foot M60.172 ; Bursitis of left foot M77.52 ; Onychomycosis B35.1 ; Pain in right toe(s) M79.674 and Pain in left toe(s) M79.675 [facility] [address] [address] 11/12/2023 Colette Black Assessments Encounter Date Diagnosis (ICD Code) Assessment Notes Treatment Notes Treatment Clinical Notes Section Notes 01/21/2024 Tinea unguium (ICD-10 - B35.1) 01/21/2024 Neuritis of left foot (ICD-10 - G57.92) 05/15/2024 Tinea unguium (ICD-10 - B35.1) 05/15/2024 Neuritis of left foot (ICD-10 - G57.92) Response to treatment - Improvement 08/25/2024 Pain in left foot (ICD-10 - M79.672) 08/25/2024 Plantar fasciitis of left foot (ICD-10 - M72.2) Patient Educated with: HEEL CORD STRETCHES.pdf (HEEL CORD STRETCHES.pdf ) Patient Educated with: RICE THERAPY.pdf (RICE THERAPY.pdf) 08/25/2024 Interstitial myositis of left foot (ICD-10 - M60.172) 05/15/2024 Pain in right toe(s) (ICD-10 - M79.674) 01/21/2024 Pain in right toe(s) (ICD-10 - M79.674) 01/21/2024 Pain in left toe(s) (ICD-10 - M79.675) 05/15/2024 Pain in left toe(s) (ICD-10 - M79.675) 08/25/2024 Bursitis of left foot (ICD-10 - M77.52) 08/25/2024 Onychomycosis (ICD-10 - B35.1) 05/15/2024 Pain in left foot (ICD-10 - M79.672) 01/21/2024 Pain in left foot (ICD-10 - M79.672) 05/15/2024 Pain in right toe(s) (ICD-10 - M79.674) 08/25/2024 Pain in right toe(s) (ICD-10 - M79.674) 08/25/2024 Pain in left toe(s) (ICD-10 - M79.675) 05/15/2024 Other hammer toe(s) (acquired), right foot (ICD-10 - M20.41) 05/15/2024 Pain in left toe(s) (ICD-10 - M79.675) 05/15/2024 Other hammer toe(s) (acquired), left foot (ICD-10 - M20.42) 05/15/2024 Ingrown nail (ICD-10 - L60.0) 08/25/2024 Other Plan Of Treatment Pending Test Test Name Order Date 48945-MXVGYQY NAIL, 6 OR MORE 02/04/2014 13108-FXNVPTH NAIL, 6 OR MORE 03/11/2014 93258-EJAJROX NAIL, 6 OR MORE 09/07/2016 55983-NYCTTSK NAIL, 6 OR MORE 01/04/2017 35444-QJVFBSY NAIL, 6 OR MORE 05/14/2017 08401-IAAVFWL NAIL, 6 OR MORE 08/20/2017 84414-ZRRTTBJ NAIL, 6 OR MORE 11/26/2017 84378-XTBSFSQ NAIL, 6 OR MORE 02/25/2018 92987-JVGWYNW NAIL, 6 OR MORE 05/27/2018 77349-BFTCHRO NAIL, 6 OR MORE 08/26/2018 24713-BWTYOJT NAIL, 6 OR MORE 12/02/2018 64509-IBNZWRZ NAIL, 6 OR MORE 03/03/2019 32722-MZPTWCA NAIL, 6 OR MORE 06/02/2019 20504-JSOAZJA NAIL, 6 OR MORE 12/01/2019 08888-YDRAPTE NAIL, 6 OR MORE 03/08/2020 31003-NNQRTQI NAIL, 6 OR MORE 06/10/2020 30574-IVSDJCO NAIL, 6 OR MORE 09/09/2020 74597-QKRFCFM NAIL, 6 OR MORE 12/16/2020 49036-KYVKWIR NAIL, 6 OR MORE 03/17/2021 49711-UXNUMWJ NAIL, 6 OR MORE 06/16/2021 73184-ABQTTAS NAIL, 6 OR MORE 09/22/2021 97653-BZFWNPS NAIL, 6 OR MORE 08/03/2022 38140-JBVVCWD NAIL, 6 OR MORE 01/29/2023 53666-AITQJBR NAIL, 6 OR MORE 04/30/2023 78947-HPDPIUT NAIL, 6 OR MORE 01/23/2022 24470-HTTMNQE NAIL, 6 OR MORE 05/01/2022 18146-MGCYWQO NAIL, 6 OR MORE 08/02/2023 10973-KLVKCKJ NAIL, 6 OR MORE 01/21/2024 57250-KOGEHVM NAIL, 6 OR MORE 05/15/2024 46520-LTLWNKI NAIL, 6 OR MORE 08/25/2024 87270-KCFMFCR NAIL, 1-5 06/05/2016 54980-XUAWJQB NAIL, 1-5 11/17/2013 94218-GYTZMYJ NAIL, 1-5 09/09/2015 66431-TTFJYII NAIL, 1-5 02/14/2016 95425-Njmv Destruction, 11-1805/14/2017 02626-Rllk Destruction, 11-1801/04/2017 69713-Olmf Destruction, 11-1803/03/2019 29528-Mebf Destruction, 11-1812/02/2018 74872-Kzik Destruction, 11-1808/26/2018 04774-Tonn Destruction, 11-1805/27/2018 78649-Zstc Destruction, 11-1802/25/2018 13648-Elxm Destruction, 11-1808/20/2017 29377-Dzlt Destruction, 11-1811/26/2017 93538-Fsmlkepz Plate 05/14/2017 31325-Skltagkp Plate 06/05/2016 91396-Qulxmzno Plate 09/07/2016 76677-Wmtoyttx Plate 02/14/2016 83850-Jwguosua Plate 09/09/2015 15898-Kcyryiye Plate 03/11/2014 47702-Gkdnxouu Plate 02/04/2014 01798-Lulnrvyf Plate 01/23/2022 25634-Kfqjggwa Plate 05/15/2024 93470-Abfkoesi Plate 05/01/2022 08384-Rzowemya Plate 08/02/2023 24972-Zmhtndth Plate 06/16/2021 50274-Zpncqseq Plate 03/17/2021 78427-Awksvvpy Plate 09/09/2020 69403-Psmpkrcc Plate Each Additional 87992-Gxltxubj Plate Each Additional 97116-Elwphfcn Plate Each Additional 12/2013 42713-Ynukaapp Plate Each Additional 05/2014 45646- Debride <25 sq cm 06/16/2019 37585 I&D ABSCESS- SIMPLE,SINGLE 019 Next Appt Details Provider Name:Colette Cobb , 12/04/2024 01:30:00 PM, [address] [facility], [place], [address], Insurance Providers Payer Name Payer Address Payer Phone Subscriber Number Group Number Insured Name Patient Relationship to Insured Coverage Start Date Coverage End Date Medicare National [employer]t [employer] [address] [place] [address] [id number] Antonieta , Ernestine Self - patient is the insured [employer] [facility] [address] [place] [address] [id number] Ernestine Fung Self - patient is the insured 3 Medical (General) History Medical History History ICD Code Arthritis back, hip, knee pain measles chicken pox Macular degeneration Neuropathy Surgical History Surgery Date(Month/Year) tendon repair-ruptured left thumb 2005 appendix removed 12/18/15 left mastectomy 04/27/16 Hospitalization History Reason Date(Month/Year) [facility] - Upper gastrial intesti nal bleed and small intestinal blockage 07/08/2023, 07/12/2023 [facility]- bowel obstruction 07/18/21,08/12/21 [facility]- bowel obstruction 02/15/[address] [facility] / Mastectomy 04/06 01/18-04/29/16 pt was [facility] for laproscopy and ruptured a ppendix 12/18/15
--- OUTSIDE RECORDS SUMMARY | 2024-10-15 01:57 | XMS_ITS ---
Author Organization [facility] reyna [place] Address [address] [place] [address] Care Team Providers Care Chief Airport Guide Name Role Phone Eri GAYTAN, Vineet Primary Care Provider Unavail able Black, Colette Unavailable [phone] Allergies No Known Allergies REASON FOR VISIT Painful Nail(s) aggrevated by shoes and causing difficulty standing/walking., Foot pain Medications Medication SIG (Take, Route, Frequency, Duration) Notes Start Date End Date Status Tamoxifen Citrate 20 MG Oral for 90 Not-Taking Plaquenil 200 MG 1 tablet with food o r milk Orally Once a day for 10 day(s) Not-Taking vitamin as directed Active Aspir-81 Not-Taking Methotrexate 2.5 MG 1 tablet Orally Thre e times a Week for 30 day(s) Not-Taking Acetaminophen 650 MG as directed Orally Active Gabapentin 300 MG 1 capsule Orally Onc e a day Active Remicade 3 vials 6wks Act aracely Atorvastatin Calcium 40 MG as directed Orally Active Lipitor 40 MG 1 tablet Orally Once a day for 30 day(s) Active Sucralfate Active Omeprazole 10 MG as directed Orally Once a day Active Social History Tobacco Use: Social History [...] Problem Status W/U Status Risk Notes Problem Mononeuropathy of lower limb (982373635) Neuritis of left foot (G57.92) Active confirmed Response to treatment - Improvement Vital Signs Blood pressure systolic 125 mm Hg 01/21/20 24 Blood pressure diastolic 70 mm Hg 024 Height 5 ft 3 in in 01/21/2024 Weight 157 lbs 01/21/2024 BMI 27.81 kg/m2 01/21/2024 Procedures Procedure Date Ordered Date Performed Result Body Sit e 93453-EZQPQNM NAIL, 6 OR MORE 01/21/2024 N/A Encounters Encounter Location Date Provider Diagnosis [facility] [address] [address] 01/21/2024 Colette Cobb Tinea unguium B35.1 ; Neuritis of left foot G57.92 ; Pain in right toe(s) M79.674 ; Pain in left toe(s) M79.675 and Pain in left foot M79.672 Assessments Encounter Date Diagnosis (ICD Code) Assessment Notes Treatment Notes Treatment Clinical Notes Section Notes 01/21/2024 Tinea unguium (ICD-10 - B35.1) 01/21/2024 Neuritis of left foot (ICD-10 - G57.92) 01/21/2024 Pain in right toe(s) (ICD-10 - M79.674) 01/21/2024 Pain in left toe(s) (ICD-10 - M79.675) 01/21/2024 Pain in left foot (ICD-10 - M79.672) Plan Of Treatment Pending Test Test Name Order Date 92065-VQBJRYO NAIL, 6 OR MORE 01/21/2024 Next Appt Details Follow Up: prn, Reason: Provider Name:Colette Cobb , 12/04/2024 01:30:00 PM, [address] [place] [address], [phone], Procedure Notes * Category Sub-Category Detail Notes Debride Nail 6-10 Nail debridement Nail debridem ent performed extensively to reduce/remove overall nail length and girth, subungual debris, and necrotic tissue, by manual and electrical means with use of a nail nipper and/or dremel, to more viable healthy nail plate or bed tissue 6-10. Silver nitrate used for any petechial bleeding as necessary. Patient chooses, no pharmaceutical tx (36258) Progress Notes * Ernestine DESOUZA HDOB:[birth year] (88 yo F)Acc No.[id number]:01/21/2024 Progress Note Patient:Ernestine More Provider:?Colette Cobb DPM :1935???Age:88 Y???Sex:Female D ate:01/21/2024 Address:[address] , [address], [place], [place] Pcp:Vineet Hwang MD Subjective: * Chief Complaints: * ???Painful Nail(s) aggrevate d by shoes and causing difficulty standing/walking.Foot pain * HPI: ???Painful Nails:?Pt States Last PCP Visit:?Date:?10/05/2023 ???Foot Pain:?Nature:?burning, tingling, shooting, radiating.?Location:?, B/L.?Duration:?several years.?Onset:?unknown.?Course:?worse.?Aggrevated:?any pressure.?Treatments:?rest/alter normal daily activity.? * ROS:?General/Constitutional:?Nausea?denies.?Vomiting?denies.?Hunger Thirst?denies.?Loss appetite?denies.?Chills?denies.?Fatigue?denies.?Fever?denies.?Night Sweats?denies.?Unexplained weight loss?denies.?Ophthalmologic:?Blurred vision?denies.?Red eye?denies.?HEENTM:?Dentures?admits.?Dizziness?denies.?Glasses/contacts?admits.?Retinopathy?de nies.?Blurred/double vision?denies.?TMJ?denies.?Discharge/drainage?denies.?Implants?denies.?Hard of hearing admits.?Difficulty chewing/swallowing/speaking?denies.?Nose bleeds?denies.?Sore mouth?denies.?Swollen glands?denies.?Respiratory:?On Oxygen?denies.?Pneumonia/pleurisy?denies.?Bronchitis?denies.?Emphysema?denies.?C oughing?denies.?Cough blood?denies.?Shortness of breath?denies.?Wheezing?denies.?Cardiovascular:?Pacemaker?denies.?MVP?denies.?WPW?denies.?CHF?denies.?Heart attack?denies.?Septal defect?denies.?Rapid beat?denies.?Chest pain ?denies.?Atrial Fib.?denies.?Murmur/Palpitations?denies.?Gastrointestinal:?Hemorrhoids?denies.?Stomach/Abdominal pain?denies.?Dark blood stool?denies.?Irritable bowel ?denies.?Constipation?denies.?Diarrhea?denies.?Vomiting?denies.?Hematology:?Swelling?denies.?Bruising?denies.?Bleeding problem?denies.?Genitourinary:?Blood urine?denies.?Frequent/Painfu/urination/bladder control?denies.?Kidney stones?denies.?Infection (UTI)?denies.?Nephropathy?denies.?Musculoskeletal:?Hammertoes?admits.?Bunions?admits.?Scoliosis/kyphosis?denies.?Muscle cramps / walking?denies.?Generalized aches and pains?denies.?Weakness?denies.?Integ.:?Maguire?denies.?Scars?denies.?Corns/calluses?denies.?Ingrown nails?denies.?Painful nails?denies.?Rashes?denies.?Neurologic:?Difficulty sleeping?denies.?Bipolar?denies.?Brain disorder?denies.?Balance trouble?denies.?Confusion?denies.?Fainting/blackouts?denies.?Headache?denies.?Tr emors?denies.? * Medical History:? 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 ?Marital status: . 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 * Medications:?TakingSucralfat e Omeprazole 10 MG Capsule [...] and reconciled with the patient * Allergies:?N.K.D.A.yes[Aller gies Verified] Objective: * Vitals:?Ht: 5 ft 3 in, Wt:15 7, BMI:27.81, Shoe size:10, BP:125/70 mm Hg. * Examination: ???Nails: ?NAILS are:?elongated,overgrown,dystrophic,greater than 3mm thick,discolored and friable with crumbly malodorous subungual debris, with pain on palpation, , , T5, T8, T9, TA, T1, T2, T3.?Neurological: ?SENSORY:?Neurological exam demonstrates , reduced light touch sensation , reduced sharp/dull pin prick discrimination , reduced vibration sensation , 5.07 monofilament test performed at plantar aspects of 5 varied sites per foot shows sensation , reduced , at Forefoot , B/L , Pt relates , anesthesia , pins and needles sensation , shooting/radiating sensation , especially in the evening , B/L.?TINEL'S COMPRESSION:? Positive, Medial dorsal cutaneous nerve distribution, Intermediate dorsal cutaneous nerve distribution, Left.?Neuroma Pain: ?PALPATION:?No interspace pain noted on palpation.?X-Rays - IMAGING REPORT: ?Clinical Indication(s):?Evaluate Biomechanical Deformity , Evaluate for Fracture.?Views:? 3 views of Foot, AP, LAT, LO, LEFT.?Findings:?normal bone and soft tissue density consistent for patients age and sex, dorsal degenerative changes of the tarsal joints.?Fracture:?Negative fractures identified.? Assessment: * Assessment: 1.?Tinea unguium - B35.1?2.? Neuritis of left foot - G57.92 (Primary), Acute problem, Complicated w/ Multiple Tx Options(4),Dx New problem, Prognosis Uncertain (4)?3.?Pain in right toe(s) - M79.674?4.?Pain in left toe(s) - M79.675?5.?Pain in left foot - M79.672? Plan: * Treatment: * Procedures:?Debride Nail 6-10:?Nail debridement?Nail debridement performed extensively to reduce/remove overall nail length and girth, subungual debris, and necrotic tissue, by manual and electrical means with use of a nail nipper and/or dremel, to more viable healthy nail plate or bed tissue 6-10. Silver nitrate used for any petechial bleeding as necessary. Patient chooses, no pharmaceutical tx (00173).? * Procedure Codes:?48461 DEBRI DE NAIL, 6 OR MORE, Modifiers: XS * Preventive Medicine:? ??Counseling:?Discussion:?-13: Office or other outpatient visit for the evaluation and management of an established patient, which required a medically appropriate history and/or examination and LOW level of DECISION MAKING for: 1 STABLE ACUTE UNCOMPLICATED PROBLEM, 2 OR MORE MINOR PROBLEMS, OR 1 STABLE CHRONIC PROBLEM, THAT POSE(S) A LOW RISK FOR MORBIDITY/MORTALITY. The visit on the day of the [...] have encouraged the patient to call the office.?Neuritis/Neuropathy:?The patient was counseled on the diagnosis, possible etiologies (including mechanical stress, injury, entrapment, chemotherapy, diabetes, vertebral disk herniation if hx), treatment options, and importance for adherence to recommendations in order to address the patients Neuritis/Neuropathy. The advantages and disadvantages re: Accommodative mechanical support/offloading, Topical vs PO analgesics including aspercream/Voltaren gel/Lidoderm patches/Neurontin/Lyrica along with their potential side effects were discussed with the patient to their satisfaction. Also discussed the use of therapeutic injectable cortisone if needed. Surgical treatment, if considered an option, was discussed as well. If surgery is warranted, we discussed the potential successful outcomes as well as the possible complications such as failure, painful scar, permanent tingling/numbness/neuralgea/or intractable pain. Patient questions re: medication use, dosage, and possible side effects and drug interactions were reviewed and the answers to each understood. If the condition worsens, the patient was instructed to contact the office for an appointment. The patient verbally confirmed a full understanding of the above, Recommended Biofreeze gel if that does not work a compound medication from mail order pharmacy.? * Follow Up:?prn * Images: * Sign off status: Completed true * Provider:?Colette Cobb DPM Date:?2023 Generated for Edward bateman/Hollis/Gilberto on:?10/15/2024 01:56 AM EST History and Physical Notes * HPI (History of Present Illness) Category Sub-Category Detail Notes Category Not es Painful Nails Pt States Last PCP Visit: Date:: 10/05/2023 Foot Pain Nature: burning, tinglin g, shooting, radiating Location: , B/L Duration: several years Onset: unknown Course: worse Aggravated: any pressure Treatments: rest/alter normal da chelsey activity Examination Category Sub-Category Detail Notes Category Not es Ingrown Nail INSPECTION: Neuroma Pain PALPATION: No interspace pain noted on palpation Neurological SENSORY: Neurological exa m demonstrates , reduced light touch sensation , reduced sharp/dull pin prick discrimination , reduced vibration sensation , 5.07 monofilament test performed at plantar aspects of 5 varied sites per foot shows sensation , reduced , at Forefoot , B/L , Pt relates , anesthesia , pins and needles sensation , shooting/radiating sensation , especially in the evening , B/L TINEL'S COMPRESSION: Positive, Medial do rsal cutaneous nerve distribution, Intermediate dorsal cutaneous nerve distribution, Left Dermatologic SKIN FINDINGS: Nails NAILS are: elongated,overgr own,dystrophic,greater than 3mm thick,discolored and friable with crumbly malodorous subungual debris, with pain on palpation, , , T5, T8, T9, TA, T1, T2, T3 X-Rays - IMAGING REPORT Findings: normal b one and soft tissue density consistent for patients age and sex, dorsal degenerative changes of the tarsal joints Fracture: Negative fractures i dentified Views: 3 views of Foot, AP, LAT, LO, LEFT Clinical Indication(s): Evaluate Biomech anical Deformity , Evaluate for Fracture
--- OUTSIDE RECORDS SUMMARY | 2024-10-15 01:57 | XMS_ITS ---
Author Organization [facility] reyna [place] Address [address] [facility] [place] [address] Care Team Providers Care Probation And Parole Officer Name Role Phone Eri GAYTAN, Vineet Primary Care Provider Unavail able Black, Colette Unavailable [phone] Allergies No Known Allergies REASON FOR VISIT Painful Nail(s) aggrevated by shoes and causing difficulty standing/walking., Foot pain, Painful Toe(s), Ingrown Nail Medications Medication SIG (Take, Route, Frequency, Duration) Notes Start Date End Date Status Aspir-81 Not-Taking vitamin as directed Active Tamoxifen Citrate 20 MG Oral for 90 Not-Taking Methotrexate 2.5 MG 1 tablet Orally Thre e times a Week for 30 day(s) Not-Taking Plaquenil 200 MG 1 tablet with food o r milk Orally Once a day for 10 day(s) Not-Taking Acetaminophen 650 MG as directed Orally Active Lipitor 40 MG 1 tablet Orally Once a day for 30 day(s) Active Remicade 3 vials 6wks Act aracely Gabapentin 300 MG 1 capsule Orally Onc e a day Active Atorvastatin Calcium 40 MG as directed Orally Active Sucralfate Active Omeprazole 10 MG as directed Orally Once a day Active Social History Tobacco Use: Social History Observation Description Date Details (start date - stop date) Former Smoker NA - NA Tobacco Use/Smoking Question Answer Notes Are you a: former smoker Additional Findings: Tobacco Non-User Current no n-smoker Tobacco use other than smoking: Question Answer Notes Are you an other tobacco user? 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 Problem Localized, primary osteoarthritis of the ankle and/or foot (648572300) Arthritis of joint of lesser toe, left (M19.072) Active confirmed Vital Signs Blood pressure systolic 120 mm Hg 05/15/20 24 Blood pressure diastolic 63 mm Hg 024 Height 5 ft 3 in in 05/15/2024 Weight 157 lbs 05/15/2024 BMI 27.81 kg/m2 05/15/2024 Procedures Procedure Date Ordered Date Performed Result Body Sit e 67378-HNKZUGA NAIL, 6 OR MORE 05/15/2024 N/A 11270-Tjcqrrsr Plate 05/15/2024 N/A Encounters Encounter Location Date Provider Diagnosis [facility] [place] [address] [place] [address] 05/15/2024 Colette Black Tinea unguium B35.1 ; Neuritis of left foot G57.92 ; Pain in right toe(s) M79.674 ; Pain in left toe(s) M79.675 ; Pain in left foot M79.672 ; Pain in right toe(s) M79.674 ; Other hammer toe(s) (acquired), right foot M20.41 ; Pain in left toe(s) M79.675 ; Other hammer toe(s) (acquired), left foot M20.42 and Ingrown nail L60.0 Assessments Encounter Date Diagnosis (ICD Code) Assessment Notes Treatment Notes Treatment Clinical Notes Section Notes 05/15/2024 Tinea unguium (ICD-10 - B35.1) 05/15/2024 Neuritis of left foot (ICD-10 - G57.92) Response to treatment - Improvement 05/15/2024 Pain in right toe(s) (ICD-10 - M79.674) 05/15/2024 Pain in left toe(s) (ICD-10 - M79.675) 05/15/2024 Pain in left foot (ICD-10 - M79.672) 05/15/2024 Pain in right toe(s) (ICD-10 - M79.674) 05/15/2024 Other hammer toe(s) (acquired), right foot (ICD-10 - M20.41) 05/15/2024 Pain in left toe(s) (ICD-10 - M79.675) 05/15/2024 Other hammer toe(s) (acquired), left foot (ICD-10 - M20.42) 05/15/2024 Ingrown nail (ICD-10 - L60.0) Plan Of Treatment Pending Test Test Name Order Date 44374-JKXDJGS NAIL, 6 OR MORE 05/15/2024 20258-Tioijele Plate 05/15/2024 Next Appt Details Follow Up: 2 Weeks,prn, Reas on: Provider Name:Colette Cobb , 12/04/2024 01:30:00 PM, [address] [place], [address], Procedure Notes * Category Sub-Category Detail Notes Nail Avulsion Procedure A fine sterile e levator was placed between the eponychium, nail fold, and nail plate to separate the structures. A sterile nail splitter, and/or sterile 316 blade, was then used to longitudinally section the nail along its entire length through the eponychium to the area under the nail fold. The offending portion of nail was from the nail bed with a rolling action and then removed with a hemostat. No underlying bone was identified. There was minimal bleeding as hemostasis was achieved through the temporary use of either a digital tourniquet or the aforementioned local with epinephrine. A bacitracin sterile dressing was applied. Local wound aftercare instructions were discussed and dispensed. The patient was informed of both conservative and future surgical procedures to prevent recurrence. Tylenol or Motrin was recommended for pain or discomfort (68948) , Pt DEFERS matricectomy Anesthesia was accomplished TOP ICALLY with Lidocaine Hydrochloride Jelly 2 percent Location T6 , Lateral nail brody rder Debride Nail 6-10 Nail debridement Nail debridem ent performed extensively to reduce/remove overall nail length and girth, subungual debris, and necrotic tissue, by manual and electrical means with use of a nail nipper and/or dremel, to more viable healthy nail plate or bed tissue 6-10. Silver nitrate used for any petechial bleeding as necessary. Patient chooses, no pharmaceutical tx (58073) Progress Notes * Ernestine DESOUZA HDOB:[birth year] (88 yo F)Acc No.[id number]:05/15/2024 Progress Note Patient:?Ernestine Desouza Provider:?Colette Cobb DPM :1935???Age:88 Y???Sex:Female D ate:05/15/2024 Address:[address] , [address], [place], [place] Pcp:Vineet Hwang MD Subjective: * Chief Complaints: * ???Painful Nail(s) aggrevate d by shoes and causing difficulty standing/walking.Foot painPainful Toe(s)Ingrown Nail * HPI: ???Painful Nails:?Pt States Last PCP Visit:?Date:?01/16/2024 ???Foot Pain:?Nature:?burning, tingling, shooting, radiating.?Location:?, B/L.?Duration:?several years.?Onset:?unknown.?Course:?, improved , at _60 %.?Aggrevated:?any pressure.?Treatments:?rest/alter normal daily activity , ?topical anti-inflammatory cream.?Toe pain:?Nature:?tenderness.?Location:?B/L feet.?Duration:?several years.?Course:?worse.?Aggrevated by:?shoes, any pressure.?Treatments:?rest/alter normal daily activity, change in shoes,cotton between toes.? * ROS:?General/Constitutional:?Nausea?denies.?Vomiting?denies.?Hunger Thirst?denies.?Loss appetite?denies.?Chills?denies.?Fatigue?denies.?Fever?denies.?Night Sweats?denies.?Unexplained weight loss?denies.?Ophthalmologic:?Blurred [...] 04/27/16 * Hospitalization/Major Diagno stic Procedure:?pt was [facility] for laproscopy and ruptured appendix 12/18/15[facility] / Mastectomy 04/27/16-04/29/16[facility]- bowel obstruction 02/15/[address]21[facility]- bowel obstruction 07/18/21,08/12/21[facility] - Upper gastrial intestinal bleed and small intestinal blockage 07/08/2023, 07/12/2023 * Family History:?Mother: dece ased, diagnosed with Family history of arthritis.?Father: , diagnosed with Other malignant neoplasm of unspecified site.? * Social History:?Tobacco Use:?Tobacco Use/Smoking?Are you a:?former smoker ?Additional Findings: Tobacco Non-User?Current non-smoker ?Tobacco use other than smoking?Are you an other tobacco user??No * Medications:?TakingSucralfat e Omeprazole 10 MG Capsule [...] 57, BMI: 27.81, Shoe size: 10W, BP: 120/63 mm Hg, Wt-k.21 kg. * Examination: ???Nails: ?NAILS are:?elongated,overgrown,dystrophic,greater than 3mm thick,discolored and friable with crumbly malodorous subungual debris, with pain on palpation, , , T5, T8, T9, TA, T1, T2, T3.?Ingrown Nail: ?INSPECTION:?Reveals nail incurvation, pain on palpation, groove hypertrophy , groove ischemia , Lateral nail border, , T6.?Neurological: ?SENSORY:?Neurological exam demonstrates , reduced light touch sensation , reduced sharp/dull pin prick discrimination , reduced vibration sensation , 5.07 monofilament test performed at plantar aspects of 5 varied sites per foot shows sensation , reduced , at Forefoot , B/L , Pt relates , anesthesia , pins and needles sensation , shooting/radiating sensation , especially in the evening , B/L at 60 percent less.?TINEL'S COMPRESSION:? Positive, Medial dorsal cutaneous nerve distribution, Intermediate dorsal cutaneous nerve distribution, Left.?Neuroma Pain: ?PALPATION:?No interspace pain noted on palpation.?Orthopedic: ?DIGITAL DEFORMITIES:?Digital contracture, PIPJ, 2-5 B/L, non-reducible with WB or to push-up test, no over, nor underlapping , Reveals pain/swelling/redness/enlargement of PIPJ 2-5? b/l.?FOOTWEAR:? shoe gear properties exacerbate patients foot/toe deformity.? Assessment: * Assessment: 1.?Tinea unguium - B35.1?2.? Neuritis of left foot - G57.92 (Primary), Response to treatment - Improvement?3.?Pain in right toe(s) - M79.674?4.?Pain in left toe(s) - M79.675?5.?Pain in left foot - M79.672?6.?Pain in right toe(s) - M79.674?7.?Other hammer toe(s) (acquired), right foot - M20.41, Chronic problem, Worse (4)?8.?Pain in left toe(s) - M79.675?9.?Other hammer toe(s) (acquired), left foot - M20.42, Chronic problem, Worse (4)?10.?Ingrown nail - L60.0? Plan: * Treatment: 2.?Ingrown nail?Procedure: 56662-Kebvuijx Plate * Procedures:?Debride Nail 6-10:?Nail debridement?Nail debridement performed extensively to reduce/remove overall nail length and girth, subungual debris, and necrotic tissue, by manual and electrical means with use of a nail nipper and/or dremel, to more viable healthy nail plate or bed tissue 6-10. Silver nitrate used for any petechial bleeding as necessary. Patient chooses, no pharmaceutical tx (51404).?Nail Avulsion:?Location?T6 , Lateral nail border.?Anesthesia?was accomplished TOPICALLY with Lidocaine Hydrochloride Jelly 2 percent.?Procedure?A fine sterile elevator was placed between the eponychium, nail fold, and nail plate to separate the structures. A sterile nail splitter, and/or sterile 316 blade, was then used to longitudinally section the nail along its entire length through the eponychium to the area under the nail fold. The offending portion of nail was from the nail bed with a rolling action and then removed with a hemostat. No underlying bone was identified. There was minimal bleeding as hemostasis was achieved through the temporary use of either a digital tourniquet or the aforementioned local with epinephrine. A bacitracin sterile dressing was applied. Local wound aftercare instructions were discussed and dispensed. The patient was informed of both conservative and future surgical procedures to prevent recurrence. Tylenol or Motrin was recommended for pain or discomfort (04040) , Pt DEFERS matricectomy.? * Procedure Codes:?84713 DEBRI DE NAIL, 6 OR MORE, Modifiers: XS 75284 Avulsion Plate, Modifiers: T6 * Preventive Medicine:? ??Counseling:?Discussion:?-14: Office or other [...] have encouraged the patient to call the office.?Digital Surgery:?We elected to try conservative treatment at the present time, due to the patients age and medical history,.?Digital Treatment:?HT- I explained to the patient the possible etiologies of Hammertoes, including genetics/foot type/shoegear/activity level/exercise routine and the risks/benefits of all the different treatment options for their pain including: No treatment at all, Rest, Ice, New/supportive/wider/deeper Shoegear, Digital Padding/Strapping/Taping/Bracing/Gel protective sleeves, Foot/Ankle AFO Bracing, Stretching exercises, Deep Tissue Massage, Arch support/shoe inserts with splay metatarsal padding, and Custom orthoses. I insisted that any digital devices be removed daily and not worn overnight for safety. The patient is to carefully examine the toes daily for any skin irritation while using any splinting or padding device. The advantages and disadvantages of each option were discussed and the patients questions re: shoegear, padding, custom vs prefabricated inserts, activity level, and consistency in home treatment regimens for optimal success were answered to their verbally confirmed satisfaction. Man's wool is applied between pts toes to reduce pressure and prevent further break down of skin. reciomm. pt check interspaces every day for changes and the call the office if any occur. Reviewed footwear with the wide and high toe box to accomdate for the toes.?Neuritis/Neuropathy:?Discussed other tx options for the patients condition, given recent successful results to treatment, the patient wishes to continue with the present plan for their condition.? * Follow Up:?2 Weeks,prn * Images: * Sign off status: Completed true * Provider:?Colette Cobb DPM Date:?2023 Generated for Edward bateman/Hollis/Gilberto on:?10/15/2024 01:56 AM EST History and Physical Notes * HPI (History of Present Illness) Category Sub-Category Detail Notes Category Not es Toe pain Nature: tenderness Location: B/L feet Duration: several years Course: worse Aggravated by: shoes, any pressure Treatments: rest/alter normal da chelsey activity, change in shoes,cotton between toes Painful Nails Pt States Last PCP Visit: Date:: 01/16/2024 Foot Pain Nature: burning, tingling, shooting, radiating Location: , B/L Duration: several years Onset: unknown Course: , improved , at _60 % Aggravated: any pressure Treatments: rest/alter normal da chelsey activity , topical anti-inflammatory cream Examination Category Sub-Category Detail Notes Category Not es Ingrown Nail INSPECTION: Reveals nail inc urvation, pain on palpation, groove hypertrophy , groove ischemia , Lateral nail border, , T6 Neuroma Pain PALPATION: No interspace pain noted [...] , especially in the evening , B/L at 60 percent less TINEL'S COMPRESSION: Positive, Medial do rsal cutaneous nerve distribution, Intermediate dorsal cutaneous nerve distribution, Left Dermatologic SKIN FINDINGS: Orthopedic FOOTWEAR: shoe gear proper ties exacerbate patients foot/toe deformity DIGITAL DEFORMITIES: Digital contracture , PIPJ, 2-5 B/L, non-reducible with WB or to push-up test, no over, nor underlapping , Reveals pain/swelling/redness/enlargement of PIPJ 2-5 b/l Nails NAILS are: elongated,overgr own,dystrophic,greater than 3mm thick,discolored and friable with crumbly malodorous subungual debris, with pain on palpation, , , T5, T8, T9, TA, T1, T2, T3
== END 2024-10-09 12:20 | disposition home or self-care (01) ==
PROVIDERS: PCP Internal Medicine; Visit Provider Surgery
DX: K43.0 Incisional hernia with obstruction, without gangrene (principal)
CPT/HCPCS: 99214

== ENCOUNTER → 2024-10-09 11:21 | Outpatient (BNVA) | payer MEDICARE, SELFPAY | PROVIDERS: PCP Internal Medicine; Visit Provider Surgery | DX: K43.0 Incisional hernia with obstruction, without gangrene (principal) | CPT/HCPCS: 99212 ==

== ENCOUNTER 2024-10-29 16:38 | Inpatient (IN) | payer MEDICARE, SELFPAY ==
--- NOTE | ~2024-10-29 | US_ITS ---
Ultrasound paracentesis History: Ascites. Risks and benefits and possible complications were discussed with the patient and consent form was signed. A safe pocket of ascitic fluid was identified using ultrasound guidance, and the overlying skin was marked. The abdomen prepped and draped in sterile fashion. 1% lidocaine was used as a local anesthetic. Using ultrasound guidance, a 5 fr catheter was placed into the ascitic pocket. liters of serous fluid was removed passively. The catheter was then removed. A few field support representative images from before and after the examination were obtained. US/US paracentesis abd w/image Impression: Ultrasound-guided paracentesis as described above. No immediate complications Electronically signed by: Fredrick Ryan MD 10/30/2024 04:36 PM [facility] SORENSON
--- NOTE | ~2024-10-29 | CT_ITS ---
EXAMINATION: CT ABDOMEN AND PELVIS WITH CONTRAST CLINICAL INFORMATION: Pain COMPARISON: CT abdomen pelvis 07/08/2023 TECHNIQUE: Multidetector volumetric imaging was performed from the superior aspect of the liver through the pubic symphysis with intravenous contrast. A total of 85 mL of Omnipaque 350 was utilized for the study. Sagittal and coronal reformatted images were obtained on the technologist's workstation. This CT examination was performed using dose optimization techniques as appropriate, variously including the following: *Automated exposure control *Adjustment of mA and/or kV according to patient size (this includes techniques or standardized protocols for targeted exams where dose is matched to indication/reason for exam; i.e. extremities or head) *Use of iterative reconstruction technique DLP: 990 mGy-cm FINDINGS: LUNG BASES: Status post left mastectomy. Emphysematous changes are present in the lungs. There is traction bronchiectasis at the lung bases along with atelectasis and bilateral small pleural effusions. LIVER, GALLBLADDER, AND BILIARY TREE: The liver is normal in size, shape, and attenuation. No focal hepatic lesion or biliary ductal dilatation is present. There is a new cyst seen in the liver just beneath the dome of the right hemidiaphragm measuring 2.3 cm. No other liver masses are seen. The gallbladder is unremarkable with no evidence of radiopaque gallstones, gallbladder wall thickening, or obvious pericholecystic inflammatory changes. PERITONEUM: There is new marked ascites compared with the prior study at which time only a small amount of free intraperitoneal fluid was seen. There is new extensive omental cake most prominent in the region of the greater omentum on the left. Some new mesenteric masses are seen the largest measuring 3.2 x 2.9 x 3.7 cm between the stomach and the tail of the pancreas. It is quite possible that this latter mass may actually be indeed arising from the pancreas. PANCREAS: Please see discussion above regarding mass near junction of pancreatic tail and body. The pancreas otherwise appears unremarkable. SPLEEN: Unremarkable. ADRENAL GLANDS: Unremarkable. KIDNEYS AND URETERS: The kidneys are normal in size, shape, and attenuation. No hydronephrosis, hydroureter, or calculi seen. A benign 6.75 cm septated Bosniak class II cyst with some possible calcification in the septa noted which requires no additional imaging or follow up. No solid renal masses are seen. BLADDER: Unremarkable. GASTROINTESTINAL TRACT: There are colonic diverticula without diverticulitis. Please see discussion below regarding bowel loops within hernia sacs The small and large bowel are unremarkable. The appendix is unremarkable. ABDOMINAL WALL: Again seen is a left-sided spigelian hernia or hernia contains a loop of colon along with omentum with marked thickening and implants. There are bilateral inguinal hernias present containing fluid on the left and some unobstructed small bowel loops on the right. LYMPH NODES: Some shotty retroperitoneal lymph nodes are seen without gross adenopathy. VASCULAR: Calcific atherosclerotic changes are present in the aorta and iliofemoral vessels. There is no evidence of an abdominal aortic aneurysm. PELVIC VISCERA: An anteverted uterus is present. The endometrium is massively expanded now measuring 6.6 cm and a lobular mass can be seen on the inferior surface measuring 3.1 x 1.7 x 2.9 cm . At the time of the prior study the endometrium was noted to be abnormal measuring 0.9 cm in thickness. OSSEOUS STRUCTURES: Severe degenerative changes are present throughout the spine. There is total collapse of the T11 body with near vertebral plana, similar to prior. CT/CT abdomen pelvis w IV con IMPRESSION: 1. New marked ascites with new extensive omental cake and mesenteric masses. 2. Massively expanded endometrium with a lobular mass on the inferior surface of the uterus. 3. Findings are suggestive of metastatic endometrial carcinoma 4. Other incidental findings as described above including multiple hernias. Fleischner guidelines were followed. Electronically signed by: Jori George MD 10/29/2024 10:21 PM ERIC
[2024-10-29 16:47] VITALS: BP 130/74; PULSE 78; O2SAT 96
[2024-10-29 16:50] VITALS: BP 114/54; PULSE 75; RESP 16; TEMP 36.8; O2SAT 95; BMI 31.2
--- NOTE | 2024-10-29 17:01 | ECG_ITS ---
Test Reason : abd pain Blood Pressure : / mmHG Vent. Rate : 077 BPM Atrial Rate : 077 BPM P-R Int : 158 ms QRS Dur : 082 ms QT Int : 378 ms P-R-T Axes : 052 038 040 degrees QTc Int : 427 ms Normal sinus rhythm Normal ECG When compared with ECG of 08-JUL-2023 15:15, No significant change was found Referred By: Bonnie Desai Electronically Signed By:Rashawn Curry
[2024-10-29 17:13] LABS: MANUAL DIFF FLAG NO
[2024-10-29] MEDS: ondansetron HCL 4 MG/2 ML VIAL IVPUSH (17:15)
[2024-10-29] MEDS: Morphine Sulfate 4 MG/ML CARTRIDGE IVPUSH (17:15)
[2024-10-29] MEDS: 0.9 % Sodium Chloride 500 ML IV (17:15)
[2024-10-29 17:27] LABS: Basophils Percent Auto 0.2 % (0-2); Eosinophils Absolute Auto 0.3 X10*3/uL (0.0-0.4); Eosinophils Percent Auto 2.7 % (0-4); Hematocrit 23.9 % (37.0-47.0); Hemoglobin 7.9 g/dl (12.0-16.0); Imm Gran Abs Auto 0.38 X10*3/uL (0.00-0.03); Lymphocytes Absolute Auto 1.4 X10*3/uL (1.2-4.9); Mean Corpuscular HGB Conc 33.1 g/dl (31.0-35.0); Mean Corpuscular Volume 81.6 fL (80.0-98.0); Mean Platelet Volume 8.2 fL (9.4-12.3); Monocytes Absolute Auto 1.4 X10*3/uL (0.1-1.2); Monocytes Percent Auto 10.8 % (2-11); Neutrophils Absolute Auto 9.1 x10*3/uL (2.0-8.3); Neutrophils Percent Auto 72.3 % (45-73); Platelet Count 573 X10*3/uL (160-400); Red Blood Count 2.93 X10*6/uL (4.20-5.50); Red Cell Distribution Width 18.7 % (11.0-16.0); White Blood Count 12.6 X10*3/uL (4.8-10.8)
[2024-10-29 17:35] LABS: Alanine Aminotransferase 7 U/L (0-31); Albumin Level 2.4 g/dL (3.5-5.0); Alkaline Phosphatase 133 U/L (39-117); Anion Gap 11 (12-20); Aspartate Amino Transferase 59 U/L (5-31); Bilirubin Total 0.3 mg/dL (0.0-1.0); Blood Urea Nitrogen 22 mg/dL (9-16); Calcium 8.2 mg/dL (8.4-10.2); Carbon Dioxide 23 mmol/L (22-29); Chloride 103 mmol/L (96-108); Creatinine Clr Calc Pharmacy 54.6; Estimated Glomerular Filt Rate > 60; Glucose Random 107 mg/dL (60-115); Lactic Acid 1.2 mmol/L (0.5-2.0); Lipase 52 U/L (8-78); Potassium 4.6 mmol/L (3.3-5.1); Sodium 132 mmol/L (135-145); Total Protein 5.7 g/dL (6.5-8.0)
--- OUTSIDE RECORDS SUMMARY | 2024-10-29 18:00 | XMS_ITS ---
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, primary osteoarthritis of the ankle and/or foot (574999950) Arthritis of joint of lesser toe, left (M19.072) Active confirmed Vital Signs Height 5 ft 3 in in 05/15/2024 Weight 157 lbs 05/15/2024 BMI 27.81 kg/m2 05/15/2024 Blood pressure systolic 120 mm Hg 05/15/20 24 Blood pressure diastolic 63 mm Hg 024 Procedures Procedure Date Ordered Date Performed Result Body Sit e 49625-AIBLMGY NAIL, 6 OR MORE 05/15/2024 N/A 77013-Tlkmuwjq Plate 05/15/2024 N/A Encounters Encounter Location Date Provider Diagnosis [facility] [address] [address] 05/15/2024 Colette Black Tinea unguium B35.1 ; [...] Treatment Pending Test Test Name Order Date [id number]-UEYQWPU NAIL, 6 OR MORE 05/15/2024 00485-Aqpdoeqn Plate 05/15/2024 Next Appt Details Follow Up: 2 Weeks,prn, Reas on: Provider Name:Colette Cobb , 12/04/2024 01:30:00 PM, [address] [place], [address], Procedure Notes * Category Sub-Category Detail Notes [...] Motrin was recommended for pain or discomfort (12235) , Pt DEFERS matricectomy Anesthesia was accomplished [...] as necessary. Patient chooses, no pharmaceutical tx (68905) Progress Notes * Ernestine DESOUZA HDOB:[birth year] (88 yo F)Acc No.[id number]:05/15/2024 Progress Note Patient:?Ernestine Desouza Provider:?Colette Cobb DPM :1935???Age:88 Y???Sex:Female D ate:05/15/2024 Address:[address] , [address], [place], [place] Pcp:Vineet Hwang MD Subjective: * Chief Complaints: [...] 04/27/16 * Hospitalization/Major Diagno stic Procedure:?pt was [facility] [place] [facility]roscopy and ruptured appendix 12/18/15[facility] / Mastectomy 04/27/16-04/29/16[facility]- bowel obstruction 02/15/2021[facility]- bowel obstruction 07/18/21,08/12/21[facility] - Upper gastrial intestinal [...] - L60.0? Plan: * Treatment: 2.?Ingrown nail?Procedure: 08398-Hkmdxttm Plate * Procedures:?Debride Nail 6-10:?Nail debridement?Nail debridement performed extensively to reduce/remove overall nail length and girth, subungual debris, and necrotic tissue, by manual and electrical means with use of a nail nipper and/or dremel, to more viable healthy nail plate or bed tissue 6-10. Silver nitrate used for any petechial bleeding as necessary. Patient chooses, no pharmaceutical tx (01986).?Nail Avulsion:?Location?T6 , Lateral nail border.?Anesthesia?was accomplished TOPICALLY [...] Motrin was recommended for pain or discomfort (43965) , Pt DEFERS matricectomy.? * Procedure Codes:?15417 DEBRI DE NAIL, 6 OR MORE, Modifiers: XS 37106 Avulsion Plate, Modifiers: T6 * Preventive Medicine:? [...] Cobb DPM Date:?2023 Generated for Edward bateman/Hollis/Gilberto on:?10/29/2024 06:00 PM EST History and Physical Notes * HPI [...]
--- OUTSIDE RECORDS SUMMARY | 2024-10-29 18:00 | XMS_ITS ---
Author Organization [facility] reyna [place] Address [address] [facility] [place] [address] Care Team Providers Care Computer Support Specialist Instructor Name Role Phone Eri GAYTAN, Vineet Primary Care Provider Unavail able Black, Colette Unavailable [phone] Allergies No Known Allergies REASON FOR VISIT [...] Risk Notes Problem Mononeuropathy of lower limb (462507862) Neuritis of left foot (G57.92) Active confirmed Response to treatment - Improvement Vital Signs Height 5 ft 3 in in 01/21/2024 Weight 157 lbs 01/21/2024 BMI 27.81 kg/m2 01/21/2024 Blood pressure systolic 125 mm Hg 01/21/20 24 Blood pressure diastolic 70 mm Hg 024 Procedures Procedure Date Ordered Date Performed Result Body Sit e 11331-KBNMYCT NAIL, 6 OR MORE 01/21/2024 N/A Encounters Encounter Location Date Provider Diagnosis [facility] [address] [address] 01/21/2024 Colette Cobb Tinea unguium B35.1 ; [...] Treatment Pending Test Test Name Order Date 78805-MUUNZXR NAIL, 6 OR MORE 01/21/2024 Next Appt Details Follow Up: prn, Reason: Provider Name:Colette Cobb , 12/04/2024 01:30:00 PM, [address] [place] [address], [address], Procedure Notes * Category Sub-Category Detail Notes [...] as necessary. Patient chooses, no pharmaceutical tx (67768) Progress Notes * Ernestine DESOUZA HDOB:[birth year] (88 yo F)Acc No.[id number]:01/21/2024 Progress Note Patient:Ernestine More Provider:?Colette Cobb DPM :1935???Age:88 Y???Sex:Female D ate:01/21/2024 Address:[address] , [address], [place], [place] Pcp:Vineet Hwang MD Subjective: * Chief Complaints: [...] 04/27/16 * Hospitalization/Major Diagno stic Procedure:?[facility] [place] [facility] [place] and ruptured appendix 12/18/15[facility] / Mastectomy 04/27/16-04/29/16[facility]- bowel obstruction 02/15/2021[facility]- bowel [...] exercise,, walking. ?Marital status: . ?Occupation: Retired- [employer]. * Medications:?TakingSucralfat e Omeprazole 10 MG Capsule [...] as necessary. Patient chooses, no pharmaceutical tx (19963).? * Procedure Codes:?82134 DEBRI DE NAIL, 6 OR MORE, Modifiers: [...]
--- OUTSIDE RECORDS SUMMARY | 2024-10-29 18:01 | XMS_ITS | Patient Health Record ---
Author Organization [facility] reyna Burt Address [address] [facility] [place] [address] Care Team Providers Care Headlight Adjuster Name Role Phone Vineet Hwang MD Primary Care Provider Unavail able Black Colette Unavailable [phone] Allergies No Known Allergies Reason For Referral [...] Problem Acquired hammer toe of right foot (906043156345249 5) Other hammer toe(s) (acquired), right foot (M20.41) Active confirmed Problem Acquired hammer toe of left foot (526299503077419 3) Other hammer toe(s) (acquired), left foot (M20.42) Active confirmed Problem Non-pressure ulcer lower limb (130315111) Non-pressure chronic ulcer of other part of right foot limited to breakdown of skin (L97.511) Active confirmed Problem Acquired hammer toe of right foot (068462866543753 5) Other hammer toe(s) (acquired), right foot (M20.41) Active confirmed Problem Acquired hammer toe of left foot (237413577584558 3) Other hammer toe(s) (acquired), left foot (M20.42) Active confirmed Problem 35615577 Rheumatoid arthritis (M06.9) Active confirmed Problem Mononeuropathy of lower limb (075717929) Neuritis of left foot (G57.92) Active confirmed Response to treatment - Improvement Problem Plantar fasciitis of left foot (296385749592254 01) Plantar fasciitis of left foot (M72.2) Active confirmed Problem Interstitial myositis (02039611) Interstitial myositis of left foot (M60.172) Active confirmed Problem Localized, primary osteoarthritis of the ankle and/or foot (546565148) Arthritis of joint of lesser toe, left (M19.072) Active confirmed Problem Localized, primary osteoarthritis of the ankle and/or foot (088409828) Arthritis of joint of lesser toe, right (M19.071) Active confirmed Vital Signs Blood pressure diastolic 80 mm Hg 08/25/2024 Height 5 ft 3 in in 08/25/2024 Blood pressure systolic 130 mm Hg 08/25/2024 Weight 157 lbs 08/25/2024 BMI 27.81 kg/m2 08/25/2024 Procedures Procedure Date Ordered Date Performed Result Body Sit e 62013-GHUZAMR NAIL, 6 OR MORE 01/21/2024 N/A 21973-BBQDNZG NAIL, 6 OR MORE 05/15/2024 N/A 03633-Xnnrwpph Plate 05/15/2024 N/A 70945-ANDHPXV NAIL, 6 OR MORE 08/25/2024 N/A Encounters Encounter Location Date Provider Diagnosis [address] [address] 01/21/2024 Colette Black Tinea unguium B35.1 ; Neuritis of left foot G57.92 ; Pain in right toe(s) M79.674 ; Pain in left toe(s) M79.675 and Pain in left foot M79.[address] [address] 05/15/2024 Colette Black Tinea unguium B35.1 ; Neuritis of left foot G57.92 ; Pain in right toe(s) M79.674 ; Pain in left toe(s) M79.675 ; Pain in left foot M79.672 ; Pain in right toe(s) M79.674 ; Other hammer toe(s) (acquired), right foot M20.41 ; Pain in left toe(s) M79.675 ; Other hammer toe(s) (acquired), left foot M20.42 and Ingrown nail L60.[address] [address] 08/25/2024 Colette Black Pain in left foot M79.672 ; Plantar fasciitis of left foot M72.2 ; Interstitial myositis of left foot M60.172 ; Bursitis of left foot M77.52 ; Onychomycosis B35.1 ; Pain in right toe(s) M79.674 and Pain in left toe(s) M79.675 [facility] [address] [address] 11/12/2023 Colette Black Assessments Encounter Date Diagnosis [...] Treatment Pending Test Test Name Order Date 51486-KFLTDQX NAIL, 6 OR MORE 02/04/2014 30805-YDEBJFU NAIL, 6 OR MORE 03/11/2014 08942-QIMGZAH NAIL, 6 OR MORE 09/07/2016 04509-YQDMIBL NAIL, 6 OR MORE 01/04/2017 69272-BQWPGOF NAIL, 6 OR MORE 05/14/2017 12766-SKJBPIE NAIL, 6 OR MORE 08/20/2017 25517-YQWNNNH NAIL, 6 OR MORE 11/26/2017 37067-CFTNOTX NAIL, 6 OR MORE 02/25/2018 58325-ATYLCKC NAIL, 6 OR MORE 05/27/2018 36511-KNJWDTK NAIL, 6 OR MORE 08/26/2018 78773-JJYTGWA NAIL, 6 OR MORE 12/02/2018 23377-UBYCQNO NAIL, 6 OR MORE 03/03/2019 83667-VJCAMIM NAIL, 6 OR MORE 06/02/2019 89826-NVWVBMI NAIL, 6 OR MORE 12/01/2019 49380-WYSOFPH NAIL, 6 OR MORE 03/08/2020 18316-EBOVBEQ NAIL, 6 OR MORE 06/10/2020 50496-BUBNHLR NAIL, 6 OR MORE 09/09/2020 32869-LNRTKXC NAIL, 6 OR MORE 12/16/2020 73627-APSIKGE NAIL, 6 OR MORE 03/17/2021 05343-DLOOVVA NAIL, 6 OR MORE 06/16/2021 69027-XFGDKYE NAIL, 6 OR MORE 09/22/2021 60118-WFNTQFX NAIL, 6 OR MORE 08/03/2022 21562-MGUHMAS NAIL, 6 OR MORE 01/29/2023 07624-OXIWKUW NAIL, 6 OR MORE 04/30/2023 95598-LCUNHPA NAIL, 6 OR MORE 01/23/2022 42655-XHQBYZR NAIL, 6 OR MORE 05/01/2022 32059-DIKSZFE NAIL, 6 OR MORE 08/02/2023 79598-PPPXVNT NAIL, 6 OR MORE 01/21/2024 77069-BQVJVOJ NAIL, 6 OR MORE 05/15/2024 38062-BCLHSQB NAIL, 6 OR MORE 08/25/2024 29694-KTDLDOZ NAIL, 1-5 06/05/2016 92938-EVKFCAR NAIL, 1-5 11/17/2013 76822-FHSQJFP NAIL, 1-5 09/09/2015 44087-IOKZGUG NAIL, 1-5 02/14/2016 45368-Glxq Destruction, 11-1805/14/2017 68050-Mtmp Destruction, 11-1801/04/2017 05003-Juco Destruction, 11-1803/03/2019 06070-Twom Destruction, 11-1812/02/2018 98703-Tetk Destruction, 11-1808/26/2018 64840-Dhsy Destruction, 11-1805/27/2018 23907-Beax Destruction, 11-1802/25/2018 86259-Zzcz Destruction, 11-1808/20/2017 85002-Zlvi Destruction, 11-1811/26/2017 11274-Tmlnkpcl Plate 05/14/2017 13387-Kneebyhg Plate 06/05/2016 33352-Donkosuz Plate 09/07/2016 31904-Dvfrrkuj Plate 02/14/2016 77933-Nipvomvz Plate 09/09/2015 78331-Gnnfjxaz Plate 03/11/2014 24044-Xrzpbqmz Plate 02/04/2014 80151-Ykotmoqi Plate 01/23/2022 40437-Ffklbnos Plate 05/15/2024 64364-Nwkcpfwq Plate 05/01/2022 52443-Eihexwrk Plate 08/02/2023 12446-Yniehcar Plate 06/16/2021 17186-Hwcgjfvg Plate 03/17/2021 06225-Dmjzdvla Plate 09/09/2020 06362-Shaazjte Plate Each Additional 06472-Emvlevxx Plate Each Additional 63934-Kmufgazy Plate Each Additional 12/2013 96769-Chkkgbvt Plate Each Additional 05/2014 74314- Debride <25 sq cm 06/16/2019 46540 I&D ABSCESS- SIMPLE,SINGLE 019 Next Appt Details Provider Name:Colette Cobb , 12/04/2024 01:30:00 PM, [address] [facility], [place], [address], Insurance Providers Payer Name Payer Address Payer Phone Subscriber Number Group Number Insured Name Patient Relationship to Insured Coverage Start Date Coverage End Date Medicare National Govt [employer] [address] [place] [address] [id number] Antonieta , Ernestine Self - patient is the insured [employer] [address] [place] [address] [id number] Ernestine Fung Self - patient is the insured 3 Medical (General) History Medical History History ICD Code Arthritis back, hip, knee pain measles chicken pox Macular degeneration Neuropathy Surgical History Surgery Date(Month/Year) tendon repair-ruptured left thumb 2005 appendix removed 12/18/15 left mastectomy 04/27/16 [place]ization History Reason Date([place] [facility] [place] gast[place] int[place]al [place] and small intestinal blockage 07/08/2023, 07[place]12[place]20[place] [facility] [place]/18[place]21[place]08[place]12/[place] [facility] [place]/15/2021 [facility] / Mastectomy 04/06 01/18-04/29/16 [place] [facility] [place] and ruptured a ppendix 12/18/15
--- OUTSIDE RECORDS SUMMARY | 2024-10-29 18:01 | XMS_ITS | Patient Health Record ---
Author Organization [facility] Address [address] [place] [address] Care Team Providers Care Hand Packager Name Role Phone Vineet Hwang DO Primary Care Provider Unavail able Vineet Silvestre Unavailable [phone] ALLERGIES No Known Allergies REASON FOR REFERRAL [...] Gabapentin 300 MG Oral for 90 Active Riddle 3 1000 MG 1 capsule Orally Onc [...] Change in bowel habits (R19.4) Active confirmed 793181438 Problem Small bowel obstruction (K56.609) Active confirmed 129410603 PLAN OF TREATMENT No Information Insurance Providers Payer Name Payer Address Payer Phone Subscriber Number Group Number Insured Name Patient Relationship to Insured Coverage Start Date Coverage End Date MEDICARE OF [place] [address] [place] [address] [id number] ROBBY DESOUZA Self - patient is the insured [employer] CLAIMS [address] [place] [address] [id number] ROBBY DESOUZA Self - patient is the insured MEDICAL (GENERAL) HISTORY Medical History History ICD Code SBO's in 02/2021, 07/2021, and 08/2021 Rheumatoid arthritis-Dr. Lindsay--Remica de Q 6 weeks Osteoporosis Anxiety Breast cancer-02/2016-left mastectomy and Tamoxifen Denies DM,CVA,Lung disease,renal disease Told of a possible NH in 02/2021 during a bowel obstruction Hyperlipidemia GERD C.diff after her Appy Negative colonoscopies in [address] Bergman Surgical History Surgery Date(Month/Year) Appendectomy Left mastectomy
--- OUTSIDE RECORDS SUMMARY | 2024-10-29 18:01 | XMS_ITS ---
Author Organization Vineet Hwang DO, FAC Address [address] [place], [place] [address] Care Team Providers Care Jointer Machine Name Role Phone Vineet Hwang Primary Care Provider REASON FOR VISIT New Refill Request Encounters Encounter Location Date Provider Diagnosis Vineet Hwang DO, FACP [address] [place], [place] [phone] 04/10/2024 Vineet Hwang PLAN OF TREATMENT No Information
--- OUTSIDE RECORDS SUMMARY | 2024-10-29 18:01 | XMS_ITS ---
Author Organization Vineet Hwang DO, [facility] Address [address] [place], [place] [address] Care Team Providers Care [employer] Team Member Name Role Phone Vineet Hwang Primary Care Provider REASON FOR VISIT New Refill Request MEDICATIONS Medication SIG (Take, Route, Fr equency, Duration) Notes Start Date End Date Status LORazepam 0.5 MG 1 tablet at bedtime as needed Orally Once a day for 30 days 09/01/2024 Ac tive Encounters Encounter Location Date Provider Diagnosis [facility] [address] [place], [place] [id number] 09/01/2024 Vineet Hwang Anxiety F41.9 ASSESSMENTS Encounter Date Diagnosis Assessment Notes Treatment Notes Treatment Clinical Notes 09/01/2024 Anxiety (ICD-10 - F41.9) PLAN OF TREATMENT Medication Medication Name Sig Start Date Stop Date Notes LORazepam 0.5 MG 1 tablet at bedtime as needed Orally Once a day for 30 days 09/01/2024
--- OUTSIDE RECORDS SUMMARY | 2024-10-29 18:01 | XMS_ITS | Patient Health Record ---
Author Organization Vineet Hwang DO, FACP Address [address] [place], [place] [address] Care Team Providers Care Software Installer Name Role Phone Vineet Hwang Primary Care Provider ALLERGIES No Known Allergies RESULTS Component Value Reference Range Notes MM tomosynthesis screening R T Reviewed date:04/17/2024 05:17:46 PM Interpretation:Negative Performing Lab: Notes/Report: [facility] [address] [place] [address] Mammography Report Signed Patient: Ernestine Fung MR#: [id number] : 1935 Acct:[id number] Age/Sex: 88 / F ADM Date: 03/17/24 Loc: HO.MAMMO Attending Dr: Vineet Hwang DO Ordering Physician: Vineet Hwang DO Results: 1Negat aracely Date of Service: 03/17/24 Follow Up: 1 Year From [facility] Mammogram Procedure(s): MM tomosynthesis screening RT Accession Number(s): [id number] cc: Vineet Hwang DO EXAMINATION: MM SCREENING DIGITAL BREAST TOMOSYNTHESIS, RIGHT CLINICAL INFORMATION: Screening. Asymptomatic. The patient is status post left mastectomy. COMPARISON: Mammography: This study is compared with prior exams dating back to 2018. TECHNIQUE: Digital breast tomosynthesis is performed in both the craniocaudal and mediolateral oblique views along with computer-aided detection (CAD). Synthesized 2D images are generated from the tomosynthesis. FINDINGS: There are scattered areas of fibroglandular density (ACR BI-RADS breast composition Category b). There are no significant masses, abnormal calcifications, or other abnormalities. MM/MM tomosynthesis screening RT IMPRESSION: No mammographic evidence of malignancy. ASSESSMENT: BI-RADS BI-RADS 1 - Negative RECOMMENDATION: Routine annual mammography screening. 1 year F/U This examination should not preclude the clinical evaluation of a suspicious palpable abnormality. This patient's information was entered into a reminder system with a target due date for their next mammogram. Dictated By: Alize Washington MD Signed By: <Electronically signed by Alize Washington MD in OV> 04/17/24 1427 DD/ 1255 TD/TT: Key Account Representative: Complete Blood Count Auto Di ff Reviewed date:04/08/2024 01:44:37 PM Interpretation:Abnormal Performing Lab:[facility], [address] [place] [phone] Notes/Report: White Blood Count 6.1 4.8-10.8 X10*3/uL Red Blood Count 3.24 4.20-5.50 X10*6/uL Hemoglobin 9.9 12.0-16.0 g/dl Hematocrit 29.1 37.0-47.0 % Mean Corpuscular Volume 89.8 80.0-98.0 fL Mean Corpuscular Hemoglobin 30.6 27.0-33.0 pg Mean Corpuscular HGB Conc 34.0 31.0-35.0 g/dl Red Cell Distribution Width 19.2 11.0-16.0 % Platelet Count 279 160-400 X10*3/uL Mean Platelet Volume 9.6 9.4-12.3 fL Neutrophils Percent Auto 57.9 45-73 % Imm Gran Pct Auto 0.3 0.0-0.4 % Lymphocytes Percent Auto 27.8 20-40 % Monocytes Percent Auto 9.4 2-11 % Eosinophils Percent Auto 3.8 0-4 % Basophils Percent Auto 0.8 0-2 % NRBC Pct Auto 0.0 0.0-0.2 /100WBC Neutrophils Absolute Auto 3.5 2.0-8.3 x10*3/u L Imm Gran Abs Auto 0.02 0.00-0.03 X10*3/uL Lymphocytes Absolute Auto 1.7 1.2-4.9 X10*3/u L Monocytes Absolute Auto 0.6 0.1-1.2 X10*3/uL Eosinophils Absolute Auto 0.2 0.0-0.4 X10*3/u L Basophils Absolute Auto 0.1 0.0-0.2 X10*3/uL NRBC Abs Auto 0.000 0.0-0.012 X10*3/uL Comprehensive [place]. Panel Fa st Reviewed date:04/08/2024 02:37:14 PM Interpretation:Abnormal Performing Lab:[facility], [address] [place] [phone] Notes/Report: Sodium 141 135-145 mmol/L Potassium 3.9 3.3-5.1 mmol/L Chloride 108 96-108 mmol/L Carbon Dioxide 26 22-29 mmol/L Anion Gap 11 12-20 Blood Urea Nitrogen 17 9-16 mg/dL Creatinine 0.75 0.5-1.4 mg/dL Estimated Glomerular Filt Rate > 60 NOTE: For -Trinid[place] individuals, multiply the result by 1.210. Chronic Kidney Disease: Estimated GFR < 60 mL/min/1.73m2 Severe Kidney Disease: Estimated GFR < 15 mL/min/1.73m2 Glucose Fasting 82 60-99 mg/dL Calcium 9.5 8.4-10.2 mg/dL Bilirubin Total 0.4 0.0-1.0 mg/dL Aspartate Amino Transferase 30 5-31 U/L Alanine Aminotransferase 16 0-31 U/L Total Protein 6.7 6.5-8.0 g/dL Albumin Level 4.0 3.5-5.0 g/dL Alkaline Phosphatase 76 39-117 U/L Lipid Panel Reviewed date:04/08/2024 02:37:14 PM Interpretation:Normal Performing Lab:[facility], [address] [place] [phone] Notes/Report: Triglycerides 57 <150 mg/dL Desirable Triglyceride: less than 150 mg/dL Borderline High Triglyceride 150-199 mg/dL High Triglyceride: 200-499 mg/dL Very High Triglyceride: greater than or equal to 5OO mg/dL Cholesterol 148 <200 mg/dL Desirable Cholesterol: less than 200 mg/dL Borderline High Cholesterol: 200-239 mg/dL High Cholesterol: greater than 239 mg/dL LDL Cholesterol Calculated 55 <100 mg/dL Desirable LDL: less than 100 mg/dL Near Optimal/Above Optimal LDL: 110-129 mg/dL Borderline High LDL: 130-159 mg/dL High LDL: 160-189 mg/dL Very High LDL: greater than or equal to 190 mg/dL HDL Cholesterol 82 >40 mg/dL Desirable HDL: greater than 40 mg/dL Note: This HDL assay may give artificially low results in patients with liver disease. Vitamin D 25-OH Total Reviewed date:04/08/2024 02:37:14 PM Interpretation:Normal Performing Lab:[address] [address] Notes/Report: Vitamin D 25-OH Total 64.6 >30 ng/mL Health Based Reference Values* < 20 ng/mL Deficient 20-30 ng/mL Insufficient > 30 ng/mL Sufficient *Mo MARIA. N Engl J Med. 2007;357:266-280 Care must be taken in interpreting Vitamin D results from different laboratories and methodologies. Published data demonstrated that results from patients undergoing hemodialysis may show a negative bias when tested with various automated 25-OH vitamin D assays when compared to LC-MS/MS. When testing samples from patients whose predominant form of Vitamin D is Vitamin D2, such as patients receiving Vitamin D2 supplementation, results that are subtherapeutic should be confirmed with another method such as LC-MS/MS. Thyroid Stimulating Hormone Reviewed date:04/08/2024 02:37:14 PM Interpretation:Normal Performing Lab:[facility], [address] [place] [phone] Notes/Report: Thyroid Stimulating Hormone 1.13 0.32-4.0 uIU/ mL TSH 3rd Generation ([facility]) REASON FOR REFERRAL Reason Hearing evaluation Diagnosis 1 Sensorineural hearin g loss (SNHL) of both ears (H90.3) Referral Organization Vineet Schmitt O, FACP Referring Provider First Name Vineet Referring Provider Last Name Eri Referring Provider Speciality Internal M edicine Referred Provider [facility] [place] Speech & Hearin g Referred Provider Specialty Audiologists General Notes Mila Jackson 024 11:25:03 AM EDT > referral initiated by patient; referral faxed. Referral Priority Routine MEDICATIONS Medication SIG (Take, Route, Frequency, Duration) Notes Start Date End Date Status Escitalopram Oxalate 10 MG 1 tablet Oral ly Once a day Active Omeprazole 20 MG 1 capsule 30 minutes before morning meal Orally Once a day for 30 day(s) 07/23/2024 Active Aspirin Adult Low Dose 81 MG 1 tablet Orally Once a day Active Meloxicam 15 MG 1 tablet Orally Once a day Active Centrum Silver Silver 1 tablet Orally On ce a day Active Vitamin D 2000 UNIT 1 capsule Orally Onc e a day Active Gabapentin 300 MG 1 capsule Orally Twi ce a day Active LORazepam 0.5 MG 1 tablet at bedtime as needed Orally Once a day for 30 days 09/01/2024 Active Omeprazole 20 MG 1 capsule 30 minutes before a meal Orally Twice a day for 90 days Active Folic Acid 1 MG 1 tablet Orally Once a day Active Methotrexate Sodium 25 MG/ML 0.9 ml Injection Once a week Active Remicade 100 MG 400 mg as directed Intravenous Once every six weeks Active MiraLax 17 GM/SCOOP 1 scoop mixed with 8 ounces of fluid as needed Orally Once a day Active Probiotic - 1 capsule Orally Onc e a day Active Gautier 3 1000 MG 1 capsule with a benito l Orally Once a day Active Atorvastatin Calcium 40 MG 1 tablet Oral ly Once a day for 90 days Active IMMUNIZATIONS Vaccine Route Administration Date Status [...] 08/17/2022 Administere d Influenza Unknown 08/10/2022 Administered Influenza Quad Unknown 07/09/2023 Administered SOCIAL HISTORY Tobacco Use: Social History [...] of left female breast (C50.212) Active confirmed 989871187 Problem Anosmia (R43.0) Active confirmed 811992 09 Problem Anxiety (F41.9) Active confirmed 047346 02 Problem NSTEMI (non-ST elevated myocardial infarction) (I21.4) Active confirmed 71472217 Problem Rheumatoid arthritis involving multiple sites, unspecified rheumatoid factor presence (M06.9) Active confirmed 206514526 Problem Hypercholesterolemia (E78.00) Active confirmed 35042542 Problem SBO (small bowel obstruction) (K56.609) Active confirmed 655841496 Problem Sensorineural hearin g loss (SNHL) of both ears (H90.3) Active confirmed Sensorineural hearing loss, bilateral (887111049) VITAL SIGNS Blood pressure diastolic 68 mm Hg 07/23/2024 Height 61.75 in 07/23/2024 Blood pressure systolic 126 mm Hg 07/23/2024 Weight 157 lbs 07/23/2024 BMI 28.95 kg/m2 07/23/2024 Encounters Encounter Location Date Provider Diagnosis Vineet Hwang DO [address] [id number] 01/23/2024 Vineet Hwang Rheumatoid arthritis involving multiple sites, unspecified rheumatoid factor presence M06.9 ; Hypercholesterolemia E78.00 ; Anxiety F41.9 ; SBO (small bowel obstruction) K56.609 and NSTEMI (non-ST elevated myocardial infarction) I21.4 Vineet Hwang DO [address] [id number] 07/23/2024 Vineet Hwang Hypercholesterolemia E78.00 ; Rheumatoid arthritis involving multiple sites, unspecified rheumatoid factor presence M06.9 ; Anxiety F41.9 and NSTEMI (non-ST elevated myocardial infarction) I21.4 Vineet Hwang DO [address] [id number] 12/04/2023 Vineet Eri SBO (small bowel obstruction) K56.609 and Anxiety F41.9 Vineet Cueto Eri [place], [address] [id number] 12/12/2023 Vineet Eri Anxiety F41.9 Vineet Cueto Eri [place], [address] [id number] 12/19/2023 Vineet Eri SBO (small bowel obstruction) K56.609 Vineet Cueto Eri [place], [address] [id number] 04/10/2024 Vineet Hwang Anxiety F41.9 Vineet Cueto Eri [place], [address] [id number] 04/10/2024 Vineet Hwang , [address] [id number] 09/01/2024 Vineet Hwang Anxiety F41.9 ASSESSMENTS Encounter Date Diagnosis Assessment Notes Treatment Notes Treatment Clinical Notes 01/23/2024 Rheumatoid arthritis involving multiple sites, unspecified rheumatoid factor presence (ICD-10 - M06.9) 01/23/2024 Hypercholesterolemia (ICD-10 - E78.00) 07/23/2024 Rheumatoid arthritis involving multiple sites, unspecified rheumatoid factor presence (ICD-10 - M06.9) 07/23/2024 Hypercholesterolemia (ICD-10 - E78.00) 12/04/2023 SBO (small bowel obstruction) (ICD-10 - K56.609) 12/12/2023 Anxiety (ICD-10 - F41.9) 12/19/2023 SBO (small bowel obstruction) (ICD-10 - K56.609) 04/10/2024 Anxiety (ICD-10 - F41.9) 09/01/2024 Anxiety (ICD-10 - F41.9) 01/23/2024 Anxiety (ICD-10 - F41.9) 07/23/2024 Anxiety (ICD-10 - F41.9) 12/04/2023 Anxiety (ICD-10 - F41.9) 01/23/2024 SBO (small bowel obstruction) (ICD-10 - K56.609) 07/23/2024 NSTEMI (non-ST eleva carroll myocardial infarction) (ICD-10 - I21.4) 01/23/2024 NSTEMI (non-ST eleva carroll myocardial infarction) (ICD-10 - I21.4) PLAN OF TREATMENT No Information Insurance Providers Payer Name Payer Address Payer Phone Subscriber Number Group Number Insured Name Patient Relationship to Insured Coverage Start Date Coverage End Date MEDICARE [address] [place] [phone] [id number] Ernestine Fung Self - patient is the insured [employer] [address] [place] [address] [id number] Ernestine Fung Self - patient is the insured [address] [address] [id number] Ernestine Fung Self - patient is [...]
--- OUTSIDE RECORDS SUMMARY | 2024-10-29 18:01 | XMS_ITS ---
Author Organization Vineet Hwang DO, FACP Address [address], [place] [id number] Care Team Providers Care Angio Technologist Name Role Phone Vineet Hwang Primary Care Provider ALLERGIES No Known Allergies REASON FOR VISIT 6 month f/u, Follow up hypercholesterolemia MEDICATIONS Medication SIG (Take, Route, Frequency, Duration) Notes Start Date End Date Status Omeprazole 20 MG 1 capsule 30 minutes before morning meal Orally Once a day for 30 day(s) 07/23/2024 Active Meloxicam 15 MG 1 tablet Orally Once a day Active Probiotic - 1 capsule Orally Onc e a day Active [place] 3 1000 MG 1 capsule with a benito l Orally Once a day Active Atorvastatin Calcium 40 MG 1 tablet Oral ly Once a day Active Omeprazole 20 MG 1 capsule 30 minutes before a meal Orally Twice a day for 90 days Active Centrum Silver Silver 1 tablet Orally On ce a day Active Vitamin D 2000 UNIT 1 capsule Orally Onc e a day Active Gabapentin 300 MG 1 capsule Orally Twi ce a day Active Folic Acid 1 MG 1 tablet Orally Once a day Active Escitalopram Oxalate 10 MG 1 tablet Oral ly Once a day Active Aspirin Adult Low Dose 81 MG 1 tablet Orally Once a day Active Methotrexate Sodium 25 MG/ML 0.9 ml Injection Once a week Active Remicade 100 MG 400 mg as directed Intravenous Once every six weeks Active LORazepam 0.5 MG 1 tablet at bedtime as needed Orally Once a day 04/10/2024 Active MiraLax 17 GM/SCOOP 1 scoop mixed with 8 ounces of fluid as needed Orally Once a day Active SOCIAL HISTORY Tobacco Use: Social History Observation [...] ast year? No Points 0 Interpretation Negative VITAL SIGNS BMI 28.95 kg/m2 07/23/2024 Blood pressure systolic 126 mm Hg 07/23/20 24 Blood pressure diastolic 68 mm Hg 024 Height 61.75 in 07/23/2024 Weight 157 lbs 07/23/2024 Encounters Encounter Location Date Provider Diagnosis Vineet Hwang DO, [address] [id number] 07/23/2024 Vineet Hwang Hypercholesterolemia E78.00 ; Rheumatoid arthritis involving multiple sites, unspecified rheumatoid factor presence M06.9 ; Anxiety F41.9 and NSTEMI (non-ST elevated myocardial infarction) I21.4 ASSESSMENTS Encounter Date Diagnosis Assessment Notes Treatment Notes Treatment Clinical Notes 07/23/2024 Hypercholesterolemia (ICD-10 - E78.00) 07/23/2024 Rheumatoid arthritis involving multiple sites, unspecified rheumatoid factor presence (ICD-10 - M06.9) 07/23/2024 Anxiety (ICD-10 - F41.9) 07/23/2024 NSTEMI (non-ST eleva carroll myocardial infarction) (ICD-10 - I21.4) PLAN OF TREATMENT Medication Medication Name Sig Start Date Stop Date Notes Omeprazole 20 MG 1 capsule 30 minutes before morning meal Orally Once a day for 30 day(s) 07/23/2024 Meloxicam 15 MG 1 tablet Orally Once a day Probiotic - 1 capsule Orally Once a day [place] 3 1000 MG 1 capsule with a benito l Orally Once a day Atorvastatin Calcium 40 MG 1 tablet Orally Once a day Centrum Silver Silver 1 tablet Orally Once a day Vitamin D 2000 UNIT 1 capsule Orally Once a day Gabapentin 300 MG 1 capsule Orally Twice a day Folic Acid 1 MG 1 tablet Orally Once a day Escitalopram Oxalate 10 MG 1 tablet Orally Once a day Aspirin Adult Low Dose 81 MG 1 tablet Orally Once a day Methotrexate Sodium 25 MG/ML 0.9 ml Injection Once a week Remicade 100 MG 400 mg as directed Intravenous Once every six weeks LORazepam 0.5 MG 1 tablet at bedtime as needed Orally Once a day 04/10/2024 MiraLax 17 GM/SCOOP 1 scoop mixed with 8 ounces of fluid as needed Orally Once a day Next Appt Details Follow Up: 6 Months, Reason: follow up visit Progress Notes * Examination Category Sub-Category Detail Notes General Examination GENERAL APPEARANCE: in no ac yenny distress, well developed, well nourished HEAD: normocephalic, atrau matic HEART: no murmurs, regular rate and rhythm, S1, S2 normal LUNGS: clear to auscultatio n bilaterally ABDOMEN: normal, bowel sounds present, soft, nontender, nondistended SKIN: warm and dry EXTREMITIES: no edema PSYCH: alert, oriented, cog nitive function intact
[2024-10-29 20:00] VITALS: BP 122/51; PULSE 83; RESP 14; O2SAT 97
[2024-10-29] MEDS: iohexoL 350 MG/ML 100 ML INFUS..BTL IV (20:12)
[2024-10-29 21:06] LABS: Appearance Urine Clear; Color Urine Yellow; Glucose Urine UA Negative (Negative); Leukocyte Esterase Urine Negative (Negative); Nitrite Urine Negative (Negative); PH 5.5 (5.0-9.0); Specific Gravity - Urine >= 1.030 (1.005-1.025); Urine Blood Negative (Negative); Urine Ketones Negative (Negative); Urine Protein Negative (Neg-Trace)
[2024-10-29 22:20] VITALS: BP 116/63; PULSE 73; RESP 14; TEMP 37.7; O2SAT 96
--- NOTE | 2024-10-29 22:34 | ED_ITS ---
HPI - Abdominal Pain General Chief Complaint: Abdominal Pain Stated Complaint: abd pain & distension x3days, lower leg edema Time Seen by Provider: 10/29/24 16:53 Source: patient Limitations: no limitations History of Present Illness ED Provider: Bonnie Desai PA-C HPI narrative: 88-year-old female with history of known ventral wall hernia with prior incarceration, breast cancer, hyperlipidemia, prior NSTEMI, presenting with abdominal pain for weeks. Patient states over the past week, her abdomen has become increasingly distended. She is passing small bowel movements, she constantly feels as if she has to urinate. Associated generalized weakness/fatigue, nausea, but no active vomiting. She is passing minimal flatus. Denies fever. Related Data Home Medications ?Medication ?Instructions ?Recorded ?Confirmed escitalopram oxalate 10 mg tablet 1 tab PO DAILY 01/21/21 10/09/24 gabapentin 300 mg capsule 1 cap PO BID 01/21/21 10/09/24 lorazepam 0.5 mg tablet 1 tab PO BEDTIME PRN Anxiety 01/21/21 10/09/24 meloxicam 15 mg tablet 1 tab PO DAILY 01/21/21 10/09/24 methotrexate sodium (PF) 25 mg/mL 25 mg IM WE 01/21/21 10/09/24 injection solution cholecalciferol (vitamin D3) 50 50 mcg PO DAILY 07/29/21 10/09/24 mcg (2,000 unit) tablet (Vitamin D3) multivitamin 1 tab PO DAILY 07/29/21 10/09/24 omeprazole 20 mg capsule,delayed 1 cap PO DAILY 07/29/21 10/09/24 release polyethylene glycol 3350 17 17 g PO DAILY 01/16/22 10/09/24 gram/dose oral powder (Miralax) Previous Rx's ?Medication ?Instructions ?Recorded aspirin 81 mg chewable tablet 81 mg PO DAILY #90 tabs 02/18/21 atorvastatin 40 mg tablet 40 mg PO BEDTIME #90 tabs 02/18/21 omeprazole 20 mg capsule,delayed 20 mg PO BID@0630,1630 #60 caps 07/12/23 release Allergies Allergy/AdvReac Type Severity Reaction Status Date / Time No Known Allergies Allergy Verified 10/29/24 16:54 [No Known Allergies*] Review of Systems Review of Systems Yes all other systems are reviewed and are negative Constitutional: Reports fatigue, Denies fever(s) and Reports malaise Cardiovascular: Denies chest pain and Denies dyspnea Respiratory: Denies cough and Denies dyspnea Gastrointestinal: Reports abdominal pain, Reports constipation, Reports nausea and Denies vomiting Genitourinary: Reports urinary urgency Endocrine: Reports fatigue PMFSH Past Medical History Attestation statement: The following information was validated with the patient. Medical History Partial obstruction of small intestine Anemia Anxiety Anosmia Abdominal hernia Rheumatoid arteritis Osteoporosis Breast cancer Surgical History History of appendectomy S/P mastectomy Family History Family History Father Lung cancer Brother Prostate cancer Other No significant family history Social History Social History Household Members: None Household Members Other:: none Housing: Assisted Living Facility Are you a primary health care administrator to a significant other at home: No Do you presently have visiting nurse or other home services: No Alcohol intake: never Patient Tobacco Use Status: Never used Tobacco Smoked in Last 30 Days: No e-Cigarette/Vaping Use: Never Used Second Hand Smoke Exposure: No Use of substances other than those prescribed or required for medical reasons: No Advance Directives: Yes Advance Directives on File: Yes Advance Directives Date on File: 08/12/21 Do you have a plan to hurt others: No Plan service: No Current occupational status: retired Physical Exam ED Vital Signs: Vital Signs - 24 hr 10/29/24 16:50 10/29/24 20:00 10/29/24 22:20 Temperature 98.3 F 99.8 F Pulse Rate 75 83 73 Respiratory Rate 16 14 14 Blood Pressure 114/54 L 122/51 L 116/63 Pulse Oximetry 95 97 96 Oxygen Delivery Method Room Air Room Air Room Air 10/30/24 00:02 Temperature Pulse Rate Respiratory Rate 20 Blood Pressure Pulse Oximetry Oxygen Delivery Method BMI result Body Mass Index 31.2 Const Other: Alert, does appear uncomfortable Orientation/consciousness: patient oriented x3 Resp Other: Nonlabored respiration Cardio Other: Normal peripheral perfusion GI Other: Abdomen is grossly distended and tympanic, multiple palpable masses noted over left mid to lower abdomen, presumably her known ventral wall hernia, no overlying skin discoloration noted within these regions, the masses are firm and not reducible. Patient has pain with the palpation is generalized she is not guarding Skin Other: Warm dry no rash Neuro General: patient oriented x3, no focal motor deficits and CN's II-XI intact bilaterally Psych Other: Calm cooperative Course Reevaluation(s) Reevaluation #1: called Deidra, her daughter, left message to contact the ER....[phone] Time: 23:32 Reevaluation #2: attempted to call daughter again, no answer Time: 23:41 Reevaluation #3: Spoke with Deidra, relayed findings, she is returning to the ER. Incidentally, the other daughter Elin is here at bedside Time: 00:36 Medical Decision Making Medical Decision Making MDM Narrative: 88-year-old female with history of known ventral wall hernia with prior incarceration, breast cancer, hyperlipidemia, prior NSTEMI, presenting with abdominal pain for weeks. Patient states over the past week, her abdomen has become increasingly distended. She is passing small bowel movements, she constantly feels as if she has to urinate. Associated generalized weakness/fatigue, nausea, but no active vomiting. She is passing minimal flatus. Denies fever. Problem: Age, prior cancer, known ventral wall hernia, History: Per patient I have considered the following differential diagnoses: Bowel obstruction, incarcerated hernia, strangulated hernia, obstipation, constipation, fecal impaction Plan: I am most concerned for bowel obstruction given the nature of the patient's symptoms and her exam findings, we will be obtaining a CT scan with contrast if she can tolerate. We will obtain screening labs, giving IV fluid, Zofran and morphine for pain. Given duration of symptoms, this is unlikely to be a strangulated hernia, and there are no overlying skin changes. The hernia could also intermittently incarcerate. She may also require a digital rectal exam to rule out fecal impaction, I will wait for results of the CT scan. I have independently reviewed the following tests: Labs: Leukocytosis noted, anemic, but not to the point of requiring a transfusion at this time, no gross electrolyte abnormalities or derangement of her liver function tests CT abdomen and pelvis: CT/CT abdomen pelvis w IV con IMPRESSION: 1. New marked ascites with new extensive omental cake and mesenteric masses. 2. Massively expanded endometrium with a lobular mass on the inferior surface of the uterus. 3. Findings are suggestive of metastatic endometrial carcinoma 4. Other incidental findings as described above including multiple hernias. Fleischner guidelines were followed. Discussed findings with the patient, she seems to understand the severity of the findings noted on the scan. The patient states she wants to ?be comfortable?. We discussed admitting to have further discussion about what her options maybe, including comfort measures/hospice. Patient is in agreement with the plan, I will try to reach out to her daughter. Lab Data 10/29/24 17:07 10/29/24 17:07 Labs: Lab Results 10/29/24 10/29/24 Range/Units 17:07 20:47 WBC 12.6 H (4.8-10.8) X10*3/uL RBC 2.93 L (4.20-5.50) X10*6/uL Hgb 7.9 L D (12.0-16.0) g/dl Hct 23.9 L (37.0-47.0) % MCV 81.6 (80.0-98.0) fL MCH 27.0 (27.0-33.0) pg MCHC 33.1 (31.0-35.0) g/dl RDW 18.7 H (11.0-16.0) % Plt Count 573 H D (160-400) X10*3/uL MPV 8.2 L (9.4-12.3) fL Immature Gran % (Auto) 3.0 H (0.0-0.4) % Neut % (Auto) 72.3 (45-73) % Lymph % (Auto) 11.0 L (20-40) % [place] % (Auto) 10.8 (2-11) % Eos % (Auto) 2.7 (0-4) % Baso % (Auto) 0.2 (0-2) % Lymph # (Auto) 1.4 (1.2-4.9) X10*3/uL [place] # (Auto) 1.4 H (0.1-1.2) X10*3/uL Eos # (Auto) 0.3 (0.0-0.4) X10*3/uL Baso # (Auto) 0.0 (0.0-0.2) X10*3/uL Abs Immat Gran (auto) 0.38 H (0.00-0.03) X10*3/uL Absolute Neuts (auto) 9.1 H (2.0-8.3) x10*3/uL Absolute Nucleated RBC 0.000 (0.0-0.012) X10*3/uL Nucleated RBC % (auto) 0.0 (0.0-0.2) /100WBC Sodium 132 L (135-145) mmol/L Potassium 4.6 (3.3-5.1) mmol/L Chloride 103 (96-108) mmol/L Carbon Dioxide 23 (22-29) mmol/L Anion Gap 11 L (12-20) BUN 22 H (9-16) mg/dL Creatinine 0.74 (0.5-1.4) mg/dL Estim Creat Clear Calc 54.6 Estimated GFR > 60 Random Glucose 107 (60-115) mg/dL Lactic Acid 1.2 (0.5-2.0) mmol/L Calcium 8.2 L D (8.4-10.2) mg/dL Magnesium 2.0 (1.6-2.6) mg/dL Total Bilirubin 0.3 (0.0-1.0) mg/dL AST 59 H (5-31) U/L ALT 7 (0-31) U/L Alkaline Phosphatase 133 H (39-117) U/L Total Protein 5.7 L (6.5-8.0) g/dL Albumin 2.4 L (3.5-5.0) g/dL Lipase 52 (8-78) U/L Urine Color Yellow Urine Appearance Clear Urine pH 5.5 (5.0-9.0) Ur Specific [place] >= 1.030 H (1.005-1.025) Urine Protein Negative (Neg-Trace) mg/dL Urine Glucose (UA) Negative (Negative) mg/dL Urine Ketones Negative (Negative) mg/dL Urine Blood Negative (Negative) Urine Nitrite Negative (Negative) Ur Leukocyte Esterase Negative (Negative) Medications Administered Discontinued Medications Generic Name Dose Route Start Last Admin Trade Name Freq PRN Reason Stop Dose Admin Sodium Chloride 500 mls @ 500 mls/hr 12/25/24 17:02 10/29/24 17:15 Ns IV 10/29/24 18:01 500 mls/hr .Q1H ONE Administration Iohexol 100 ml 10/29/24 20:12 10/29/24 20:12 Iohexol 350 Mg/Ml 100 Ml Infus..Btl IV 10/29/24 20:13 85 ml ONCE ONE Administration Morphine Sulfate 4 mg 10/29/24 17:02 10/29/24 17:15 Morphine Sulfate 4 Mg/Ml Cartridge IVPUSH 10/29/24 17:03 4 mg ONCE ONE Administration Protocol Morphine Sulfate 4 mg 10/29/24 23:18 10/30/24 00:02 Morphine Sulfate 4 Mg/Ml Cartridge IVPUSH 10/29/24 23:19 4 mg ONCE ONE Administration Protocol Ondansetron HCl 4 mg 10/29/24 17:02 10/29/24 17:15 Ondansetron Hcl 4 Mg/2 Ml Vial IVPUSH 10/29/24 17:03 4 mg ONCE ONE Administration Ondansetron HCl 4 mg 10/29/24 23:18 10/30/24 00:02 Ondansetron Hcl 4 Mg/2 Ml Vial IVPUSH 10/29/24 23:19 4 mg ONCE ONE Administration Discharge Plan Discharge Clinical Impression: Endometrial malignant neoplasm Patient Disposition: Admitted As Inpatient Print Language: Ecuadorean
[2024-10-30] VITALS (16 sets, daily range): BP systolic 117–141; BP diastolic 58–88; PULSE 87–106; RESP 16–20; TEMP 36.2–37.2; O2SAT 92–93
[2024-10-30] MEDS: ondansetron HCL 4 MG/2 ML VIAL IVPUSH ×2 (00:02→11:08)
[2024-10-30] MEDS: Morphine Sulfate 4 MG/ML CARTRIDGE IVPUSH (00:02)
--- NOTE | 2024-10-30 00:10 | MHC.EDTECH ---
T/w assisted Pt up to commode to urinate and helped Pt back into bed. Call aviles within reach.
--- NOTE | 2024-10-30 00:34 | P.HPHOSP_ITS ---
History of Present Illness Date of Service: 10/30/24 Chief Complaint: Abdominal distention An 88 years old lady with PMH of HLD, GERD, Hx breast CA presenting with worsening abdominal distention and discomfort over last few weeks. The patient reports that over the last few weeks she noticed increasing girth of her abdomen with increase discomfort up to her epigastric area. she denies any fever , chills, chest pain, palpitations, SOB, nausea, vomiting, diarrhea or urinary symptoms. No reported bleeding. Her daughter finally convinced her to come to the hospital for evaluation. In ED a CT scan of abdomen showed New marked ascites with new extensive omental cake and mesenteric masses with Massively expanded endometrium with a lobular mass on the inferior surface of the uterus. all suggestive of metastatic endometrial carcinoma. Discussed the findings with the patient who is not interested in any kind of treatment and wants to be on comfort measures only. will be admitted for ascites management and discharge planning. Review of Systems 2 Review of Systems: No fever, chills or weakness with decrease appetite No chest pain, palpitation No shortness of breath or coughing reports abdominal discomfort and increase distention No urinary symptoms No any rash or wounds PMFSH Medical History Partial obstruction of small intestine Anemia Anxiety Anosmia Abdominal hernia Rheumatoid arteritis Osteoporosis Breast cancer Family History Father Lung cancer Brother Prostate cancer Other No significant family history Surgical History History of appendectomy S/P mastectomy Social History Household Members: None Household Members Other:: none Housing: Assisted Living Facility Are you a primary healthcare representative to a significant other at home: No Do you presently have visiting nurse or other home services: No Alcohol intake: never Patient Tobacco Use Status: Never used Tobacco Smoked in Last 30 Days: No e-Cigarette/Vaping Use: Never Used Second Hand Smoke Exposure: No Use of substances other than those prescribed or required for medical reasons: No Advance Directives: Yes Advance Directives on File: Yes Advance Directives Date on File: 08/12/21 Do you have a plan to hurt others: No Plan service: No Current occupational status: retired Meds Allergies Allergy/AdvReac Type Severity Reaction Status Date / Time No Known Allergies Allergy Verified 10/29/24 16:54 [No Known Allergies*] Home Medications ?Medication ?Instructions ?Recorded ?Confirmed ?Last Taken ?Type escitalopram oxalate 10 mg tablet 1 tab PO DAILY 01/21/21 10/09/24 08/11/21 History gabapentin 300 mg capsule 1 cap PO BID 01/21/21 10/09/24 08/11/21 History lorazepam 0.5 mg tablet 1 tab PO BEDTIME PRN Anxiety 01/21/21 10/09/24 08/11/21 History meloxicam 15 mg tablet 1 tab PO DAILY 01/21/21 10/09/24 08/11/21 History methotrexate sodium (PF) 25 mg/mL 25 mg IM WE 01/21/21 10/09/24 07/04/23 History injection solution cholecalciferol (vitamin D3) 50 50 mcg PO DAILY 07/29/21 10/09/24 08/11/21 History mcg (2,000 unit) tablet (Vitamin D3) multivitamin 1 tab PO DAILY 07/29/21 10/09/24 08/11/21 History omeprazole 20 mg capsule,delayed 1 cap PO DAILY 07/29/21 10/09/24 08/11/21 History release polyethylene glycol 3350 17 17 g PO DAILY 01/16/22 10/09/24 Unknown History gram/dose oral powder (Miralax) Physical Exam 2 Vital Signs and Narrative: Vital Signs: Last Vital Signs Temp 99.8 F 10/29/24 22:20 Pulse 73 10/29/24 22:20 Resp 20 10/30/24 00:02 BP 116/63 10/29/24 22:20 Pulse Ox 96 10/29/24 22:20 O2 Del Method Room Air 10/29/24 22:20 BMI result Body Mass Index 31.2 Const: Other: Constitutional : Awake, interactive, not in distress Neck : Normal inspection, Supple Cardiovascular : RRR, no JVP, no lower extremity edema Respiratory : good bilateral air entry, no crackles, wheezes or rhonchi Gastrointestinal: soft, lax, Normal bowel sounds, Non tender, distended with moderate ascites Skin : Warm, Dry Neurological : Alert & oriented x3, No focal deficit Results Labs 10/29/24 17:07 10/29/24 17:07 Labs: Laboratory Results - last 24 hr 10/29/24 10/29/24 17:07 20:47 MCV 81.6 MCH 27.0 MCHC 33.1 RDW 18.7 H Plt Count 573 H D MPV 8.2 L Immature Gran % (Auto) 3.0 H Neut % (Auto) 72.3 Lymph % (Auto) 11.0 L [place] % (Auto) 10.8 Eos % (Auto) 2.7 Baso % (Auto) 0.2 Lymph # (Auto) 1.4 [place] # (Auto) 1.4 H Eos # (Auto) 0.3 Baso # (Auto) 0.0 Abs Immat Gran (auto) 0.38 H Absolute Neuts (auto) 9.1 H Absolute Nucleated RBC 0.000 Nucleated RBC % (auto) 0.0 Anion Gap 11 L Estim Creat Clear Calc 54.6 Estimated GFR > 60 Random Glucose 107 Lactic Acid 1.2 Calcium 8.2 L D Magnesium 2.0 Total Bilirubin 0.3 AST 59 H ALT 7 Alkaline Phosphatase 133 H Total Protein 5.7 L Albumin 2.4 L Lipase 52 Urine Color Yellow Urine Appearance Clear Urine pH 5.5 Ur Specific [place] >= 1.030 H Urine Protein Negative Urine Glucose (UA) Negative Urine Ketones Negative Urine Blood Negative Urine Nitrite Negative Ur Leukocyte Esterase Negative Imaging Radiologist's Impressions: Impressions Abdomen/Pelvis CT 10/29/24 17:01 IMPRESSION: 1. New marked ascites with new extensive omental cake and mesenteric masses. 2. Massively expanded endometrium with a lobular mass on the inferior surface of the uterus. 3. Findings are suggestive of metastatic endometrial carcinoma 4. Other incidental findings as described above including multiple hernias. Fleischner guidelines were followed. Electronically signed by: Jori George MD 10/29/2024 10:21 PM [facility] Assessment and Plan (1) Endometrial malignant neoplasm: Status: Acute (2) Ascites: Status: Acute Plan An 88 years old lady with PMH of HLD, GERD, Hx breast CA presenting with worsening abdominal distention and discomfort over last few weeks. Metastatic Uterine cancer complicated with ascites CT showed New marked ascites with new extensive omental cake and mesenteric masses with Massively expanded endometrium with a lobular mass on the inferior surface of the uterus. all suggestive of metastatic endometrial carcinoma to do paracentsis diagnostic and therapeutic Morphine for pain Ativan PRN for anxiety CW consult for Hospice measures at home as patient made it clear that she is not interested in any chemotherapy as she understands the extent of her illness Continue rest of her home medicaitons once reconciled No DVT PPx as part of comfort measures The patient will likely need 2 overnight hospital stay for ascites paracentesis and CW arrangements for home hospice. Quality Stroke Does the patient have a stroke diagnosis?: No VTE Prior VTE?: No VTE Risk Level:: Medical - low VTE Device Contraindication: Treatment Not Indicated VTE Drug Contraindication: Treatment Not Indicated
[2024-10-30] MEDS: LORazepam 0.5 MG TABLET PO ×2 (01:28→19:54)
[2024-10-30] MEDS: Morphine Sulfate 2 MG/ML CARTRIDGE IVPUSH ×4 (03:45→14:36)
--- NOTE | 2024-10-30 07:11 | HO.PM.IMPN ---
Subjective Subjective Date of Service: 10/30/24 Interval History: She is reporting discomfort in abdomen Review of Systems All other system reviewed and negative. Physical Exam Vital Signs: Vital Signs: Last Vital Signs Temp 97.1 F 10/30/24 03:33 Pulse 87 10/30/24 03:33 Resp 18 10/30/24 03:33 BP 130/60 10/30/24 03:33 Pulse Ox 93 10/30/24 03:33 O2 Del Method Room Air 10/30/24 03:33 BMI result Body Mass Index 30.0 General: AO X 3, no acute distress Resp: CTA bilateral CVS: S1,S2,RRR GI: soft, no distention Skin: No rash Neuro: motor grossly intact Psych: appropriate affect Objective Data Active Medications Acetaminophen (Acetaminophen 325 Mg Tablet) 650 mg PO Q6H PRN PRN Reason: Pain, Mild 1-3,fever,headache Calcium Carbonate (Calcium Carbonate 750 Mg Tab.Chew) 750 mg PO Q4H PRN PRN Reason: Heartburn Lorazepam (Lorazepam 0.5 Mg Tablet) 0.5 mg PO Q4H PRN PRN Reason: anxiety/restlessness Last Admin: 10/30/24 01:28 Dose: 0.5 mg Documented By: FLORENTIN Magnesium Hydroxide (Milk Of Magnesia 30 Ml Oral.Susp) 30 ml PO DAILY PRN PRN Reason: Constipation Melatonin (Melatonin 3 Mg Tablet) 6 mg PO BEDTIME PRN PRN Reason: Insomnia Morphine Sulfate (Morphine Sulfate 2 Mg/Ml Cartridge) 2 mg IVPUSH Q4H PRN; Protocol PRN Reason: Pain, Severe (Pain Scale 7-10) Last Admin: 10/30/24 03:45 Dose: 2 mg Documented By: JAXSON Ondansetron HCl (Ondansetron Hcl 4 Mg/2 Ml Vial) 4 mg IVPUSH Q8H PRN PRN Reason: Nausea and Vomiting Sodium Chloride (0.9 % Sodium Chloride Flush 3 Ml Syringe) 3 ml IVFLUSH QSHIFT MANI Labs 10/29/24 17:07 10/29/24 17:07 Labs: Laboratory Results - last 24 hr 10/29/24 10/29/24 17:07 20:47 MCV 81.6 MCH 27.0 MCHC 33.1 RDW 18.7 H Plt Count 573 H D MPV 8.2 L Immature Gran % (Auto) 3.0 H Neut % (Auto) 72.3 Lymph % (Auto) 11.0 L [place] % (Auto) 10.8 Eos % (Auto) 2.7 Baso % (Auto) 0.2 Lymph # (Auto) 1.4 [place] # (Auto) 1.4 H Eos # (Auto) 0.3 Baso # (Auto) 0.0 Abs Immat Gran (auto) 0.38 H Absolute Neuts (auto) 9.1 H Absolute Nucleated RBC 0.000 Nucleated RBC % (auto) 0.0 Anion Gap 11 L Estim Creat Clear Calc 54.6 Estimated GFR > 60 Random Glucose 107 Lactic Acid 1.2 Calcium 8.2 L D Magnesium 2.0 Total Bilirubin 0.3 AST 59 H ALT 7 Alkaline Phosphatase 133 H Total Protein 5.7 L Albumin 2.4 L Lipase 52 Urine Color Yellow Urine Appearance Clear Urine pH 5.5 Ur Specific [place] >= 1.030 H Urine Protein Negative Urine Glucose (UA) Negative Urine Ketones Negative Urine Blood Negative Urine Nitrite Negative Ur Leukocyte Esterase Negative Assessment and Plan (1) Small bowel obstruction: Status: Resolved Plan 87-year-old female with pertinent history of CAD, mood disorder, gastroesophageal reflux disease, prior abdominal surgery for ruptured apendice, recurrent SBO, rheumatoid arthritis presented with abdominal pain and is found to have SBO SBO, no N/V, refusing NGT -continue conservative management under the direction of momo -advance diet as dina Acute on chronic normocytic anemia, normal iron studies in the past, hematocrit crit dropped likely due to mucosal irritation from NG tube and gastritis, no bloody bowel movement, no melena continue IV PPI, follow CBC -Dr. Daily (GI) recommends Carafate qid , follow clinical course. Mood disorder.? -Resume p.o. mood stabilizers , when able to tolerate by mouth ?CAD.?hold aspirin and restart statin when able to take p.o. Rheumatoid arthritis.? Hold methotrexate. DVT prophylaxis: Mechanical, Heparin discontinued due to dark NG output. DNR/DNI.? Need for inpatient: SBO, NPO, has NGT. Quality Stroke Does the patient have a stroke diagnosis?: No VTE Prior VTE?: No VTE Risk Level:: Medical - low VTE Device Contraindication: Treatment Not Indicated VTE Drug Contraindication: Treatment Not Indicated
[2024-10-30] MEDS: 0.9 % Sodium Chloride Flush 3 ML SYRINGE IVFLUSH ×2 (07:41→15:20)
[2024-10-30] MEDS: Milk of Magnesia 30 ML ORAL.SUSP PO ×2 (08:01→21:08)
--- NOTE | 2024-10-30 08:48 | PHA.MEDREC ---
Addendum entered by Mukesh Pan RPh 10/30/24 09:11: Reviewed by [facility], did not call for list from [facility] as claims match what patient states. Claims show meloxicam once daily. Original Note: Pharmacy Consult ? Medication Reconciliation Pharmacy has completed the medication reconciliation. Spoke with patient and she states she is at the [facility] in [place], I went to her chart and there was no papaerwork and when I asked about her medications she was able to confirm her medications and how she is taking them. She states she has been taking the Aspirin 81mg tab with the Atorvastatin 40mg tab together at bedtime. She confirmed she takes 1 tablet of Lorazepam 0.5mg as needed at bedtime for sleep/anxiety and has been for a bit and its been working fine for the patient. She confirmed she is still taking the Meloxicam and confirmed the dose of 15mg and states she takes it twice daily and gets it mail-order. She confirmed the Methotrexate 25mg injection once a week on Wednesdays and states she never got to take it yesterday as she forgot to take it but states she took it last Monday 10/22. She confirmed shes been taking her Omeprazole 20mg once daily in the morning and is doing fine taking it like that she stated. She confirmed she is taking Vitamin B-12 5000mg once daily and Tylenol Arthritis extra strength and states she takes 2 tabs daily.
--- NOTE | 2024-10-30 10:44 | P.PNIM_ITS ---
Subjective Subjective Date of Service: 10/30/24 Interval History: Has abdominal pain and discomfort Physical Exam 2 Vital Signs: Vital Signs: Last Vital Signs Temp 98.0 F 10/30/24 08:00 Pulse 98 10/30/24 08:00 Resp 18 10/30/24 08:00 BP 127/58 L 10/30/24 08:00 Pulse Ox 93 10/30/24 08:00 O2 Del Method Room Air 10/30/24 08:00 BMI result Body Mass Index 30.0 Const: Other: General: AO X 3, in some discomfort Resp: CTA bilateral CVS: S1,S2,RRR GI: +BS, NT, no distention Skin: No rash Neuro: motor grossly intact Psych: appropriate affect Objective Data Active Medications Acetaminophen (Acetaminophen 325 Mg Tablet) 650 mg PO Q6H PRN PRN Reason: Pain, Mild 1-3,fever,headache Calcium Carbonate (Calcium Carbonate 750 Mg Tab.Chew) 750 mg PO Q4H PRN PRN Reason: Heartburn Lorazepam (Lorazepam 0.5 Mg Tablet) 0.5 mg PO Q4H PRN PRN Reason: anxiety/restlessness Last Admin: 10/30/24 01:28 Dose: 0.5 mg Documented By: FLORENTIN Magnesium Hydroxide (Milk Of Magnesia 30 Ml Oral.Susp) 30 ml PO DAILY PRN PRN Reason: Constipation Last Admin: 10/30/24 08:01 Dose: 30 ml Documented By: TIMMY Melatonin (Melatonin 3 Mg Tablet) 6 mg PO BEDTIME PRN PRN Reason: Insomnia Morphine Sulfate (Morphine Sulfate 2 Mg/Ml Cartridge) 2 mg IVPUSH Q2H PRN; Protocol PRN Reason: Pain, Severe (Pain Scale 7-10) Last Admin: 10/30/24 07:48 Dose: 2 mg Documented By: TIMMY Ondansetron HCl (Ondansetron Hcl 4 Mg/2 Ml Vial) 4 mg IVPUSH Q8H PRN PRN Reason: Nausea and Vomiting Sodium Chloride (0.9 % Sodium Chloride Flush 3 Ml Syringe) [facility] Last Admin: 10/30/24 07:41 Dose: 3 ml Documented By: TIMMY Labs 10/29/24 17:07 10/29/24 17:07 Labs: Laboratory Results - last 24 hr 10/29/24 10/29/24 17:07 20:47 MCV 81.6 MCH 27.0 MCHC 33.1 RDW 18.7 H Plt Count 573 H D MPV 8.2 L Immature Gran % (Auto) 3.0 H Neut % (Auto) 72.3 Lymph % (Auto) 11.0 L [place] % (Auto) 10.8 Eos % (Auto) 2.7 Baso % (Auto) 0.2 Lymph # (Auto) 1.4 [place] # (Auto) 1.4 H Eos # (Auto) 0.3 Baso # (Auto) 0.0 Abs Immat Gran (auto) 0.38 H Absolute Neuts (auto) 9.1 H Absolute Nucleated RBC 0.000 Nucleated RBC % (auto) 0.0 Anion Gap 11 L Estim Creat Clear Calc 54.6 Estimated GFR > 60 Random Glucose 107 Lactic Acid 1.2 Calcium 8.2 L D Magnesium 2.0 Total Bilirubin 0.3 AST 59 H ALT 7 Alkaline Phosphatase 133 H Total Protein 5.7 L Albumin 2.4 L Lipase 52 Urine Color Yellow Urine Appearance Clear Urine pH 5.5 Ur Specific [place] >= 1.030 H Urine Protein Negative Urine Glucose (UA) Negative Urine Ketones Negative Urine Blood Negative Urine Nitrite Negative Ur Leukocyte Esterase Negative Assessment and Plan (1) Endometrial malignant neoplasm: Status: Acute Plan An 88 years old lady with PMH of HLD, GERD, Hx breast CA presenting with worsening abdominal distention and discomfort over last few weeks. Metastatic Uterine cancer complicated by ascites CT showed New marked ascites with new extensive omental caking and mesenteric masses with Massively expanded endometrium with a lobular mass on the inferior surface of the uterus. all suggestive of metastatic endometrial carcinoma to do paracentsis diagnostic and therapeutic Morphine for pain Ativan PRN for anxiety CW consult for Hospice care, patient has made it clear that she is not interested in any chemotherapy as she understands the extent of her illness Continue rest of her home medicaitons once reconciled No DVT PPx as part of comfort measures Case management colaborating with hospice for transition to home Quality Stroke Does the patient have a stroke diagnosis?: No VTE Prior VTE?: No VTE Risk Level:: Medical - low VTE Device Contraindication: Treatment Not Indicated VTE Drug Contraindication: Treatment Not Indicated
--- NOTE | 2024-10-30 11:12 | MHC.CM.PN ---
Addendum entered by Marisol Awan 10/30/24 12:00: CM MET WITH [facility], SHE SAYS PT AGREED TO HOSPICE SERVICES PT WILL NEED A BED DELIVERED TO HER PENITENTIARY POSSIBLE DC HOME TOMORROW WITH [facility] BLS TRANSPORT Original Note: ANH MET WITH PT AND FAMILY AT BEDSIDE PT IS FROM THE LOCATED WITHIN [facility] AT BEDSIDE FOR INFORMATIONAL HCP ON FILE, KAYLEE JONES COMPLETED PCP: TRICIA SEWELL IMM DELIVERED DCP TBD PT WOULD LIKE TO DC HOME WITH HOSPICE, WORKING ON HOME CARE
--- NOTE | 2024-10-30 13:19 | PM.HEMONCCN ---
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 History of breast cancer. Patient: known to practice within the last 3 years Consult date: 10/30/24 Requesting Physician: Dr. June. Primary Care Provider: Vineet Hwang DO Family Provider: Vineet Hwang. Medical Summary: DIAGNOSIS: Metastatic ovarian cancer. History of breast cancer. HPI - Consult Narrative Reason for consult: Consult for: Likely metastatic ovarian carcinoma. History of breast Ca. Narrative: Ernestine Fung is a 88 year old lady with H/O breast CA presenting with worsening abdominal distention and discomfort over last few weeks. The patient reports that over the last few weeks she noticed increasing girth of her abdomen with increased discomfort up to her epigastric area. She denies any fever, chills, chest pain, palpitations, SOB, nausea, vomiting, diarrhea or urinary symptoms. No reported bleeding. Her daughter finally convinced her to come to the hospital for evaluation. In ED a CT scan of abdomen showed: New marked ascites with new extensive omental cake and mesenteric masses with Massively expanded endometrium with a lobular mass on the inferior surface of the uterus. All suggestive of metastatic endometrial carcinoma. Discussed the findings with the patient who is not interested in any kind of treatment and wants to be on comfort measures only. She was admitted for ascites management and discharge planning. Review of Systems Review of Systems: No fever, chills or weakness with decrease appetite No chest pain, palpitation No shortness of breath or coughing reports abdominal discomfort and increase distention No urinary symptoms No any rash or wounds PMFSH Medical History: HLD, GERD. Partial obstruction of small intestine Anemia Anxiety Anosmia Abdominal hernia Rheumatoid arteritis Osteoporosis Breast cancer Surgical History:) History of appendectomy, Status post mastectomy. Family History: Father Lung cancer Brother Prostate cancer Other No significant family history Social History:) Household Members: None Household Members Other:: none Housing: Assisted Living Facility Are you a primary manager of care to a significant other at home: No Do you presently have visiting nurse or other home services: No Alcohol intake: never Patient Tobacco Use Status: Never used Tobacco Review of Systems - Constitutional Reports system reviewed and no additional complaints, except as documented, Reports lack of energy, Reports weight loss - Eyes Reports system reviewed and no additional complaints, except as documented - ENT Reports system reviewed and no additional complaints, except as documented - Cardiovascular Reports system reviewed and no additional complaints, except as documented - Respiratory Reports no additional respiratory complaints - Gastrointestinal Reports system reviewed and no additional complaints, except as documented - Genitourinary Reports no additional female genitourinary complaints - Musculoskeletal Reports system reviewed and no additional complaints, except as documented - Integumentary/Breasts Skin/Breast: Reports no additional skin complaints - Neurologic Reports system reviewed and no additional complaints, except as documented - Psychiatric Reports system reviewed and no additional complaints, except as documented - Endocrine Reports no additional endocrine complaints - Hematologic/Lymphatic Reports system reviewed and no additional complaints, except as documented - Allergic/Immunologic Reports system reviewed and no additional complaints, except as documented Oncology Screenings - ECOG Performance Status ECOG Performance Status: 1 [facility] Medical History: Medical History (Last Reviewed 10/30/24 @ 03:31 by Rubens Carlos RN) Abdominal hernia Anemia Anosmia Anxiety Breast cancer Osteoporosis 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 Functional capacity: uses cane/walker Patient : No Family History: Family History (Last Reviewed 10/30/24 @ 01:03 by Mauri Watson MD) Father Lung cancer Brother Prostate cancer Other No significant family history Surgical History: Surgical History (Last Reviewed 10/30/24 @ 03:31 by Rubens Carlos RN) History of appendectomy S/P mastectomy Social History: Social History (Last Reviewed 10/30/24 @ 01:03 by Mauri Watson MD) Living Situation History: Household Members: None Household Members Other:: none Housing: Assisted Living Facility Are you a primary manager of care to a significant other at home: No Do you presently have visiting nurse or other home services: Yes Tobacco History: Patient Tobacco Use Status: Never used Tobacco e-Cigarette/Vaping Use: Never Used Second Hand Smoke Exposure: No Advance Directives: Advance Directives Date on File: 08/12/21 Occupation Assessmet: service: No Current occupational status: retired Home Medications and Allergies Current Medications: Current Medications Acetaminophen (Acetaminophen 325 Mg Tablet) 650 mg PO Q6H PRN PRN Reason: Pain, Mild 1-3,fever,headache Calcium Carbonate (Calcium Carbonate 750 Mg Tab.Chew) 750 mg PO Q4H PRN PRN Reason: Heartburn Lorazepam (Lorazepam 0.5 Mg Tablet) 0.5 mg PO Q4H PRN PRN Reason: anxiety/restlessness Last Admin: 10/30/24 01:28 Dose: 0.5 mg Magnesium Hydroxide (Milk Of Magnesia 30 Ml Oral.Susp) 30 ml PO DAILY PRN PRN Reason: Constipation Last Admin: 10/30/24 08:01 Dose: 30 ml Melatonin (Melatonin 3 Mg Tablet) 6 mg PO BEDTIME PRN PRN Reason: Insomnia Morphine Sulfate (Morphine Sulfate 2 Mg/Ml Cartridge) 2 mg IVPUSH Q2H PRN; Protocol PRN Reason: Pain, Severe (Pain Scale 7-10) Last Admin: 10/30/24 11:11 Dose: 2 mg Ondansetron HCl (Ondansetron Hcl 4 Mg/2 Ml Vial) 4 mg IVPUSH Q8H PRN PRN Reason: Nausea and Vomiting Last Admin: 10/30/24 11:08 Dose: 4 mg Sodium Chloride (0.9 % Sodium Chloride Flush 3 Ml Syringe) 3 ml IVFLUSH QSHIFT MANI Last Admin: 10/30/24 07:41 Dose: 3 ml Home Medications ?Medication ?Instructions ?Recorded ?Confirmed ?Type escitalopram oxalate 10 mg tablet 1 tab PO DAILY 01/21/21 10/30/24 History gabapentin 300 mg capsule 1 cap PO BID 01/21/21 10/30/24 History lorazepam 0.5 mg tablet 1 tab PO BEDTIME PRN Anxiety/Sleep 01/21/21 10/30/24 History meloxicam 15 mg tablet 1 tab PO DAILY Rheumatoid arthritis 01/21/21 10/30/24 History methotrexate sodium (PF) 25 mg/mL 25 mg IM WE 01/21/21 10/30/24 History injection solution multivitamin 1 tab PO DAILY 07/29/21 10/30/24 History polyethylene glycol 3350 17 17 g PO DAILY 01/16/22 10/30/24 History gram/dose oral powder (Miralax) acetaminophen 650 mg 1,300 mg PO DAILY 10/30/24 10/30/24 History tablet,extended release (Tylenol Arthritis Pain) aspirin 81 mg chewable tablet 81 mg PO BEDTIME 10/30/24 10/30/24 History cyanocobalamin (vitamin B-12) 5,000 mcg sublingual DAILY 10/30/24 10/30/24 History 5,000 mcg sublingual tablet (Vitamin B-12) omeprazole 20 mg capsule,delayed 20 mg PO DAILY@0630 10/30/24 10/30/24 History release Allergies Allergy/AdvReac Type Severity Reaction Status Date / Time No Known Allergies Allergy Verified 10/29/24 16:54 [No Known Allergies*] Physical Exam Vital signs: Vital Signs Temp 98.0 F 10/30/24 08:00 Pulse 98 10/30/24 08:00 Resp 18 10/30/24 08:00 BP 127/58 L 10/30/24 08:00 Pulse Ox 93 10/30/24 08:00 O2 Del Method Room Air 10/30/24 08:00 Intake & Output 10/29/24 10/30/24 10/30/24 18:59 06:59 18:59 Intake Total 500 / 500 Balance 500 / 500 Intake: Intake, IV Amount 500 / 500 0.9 % Sodium Chloride 500 ml @ 500 / 500 500 mls/hr IV .Q1H ONE Rx#: [id number] Other: Last Bowel Movement 10/27/24 10/27/24 Weight 79.9 kg 76.7 kg [place] Weight in Grams 51749 Weight 76.7 kg - Constitutional Present: moderate distress - Routine HEENT Exam Head: Present: normal inspection, normocephalic Eye: Present: normal appearance ENT: Present: mucous membranes moist - Routine Neck Exam Present: supple Hem/Onc Consult Result - Labs CBC & Chem 7: 10/29/24 17:07 10/29/24 17:07 Labs: Short CBC 10/29/24 Range/Units 17:07 WBC 12.6 H (4.8-10.8) X10*3/uL Hgb 7.9 L D (12.0-16.0) g/dl Hct 23.9 L (37.0-47.0) % Plt Count 573 H D (160-400) X10*3/uL BMP 10/29/24 17:07 Sodium 132 L Potassium 4.6 Chloride 103 Carbon Dioxide 23 BUN 22 H Creatinine 0.74 Calcium 8.2 L D Liver Function 10/29/24 Range/Units 17:07 Total Bilirubin 0.3 (0.0-1.0) mg/dL AST 59 H (5-31) U/L ALT 7 (0-31) U/L Alkaline Phosphatase 133 H (39-117) U/L Albumin 2.4 L (3.5-5.0) g/dL Urine 10/29/24 Range/Units 20:47 Urine Color Yellow Urine Appearance Clear Urine pH 5.5 (5.0-9.0) Ur Specific [place] >= 1.030 H (1.005-1.025) Urine Protein Negative (Neg-Trace) mg/dL Urine Glucose (UA) Negative (Negative) mg/dL Assessment and Plan Patient Active problem list reviewed?: Yes (1) Endometrial malignant neoplasm Status: Acute Assessment and plan: 88-year-old lady with previous history of breast carcinoma, status post mastectomy. Stage pT1B, pN0. She underwent Mastectomy. She was on Tamoxifen, since 06/20 till 06/25. She completed 5 years of the Tamoxifen. She had a mammogram in october. It was benign. Her bone density was done a couple of years ago. It revealed osteoporosis. She was started on Romsozumab, Evenily, monthly by the information technology security manager, for her bones. Hopefully that helped. She was also taking vitamin D supplements. She now presents with abdominal pain and distention. A CT scan of abdomen showed: New marked ascites with new extensive omental cake and mesenteric masses with Massively expanded endometrium with a lobular mass on the inferior surface of the uterus. all suggestive of metastatic endometrial carcinoma. I saw the patient in the presence of her daughter. Discussed the above findings with her. Explained the likely diagnosis and prognosis. PLAN: After further discussion the patient has elected to decline any kind of diagnostic workup or treatment for the abdominal malignancy. She elects to be on comfort measures. She has met with the case management. Will make referral to hospice. She will be [facility] to [facility], once the arrangements have been made. Thank you for the consult, I will follow along with you, CC: Vineet Hwang DO. - Time Spent With Patient Time Spent with Patient (in minutes): 30
--- NOTE | 2024-10-30 14:46 | PC.NURSE ---
patient and daughter is asking about meds from home ,also asking about Ramicaide infusion that is overdue,Dr. Grant notified
--- NOTE | 2024-10-30 17:16 | PC.NURSE ---
Patient returned after paracentesis,RLQ drsg intact,vs stable
[2024-10-30] MEDS: Lidocaine HCl 1 % MPF 5 ML VIAL 10 ML SUBCUT (17:24)
[2024-10-30 18:04] LABS: MN% 88.3 %; PMN% 11.7 %; RBC Peritoneal Fluid 0.005 X10*6/uL; WBC Peritoneal Fluid 0.734 X10*3/uL
[2024-10-30 18:47] LABS: BF Shift QC OK YES
[2024-10-30 18:48] LABS: Lymphocyte Peritoneal Fl 73 %; Other Peritioneal Fl 4 %
[2024-10-30 18:50] LABS: Neutrophils Peritoneal Fluid 8 %
[2024-10-30 18:51] LABS: Monocytes Peritoneal Fl 15 %
[2024-10-30] MEDS: NaPROXEN 500 MG TABLET PO (19:53)
[2024-10-30] MEDS: Atorvastatin Calcium 40 MG TABLET PO (19:53)
[2024-10-30] MEDS: Gabapentin 300 MG CAPSULE PO (19:53)
[2024-10-30] MEDS: Aspirin 81 MG TAB.CHEW PO (19:54)
[2024-10-30] MEDS: Acetaminophen 325 MG TABLET 650 MG PO (21:08)
--- NOTE | 2024-10-30 21:52 | PC.NURSE ---
Pt lost IV access, refused another IV. Dr. Watson aware.
[2024-10-31 03:28] VITALS: BP 119/64; PULSE 80; RESP 16; TEMP 36.4; O2SAT 93
[2024-10-31] MEDS: Omeprazole 20 MG CAPSULE.DR PO (05:57)
[2024-10-31] MEDS: Acetaminophen 325 MG TABLET 650 MG PO (06:00)
[2024-10-31 07:20] VITALS: BP 110/65; PULSE 74; RESP 17; TEMP 36.2; O2SAT 92
[2024-10-31 07:47] LABS: Albumin Peritoneal Fluid 2.2
[2024-10-31 07:48] LABS: LDH Peritoneal Fluid 578
[2024-10-31 07:50] LABS: pH Peritoneal Fluid 7.29
[2024-10-31] MEDS: polyethylene glycoL 3350 17 GM POWD.PACK PO (08:24)
[2024-10-31] MEDS: Gabapentin 300 MG CAPSULE PO (08:24)
[2024-10-31] MEDS: Escitalopram Oxalate 10 MG TABLET PO (08:24)
--- NOTE | 2024-10-31 14:33 | PM.DS ---
DS: Providers Provider Date of Service: 10/31/24 Date of admission: 10/30/24 00:30 Date of discharge: 10/31/24 Primary care physician: Vineet Hwang DO Consults: 10/30/24 12:02 Consult to Hematology / Oncology Routine Consulting Provider: [facility] [place] Oncology/Hematology Reason for consultation: uterine cancer Attending physician on discharge: Tamiko Paul Discharging clinician: Tamiko Paul DS: Diagnosis Discharge Diagnosis (1) Endometrial malignant neoplasm: Status: Acute DS: Summary Hospital Course Hospital Course: HPI :88 years old lady with PMH of HLD, GERD, Hx breast CA presenting with worsening abdominal distention and discomfort over last few weeks. The patient reports that over the last few weeks she noticed increasing girth of her abdomen with increase discomfort up to her epigastric area. she denies any fever , chills, chest pain, palpitations, SOB, nausea, vomiting, diarrhea or urinary symptoms. No reported bleeding. Her daughter finally convinced her to come to the hospital for evaluation. In ED a CT scan of abdomen showed New marked ascites with new extensive omental cake and mesenteric masses with Massively expanded endometrium with a lobular mass on the inferior surface of the uterus. all suggestive of metastatic endometrial carcinoma. Discussed the findings with the patient who is not interested in any kind of treatment and wants to be on comfort measures only. will be admitted for ascites management and discharge planning. hospital course: 88 years old lady with PMH of HLD, GERD, Hx breast CA presenting with worsening abdominal distention and discomfort over last few weeks.Metastatic Uterine cancer complicated by ascites: CT showed New marked ascites with new extensive omental caking and mesenteric masses with Massively expanded endometrium with a lobular mass on the inferior surface of the uterus. all suggestive of metastatic endometrial carcinoma to do paracentsis diagnostic and therapeutic - seems more lymphocytic predominace and ascitis culture -preliminary negative. Discussed with IR Dr Ryan currently does not recommend ascites drain placed since patient had 1st time paracentesis-unclear if patient needs drain. patient will be going home with hospice. plan: patient will go home with hospice. Above management discussed with the patient and her family at bedside in detail length. Time spent 40 minute. Time Attestation Total time managing care of this patient today: 40 mintues. Discharge Coordination Time (in mins): 40 min Quality: Safe Use of Opioids Does Pt have an Active Cancer Diagnosis on the Problem List?: No Quality: Stroke Does the patient have a stroke diagnosis?: No Physical Exam Vital Signs: Vital Signs: Last Vital Signs Temp 97.2 F 10/31/24 07:20 Pulse 74 10/31/24 07:20 Resp 17 10/31/24 07:20 BP 110/65 10/31/24 07:20 Pulse Ox 92 10/31/24 07:20 O2 Del Method Room Air 10/31/24 07:20 BMI result Body Mass Index 30.0 General: AO X 3, in some discomfort Resp: CTA bilateral CVS: S1,S2,RRR GI: +BS, NT, no distention Skin: No rash Neuro: motor grossly intact Psych: appropriate affect DS: Data Data Completed and Pending Pending studies at discharge: Pending at discharge 10/30/24 16:00 Cytology [PTH] Routine Labs on day of discharge: Laboratory Results - last 24 hr 10/30/24 16:38 Peritoneal pH 7.29 Peritoneal WBC 0.734 Peritoneal RBC 0.005 Periton Neutrophils 8 Periton Lymphocytes 73 Peritoneal Monocytes 15 Peritoneal Other Cells 4 Peritoneal Albumin 2.2 Peritoneal LDH 578 Preliminary micro results at discharge 10/30/24 16:38 Anaerobic Culture - Preliminary Ascites Fluid No growth to date. Body Fluid Culture - Preliminary No growth to date. Imaging Chest x-ray: Radiologist's impression: ITS Impressions Abdomen/Pelvis CT 10/29/24 17:01 IMPRESSION: 1. New marked ascites with new extensive omental cake and mesenteric masses. 2. Massively expanded endometrium with a lobular mass on the inferior surface of the uterus. 3. Findings are suggestive of metastatic endometrial carcinoma 4. Other incidental findings as described above including multiple hernias. Fleischner guidelines were followed. Electronically signed by: Jori George MD 10/29/2024 10:21 PM [facility] Discharge Plan Discharge Anticipated Discharge Date/Time: 10/31/24 14:05 Patient Disposition: Home, Self-Care Discharge Diagnosis: Metastatic Uterine cancer complicated by ascites Referrals: Vineet Hwang DO [Primary Care Provider] - 1 Week Discharge Medications: Continued meloxicam 15 mg tablet 1 tab PO DAILY lorazepam 0.5 mg tablet 1 tab PO BEDTIME PRN (Reason: Anxiety/Sleep) gabapentin 300 mg capsule 1 cap PO BID escitalopram oxalate 10 mg tablet 1 tab PO DAILY methotrexate sodium (PF) 25 mg/mL solution 25 mg IM WE polyethylene glycol 3350 [Miralax] 17 gram/dose Powder 17 g PO DAILY atorvastatin 40 mg Tablet 40 mg PO BEDTIME Qty: 90 0RF multivitamin Tablet 1 tab PO DAILY acetaminophen [Tylenol Arthritis Pain] 650 mg Tablet Extended Release 1,300 mg PO DAILY cyanocobalamin (vitamin B-12) [Vitamin B-12] 5,000 mcg Tablet, Sublingual 5,000 mcg SUBLINGUAL DAILY aspirin 81 mg tablet,chewable 81 mg PO BEDTIME omeprazole 20 mg capsule,delayed release(DR/EC) 20 mg PO DAILY@0630 Discharge Orders: Discharge Order (Routine); Ordered 10/31/24 Ordered By: Tamiko Paul Diet: Advance to usual diet Activity on Discharge: As tolerated Stand Alone Forms: Patient Portal Discharge page Print Language: Kiswahili Care Plan Goals: 88 years old lady with PMH of HLD, GERD, Hx breast CA presenting with worsening abdominal distention and discomfort over last few weeks.Metastatic Uterine cancer complicated by ascites: CT showed New marked ascites with new extensive omental caking and mesenteric masses with Massively expanded endometrium with a lobular mass on the inferior surface of the uterus. all suggestive of metastatic endometrial carcinoma to do paracentsis diagnostic and therapeutic - seems more lymphocytic predominace and ascitis culture -preliminary negative. patient will be going home with hospice. Health Concerns: as above. Plan of Treatment: as above. Assessment: as above. Patient Instructions: Hospice Care (GEN) Discharge Date/Time: 10/31/24 16:01
--- NOTE | 2024-10-31 15:32 | MHC.CM.PN ---
PT WILL DC HOME TODAY, [facility] WILL MEET HER AT HER HOME [facility] HAS ALREADY SENT MEDS TO [facility] PTS DAUGHTERS WILL BE STAYING WITH HER AT THE [facility] UNTIL HER CARE IS ARRANGED BLS TRANSPORT BOOKED FOR 1530 HOURS WITH [facility]
== END 2024-10-31 16:01 | disposition home or self-care (01) | DRG 755 ==
LOC: HO.ED 23:27 → HO.EDOVER 10-30 00:38 → HO.S3 10-30 02:01
PROVIDERS: Physician Assistant Medical; Student in an Organized Health Care Education/Training Program; Admitting Provider Student in an Organized Health Care Education/Training Program; Emergency Provider Emergency Medicine; PCP Internal Medicine; Visit Provider Internal Medicine
PROC: 0W9G3ZZ Drainage of Peritoneal Cavity, Percutaneous Approach (ICD-10-PCS; principal; 2024-10-30 13:00)
DX: C54.1 Malignant neoplasm of endometrium (principal); C78.6 Secondary malignant neoplasm of retroperitoneum and peritoneum; R18.8 Other ascites; D63.0 Anemia in neoplastic disease; I25.10 Atherosclerotic heart disease of native coronary artery without angina pectoris; Z66 Do not resuscitate; G89.3 Neoplasm related pain (acute) (chronic); M06.9 Rheumatoid arthritis, unspecified; Z51.5 Encounter for palliative care; Z85.3 Personal history of malignant neoplasm of breast; Z79.82 Long term (current) use of aspirin; Z79.631 Long term (current) use of antimetabolite agent; Z79.899 Other long term (current) drug therapy
CPT/HCPCS: 36415; 49083; 74177; 80053; 81003; 82042; 83605; 83615; 83690; 83735; 83986; 85025; 87070; 87073; 87205; 88112; 88305; 88341; 88342; 88360; 89051; 93005; 99285; J2003; J2270; J2405; Q9967

== ENCOUNTER → 2024-10-29 17:01 | Outpatient (BNV) | payer MEDICARE, SELFPAY | PROVIDERS: Admitting Provider Student in an Organized Health Care Education/Training Program; Emergency Provider Emergency Medicine; PCP Internal Medicine; Visit Provider Internal Medicine Cardiovascular Disease | DX: R10.9 Unspecified abdominal pain (principal) | CPT/HCPCS: 93010 ==

== ENCOUNTER 2024-10-30 00:30 | Outpatient (BNV) | payer MEDICARE, SELFPAY | END 2024-10-30 15:45 | PROVIDERS: Admitting Provider Student in an Organized Health Care Education/Training Program; Emergency Provider Emergency Medicine; PCP Internal Medicine; Visit Provider Student in an Organized Health Care Education/Training Program | DX: R18.8 Other ascites (principal) | CPT/HCPCS: 49083 ==

== ENCOUNTER → 2024-10-30 00:30 | Outpatient (BNV) | payer MEDICARE, SELFPAY | PROVIDERS: Admitting Provider Student in an Organized Health Care Education/Training Program; Emergency Provider Emergency Medicine; PCP Internal Medicine; Visit Provider Student in an Organized Health Care Education/Training Program | DX: C54.1 Malignant neoplasm of endometrium (principal) | CPT/HCPCS: 99239 ==

== ENCOUNTER → 2024-10-30 00:30 | Outpatient (BNV) | payer MEDICARE, SELFPAY | PROVIDERS: Admitting Provider Student in an Organized Health Care Education/Training Program; Emergency Provider Emergency Medicine; PCP Internal Medicine; Visit Provider Internal Medicine Medical Oncology | DX: C54.1 Malignant neoplasm of endometrium (principal) | CPT/HCPCS: 99222 ==